=== PATIENT | male | born 1955 | race Caucasian/White ===

== ENCOUNTER → 2017-07-07 14:44 | Outpatient (CLI) | payer BC, SELFPAY ==
[2017-07-07 16:55] LABS: Estimated Glomerular Filt Rate > 60.0 mL/min (>60)
== END ==
PROVIDERS: PCP Family Medicine; Visit Provider Internal Medicine Gastroenterology
DX: K57.32 Diverticulitis of large intestine without perforation or abscess without bleeding (principal)
CPT/HCPCS: 36415; 82565

== ENCOUNTER 2017-09-29 01:15 | Inpatient (IN) | payer BC, SELFPAY ==
[2017-09-29] VITALS (11 sets, daily range): BP systolic 125–156; BP diastolic 72–97; PULSE 57–92; RESP 14–18; TEMP 35.9–36.9; O2SAT 90–100; BMI 30.4; BMI 30.3
--- NOTE | 2017-09-29 | DI.RAD.S_ITS ---
PROCEDURE: XR CHEST 1V INDICATIONS: Nasogastric tube placement TECHNIQUE: One view of the chest was acquired. COMPARISON: [facility], CR, XR ACUTE ABDOMEN SERIES, 09/29/2017, 1:08. [facility], CT, CT ABDOMEN PELVIS W CON, 09/29/2017, 1:57. FINDINGS: Surgical changes and devices: Cholecystectomy clips. NG tube is in place which projects across the GE junction. Lungs and pleura: No pleural effusions or pneumothorax. Lungs are clear. Mediastinum: Mediastinal contours appear normal. Heart size is normal. Bones and chest wall: No suspicious bony lesions. Overlying soft tissues appear unremarkable. IMPRESSION: NG tube projects across the GE junction. Dictated by: Rosie Martins MD, PhD on 09/29/2017 at 9:14 Approved by: Rosie Martins MD, PhD on 09/29/2017 at 9:16
--- NOTE | 2017-09-29 01:28 | DI.RAD.S_ITS ---
PROCEDURE: XR ACUTE ABDOMEN SERIES INDICATIONS: Abdominal pain, no bowel movement x4 days, no flatus TECHNIQUE: One view chest and two views of the abdomen were acquired. COMPARISON: [facility], CR, XR CHEST 1V, 09/29/2017, 5:47. FINDINGS: Surgical changes and devices: Cholecystectomy clips. Chest: Lungs are clear. Heart size is normal. No pleural effusions. No pneumoperitoneum. Abdomen: Gaseous distention of multiple loops of small and large bowel. Scattered air-fluid levels are noted a few of which have differential heights. No suspicious calcifications. Visualized solid organ contours appear normal. Bones: No suspicious bony lesions. IMPRESSION: Findings concerning for early or partial small bowel obstruction. Dictated by: Rosie Martins MD, PhD on 09/29/2017 at 9:10 Approved by: Rosie Martins MD, PhD on 09/29/2017 at 9:11
[2017-09-29] MEDS: SODIUM CHLORIDE 0.9% 1,000 ML 150 ML IV (01:50)
[2017-09-29 01:51] LABS: Add Manual Diff / Slide Review NO; Eosinophils Percent Auto 1.6 % (2-4); Hematocrit 41.5 % (41-53); Hemoglobin 14.3 g/dL (13.5-17.5); Lymphocytes Percent Auto 21.7 % (25-40); Mean Corpuscular HGB Conc 34.4 % (30-36); Mean Corpuscular Hemoglobin 30.2 PG (26-34); Mean Corpuscular Volume 87.7 fL (80-100); Monocytes Percent Auto 8.3 % (3-14); Neutrophils Absolute Auto 8100 /uL (3000-5900); Neutrophils Percent Auto 67.4 % (50-75); Platelet Count 537 X10^3/uL (150-400); Red Blood Cell Count 4.73 X10^6/uL (4.5-5.9); White Blood Cell Count 12.1 X10^3/uL (4.5-11.0)
--- NOTE | 2017-09-29 01:54 | DI.CT.S_ITS ---
PROCEDURE: CT ABDOMEN PELVIS W CON INDICATIONS: severe abdomen pain, distension, no BM/flatus TECHNIQUE: After the administration of intravenous contrast, 5 mm thick sections acquired from the diaphragm to the symphysis. 5 mm coronal and sagittal reformats were acquired. For radiation dose reduction, the following was used: automated exposure control, adjustment of mA and/or kV according to patient size. COMPARISON: [facility], CT, ABDOMEN/PELVIS WITH CONTRAST, 12/01/2016, 15:21. FINDINGS: Image quality: Excellent. ABDOMEN: Lung bases: Lung bases are clear. Heart size is normal. Solid organs: Liver is normal in size and enhancement. Gallbladder is surgically absent. Biliary system is non dilated. Pancreas enhances normally. Spleen is normal in size and enhancement. No adrenal nodules. Kidneys demonstrate normal size and enhancement, without hydronephrosis. Peritoneum and bowel: Bowel loops of the upper abdomen demonstrate normal wall thickness and caliber. The descending colon wall thickness is mildly increased as the abdomen/pelvis junction is approached. No free fluid or air. Nodes and vessels: No retroperitoneal or mesenteric adenopathy by size criteria. Aorta and inferior vena cava are normal in size. Miscellaneous: No ventral hernias. PELVIS: Genitourinary: Bladder wall thickness is normal. Miscellaneous: No inguinal hernias or adenopathy. There is a masslike mural thickening involving the distal descending colon in addition to diverticulosis and mild to moderate mural thickening of the descending colon as it approaches the abdomen/pelvis junction. A masslike extension from the colonic wall projects posteriorly, at the descending colon-sigmoid colon junction. This mass is hyperenhancing, and measures up to 2.6 x 3.3 cm, suspicious for representing a colonic malignancy that has extended into the adjacent pericolonic fat. Mild adjacent edema and spiculation is present, at the left lower quadrant. No enlarged lymph nodes are associated, however. Bones: No suspicious bony lesions. No vertebral body compression fractures. IMPRESSION: Malignant appearing masslike structure at the junction of the descending [id number] colon with a moderate degree of pericolonic edema and spiculation, and a masslike extension of abnormal enhancing soft tissue into the adjacent paracolonic fat measuring up to 3.3 cm. Invasive colon carcinoma is the likely cause. Above the area of the mass the descending colon demonstrates abnormal mural thickening that appears concentric, tapering, and extends almost to the splenic flexure. This may represent reactive change to a high-grade obstruction more inferiorly. Colonic mild distention by stool is present above this level. Through the abdomen and pelvis no definite distant metastatic disease or regional adenopathy is found. Note: These findings are concordant with the preliminary interpretation, which was discussed in person with the emergency room physician caring for the patient. Dictated by: Xavier Carlson M.D. on 09/29/2017 at 10:24 Approved by: Xavier Carlson M.D. on 09/29/2017 at 10:33
[2017-09-29] MEDS: HYDROMORPHONE 1 MG INJ IV ×2 (01:56→03:20)
[2017-09-29 01:59] LABS: Alanine Aminotransferase 27 IU/L (21-72); Albumin 4.3 g/dL (3.5-5.0); Albumin Globulin Ratio 1.3 (1.0-2.8); Alkaline Phosphatase 137 U/L (38-126); Aspartate Aminotransferase 35 IU/L (17-59); Bilirubin Total 0.4 mg/dL (0.2-1.3); Blood Urea Nitrogen 16 mg/dL (9-20); Calcium 9.5 mg/dL (8.4-10.2); Carbon Dioxide 31 mmol/L (22-32); Chloride 100 mmol/L (98-107); Estimated Glomerular Filt Rate > 60.0 mL/min (>60); Globulin 3.4 g/dL (1.7-4.1); Glucose 167 mg/dL (80-110); HEMOLYSIS < 15 (0-50); Lipase 27 U/L (23-300); Potassium 3.8 mmol/L (3.4-5.1); Sodium 143 mmol/L (137-145); Total Protein 7.7 g/dL (6.3-8.2)
--- NOTE | 2017-09-29 02:05 | ED.ABDPAIN ---
HPI - Abdominal Pain General Chief Complaint: Abdominal Pain Stated Complaint: ABDOMINAL PAIN, BAD Time Seen by Provider: 09/29/17 01:28 Source: patient Mode of arrival: ambulatory Limitations: no limitations History of Present Illness HPI narrative: 61-year-old male with severe abdominal pain for the past 3-4 days. He admits to nausea but denies any vomiting. He has had no bowel movement the past 4 days and denies even passing flatus. He does have a longstanding history of abdominal complaints including a recent diagnosis of diverticulitis as evidenced by a CT scan at [facility]. 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 His abdomen is become quite swollen and tender over the past few days. He denies any history of obstruction. He denies any fever or chills. His pain is worse when he moves and improves MD complaint: abdominal pain Onset (ago): day(s) Pain Consistency: constant Location: diffuse Severity: severe Severity scale (1-10): 10 Quality: cramping and aching Radiation: none Migration to: no migration Relieving factors: rest Exacerbating factors: movement Associated symptoms: nausea Related Data Home Medications Medication Instructions Recorded Confirmed amoxicillin-pot clavulanate 1 tab PO BID 09/29/17 09/29/17 fluticasone-salmeterol [Advair 1 puff INHALATION BID 09/29/17 09/29/17 Diskus] Previous Rx's Medication Instructions Recorded albuterol sulfate [Ventolin HFA] 2 - 4 puff INH Q4HP PRN #1 ea 01/18/16 Allergies Allergy/AdvReac Type Severity Reaction Status Date / Time No Known Allergies Allergy Uncoded 05/20/17 12:40 Review of Systems Review of Systems All systems reviewed & are unremarkable except as noted in HPI and below Constitutional Denies chills, Denies fever(s), Denies lethargy and Denies weakness Eyes Denies change in vision, Denies eye discharge, Denies irritation and Denies loss of vision ENT Ears, Nose, Mouth, and Throat: Denies change in voice, Denies neck pain and Denies sore throat Cardiovascular Denies chest pain, Denies irregular heart rhythm, Denies lightheadedness, Denies palpitations, Denies dyspnea, Denies dyspnea on exertion and Denies orthopnea Respiratory Denies cough, Denies dyspnea, Denies dyspnea on exertion and Denies wheezing Gastrointestinal Gastrointestinal: Reports abdominal pain, Denies change in bowel habits, Denies diarrhea, Reports nausea and Denies vomiting Genitourinary Denies hematuria, Denies flank pain, Denies urinary incontinence and Denies urinary urgency Musculoskeletal Denies neck pain Integumentary/Breasts Denies pruritus, Denies erythema, Denies rash and Denies wounds Neurologic Denies confusion, Denies loss of vision and Denies weakness Psychiatric Denies anxiety, Denies confusion, Denies depression, Denies homicidal ideation and Denies suicidal ideation Endocrine Denies palpitations Hematologic/Lymphatic Denies easy bruising Allergic/Immunologic Denies wheezing [facility], [facility] Medical History Asthma (Acute) Diverticulitis (Acute) Personal history of colonic polyps (Acute) Surgical History History of cholecystectomy (Acute) History of colonoscopy (Acute) History of umbilical hernia repair (Acute) Status post cholecystectomy Family History: Reviewed 09/29/17 by Roger Fiore MD Social History household members: spouse Smoking Status: Former smoker alcohol intake: current Exam Narrative Exam Narrative: 61-year-old male in significant distress, clutching his abdomen and an emesis bag Initial Vital Signs Initial Vital Signs: Vital Signs Temperature 98.4 F 09/29/17 01:24 Pulse Rate 92 H 09/29/17 01:24 Respiratory Rate 18 09/29/17 01:24 Blood Pressure 156/97 H 09/29/17 01:24 Pulse Oximetry 97 09/29/17 01:24 Const General: cooperative, well developed and acute distress Nutritional Appearance: well nourished Orientation: alert, awake, oriented x3 and not confused [facility] Head: normocephalic and atraumatic Ears: external ears normal and TM's normal bilaterally Nose: external nose normal and No nasal discharge Face and sinus: sinuses nontender, face symmetric, no sinus tenderness and No dry mucous membranes Mouth: oral mucosae normal and moist mucous membranes Teeth and gingiva: dentition normal Throat: tonsils normal and uvula midline Eyes General: appearance normal, both eyes and all related structures Eyelids: eyelids normal Conjunctivae: conjunctivae normal Sclera: sclerae normal Pupils: PERRL EOM: EOM intact bilaterally Chest Chest: normal inspection of the chest Resp Effort & Inspection: normal respiratory effort, able to speak in complete sentences, no respiratory distress and no use of accessory muscles Auscultation: clear to auscultation bilaterally, no rales, no rhonchi and no wheezes GI Inspection: distended Palpation: soft, no hepatosplenomegaly, guarding, No pulsatile mass and tender Auscultation: normal bowel sounds and hypoactive bowel sounds Back/Spine/Pelvis Back: No CVA tenderness Cervical Spine: cervical ROM normal and No pain with cervical ROM Thoracic/Lumbar Spine: thoracic and lumbar spine normal to inspection Neuro General: alert, oriented x3, gait normal and no focal motor deficits Speech: speech normal Course Decision to Admit Date: 09/29/17 Decision to Admit time: 02:00 Orders Ordered: ED Orders 09/30/17 05:00 Basic Metabolic Panel Urgent Complete Blood Count AUTO DIFF Urgent Type and Screen Urgent 09/30/17 06:00 XR acute abdomen series Urgent Albuterol (Ventolin) 2.5 mg INH [id number] [facility] Last Admin: 09/29/17 18:11 Dose: 2.5 mg Admin: 09/29/17 13:28 Dose: Admin: 09/29/17 08:43 Dose: 2.5 mg Enoxaparin Sodium (Lovenox) 40 mg SUBCUT DAILY [facility] Last Admin: 09/29/17 08:48 Dose: 40 mg Lactated Ringer's (Lactated Ringers) 1,000 mls @ 125 mls/hr IV CONT [facility] Last Admin: 09/30/17 04:34 Dose: 125 mls/hr Infusion: 09/30/17 04:34 Dose: 125 mls/hr Admin: 09/29/17 21:29 Dose: 125 mls/hr Infusion: 09/29/17 21:29 Dose: 125 mls/hr Admin: 09/29/17 14:23 Dose: 125 mls/hr Infusion: 09/29/17 14:23 Dose: 125 mls/hr Admin: 09/29/17 07:08 Dose: 125 mls/hr HYDROMORPHONE BLAST FURNACE OPERATOR (Dilaudid 6 Mg/30 Ml) 6 mg in 30 mls @ 0 mls/hr IV Q8HR [facility] Last Admin: 09/29/17 21:30 Dose: 0 mls/hr Admin: 09/29/17 14:24 Dose: 1.2 mls/hr Naloxone HCl (Narcan) 0.2 mg IV Q2MIN PRN; Protocol PRN Reason: Opiate Reversal Ondansetron HCl (Zofran) 4 mg IV Q4HR PRN PRN Reason: Nausea And Vomiting Last Admin: 09/29/17 07:18 Dose: 4 mg Pantoprazole Sodium (Protonix) 40 mg IV DAILY [facility] Last Admin: 09/29/17 08:48 Dose: 40 mg Discontinued Medications Hydromorphone HCl (Dilaudid) 1 mg IV NOW ONE Stop: 09/29/17 01:55 Last Admin: 09/29/17 01:56 Dose: 1 mg Hydromorphone HCl (Dilaudid) 1 mg IV NOW ONE Stop: 09/29/17 03:19 Last Admin: 09/29/17 03:20 Dose: 1 mg Sodium Chloride (Normal Saline 0.9%) 1,000 mls @ 150 mls/hr IV CONT [facility] Last Admin: 09/29/17 01:50 Dose: 150 mls/hr HYDROMORPHONE BLAST FURNACE OPERATOR (Dilaudid 6 Mg/30 Ml) 6 mg in 30 mls @ 0 mls/hr IV Q8HR [facility] Magnesium Citrate (Magnesium Citrate) 300 ml PO NOW ONE Stop: 09/29/17 06:56 Last Admin: 09/29/17 08:48 Dose: 300 ml Polyethylene Glycol (Miralax) 17 gm PO NOW ONE Stop: 09/29/17 18:58 Last Admin: 09/29/17 19:49 Dose: 17 gm Sodium Biphosphate/Sodium Phosphate (Fleet Enema) 1 each MT NOW ONE Stop: 09/29/17 06:53 Last Admin: 09/29/17 07:08 Dose: 1 each Sodium Biphosphate/Sodium Phosphate (Fleet Enema) 1 each MT NOW ONE Stop: 09/29/17 14:01 Last Admin: 09/29/17 14:24 Dose: 1 each Consultations Consultation #1: Called to Dr. Fiore whom is happy to accept this patient and will see him in the emergency department Vital Signs - 8 hr 09/30/17 00:20 09/30/17 00:30 09/30/17 03:30 Temperature 96.5 F L 97.5 F L Pulse Rate 89 59 L Respiratory Rate 16 18 Blood Pressure 137/97 H 157/76 H Pulse Oximetry 97 97 94 MDM - Abdominal Pain Medical Records Attestation: I reviewed the patient's medical records. Lab Data Attestation: I reviewed the patient's lab results. Result diagrams: 09/29/17 01:35 09/29/17 01:35 Lab Results 09/29/17 09/29/17 09/29/17 Range/Units 01:35 01:35 01:35 WBC 12.1 H (4.5-11.0) X10^3/uL RBC 4.73 (4.5-5.9) X10^6/uL Hgb 14.3 (13.5-17.5) g/dL Hct 41.5 (41-53) % MCV 87.7 (80-100) fL MCH 30.2 (26-34) PG MCHC 34.4 (30-36) % RDW 13.0 (11.6-14.8) % Plt Count 537 H (150-400) X10^3/uL Neut % (Auto) 67.4 (50-75) % Lymph % (Auto) 21.7 L (25-40) % [place] % (Auto) 8.3 (3-14) % Eos % (Auto) 1.6 L (2-4) % Baso % (Auto) 1.0 (0-2) % Neut # (Auto) 8100 H (1102-4704) /uL Sodium 143 (137-145) mmol/L Potassium 3.8 (3.4-5.1) mmol/L Chloride 100 (98-107) mmol/L Carbon Dioxide 31 (22-32) mmol/L BUN 16 (9-20) mg/dL Creatinine 0.80 (0.66-1.25) mg/dL Estimated GFR > 60.0 (>60) mL/min BUN/Creatinine Ratio 20.0 (6-22) Glucose 167 H (80-110) mg/dL Lactate 0.9 (0.7-2.1) mmol/L Calcium 9.5 (8.4-10.2) mg/dL Total Bilirubin 0.4 (0.2-1.3) mg/dL AST 35 (17-59) IU/L ALT 27 (21-72) IU/L Alkaline Phosphatase 137 H (38-126) U/L Total Protein 7.7 (6.3-8.2) g/dL Albumin 4.3 (3.5-5.0) g/dL Globulin 3.4 (1.7-4.1) g/dL Albumin/Globulin Ratio 1.3 (1.0-2.8) Lipase 27 (23-300) U/L Imaging Data CT scan - abdomen: Radiologist's impression: Moderate to high-grade colon obstruction at the level of complex lumen narrowing and masslike pericolonic soft tissue density involving the distal descending proximal sigmoid colon Discharge Plan Departure Patient Disposition: Admitted As Inpatient Clinical Impression: Bowel obstruction Discharge Date/Time: 09/29/17 05:20 Interventions: ED Discharge Assessment Last Done: 09/29/17 06:47 Admit Date/Time: 09/29/17 03:51 Admit Provider: Roger Fiore
--- NOTE | 2017-09-29 02:09 | ED_ITS ---
HPI - Abdominal Pain General Chief Complaint: Abdominal Pain Stated Complaint: ABDOMINAL PAIN, BAD Time Seen by Provider: 09/29/17 01:28 Source: patient Mode of arrival: ambulatory Limitations: no limitations History of Present Illness HPI narrative: 61-year-old male with severe abdominal pain for the past 3-4 days. He admits to nausea but denies any vomiting. He has had no bowel movement the past 4 days and denies even passing flatus. He does have a longstanding history of abdominal complaints including a recent diagnosis of diverticulitis as evidenced by a CT scan at [facility]. 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 His abdomen is become quite swollen and tender over the past few days. He denies any history of obstruction. He denies any fever or chills. His pain is worse when he moves and improves MD complaint: abdominal pain Onset (ago): day(s) Pain Consistency: constant Location: diffuse Severity: severe Severity scale (1-10): 10 Quality: cramping and aching Radiation: none Migration to: no migration Relieving factors: rest Exacerbating factors: movement Associated symptoms: nausea Related Data Home Medications Medication Instructions Recorded Confirmed amoxicillin-pot clavulanate 1 tab PO BID 09/29/17 09/29/17 fluticasone-salmeterol [Advair 1 puff INHALATION BID 09/29/17 09/29/17 Diskus] Previous Rx's Medication Instructions Recorded albuterol sulfate [Ventolin HFA] 2 - 4 puff INH Q4HP PRN #1 ea 01/18/16 Allergies Allergy/AdvReac Type Severity Reaction Status Date / Time No Known Allergies Allergy Uncoded 05/20/17 12:40 Review of Systems Review of Systems All systems reviewed & are unremarkable except as noted in HPI and below Constitutional Denies chills, Denies fever(s), Denies lethargy and Denies weakness Eyes Denies change in vision, Denies eye discharge, Denies irritation and Denies loss of vision ENT Ears, Nose, Mouth, and Throat: Denies change in voice, Denies neck pain and Denies sore throat Cardiovascular Denies chest pain, Denies irregular heart rhythm, Denies lightheadedness, Denies palpitations, Denies dyspnea, Denies dyspnea on exertion and Denies orthopnea Respiratory Denies cough, Denies dyspnea, Denies dyspnea on exertion and Denies wheezing Gastrointestinal Gastrointestinal: Reports abdominal pain, Denies change in bowel habits, Denies diarrhea, Reports nausea and Denies vomiting Genitourinary Denies hematuria, Denies flank pain, Denies urinary incontinence and Denies urinary urgency Musculoskeletal Denies neck pain Integumentary/Breasts Denies pruritus, Denies erythema, Denies rash and Denies wounds Neurologic Denies confusion, Denies loss of vision and Denies weakness Psychiatric Denies anxiety, Denies confusion, Denies depression, Denies homicidal ideation and Denies suicidal ideation Endocrine Denies palpitations Hematologic/Lymphatic Denies easy bruising Allergic/Immunologic Denies wheezing [facility] Medical History Asthma (Acute) Diverticulitis (Acute) Personal history of colonic polyps (Acute) Surgical History History of cholecystectomy (Acute) History of colonoscopy (Acute) History of umbilical hernia repair (Acute) Status post cholecystectomy Family History: Reviewed 09/29/17 by Roger Fiore MD Social History household members: spouse Smoking Status: Former smoker alcohol intake: current Exam Narrative Exam Narrative: 61-year-old male in significant distress, clutching his abdomen and an emesis bag Initial Vital Signs Initial Vital Signs: Vital Signs Temperature 98.4 F 09/29/17 01:24 Pulse Rate 92 H 09/29/17 01:24 Respiratory Rate 18 09/29/17 01:24 Blood Pressure 156/97 H 09/29/17 01:24 Pulse Oximetry 97 09/29/17 01:24 Const General: cooperative, well developed and acute distress Nutritional Appearance: well nourished Orientation: alert, awake, oriented x3 and not confused [facility] Head: normocephalic and atraumatic Ears: external ears normal and TM's normal bilaterally Nose: external nose normal and No nasal discharge Face and sinus: sinuses nontender, face symmetric, no sinus tenderness and No dry mucous membranes Mouth: oral mucosae normal and moist mucous membranes Teeth and gingiva: dentition normal Throat: tonsils normal and uvula midline Eyes General: appearance normal, both eyes and all related structures Eyelids: eyelids normal Conjunctivae: conjunctivae normal Sclera: sclerae normal Pupils: PERRL EOM: EOM intact bilaterally Chest Chest: normal inspection of the chest Resp Effort & Inspection: normal respiratory effort, able to speak in complete sentences, no respiratory distress and no use of accessory muscles Auscultation: clear to auscultation bilaterally, no rales, no rhonchi and no wheezes GI Inspection: distended Palpation: soft, no hepatosplenomegaly, guarding, No pulsatile mass and tender Auscultation: normal bowel sounds and hypoactive bowel sounds Back/Spine/Pelvis Back: No CVA tenderness Cervical Spine: cervical ROM normal and No pain with cervical ROM Thoracic/Lumbar Spine: thoracic and lumbar spine normal to inspection Neuro General: alert, oriented x3, gait normal and no focal motor deficits Speech: speech normal Course Decision to Admit Date: 09/29/17 Decision to Admit time: 02:00 Orders Ordered: ED Orders 09/30/17 05:00 Basic Metabolic Panel Urgent Complete Blood Count AUTO DIFF Urgent Type and Screen Urgent 09/30/17 06:00 XR acute abdomen series Urgent Albuterol (Ventolin) 2.5 mg INH [id number] [facility] Last Admin: 09/29/17 18:11 Dose: 2.5 mg Admin: 09/29/17 13:28 Dose: Admin: 09/29/17 08:43 Dose: 2.5 mg Enoxaparin Sodium (Lovenox) 40 mg SUBCUT DAILY [facility] Last Admin: 09/29/17 08:48 Dose: 40 mg Lactated Ringer's (Lactated Ringers) 1,000 mls @ 125 mls/hr IV CONT [facility] Last Admin: 09/30/17 04:34 Dose: 125 mls/hr Infusion: 09/30/17 04:34 Dose: 125 mls/hr Admin: 09/29/17 21:29 Dose: 125 mls/hr Infusion: 09/29/17 21:29 Dose: 125 mls/hr Admin: 09/29/17 14:23 Dose: 125 mls/hr Infusion: 09/29/17 14:23 Dose: 125 mls/hr Admin: 09/29/17 07:08 Dose: 125 mls/hr [employer] EMPLOYEE WELLNESS/FITNESS COORDINATOR (Dilaudid 6 Mg/30 Ml) 6 mg in 30 mls @ 0 mls/hr IV Q8HR [facility] Last Admin: 09/29/17 21:30 Dose: 0 mls/hr Admin: 09/29/17 14:24 Dose: 1.2 mls/hr Naloxone HCl (Narcan) 0.2 mg IV Q2MIN PRN; Protocol PRN Reason: Opiate Reversal Ondansetron HCl (Zofran) 4 mg IV Q4HR PRN PRN Reason: Nausea And Vomiting Last Admin: 09/29/17 07:18 Dose: 4 mg Pantoprazole Sodium (Protonix) 40 mg IV DAILY [facility] Last Admin: 09/29/17 08:48 Dose: 40 mg Discontinued Medications Hydromorphone HCl (Dilaudid) 1 mg IV NOW ONE Stop: 09/29/17 01:55 Last Admin: 09/29/17 01:56 Dose: 1 mg Hydromorphone HCl (Dilaudid) 1 mg IV NOW ONE Stop: 09/29/17 03:19 Last Admin: 09/29/17 03:20 Dose: 1 mg Sodium Chloride (Normal Saline 0.9%) 1,000 mls @ 150 mls/hr IV CONT [facility] Last Admin: 09/29/17 01:50 Dose: 150 mls/hr [employer]OM[employer] EMPLOYEE WELLNESS/FITNESS COORDINATOR (Dilaudid 6 Mg/30 Ml) 6 mg in 30 mls @ 0 mls/hr IV Q8HR [facility] Magnesium Citrate (Magnesium Citrate) 300 ml PO NOW ONE Stop: 09/29/17 06:56 Last Admin: 09/29/17 08:48 Dose: 300 ml Polyethylene Glycol (Miralax) 17 gm PO NOW ONE Stop: 09/29/17 18:58 Last Admin: 09/29/17 19:49 Dose: 17 gm Sodium Biphosphate/Sodium Phosphate (Fleet Enema) 1 each WA NOW ONE Stop: 09/29/17 06:53 Last Admin: 09/29/17 07:08 Dose: 1 each Sodium Biphosphate/Sodium Phosphate (Fleet Enema) 1 each WA NOW ONE Stop: 09/29/17 14:01 Last Admin: 09/29/17 14:24 Dose: 1 each Consultations Consultation #1: Called to Dr. Fiore whom is happy to accept this patient and will see him in the emergency department Vital Signs - 8 hr 09/30/17 00:20 09/30/17 00:30 09/30/17 03:30 Temperature 96.5 F L 97.5 F L Pulse Rate 89 59 L Respiratory Rate 16 18 Blood Pressure 137/97 H 157/76 H Pulse Oximetry 97 97 94 MDM - Abdominal Pain Medical Records Attestation: I reviewed the patient's medical records. Lab Data Attestation: I reviewed the patient's lab results. Result diagrams: 09/29/17 01:35 09/29/17 01:35 Lab Results 09/29/17 09/29/17 09/29/17 Range/Units 01:35 01:35 01:35 WBC 12.1 H (4.5-11.0) X10^3/uL RBC 4.73 (4.5-5.9) X10^6/uL Hgb 14.3 (13.5-17.5) g/dL Hct 41.5 (41-53) % MCV 87.7 (80-100) fL MCH 30.2 (26-34) PG MCHC 34.4 (30-36) % RDW 13.0 (11.6-14.8) % Plt Count 537 H (150-400) X10^3/uL Neut % (Auto) 67.4 (50-75) % Lymph % (Auto) 21.7 L (25-40) % [place] % (Auto) 8.3 (3-14) % Eos % (Auto) 1.6 L (2-4) % Baso % (Auto) 1.0 (0-2) % Neut # (Auto) 8100 H (1497-4853) /uL Sodium 143 (137-145) mmol/L Potassium 3.8 (3.4-5.1) mmol/L Chloride 100 (98-107) mmol/L Carbon Dioxide 31 (22-32) mmol/L BUN 16 (9-20) mg/dL Creatinine 0.80 (0.66-1.25) mg/dL Estimated GFR > 60.0 (>60) mL/min BUN/Creatinine Ratio 20.0 (6-22) Glucose 167 H (80-110) mg/dL Lactate 0.9 (0.7-2.1) mmol/L Calcium 9.5 (8.4-10.2) mg/dL Total Bilirubin 0.4 (0.2-1.3) mg/dL AST 35 (17-59) IU/L ALT 27 (21-72) IU/L Alkaline Phosphatase 137 H (38-126) U/L Total Protein 7.7 (6.3-8.2) g/dL Albumin 4.3 (3.5-5.0) g/dL Globulin 3.4 (1.7-4.1) g/dL Albumin/Globulin Ratio 1.3 (1.0-2.8) Lipase 27 (23-300) U/L Imaging Data CT scan - abdomen: Radiologist's impression: Moderate to high-grade colon obstruction at the level of complex lumen narrowing and masslike pericolonic soft tissue density involving the distal descending proximal sigmoid colon Discharge Plan Departure Patient Disposition: Admitted As Inpatient Clinical Impression: Bowel obstruction Discharge Date/Time: 09/29/17 05:20 Interventions: ED Discharge Assessment Last Done: 09/29/17 06:47 Admit Date/Time: 09/29/17 03:51 Admit Provider: Roger Fiore
[2017-09-29 02:25] LABS: Lactate (Lactic Acid) 0.9 mmol/L (0.7-2.1)
--- NOTE | 2017-09-29 04:24 | PC.NURSE ---
With pt's permission, update given to his , Veronica [phone], when she phoned.
[2017-09-29] MEDS: FLEETS ENEMA 1 EACH PR ×2 (07:08→14:24)
[2017-09-29] MEDS: LACTATED RINGERS 1,000 ML 125 ML IV ×3 (07:08→21:29)
[2017-09-29] MEDS: ONDANSETRON 4 MG/2 ML INJ IV (07:18)
--- NOTE | 2017-09-29 07:46 | PC.NURSE ---
Patient admitted to unit at 0630 as AxOx3, with , able to ambulate independently to bed. NGT connected to low intermittent suction. LR@125mL/hr started, Dilauid WIRE PULLER started. Fleet enema given, patient on commode trying to have a bowel movement feeling like he needs to as well as being very nauseous. Zofran given. Tolerating room air. Educated on WIRE PULLER usage, call boyer, and safety precautions.
[2017-09-29] MEDS: ALBUTEROL 2.5 MG/3 ML NEB (ADULT) INH ×2 (08:43→18:11)
[2017-09-29] MEDS: ENOXAPARIN 40 MG/0.4 ML SYRINGE SUBCUT (08:48)
[2017-09-29] MEDS: MAGNESIUM CITRATE 300 ML SOLUTION PO (08:48)
[2017-09-29] MEDS: PANTOPRAZOLE 40 MG VIAL IV (08:48)
--- NOTE | 2017-09-29 09:37 | PM.HP.1 ---
History of Present Illness Date Patient Seen: 09/29/17 Time Patient Seen: 04:37 Chief complaint: ABDOMINAL PAIN, BAD Narrative: 61-year-old male with 10 month history of intermittent left lower quadrant abdominal pain that has been radiating at times to the suprapubic area. Initial evaluation at the time of onset was consistent with diverticulitis for which he was treated with multiple courses of outpatient oral antibiotics. He subsequently followed up and consulted with the gastroenterology service at [facility] under the care of Dr. Morrissey. despite antibiotics the patient continued to have intermittent symptoms which never completely totally resolved. In May 2017 colonoscopy was attempted by the gastroenterology service, but the procedure was aborted due to acute inflammation per the operative note that is obtained, reviewed, and placed on the chart today. No other significant findings were noted. Since May of this year the patient has again completed a course of antibiotics as he is never been completely asymptomatic. However, in the last 24 hr the patient has noticed increase significant abdominal distention, dry heaving, abdominal pain diffusely, decreased flatus output, and lack of bowel function. He has also been anorexic over the last 48 hr with increasing left lower quadrant pain. His last bowel movement was approximately 2 days ago but he described as very small in volume and small in caliber. He has not had any fever, chills, nausea, dysuria, hematuria, melena, or bright red blood per rectum. At the time of my visit his pain has subsided significantly since receiving intravenous Dilaudid in the emergency department. Patient History Medical History Asthma (Acute) Diverticulitis (Acute) Personal history of colonic polyps (Acute) Surgical History History of cholecystectomy (Acute) History of colonoscopy (Acute) History of umbilical hernia repair (Acute) Status post cholecystectomy Family & Social History Family History: Reviewed 09/29/17 by Roger Fiore MD Tobacco & Substance use: Smoking Status Former smoker Meds Home Medications Medication Instructions Recorded Confirmed Type albuterol sulfate [Ventolin HFA] 2 - 4 puff INH Q4HP PRN #1 ea 01/18/16 06/16/17 Rx cyclobenzaprine 10 mg PO BIDP PRN #30 tab 01/19/17 06/16/17 Rx fluticasone-salmeterol [Advair 1 puff INH BID #1 ea 02/24/17 06/16/17 Rx Diskus] azithromycin 250 mg tablet See Label Instructions PO .COMPLEX 06/26/17 Rx #6 tab prednisone 20 mg tablet See Label Instructions PO DAILY 06/26/17 Rx #30 tab Allergies Allergy/AdvReac Type Severity Reaction Status Date / Time No Known Allergies Allergy Uncoded 05/20/17 12:40 Review of Systems Review of Systems All systems reviewed & are unremarkable except as noted in HPI and below Exam Vital Signs (past 8 hours): - 09/29/17 02:19 09/29/17 03:31 09/29/17 04:35 Temperature Pulse Rate 73 63 76 Respiratory Rate 14 14 15 Blood Pressure Blood Pressure [Left Arm] 154/84 H 126/76 H 147/72 H Pulse Oximetry 90 L 97 100 09/29/17 06:50 09/29/17 08:43 Temperature 97.6 F Pulse Rate 69 61 Respiratory Rate 16 16 Blood Pressure 130/88 H Blood Pressure [Left Arm] Pulse Oximetry 94 92 Oxygen Delivery Method Room Air Oxygen Flow Rate 2 Narrative Exam Narrative: patient seen and examined in the emergency department. Attending ER physician is at the bedside. Patient is alert oriented x3. No acute distress. Nasogastric tube has been previously inserted by the emergency department staff and has drained approximately 300 cc of relatively clear gastric fluid. No significant bilious output. Sclera nonicteric regular rate and rhythm Chest clear to auscultation other than few intermittent inspiratory wheezes. No crackles. No gallops or rubs. Abdomen is distended and tympanitic but soft. He is mildly tender in the left lower quadrant but certainly has no guarding or rebound. I appreciate no masses. No hepatomegaly. No ascites. He has a well-healed right upper quadrant scar consistent with prior open cholecystectomy. Well-healed umbilical scar consistent with prior hernia repair. I appreciate no abdominal wall hernias, incisional hernias, or inguinal hernias at this time. Femoral pulses are palpable bilaterally. Extremities show no clubbing, cyanosis, or edema Objective Labs Result Diagrams: 09/29/17 01:35 09/29/17 01:35 Labs: Laboratory Results - last 24 hr 09/29/17 09/29/17 09/29/17 01:35 01:35 01:35 WBC 12.1 H RBC 4.73 Hgb 14.3 Hct 41.5 MCV 87.7 MCH 30.2 MCHC 34.4 RDW 13.0 Plt Count 537 H Neut % (Auto) 67.4 Lymph % (Auto) 21.7 L [place] % (Auto) 8.3 Eos % (Auto) 1.6 L Baso % (Auto) 1.0 Neut # (Auto) 8100 H Sodium 143 Potassium 3.8 Chloride 100 Carbon Dioxide 31 BUN 16 Creatinine 0.80 Estimated GFR > 60.0 BUN/Creatinine Ratio 20.0 Glucose 167 H Lactate 0.9 Calcium 9.5 Total Bilirubin 0.4 AST 35 ALT 27 Alkaline Phosphatase 137 H Total Protein 7.7 Albumin 4.3 Globulin 3.4 Albumin/Globulin Ratio 1.3 Lipase 27 I have personally reviewed his CT scan of the abdomen and pelvis done this morning in the emergency department. Patient has no free air or free fluid. He does have moderately dilated colon from the proximal descending colon to the cecum. Rectum and distal sigmoid colon or collapse. There is copious stool in the colon as well. Most of the descending and proximal sigmoid colon demonstrate diffuse wall thickening and narrowing with mild associated inflammation but the findings are not classic for diverticulitis. There is the possibility of neoplasm versus diverticular stricture. No abscesses seen. Assessment & Plan Plan: Assessment/Plan Narrative: 61-year-old male with colonic partial obstruction of unclear etiology. There certainly the possibility of neoplasm versus stricture secondary to chronic unresolved diverticulitis. He has no evidence of ischemic bowel or acute abdomen at this time. Nevertheless, he requires admission and will be in the hospital at least 2 nights or more. He requires IV fluid resuscitation with bowel rest. Continue the nasogastric decompression. I see no indication for antibiotics currently. Because he is only partially obstructed we may be able to perform a somewhat adequate bowel preparation with gentle cathartics via the nasogastric tube in conjunction with enemas. Regardless he will require exploratory laparotomy with left colectomy this admission. I have discussed this with him in detail. If we can adequately bowel prep the patient over the next 24 hr or so then we may be able to perform a colorectal anastomosis with a protecting ileostomy which would be easier to reverse that a 2nd operation in the future. Otherwise he will require a standard Ronal procedure with diverting colostomy and a 2nd operation requiring colostomy reversal with colorectal anastomosis at that time. Technical details of those operations were discussed. Risks, benefits, and alternatives were also explained. Anticipated healing and recovery times were reviewed. He understands that an ostomy would be intended to be temporary and reversed at a later date depending upon findings as well as his overall recovery after surgery. Risks including but not limited to anesthesia, bleeding, need for transfusion, infection, pain, poor wound healing, bladder injury, liver injury, spleen injury, pancreatic injury, renal injury, ureter injury, need for ostomy as above, major vascular injury, anastomotic leak, abscess, scar, gastric injury, Small-bowel injury, colon injury,further treatment based on findings especially if neoplasm is present, and need for further major abdominal surgery were all discussed at length. all questions were answered to his satisfaction, and he voiced understanding. Orders were written.
[2017-09-29] MEDS: HYDROMORPHONE PCA 6 MG/30 ML PCA.VIAL 1.2 MG IV (14:24)
--- NOTE | 2017-09-29 14:37 | PC.NURSE ---
1430 Pt given 300ml mag citrate this am via NGT. Pt misty well, left the NG clamped for 45 min following, Pt denied any nausea, returned the NGT to int suction at 1045,. Pt has had a total of 400 ml yellow OP for this shift. Pt given enema at 1420. no results yet, Pt resting on L side in bed. Pt used 1.2 ml dilaudid per PROFESSOR OF POULTRY SCIENCE this shift. Pt denies pain. SCDs on BLE. Pt pleasant & cooperative with care needs. Remains NPO.
[2017-09-29] MEDS: POLYETHYLENE GLYCOL 3350 17 GM POWD.PACK PO (19:49)
--- NOTE | 2017-09-29 20:21 | PC.NURSE ---
[place] shift note: Patient awake and alert, continue with abdominal distention, green bilious drainage from NGT to low intermittent suction. Abdomen round, hard, with hyperactive sounds. Mild tenderness. Unable to have a BM. Pain controlled adequately with Dilaudid GUTTER INSTALLER. No c/o nausea or vomiting, occasionally taking ice chips. IVF infusing and voiding. Dr. Fiore at bedside. Obtained signed surgical consent, placed in chart.
[2017-09-29] MEDS: HYDROMORPHONE PCA 6 MG/30 ML PCA.VIAL IV (21:30)
[2017-09-30] VITALS (18 sets, daily range): BP systolic 68–162; BP diastolic 38–97; PULSE 59–128; RESP 12–20; TEMP 35.8–36.6; O2SAT 94–100; BMI 30.3
--- NOTE | 2017-09-30 | PATH_ITS ---
[facility] Accession Number: [id number] . 01 Material submitted: . PART A: SIGMOID COLON SEGMENT PART B: SMALL BOWEL SEGMENT . 01 Clinical history: . A: SIGMOID COLON SEGMENT, STAPLED END DISTAL . 02 Diagnosis: A. Sigmoid Colon, Segmental Resection: 1. Invasive adenocarcinoma, moderately differentiated. 2. Acute suppurative diverticulitis with perforation and serositis. 3. Please see CAP summary data below. . B. Small Bowel, Segmental Resection: 1. Small bowel with adhesions, abscess and serositis. 2. Active inflammation extends to mucosal surface. 3. No evidence of dysplasia or malignancy. . . CAP CANCER CASE SUMMARY: COLON RESECTION . PROCEDURE: Segmental Resection TUMOR SITE: Sigmoid Colon TUMOR SIZE: Greatest dimension: 3.0 CM MACROSCOPIC TUMOR PERFORATION: Can not be determined. . HISTOLOGIC TYPE: Adenocarcinoma HISTOLOGIC GRADE: Moderately differentiated (G2) TUMOR EXTENSION: Tumor invades the visceral peritoneum (including tumor continuous with serosal surface through area of inflammation). . MARGINS: All margins are uninvolved by invasive carcinoma and dysplasia. Proximal Margin: 2 MM Distal Margin: >10 MM Radial Margin: Not applicable. . TREATMENT EFFECT: No known presurgical therapy. LYMPHOVASCULAR INVASION: Present, small vessel lymphovascular invasion. PERINEURAL INVASION: Not identified. TUMOR DEPOSITS: Not identified. . REGIONAL LYMPH NODES: Number of Lymph Nodes Involved: 0 Number of Lymph Nodes Examined: 17 . PATHOLOGIC STAGE CLASSIFICIATION (AJCC 8th ed.) Primary Tumor: pT4a Regional Lymph Nodes: pN0 . ADDITIONAL PATHOLOGIC FINDINGS: Ruptured diverticulitis. . ANCILLARY STUDIES: No loss of nuclear expression of mismatch repair proteins. . L/10/13/2017 . 02 Comment: As part of routine quality control operator, Dr. Perdomo also reviwed selected slides and agrees with the interpretation. Dr. Perdomo discussed preliminary results with Dr. Fiore on 10/07/2017. . 02 Electronically signed: . Elenita Cheney MD, Pathologist NPI- [id number] . 01 Gross description: . (A) Received in formalin, labeled sigmoid colon segment, stapled end distal, is an opened segment of colon (length-14.1 cm, proximal diameter-4.5 cm, distal diameter-3.1 cm) with attached adipose tissue (up to 4.8 cm in depth). The distal resection margin is stapled and the proximal is opened. The segment is perforated 3.2 cm from the proximal and 10.5 cm from the distal resection margins. The mucosa is sow with compact distorted folds and contains an irregularly sow-white flat smooth indurated area (3.0 x 2.5 cm) located 1.8 cm from the proximal resection margin. This segment also contains diffuse diverticula. The resection margins are inked black. Section code: (A1) proximal resection margin, floor representative longitudinal section; (A2) distal resection margin, floor representative longitudinal section; (A3-A12) colon segment, serially sectioned and submitted proximal to distal, floor representative. Note: This specimen has been reviewed by Dr. Yassine Pettit. Additional sections: (A13-A18) proximal margin, additional longitudinal sections; (A19-A26) colon segment, additional serial sections taken from indurated irregular area and tissue involved in perforation, submitted proximal to distal; (A27, A28) multiple intact lymph nodes. Additional notes: A lymph node search was performed and multiple possible lymph nodes (0.1 cm-0.6 cm) were identified. (A29-A31) additional sections of proximal margin in relation to mass. (A32-A34) additional sections of mass in relation to serosa, proximal to distal. (A35-A42) additional potential sections of mass in relation to serosa. ([id number]) (B) Received in formalin, labeled small bowel segment, is an unoriented segment of small bowel (length-7.2 cm, both resection margins diameter-2.5 cm) with attached mesentery (up to 2.8 cm in depth). The resection margins are received stapled. The segment contains multiple sutured areas (3.5 x 0.2 cm-1.5 x 0.5 cm) located 1.2 cm from each resection margin. The mucosa is sow with normal folds. The serosa is sow smooth and shiny. The resection margins are inked black. Section code: (B1) resection margin #1, floor representative longitudinal section; (B2) resection margin #2, floor representative longitudinal section; (B3-B6) colon segment, floor representative serial sections. (:[id number]) Additional sections: (B7-B9) additional floor representative serial sections; (B10) multiple intact lymph nodes. Additional notes: A lymph node search was performed and multiple possible lymph nodes (0.1 cm-0.5 cm) were identified. (:[id number]) /[facility] . 02 Microscopic: . IMMUNOHISTOCHEMISTRY TESTING FOR MISMATCH REPAIR PROTEINS: . MLH1: Intact nuclear expression. MSH2: Intact nuclear expression. MSH6: Intact nuclear expression. PMS2: Intact nuclear expression. Background nonneoplastic tissue/internal control with intact nuclear expression. . INTERPRETATION: No loss of nuclear expression of MMR proteins: low probability of microsatellite instability-high (MSI-H)* . * There are exceptions to the above IHC interpretations. These results should not be considered in isolation, and clinical correlation with genetic counseling is recommended to assess the need for germline testing. . * This test was developed and its performance characteristics determined by [employer]). It has not been cleared or approved by the U.S. Food and Drug Administration. The FDA has determined that such clearance or approval is not necessary. This test is used for clinical purposes. It should not be regarded as investigational or for research. . . 02 Pathologist provided ICD-10: C18.9 . 02 CPT . 188316, 843251, Z62016, O91009 Performed at: 01 [facility] [address] [facility], [place], [place] [id number] MD Berto Pettit MD Phone: [phone] Performed at: 02 [facility] [address] [place], [place] [id number] MD eGoff Thomas MD Phone: [phone]
[2017-09-30] MEDS: LACTATED RINGERS 1,000 ML 125 ML IV ×4 (04:34→22:40)
[2017-09-30] MEDS: ONDANSETRON 4 MG/2 ML INJ IV (05:08)
[2017-09-30] MEDS: HYDROMORPHONE PCA 6 MG/30 ML PCA.VIAL IV (05:09)
--- NOTE | 2017-09-30 06:00 | DI.RAD.S_ITS ---
PROCEDURE: XR ACUTE ABDOMEN SERIES INDICATIONS: distension and pain TECHNIQUE: One view chest and two views of the abdomen were acquired. COMPARISON: [facility], CT, CT ABDOMEN PELVIS WITH CONTRAST, 03/09/2017, 13:24. [facility], CT, CT ABDOMEN PELVIS WITH CONTRAST, 07/10/2017, 7:43. [facility], CT, CT ABDOMEN PELVIS W CON, 09/29/2017, 1:57. [facility], CR, XR ACUTE ABDOMEN SERIES, 09/29/2017, 1:08. [facility], CR, ABDOMEN ACUTE SERIES, 04/04/2017, 12:41. FINDINGS: Surgical changes and devices: Nasogastric and extends with side port below the EG junction. Chest: Lungs are abnormal with a chronic mild interstitial prominence. Heart size is at or just above the upper limits of normal, but the inspiratory volume is reduced, greater reduction of the right and left. No pleural effusions. No pneumoperitoneum. Abdomen: Bowel gas pattern is abnormal with gas prominence involving multiple portions of the colon, predominantly the right colon and transverse colon and to a lesser degree the proximal descending colon.. No suspicious calcifications. Visualized solid organ contours appear normal. Bones: No suspicious bony lesions. IMPRESSION: Gas prominence within the colon, etiology uncertain by plain film. Please review the report from CT scanning yesterday identifying what may be a colonic carcinoma at the left lower quadrant. Please note that the differentiation between colonic malignancy and chronic colonic diverticulitis is difficult by CT scanning. A volvulus is not seen. Depending on clinical status surgical consultation may be warranted emergently in this situation, but no free air is found. Chronic interstitial prominence and cardiomegaly. Dictated by: Xavier Carlson M.D. on 09/30/2017 at 8:23 Approved by: Xavier Carlson M.D. on 09/30/2017 at 8:31
[2017-09-30 06:55] LABS: Add Manual Diff / Slide Review NO; Basophils Percent Auto 0.4 % (0-2); Eosinophils Percent Auto 0.7 % (2-4); Hematocrit 38.5 % (41-53); Hemoglobin 13.1 g/dL (13.5-17.5); Mean Corpuscular HGB Conc 33.9 % (30-36); Mean Corpuscular Hemoglobin 30.5 PG (26-34); Monocytes Percent Auto 8.5 % (3-14); Neutrophils Absolute Auto 7900 /uL (3000-5900); Neutrophils Percent Auto 73.4 % (50-75); Platelet Count 442 X10^3/uL (150-400); Red Blood Cell Count 4.28 X10^6/uL (4.5-5.9); Red Cell Distribution Width 13.2 % (11.6-14.8); White Blood Cell Count 10.8 X10^3/uL (4.5-11.0)
[2017-09-30 07:03] LABS: Blood Urea Nitrogen 15 mg/dL (9-20); Calcium 8.9 mg/dL (8.4-10.2); Carbon Dioxide 33 mmol/L (22-32); Chloride 102 mmol/L (98-107); Estimated Glomerular Filt Rate > 60.0 mL/min (>60); Glucose 128 mg/dL (80-110); HEMOLYSIS 15 (0-50); Potassium 4.1 mmol/L (3.4-5.1); Sodium 142 mmol/L (137-145)
[2017-09-30] MEDS: PANTOPRAZOLE 40 MG VIAL IV (08:33)
[2017-09-30] MEDS: CEFOTETAN 2 GM/50 ML PIGGYBACK IV ×3 (08:33→19:05)
[2017-09-30] MEDS: ALBUTEROL 2.5 MG/3 ML NEB (ADULT) INH (12:03)
--- NOTE | 2017-09-30 13:23 | P.PN_ITS ---
Subjective Date Patient Seen: 09/30/17 Time Patient Seen: 13:21 Interval history: Patient denies significant pain. No nausea or vomiting. However, he has passed absolutely no flatus or stool since yesterday despite attempts at gentle bowel preparation per the nasogastric tube. Denies any dysuria however. Remains subjectively markedly distended. Remains in good spirits however. Exam Vital Signs (past 8 hours): - 09/30/17 08:05 09/30/17 08:39 09/30/17 11:43 Temperature 97.7 F 97.4 F L Pulse Rate 60 60 59 L Respiratory Rate 16 14 16 Blood Pressure 148/86 H 162/76 H Pulse Oximetry 95 98 94 09/30/17 12:04 Temperature Pulse Rate 75 Respiratory Rate 13 Blood Pressure Pulse Oximetry 95 Oxygen Delivery Method Room Air Oxygen Flow Rate 0 Narrative Exam Narrative: Patient resting comfortably in bed in no acute distress. Alert oriented x3. His is at the bedside for my entire visit today. Nasogastric tube output remains bilious and increasing in volume at approximately 1 L over the last 24 hr or so. Regular rate and rhythm Abdomen is markedly distended and tympanitic. However, he is soft and minimally tender. No guarding or rebound. Extremities show no clubbing, cyanosis, or edema Objective Labs Result Diagrams: 09/30/17 06:20 09/30/17 06:20 Labs: Laboratory Results - last 24 hr 09/30/17 09/30/17 09/30/17 06:20 06:20 06:20 WBC 10.8 RBC 4.28 L Hgb 13.1 L Hct 38.5 L MCV 90.0 MCH 30.5 MCHC 33.9 RDW 13.2 Plt Count 442 H Neut % (Auto) 73.4 Lymph % (Auto) 17.0 L [place] % (Auto) 8.5 Eos % (Auto) 0.7 L Baso % (Auto) 0.4 Neut # (Auto) 7900 H Sodium 142 Potassium 4.1 Chloride 102 Carbon Dioxide 33 H BUN 15 Creatinine 0.60 L Estimated GFR > 60.0 BUN/Creatinine Ratio 25.0 H Glucose 128 H Calcium 8.9 Blood Type A Positive Antibody Screen Negative Three view abdominal x-ray series done this morning confirms ongoing significant colonic dilatation but no free air or significant gastric dilatation. Lung tyler are clear. Assessment & Plan Plan: Assessment/Plan Narrative: 61-year-old male with left colonic obstruction of unclear etiology. He clearly remains mostly obstructed and is not progressing. He has been scheduled for surgery later this afternoon. We will proceed as planned. However, at this point I believe he has to clear his process enough to indicate Ronal procedure only. I discussed this with him and his in detail today. Technical details of left colon resection with diverting end colostomy were discussed. In fact, the patient has been seen, evaluated, and marked for colostomy by our enterostomal therapist earlier today at my request. I have also discussed the issue is with anesthesiology service. We will plan potential epidural catheter placement for postoperative analgesia. Patient was agreeable to such. By hospital policy this will mandate ICU stay after surgery , and he is aware of such. Technical details of the above procedure were reiterated. He understands that the colostomy would be intended to be temporary but would require 2nd major operation for reversal in the form of a colorectal anastomosis. Anticipated hospitalization, healing, and recovery times were all discussed with the patient and his today as well. Risks, benefits, alternatives were explained. Risks including but not limited to anesthesia, bleeding, infection, pain, abscess, need for transfusion, poor wound healing, colon injury, spleen injury, liver injury, gastric injury, pancreatic injury, kidney injury, ureter injury, bladder injury, small-bowel injury, prolonged postoperative ileus, need for further major abdominal surgery , and potential need for further major treatment in the event of malignancy or other significant disease process were all explained at length. All questions were answered to his satisfaction, and he voiced understanding. Consent was placed on the chart. We will proceed as planned later today. Quality VTE Deep Vein Thrombosis/Pulmonary Embolism Present on Admission: No
--- NOTE | 2017-09-30 13:28 | PM.PREOP ---
Pre-operative Note Interval Note Pre-op Check: Yes History & Physical Reviewed by Physician and Yes Exam Performed Changes: No H&P completed within 30 days and has changed as indicated here:: Patient once again seen and examined. He is prepared for surgery as per the history and physical examination dated yesterday and updated note on the chart from today. No changes from his original history physical examination documented September 29, 2017. Proceed with Ronal procedure today as planned.
--- NOTE | 2017-09-30 14:18 | PC.NURSE ---
1400 ,Pt gone to OR via bed. Pt is to go to ICU post op. with the Pt. Dr Fiore updated Pt & spouse.
[2017-09-30] MEDS: LACTATED RINGERS 1,000 ML 42 ML IV ×4 (15:00→19:41)
--- NOTE | 2017-09-30 15:51 | SUR.OPER ---
Lithotomy on padded OR bed. [place] Pad Positioner under torso. Head on pillow, arms ON BILATERAL ARMBOARDS.. Legs secured in padded yellow fins stirrups.
[2017-09-30] MEDS: LACTATED RINGERS 1,000 ML 1000 ML IV ×2 (20:00→23:21)
[2017-09-30] MEDS: PROPOFOL 1,000 MG/100 ML VIAL 38.102 MG IV (21:00)
--- NOTE | 2017-09-30 21:12 | DI.RAD.S_ITS ---
PROCEDURE: XR CHEST 1V INDICATIONS: central line place TECHNIQUE: One view of the chest was acquired. COMPARISON: [facility], CR, XR CHEST 1V, 09/29/2017, 5:47. FINDINGS: Surgical changes and devices: ET tube projects approximately 2.9 cm superior to the angelica. Central venous catheter projects to the right atrium via a right subclavian approach. NG tube projects across the GE junction. Cholecystectomy clips. Lungs and pleura: No pleural effusions or pneumothorax. Lungs are clear. Mediastinum: Mediastinal contours appear normal. Heart size is normal. Bones and chest wall: No suspicious bony lesions. Overlying soft tissues appear unremarkable. IMPRESSION: Central venous catheter projects to the right atrium. ET tube 2.9 cm superior to the angelica. Dictated by: Rosie Martins MD, PhD on 09/30/2017 at 21:39 Approved by: Rosie Martins MD, PhD on 09/30/2017 at 21:41
[2017-09-30 21:23] LABS: Add Manual Diff / Slide Review NO; Basophils Percent Auto 0.3 % (0-2); Hematocrit 35.4 % (41-53); Hemoglobin 11.9 g/dL (13.5-17.5); Lymphocytes Percent Auto 10.4 % (25-40); Mean Corpuscular HGB Conc 33.6 % (30-36); Mean Corpuscular Hemoglobin 30.1 PG (26-34); Mean Corpuscular Volume 89.5 fL (80-100); Monocytes Percent Auto 4.4 % (3-14); Neutrophils Absolute Auto 6000 /uL (3000-5900); Neutrophils Percent Auto 84.9 % (50-75); Platelet Count 408 X10^3/uL (150-400); Red Blood Cell Count 3.95 X10^6/uL (4.5-5.9); Red Cell Distribution Width 13.1 % (11.6-14.8); White Blood Cell Count 7.1 X10^3/uL (4.5-11.0)
[2017-09-30 21:28] LABS: BUN Creatinine Ratio 18.9 (6-22); Blood Urea Nitrogen 17 mg/dL (9-20); Calcium 7.6 mg/dL (8.4-10.2); Carbon Dioxide 27 mmol/L (22-32); Chloride 103 mmol/L (98-107); Estimated Glomerular Filt Rate > 60.0 mL/min (>60); Glucose 146 mg/dL (80-110); HEMOLYSIS < 15 (0-50); Potassium 4.1 mmol/L (3.4-5.1); Sodium 137 mmol/L (137-145)
[2017-09-30] MEDS: HYDROMORPHONE 2 MG INJ IV ×2 (21:35→23:59)
[2017-09-30 21:39] LABS: Fractionated Inspired Oxygen 40; HCO3 ABG 24 mmol/L (23-27); Oxygen Saturation ABG 99 % (95-100); PCO2 ABG 31.3 mmHg (35-45); PO2 ABG 110 mmHg (80-105); TCO2 ABG 25 mmol/L (23-27)
--- NOTE | 2017-09-30 22:23 | P.OP_ITS ---
Operative Date/Time/Diagnoses Date of procedure: 09/30/17 Time of procedure: 21:47 Pre-op diagnosis: Complete sigmoid colon obstruction Post-op diagnosis: same (Likely secondary to chronic diverticular abscess and complete stricture) Procedure & Clinicians Procedure: 1. Exploratory laparotomy 2. Partial sigmoid colectomy 3. Descending end colostomy 4. Partial small bowel resection with primary enteroenteric anastomosis 5. Placement of wound VAC on midline abdominal incision Same procedure as scheduled: Yes Indications: 61-year-old male with longstanding history of progressive abdominal pain and diverticulitis treated as an outpatient. He presented emergency department yesterday however with progressive pain and abdominal distention. Examination and evaluation were consistent with partial bowel obstruction at the sigmoid colon level, but the patient began to manifest signs and symptoms of complete bowel obstruction today. He was therefore recommended to undergo laparotomy with Ronal procedure. Surgeon: Roger Fiore Click Yes if Unassisted: Yes Anesthesia Type: General Operative Notes Findings: 1. Marked colonic distention from the sigmoid colon to the cecum 2. Normal small bowel from the ligament of Treitz to the ileocecal valve 3. Generous but otherwise normal omentum without evidence of implants or masses 4. Extremely foreshortened fatty infiltrated mesentery throughout the entire small bowel and colon but without obvious lymphadenopathy or masses 5. No pelvic masses 6. No palpable liver masses 7. Grossly normal appearing stomach with nasogastric tube in good position 8. No abscess or free fluid within the pelvis 9. Extremely indurated chronically scarred in mobile segment of sigmoid colon with what appeared to be evidence of prior colonic perforation and diverticular abscess contained at the level of the left pelvic wall. 10. Densely adherent short segment of small bowel to the disease sigmoid colon again consistent with possible previously perforated diverticulitis and potential early coloenteric fistula 11. Specimen was opened on the back table to conclusion of the case confirming the above findings. No discrete obvious neoplasm was identified. However, the wall of the colon was extensively firm and fibrotic. We will await final histology as the possibility of neoplasm still exists. 12. Dense right upper quadrant adhesions consistent with prior open cholecystectomy Closure Type: non-primary (Abdominal wound packed open with wound VAC device due to extensive abdominal distention and edema) Specimen(s): other (1. Segment of sigmoid colon 2. Small bowel segment) Implants & Drains: No implants Large wound VAC placed over midline abdominal incision for delayed wound closure Estimated Blood Loss (mL): 250 Blood products transfused: none Procedure in detail: After obtaining informed consent the patient was brought to the operating room. An epidural catheter was placed per the anesthesiology service for postoperative analgesia. Please see their procedure note for details. Patient was then placed supine on the table in the OR. After satisfactory induction of anesthesia he was placed in dorsal lithotomy position. Portillo catheter was inserted to decompress the urinary bladder. Nasogastric tube but already been inserted and in place at the time of admission. Abdomen was prepped and draped in usual sterile fashion. A SCOAP time-out was performed per standard protocol. Vertical midline incision was created with a 10 scalpel blade and eventually extended from the subxiphoid region to the suprapubic region in order to provide adequate exposure. Bovie was used to achieve hemostasis and carried the dissection through the subcutaneous tissue. Fascia was divided in the midline. Underlying peritoneum was entered under direct visualization sharply followed by the surgeon's fingers. Remaining portion of the peritoneum and fascia were then opened along the length of the incision using the Bovie over the Surgeons inserted fingers. And existing circular piece of mesh at the umbilicus was encountered which was completely removed sharply and discarded. Abdomen was manually and visually explored. Findings are as above. Bookwalter retractor was used to provide exposure. Attention was turned to the left lower quadrant where the palpable completely indurated in mobile firm segment of sigmoid colon was identified. Distal sigmoid colon and proximal rectum were completely normal. Descending colon and transverse colon extending down to the ascending colon and cecum were markedly dilated but completely viable. Small bowel was of normal caliber without any dilatation or other abnormalities. Omentum was quite generous in the mesentery was foreshortened consistent with the patient's moderate obesity. Patient's body habitus in conjunction with the pathology made the dissection extremely difficult, and this was a very complicated complex resection. Sharp dissection with the Metzenbaum scissors was employed to liberate very dense adhesions from the left lateral pelvic wall. It was essentially impossible to identify any other normal structures including the left ureter this point. Peritoneal reflection was sharply divided with Metzenbaum scissors along the descending colon up to the level of the splenic flexure. Great care was taken to avoid injury to the inferior pole of the spleen which was seen at that level. Meticulous careful blunt dissection using finger fracture technique was employed to liberate the bowel from the left lateral pelvic wall. A portion of small bowel was noted to be densely adherent to the diseased sigmoid colon. Meticulous sharp dissection was employed to liberate the small bowel. However, a serosal tear in small perforation within the small bowel was noted at that time. Area was oversewn with 3 0 silk interrupted seromuscular Lembert sutures. Further dissection along the sigmoid colon using both blunt and sharp technique eventually resulted in liberation of the colon from the pelvic sidewall. Findings are again as above. At this point I elected to divide the bowel distally using a single application of the JANN 80 mm stapler. Mesentery was then taken down between right angle clamps distally to proximally relatively close to the bowel wall since the ureter and retroperitoneal structures could not be readily identified given the significant amount of fibrosis and induration encountered. Hemostasis was achieved with 2 0 silk ties and 3 0 silk suture ligatures. The inferior mesenteric artery was doubly tied and ligated with 3 0 silk suture ligature as well. Distal rectosigmoid colon was marked at each corner of the staple line using 2 0 Prolene suture for identification at the time of future colostomy reversal. Once a normal uninflamed portion of the descending colon was encountered I elected to divide the bowel proximally at that point. However, the bowel was so dilated that a single application of the Endo JANN 80 mm stapler was not adequate nor could it be adequately closed across the bowel to even fire the device. Unfortunately, no large TA stapler such as a TA 90 mm stapler was available. I therefore simply placed bowel clamp proximally and distally along this segment and divided the bowel with a 10 scalpel blade. I should note that it was actually difficult to find a bowel clamp of adequate size that could completely traverse the descending colon given its dilatation. Unfortunately the atraumatic bowel clamps with soft jaws simply slipped from the serosal surface of the bowel and would not stay in place once applied. Specimen was subsequently liberated and sent to the back table. It was apparent at this time that the descending colon was not mobile enough to form an adequate colostomy. Therefore blunt and sharp dissection was employed to mobilize the colon along the peritoneal reflection. Bowel was elevated off of Gerotas fascia taking great care to avoid injury to the kidney. Adequate length was then obtained. At this point I decided to exteriorize the descending colon since it did not have a staple line, and as I was bringing the bowel toward the anterior abdominal wall to choose an adequate site for the colostomy the bowel clamp was dislodged and gross spillage of stool occurred within the abdomen. Bowel clamp was immediately reapplied in instruments, laparotomy sponges, retractors, and gloves were changed. The abdomen was vigorously irrigated with multiple L of warm saline solution which was suction and noted to be relatively clear at that stage. However, there was clearly gross contamination. The skin at the proposed colostomy site was then grasped with a India clamp and incised in a circular fashion using and 15 scalpel blade. Bovie was used to achieve hemostasis in remove the skin along with a core of subcutaneous tissue down to the rectus fascia. Fascia was divided in a cruciate fashion followed by blunt division of the rectus muscle and the insertion of 2 of the surgeon's fingers without any difficulty through the defect. Burlison clamp was used to retrieve the loop of descending colon and exterior eyes the bowel to the skin level. Bowel was secured to the skin at that level with a single 3 0 silk stitch while attention was returned to the abdominal procedure. Small bowel was again reexamined and noted to be completely normal other than the prior repair at the serosal tear and adjacent small perforation. The area appeared to be viable but I was concerned about potential stricture or even leakage from small perforation. I therefore elected to resect this segment. Bowel was divided proximally and distally with applications of the Endo JANN 80 mm stapler. Mesentery was taken down between Deanna clamps and divided with Metzenbaum scissors. Specimen was liberated and sent for permanent section. Hemostasis was achieved with 2 0 silk ties and 3 0 silk suture ligatures. Proximal and distal small bowel loops were then brought into approximation taking great care to avoid torsion of the mesentery. Seromuscular 3 0 silk Lembert sutures were placed to maintain the bowel loops in approximation along the anti mesenteric border. Allis clamps were applied to the corners of the staple line which were then removed with curved Ferrer scissors. Endo JANN 80 mm stapler was then inserted through each limb of the bowel and bowel was brought into approximation. Stapler was applied to create the anastomosis. A 3rd application of the Endo JANN 80 mm stapler completed the anastomosis. The anastomosis was palpated and noted to be widely patent and certainly sufficient size. Staple line was then oversewn with interrupted 3 0 silk seromuscular interrupted Lembert sutures. Mesenteric defect was closed with interrupted 3 0 silk sutures as well. Another suture was placed at the base of the staple line to secure that level also. Hemostasis was verified. Bowel was replaced back into the abdomen. Abdomen was again irrigated with copious amounts of sterile saline solution which was suctioned and noted to be clear. Approximately 8 L of saline irrigation were employed for the case. Again hemostasis was verified. [place] clamps were applied to the rectus fascia but it became obvious and apparent that the patient's bowel was so dilated and he was becoming somewhat edematous at this stage from IV fluid resuscitation that he could not have adequate closure of his abdominal wall without significant risk of dehiscence, respiratory insufficiency, and even abdominal compartment syndrome. I therefore elected to pack the wound open with planned delayed secondary closure at a future date. Wound was covered with a sterile towel and attention was turned to maturation of the colostomy. Colostomy was matured in a standard fashion using interrupted 3 0 Vicryl suture to the edges of the skin. Colostomy is noted to be completely viable and widely patent. Adequate height to the colostomy was achieved. Temporary colostomy appliance was applied with plans to incorporate it into the wound VAC dressing. White wound VAC sponges were placed along the omentum which had been draped over the entire length of the wound followed by black sponges followed by Ioban followed by wound VAC clear adherent dressings. Small defect was created over the sponges in order to apply suction. The Ioban had been cut to size over the temporary ostomy appliance so that the bag could be applied accordingly to allow colostomy drainage. Obviously this compromise the seal mildly to the wound VAC device but we were able to achieve suction at 100 mm hg pressure. Following the completion of the case the patient was transported directly to the intensive care unit intubated and sedated for ongoing critical care and resuscitation. Complications: other (Inability to close abdominal incision as above requiring wound packing and plan for delayed wound closure) Condition: critical Disposition: ICU Plan for aftercare: 1. Admit to ICU for ongoing critical care and aggressive resuscitation 2. Monitor for sepsis 3. Tentatively plan to return to operating room in 48 hr for abdominal and wound irrigation followed by replacement of wound VAC device with eventual plan for delayed secondary closure of abdominal wound
[2017-09-30] MEDS: metroNIDAZOLE 500 MG/100 ML PIGGYBACK 100 MG IV (22:48)
[2017-09-30] MEDS: PROPOFOL 1,000 MG/100 ML VIAL 32.658 MG IV (22:53)
--- NOTE | 2017-09-30 23:12 | PC.NURSE ---
2019 - Patient arrived from surgery. Dr. Fiore and Dr. Kaplan at bedside. Patient on ventilator, respiratory therapy present. LR running wide open, Propofol running at 70 mcg/kg/min. NG tube to LIS. Colostomy in place draining liquid brown stool. Large abdominal incision with wound vac in place. Wound vac has leak and not suctioning appropriately; Dr. Fiore aware. Dr. Fiore placed triple lumen central line to right upper chest and Dr. Kaplan placed Art line to right wrist. 0 - MAP of 58; Dr. Fiore notified, new order received for 1 Liter LR over one hour. 2327 - MAP now 69. Family remains at bedside.
--- NOTE | 2017-09-30 23:29 | PM.PROC.1 ---
Procedures Date/Time Date of procedure: 09/30/17 Time of procedure: 09:00 Central Line Placement Time out performed: Yes Patient placed on monitor/pulse ox: Yes MD prep: gown and gloves Central line prep: Chlorhexidine scrub Local anesthesia used: lidocaine 1% Amount of anesthesia used (ml): 5 Ultrasound used for placement: No Central line lumen inserted: triple Post procedure: sutured in place Post procedure x-ray: tip of catheter in good position and no pneumothorax seen Patient tolerated procedure: well Complications: none Additional comments: Seven Bhutanese triple-lumen 20 cm catheter placed via sterile Seldinger technique by right subclavian approach. Vein was accessed on 1st attempt. All 3 ports aspirated and flushed easily. Postoperative chest x-ray reviewed and line in good position. No pneumothorax.
[2017-09-30] MEDS: PIPERACILLIN-TAZO 3.375 GM/50 ML FROZ.PIGGY IV (23:59)
[2017-10-01] VITALS (33 sets, daily range): BP systolic 76–127; BP diastolic 43–73; PULSE 62–86; RESP 12–20; TEMP 36.4–36.7; O2SAT 80–100; BMI 30.4
--- NOTE | 2017-10-01 | DI.RAD.S_ITS ---
PROCEDURE: XR CHEST 1V INDICATIONS: intubated, hypoxia TECHNIQUE: One view of the chest was acquired. COMPARISON: [facility], CR, XR CHEST 1V, 09/30/2017, 21:18. FINDINGS: Surgical changes and devices: Right-sided subclavian central venous line objects over the right atrium is T4. Endotracheal tube is positioned with tip above the angelica. Surgical clips right upper quadrant. Nasogastric tube with tip below the diaphragm. Lungs and pleura: No pneumothorax. Minimal atelectasis at the right lung base. Small left pleural effusion. Mediastinum: Mediastinal contours appear normal. Heart size is normal. Bones and chest wall: No suspicious bony lesions. Overlying soft tissues appear unremarkable. IMPRESSION: Support devices positioned as described. Small left pleural effusion. Dictated by: Lyle Musa M.D. on 10/01/2017 at 7:47 Approved by: Lyle Musa M.D. on 10/01/2017 at 7:50
[2017-10-01] MEDS: GENTAMICIN 100 MG in SODIUM CHLORIDE 0.9% 100 ML 102.5 ML IV ×3 (00:28→16:07)
[2017-10-01] MEDS: LACTATED RINGERS 500 ML IV (01:15)
[2017-10-01] MEDS: PROPOFOL 1,000 MG/100 ML VIAL 27.215 MG IV (02:46)
[2017-10-01] MEDS: HYDROMORPHONE 2 MG INJ IV ×2 (04:13→11:28)
[2017-10-01 05:06] LABS: Add Manual Diff / Slide Review NO; Basophils Percent Auto 0.1 % (0-2); Hematocrit 36.2 % (41-53); Hemoglobin 12.4 g/dL (13.5-17.5); Lymphocytes Percent Auto 8.8 % (25-40); Mean Corpuscular HGB Conc 34.1 % (30-36); Mean Corpuscular Hemoglobin 30.4 PG (26-34); Monocytes Percent Auto 3.9 % (3-14); Neutrophils Absolute Auto 10500 /uL (3000-5900); Neutrophils Percent Auto 87.2 % (50-75); Platelet Count 392 X10^3/uL (150-400); Red Blood Cell Count 4.07 X10^6/uL (4.5-5.9); Red Cell Distribution Width 13.3 % (11.6-14.8); White Blood Cell Count 12.1 X10^3/uL (4.5-11.0)
[2017-10-01] MEDS: metroNIDAZOLE 500 MG/100 ML PIGGYBACK 100 MG IV ×3 (05:07→22:37)
[2017-10-01 05:14] LABS: Alanine Aminotransferase 27 IU/L (21-72); Albumin 2.1 g/dL (3.5-5.0); Alkaline Phosphatase 59 U/L (38-126); Aspartate Aminotransferase 22 IU/L (17-59); BUN Creatinine Ratio 17.8 (6-22); Bilirubin Total 0.3 mg/dL (0.2-1.3); Blood Urea Nitrogen 16 mg/dL (9-20); Calcium 7.6 mg/dL (8.4-10.2); Carbon Dioxide 28 mmol/L (22-32); Chloride 101 mmol/L (98-107); Estimated Glomerular Filt Rate > 60.0 mL/min (>60); Globulin 2.2 g/dL (1.7-4.1); Glucose 164 mg/dL (80-110); HEMOLYSIS < 15 (0-50); Magnesium 1.5 mg/dL (1.6-2.3); Potassium 4.6 mmol/L (3.4-5.1); Sodium 135 mmol/L (137-145); Total Protein 4.3 g/dL (6.3-8.2)
[2017-10-01 05:30] LABS: Gentamicin Random 2.7 ug/mL (1.0-8.0)
[2017-10-01 05:50] LABS: Fractionated Inspired Oxygen 30; HCO3 ABG 23 mmol/L (23-27); Oxygen Saturation ABG 96 % (95-100); PCO2 ABG 36.9 mmHg (35-45); PO2 ABG 78 mmHg (80-105); TCO2 ABG 24 mmol/L (23-27)
[2017-10-01] MEDS: PIPERACILLIN-TAZO 3.375 GM/50 ML FROZ.PIGGY IV ×3 (06:07→21:50)
[2017-10-01] MEDS: LACTATED RINGERS 1,000 ML 200 ML IV (06:08)
[2017-10-01] MEDS: LACTATED RINGERS 1,000 ML 500 ML IV (06:13)
[2017-10-01] MEDS: MAGNESIUM SULFATE 2 GM/50 ML PIGGYBACK IV ×2 (06:23→07:13)
--- NOTE | 2017-10-01 07:05 | PC.NURSE ---
NOC Shift: Pt post op SBO w/bowel leak. Pt sedated on propofol, intermittent Dilaudid. Pt RASS -2. Vented, stable sats on 30% P5 500. ABD incision left open from OR covered with wound vac dsg reinforced for leakage, continues to leak this AM Dr. Fiore aware. Ileostomy stoma beefy red, watery brown stool output. ABD largely distended, soft. NG to LIS brown bile output, NG advanced 2 inches after AM chest xray per Dr. Fiore. UO remains low, hypotension continues through shift MD aware fluids and CVP monitoring continue. Family intermittently at bedside. ICU care.
[2017-10-01] MEDS: PROPOFOL 1,000 MG/100 ML VIAL 21.6 MG IV (08:02)
[2017-10-01] MEDS: PHENYLEPHRINE 20,000 MCG in DEXTROSE 5% IN WATER 250 ML 15 ML IV (09:08)
[2017-10-01] MEDS: PANTOPRAZOLE 40 MG VIAL IV (09:38)
[2017-10-01] MEDS: LACTATED RINGERS 1,000 ML 150 ML IV ×3 (09:39→22:13)
--- NOTE | 2017-10-01 09:44 | P.PN_ITS ---
Subjective Date Patient Seen: 10/01/17 Time Patient Seen: 08:30 Interval history: Patient is approximately 12 hr status post laparotomy with left partial colectomy and diverting colostomy along with incidental partial small-bowel resection admitted to the ICU with hypotension, respiratory insufficiency, and open abdomen necessitating eventual delayed closure who has required ongoing resuscitation throughout the night under my direct supervision at the bedside. He remains intubated. He can offer no history. However, he is responding to Diprivan sedation nicely. He has required a few intermittent doses of Dilaudid for analgesia but gives no signs of discomfort such as tachycardia or agitation. He is stable on relatively minimal vent settings at the moment including FiO2 of 30%, peep 5, rate 12, and tidal volume 500. His minute ventilation with that tidal volume is 6-7 L. Wound VAC output has been approximately 200 cc of serosanguineous fluid. However, there is a leak within the dressing likely at the site of the colostomy appliance which is difficult to seal at this point. Nevertheless there is suction being maintained on the dressing sponges. Colostomy is draining air as well as nirmala liquid stool as anticipated given the significant amount of colonic dilatation seen at the time of surgery. Urine output has been marginal but he did make approximately 350 cc of urine since surgery. Urine is clear and nonbloody. He has not required vasopressors at this point but his mean arterial pressure has been marginally below 60 at times. He has required a significant amount of fluid resuscitation to maintain his systolic blood pressure in the 80s with a mean arterial at approximately 60. Exam Vital Signs (past 8 hours): - 10/01/17 02:03 10/01/17 02:30 10/01/17 03:00 Temperature Pulse Rate 77 77 Respiratory Rate 12 12 Blood Pressure 84/48 L 92/59 L 86/49 L Pulse Oximetry 94 95 10/01/17 03:05 10/01/17 03:30 10/01/17 04:00 Temperature 97.7 F Pulse Rate 79 Respiratory Rate 12 Blood Pressure 91/56 L 86/56 L 92/57 L Pulse Oximetry 95 10/01/17 04:05 10/01/17 05:05 10/01/17 06:03 Temperature Pulse Rate 76 77 Respiratory Rate 12 12 Blood Pressure 92/57 L 83/50 L 90/57 L Pulse Oximetry 98 96 10/01/17 07:03 10/01/17 07:42 10/01/17 08:54 Temperature 97.9 F Pulse Rate 75 73 73 Respiratory Rate 13 12 12 Blood Pressure 89/46 L 77/46 L 81/50 L Pulse Oximetry 96 96 96 10/01/17 09:23 Temperature Pulse Rate 72 Respiratory Rate 12 Blood Pressure 96/55 L Pulse Oximetry 97 Fraction of Inspired Oxygen 30 Oxygen Delivery Method Mechanical Ventilation Oxygen Flow Rate 0 Narrative Exam Narrative: Intubated sedated patient in the ICU. He responds to verbal and tactile stimuli, however, when the sedation is minimized. Neck is supple Decreased breath sounds bilaterally but otherwise clear. No rhonchi or crackles. Right subclavian triple-lumen catheter dressing is clean, dry, and intact. His total fluids are infusing at nearly 300 cc/hour. His input and output numbers were approximately 12 L positive since surgery. Right radial arterial line dressing is clean, dry, and intact. There is a good waveform with the arterial line. Abdomen remains distended but soft. He is comfortable and relatively nontender to palpation. Wound VAC dressing is clean and intact. Colostomy is pink and viable with output in the appliance as above. Portillo catheter is draining clear but mildly dark urine Extremities show no clubbing or cyanosis at this point. He seems to be well perfused. No significant edema as yet in the lower extremities. Objective Labs Result Diagrams: 10/01/17 04:55 10/01/17 04:55 Labs: Laboratory Results - last 24 hr 09/30/17 09/30/17 09/30/17 21:04 21:10 21:10 WBC 7.1 RBC 3.95 L Hgb 11.9 L Hct 35.4 L MCV 89.5 MCH 30.1 MCHC 33.6 RDW 13.1 Plt Count 408 H Neut % (Auto) 84.9 H Lymph % (Auto) 10.4 L [place] % (Auto) 4.4 Eos % (Auto) 0.0 L Baso % (Auto) 0.3 Neut # (Auto) 6000 H ABG pH 7.50 H ABG pCO2 31.3 L ABG pO2 110 H ABG HCO3 24 ABG Total CO2 25 ABG O2 Saturation 99 ABG Base Excess 1.0 FiO2 40 Sodium 137 Potassium 4.1 Chloride 103 Carbon Dioxide 27 BUN 17 Creatinine 0.90 Estimated GFR > 60.0 BUN/Creatinine Ratio 18.9 Glucose 146 H Calcium 7.6 L Magnesium Total Bilirubin AST ALT Alkaline Phosphatase Total Protein Albumin Globulin Albumin/Globulin Ratio Nasal Screen MRSA (PCR) Random Gentamicin 09/30/17 10/01/17 10/01/17 21:13 04:55 04:55 WBC 12.1 H D RBC 4.07 L Hgb 12.4 L Hct 36.2 L MCV 89.0 MCH 30.4 MCHC 34.1 RDW 13.3 Plt Count 392 Neut % (Auto) 87.2 H Lymph % (Auto) 8.8 L [place] % (Auto) 3.9 Eos % (Auto) 0.0 L Baso % (Auto) 0.1 Neut # (Auto) 86239 H ABG pH ABG pCO2 ABG pO2 ABG HCO3 ABG Total CO2 ABG O2 Saturation ABG Base Excess FiO2 Sodium 135 L Potassium 4.6 Chloride 101 Carbon Dioxide 28 BUN 16 Creatinine 0.90 Estimated GFR > 60.0 BUN/Creatinine Ratio 17.8 Glucose 164 H Calcium 7.6 L Magnesium 1.5 L Total Bilirubin 0.3 AST 22 ALT 27 Alkaline Phosphatase 59 D Total Protein 4.3 L Albumin 2.1 L Globulin 2.2 Albumin/Globulin Ratio 1.0 Nasal Screen MRSA (PCR) Negative for mrsa Random Gentamicin 10/01/17 10/01/17 04:55 05:36 WBC RBC Hgb Hct MCV MCH MCHC RDW Plt Count Neut % (Auto) Lymph % (Auto) [place] % (Auto) Eos % (Auto) Baso % (Auto) Neut # (Auto) ABG pH 7.40 ABG pCO2 36.9 ABG pO2 78 L ABG HCO3 23 ABG Total CO2 24 ABG O2 Saturation 96 ABG Base Excess -2.0 FiO2 30 Sodium Potassium Chloride Carbon Dioxide BUN Creatinine Estimated GFR BUN/Creatinine Ratio Glucose Calcium Magnesium Total Bilirubin AST ALT Alkaline Phosphatase Total Protein Albumin Globulin Albumin/Globulin Ratio Nasal Screen MRSA (PCR) Random Gentamicin 2.7 Chest x-ray shows mild minimal left pleural effusion but no pneumothorax. Lung tyler are otherwise clear but there is volume loss as anticipated. Endotracheal tube, nasogastric tube, and central venous catheter are all in good position. ABG indicates no significant metabolic acidosis or respiratory acidosis at this time. In fact his blood gases are surprisingly good given his current condition. Assessment & Plan Plan: Assessment/Plan Narrative: 61-year-old male approximately 12 hr status post laparotomy with left colectomy and diverting colostomy along with partial small-bowel resection complicated by gross contamination of the abdominal cavity with fecal contents but no evidence of out right sepsis currently. Nevertheless because of his abdominal distention and bowel edema he could not have primary abdominal closure. His ventilatory status is stable but his hemodynamics status is labile at best. Continue current ventilatory settings. I anticipate that he will likely have an increasing FiO2 requirement along with peep requirement as he experiences some element of pulmonary edema. He is receiving a significant amount of IV fluid resuscitation which is no longer adequately maintain his mean arterial blood pressure. Will therefore add phenylephrine drip to titrate for a mean arterial pressure consistently at 60. Hopefully this will allow us to decrease the amount of intravenous fluid volume he is receiving currently. Renal function remained stable so we will increase the gentamicin dose and check peak and trough levels later today. Continue Zosyn and Flagyl intravenously as well for triple antibiotic coverage given the significant peritonitis he is now experiencing. DVT prophylaxis using Lovenox and SCDs is in place. Epidural catheter is in place but not being used due to hypotension. Patient however is quite comfortable at the moment and responding well to Dilaudid and Diprivan. Hemoglobin is stable and he has no indication for transfusion currently. Electrolytes are otherwise unremarkable other than magnesium which will be supplemented. Continue to monitor sodium and potassium levels. Once his acute inflammatory process has stabilized over the next 24-48 hours he will require TPN for nutritional support. I anticipate that he is likely to experience significant sepsis in the short term. He will receive supportive care as above. Tentatively I plan to return him to the operating room tomorrow for abdominal washout and irrigation with wound VAC change. He clearly will not be ready for abdominal closure at that time. In fact, if he is not completely hemodynamically stable we will delay return to the operating Room accordingly. I am somewhat concerned we will lose abdominal domain along the fascia so he may require more complex closure at some point in the future when he is ready for such. I had a very lengthy discussion with patient's and daughter at the bedside last evening and again early this morning regarding his very critical tenuous status and relatively poor prognosis. All questions were answered to their satisfaction, and they voiced understanding. I will continue to keep them updated. Case discussed with the attending nursing staff. Orders written. Quality VTE Deep Vein Thrombosis/Pulmonary Embolism Present on Admission: No
[2017-10-01] MEDS: SODIUM CHLORIDE 0.9% 500 ML IV ×2 (10:14→10:15)
[2017-10-01] MEDS: ENOXAPARIN 40 MG/0.4 ML SYRINGE SUBCUT (11:23)
--- NOTE | 2017-10-01 11:41 | PM.EVENT ---
Date Patient Seen: 10/01/17 Time Patient Seen: 07:02 Anesthesia: indwelling thoracic epidural, POD1, Simon procedure, colon resection. Patient taken to ICU post-op with open abdomen, intubated, with low BP, though stable on no pressors. Overnight, pt received significant fluid resuscitation to maintain MAP >60, and was given prn IV dilaudid for pain while on propofol gtt for vent sedation. In light of low BP and guarded prognosis at the time, TEP was not initiated. Catheter remains in place, though is not being used. SC TLC and R radial art line were placed last night in anticipation of need for pressor support. This am, pt with MAP around 60, and an anticipated need for pressors and concern for sepsis. Plan for possible OR tomorrow for abdomen washout and wound vac change, but not anticipating closure at that time. Considering the current clinical course, I will discuss with surgery removal of the epidural catheter and timing of lovenox (40mg sc qd).
[2017-10-01] MEDS: SODIUM CHLORIDE 0.9% 500 ML 21 ML IV (13:17)
[2017-10-01] MEDS: DEXTROSE 5% WATER 500 ML 21 ML IV (13:21)
[2017-10-01] MEDS: PROPOFOL 1,000 MG/100 ML VIAL 19.051 MG IV ×3 (13:23→21:49)
--- NOTE | 2017-10-01 14:18 | CM.DPC ---
DCP Cont: This STARCH CRAB following closely as pt was transferred to the ICU last night s/p laparotomy with left colectomy and diverting colostomy along with partial small-bowel resection complicated by gross contamination of the abdominal cavity with fecal contents... . See Dr Fiore's thorough progress note dated 10.01.17 to understand details. Pt's prognosis guarded at this time. This STARCH CRAB available to family and nursing staff to assist as needed. Medical POC pending pt's ability to improve over the next 24-48hrs. and dtr have been updated. CLAU Belle Discharge Planning/Care Management CM Discharge Assessment Start: 09/29/17 14:37 Freq: Status: Active Protocol: Document 09/29/17 14:37 KJS (Rec: 09/29/17 14:41 KJS [id number]) Discharge Planning Assessment Assigned Emergency Vehicle Dispatcher CLAU Desai DPOA/Assigned Designee Name Veronica Garcia (spouse) [phone] Advance Directives? No Advance Directives on File No History Provided By Patient Has Patient been admitted in last 30 No days? Prior Living Arrangements House Household Members spouse Type of transporation used prior to Drives own vehicle admit Independent with ADL's Yes Is patient alert and oriented? Yes Caregiver for Another No Barriers to Discharge No Discharge Plan Home Transportation Arrangement Family to provide transport Referrals Initiated None needed Whiteboard Updated in Patient Room with Yes name and ext. # of Emergency Vehicle Dispatcher Comment Reviewed chart. Patient is a 61yr old male admitted to . under inpatient status with possible SBO. Attending MD is Dr. Fiore. PCP is Dr. Cronin. Primary payor is 1)[facility]. Met with patient explained CM/ SW role. Patient currently on bowel rest with NG tube in place. It is currently unclear if patient with require surgery. Patient reports that he resides with spouse/Veronica in [place]. Patient plans to return home at time of d/c and does not anticipate any d/c planning needs. Patient I with all ADL's at baseline. Review Status In Process Next Review Type Continued Stay Review
--- NOTE | 2017-10-01 14:38 | PC.NURSE ---
pt with addition of phenylephrine to maintain adequate b/p - initially started at 20mcg/min then increased to 30cg due to dropped b/p when medicated for pain with iv dilaudid- initiation of epidural for adequate pain control - pt remains sr no ectopy noted, remains entilated and sedated with propofol- ngt with bilious colored drainage and clayton with marginal uop- md aware- scd's in place - wound vac continues and ostomy with brown stool output- at bedside and concerned appropriately
[2017-10-01] MEDS: SODIUM CHLORIDE 0.9% IV (14:44)
[2017-10-01] MEDS: FENTANYL IV (14:44)
[2017-10-01] MEDS: BUPIVACAINE 0.5% IV (14:44)
[2017-10-01] MEDS: GENTAMICIN TROUGH 1 REQUEST MISC (15:33)
--- NOTE | 2017-10-01 16:21 | PC.NURSE ---
Late Entry Ostomy Nurse Note Saw Alton yesterday for pre-op marking and teaching. Reviewed with Alton the anatomy of a colostomy and ileostomy. Gave him pre-op [facility] teaching guide and showed him what a pouching system looks like. He verbalized understanding and understands that I will be working with him and his Julia during his hospital stay on how to care for is stoma. I also spoke with his Julia on the phone. I did maggie Alton and spoke to Dr. Fiore that I do not see any areas on his abdomen that needed to be avoided. Marked with a surgical pen and covered with a tagaderm. Marked on his Right side of his abdomen at his umbilicus level so that he could visualize the stoma.
[2017-10-01 16:57] LABS: Gentamicin Trough 2.1 ug/mL (0.0-2.0)
--- NOTE | 2017-10-01 17:12 | PC.NURSE ---
Ostomy Nurse Consult Note I have read Don's notes. Came up to see his Veronica and see Alton. Veronica states she understands how critical Alton is and states that the doctors and nursing staff have been taking very good care of Alton. She stated that she knows Don has a long road ahead of him. His KCI wound vac has a leak. Myself and Sil looked for the leak but cannot find it and we do not want to move him because of his hypotension. I was unable to visualize his stoma, but it is producing gas. There is some liquid brown stool in his pouch. I will return tomorrow.
[2017-10-01] MEDS: FLUCONAZOLE 200 MG/100 ML PIGGYBACK 100 MG IV (17:42)
[2017-10-01] MEDS: GENTAMICIN PEAK 1 REQUEST MISC (17:43)
[2017-10-01] MEDS: PHENYLEPHRINE 20,000 MCG in DEXTROSE 5% IN WATER 250 ML 22.5 ML IV (20:15)
[2017-10-01] MEDS: ALBUTEROL HFA 60 PUFF/8 GM INH 8 PUFF INH (22:28)
--- NOTE | 2017-10-01 23:36 | PC.NURSE ---
Addendum entered by Veronica Pena R.N. 10/02/17 02:26: CVP initially 7-8 at start of shift. Steadily climbing to 10-11. Dr. Fiore made aware, IVF decreased from LR @ 150 mL/hour to 100 mL/hour. Dr. Fiore also updated patient status and current infusing gtts and UO. Original Note: Addendum entered by Veronica Pena R.N. 10/02/17 00:59: Neosynephrine titrated up to 70 mcg/min to maintain MAP goals. Cuff BP correlating well with ART line. CVP 7-8. Telemetry SR without ectopy. Sp02 100% on Fi02 30% PEEP 5 TV 450 RR 16. ETC02 35. Epidural maintained, pt able to nod head no when asked if he is in pain and quickly falls back asleep. Propofol continued per orders for RASS -1 to -2. ABD with wound vac currently working without leaks at 100 mmhg. Colostomy with brown soft drainage in appliance. Portillo with adequate UO currently. Pt remains critically ill- will continue to monitor closely. Original Note: MAP consistently lower than 60, Neosynephrine titrated up to 40 without improvement and then to 50 mcg/min per protocol. Will continue to monitor closely.
[2017-10-01] MEDS: GENTAMICIN 80 MG in SODIUM CHLORIDE 0.9% 100 ML 102 ML IV (23:41)
[2017-10-02] VITALS (34 sets, daily range): BP systolic 83–131; BP diastolic 43–64; PULSE 54–81; RESP 14–21; TEMP 35.8–37.6; O2SAT 95–100
--- NOTE | 2017-10-02 | DI.RAD.S_ITS ---
PROCEDURE: XR CHEST 1V INDICATIONS: leukocytosis, intubated TECHNIQUE: One view of the chest was acquired. COMPARISON: [facility], CR, XR CHEST 1V, 10/01/2017, 5:47. FINDINGS: Surgical changes and devices: ET tube and enteric tube position is unchanged. Right-sided central venous catheter tip is in the region of SVC. Lungs and pleura: Small left pleural effusion is again seen, unchanged from previous study. No definite focal infiltrate. No gross pneumothorax. Mediastinum: Mediastinal contours appear normal. Heart size is mildly enlarged. Bones and chest wall: No suspicious bony lesions. Overlying soft tissues appear unremarkable. IMPRESSION: Small left pleural effusion. No definite focal infiltrate or gross pneumothorax. Dictated by: Cam Santiago M.D. on 10/02/2017 at 12:59 Approved by: Cam Santiago M.D. on 10/02/2017 at 13:00
[2017-10-02] MEDS: ALBUTEROL HFA 60 PUFF/8 GM INH 8 PUFF INH (00:59)
[2017-10-02] MEDS: PHENYLEPHRINE 20,000 MCG in DEXTROSE 5% IN WATER 250 ML 45 ML IV (03:11)
[2017-10-02] MEDS: PROPOFOL 1,000 MG/100 ML VIAL 19.051 MG IV ×4 (03:12→19:04)
[2017-10-02 05:19] LABS: Add Manual Diff / Slide Review NO; Basophils Percent Auto 0.3 % (0-2); Hematocrit 31.2 % (41-53); Hemoglobin 10.6 g/dL (13.5-17.5); Lymphocytes Percent Auto 7.1 % (25-40); Mean Corpuscular HGB Conc 33.8 % (30-36); Mean Corpuscular Hemoglobin 30.2 PG (26-34); Mean Corpuscular Volume 89.5 fL (80-100); Monocytes Percent Auto 4.2 % (3-14); Neutrophils Absolute Auto 16800 /uL (3000-5900); Neutrophils Percent Auto 88.4 % (50-75); Platelet Count 373 X10^3/uL (150-400); Red Blood Cell Count 3.49 X10^6/uL (4.5-5.9); Red Cell Distribution Width 13.6 % (11.6-14.8)
[2017-10-02 05:28] LABS: Blood Urea Nitrogen 14 mg/dL (9-20); Calcium 7.4 mg/dL (8.4-10.2); Carbon Dioxide 29 mmol/L (22-32); Chloride 101 mmol/L (98-107); Estimated Glomerular Filt Rate > 60.0 mL/min (>60); Glucose 143 mg/dL (80-110); HEMOLYSIS < 15 (0-50); Magnesium 2.1 mg/dL (1.6-2.3); Phosphorous 2.9 mg/dL (2.3-3.7); Potassium 3.5 mmol/L (3.4-5.1); Sodium 134 mmol/L (137-145)
[2017-10-02] MEDS: LACTATED RINGERS 1,000 ML 100 ML IV (06:01)
[2017-10-02] MEDS: metroNIDAZOLE 500 MG/100 ML PIGGYBACK 100 MG IV ×3 (06:02→21:30)
[2017-10-02] MEDS: PIPERACILLIN-TAZO 3.375 GM/50 ML FROZ.PIGGY IV ×3 (06:02→21:07)
[2017-10-02 07:57] LABS: HCO3 ABG 26 mmol/L (23-27); Oxygen Saturation ABG 97 % (95-100); PCO2 ABG 33.8 mmHg (35-45); PO2 ABG 82 mmHg (80-105); TCO2 ABG 27 mmol/L (23-27)
[2017-10-02] MEDS: GENTAMICIN 80 MG in SODIUM CHLORIDE 0.9% 100 ML 102 ML IV ×2 (08:13→15:56)
[2017-10-02] MEDS: PANTOPRAZOLE 40 MG VIAL IV (08:17)
[2017-10-02] MEDS: PHENYLEPHRINE 20,000 MCG in DEXTROSE 5% IN WATER 250 ML 37.8 ML IV (10:09)
[2017-10-02] MEDS: ENOXAPARIN 40 MG/0.4 ML SYRINGE SUBCUT (10:15)
[2017-10-02] MEDS: SODIUM CHLORIDE 0.9% 1,000 ML 100 ML IV ×2 (10:25→20:09)
[2017-10-02] MEDS: SODIUM CHLORIDE 0.9% 500 ML IV ×2 (10:25→10:33)
[2017-10-02] MEDS: DEXTROSE 5% WATER 500 ML 21 ML IV (10:31)
--- NOTE | 2017-10-02 11:06 | P.PN_ITS ---
Subjective Date Patient Seen: 10/02/17 Time Patient Seen: 10:55 Interval history: Patient remains intubated and sedated. No further history is available from the patient. Overnight he was relatively stable although he did require titration of his Marv-Synephrine drip to 70 micrograms/minute. Blood pressure, however, responded accordingly and his current mean arterial pressure is well into the 70s. His CVP te to approximately 9 or 10 cm of water last evening. Fluids were decreased for overall total infusion rate. Urine output has increased significantly and he is now diuresing at least 100 cc/hour in the last few hours. Urine is clear and nonbloody. He remained stable on ventilatory settings without any changes. Saturations are 100%. He is quite comfortable with no agitation on the dilute epidural infusion consisting of bupivacaine and fentanyl. He has required no Dilaudid since that infusion has started yesterday. Overall he had a relatively quiet night. Exam Vital Signs (past 8 hours): - 10/02/17 03:23 10/02/17 03:59 10/02/17 04:16 Temperature 96.5 F L Pulse Rate 72 73 Respiratory Rate 16 16 Blood Pressure 95/58 L 104/62 Pulse Oximetry 97 99 10/02/17 04:41 10/02/17 05:25 10/02/17 05:54 Temperature Pulse Rate 65 62 60 Respiratory Rate 16 16 16 Blood Pressure 99/60 94/56 L 101/56 L Pulse Oximetry 100 100 100 10/02/17 06:00 10/02/17 06:36 10/02/17 08:00 Temperature 98.2 F 97.4 F L Pulse Rate 60 57 L Respiratory Rate 16 16 Blood Pressure 85/50 L 103/51 L Pulse Oximetry 100 100 10/02/17 09:02 Temperature Pulse Rate 54 L Respiratory Rate 16 Blood Pressure 94/48 L Pulse Oximetry 100 Fraction of Inspired Oxygen 30 Oxygen Delivery Method Mechanical Ventilation Oxygen Flow Rate 0 Narrative Exam Narrative: Patient intubated and sedated. Not particularly arousable at the moment. Periorbital edema is minimal but present Endotracheal tube and nasogastric tube remain in good position. Nasogastric tube is collecting bilious fluid Ventilator settings remain rate of 12, tidal volume of 500, 30% FiO2, peep 5. Minute ventilation is 6.7 L. Chest shows some diffuse coarse rhonchi but no wheezes or crackles. Regular rate and rhythm. Monitor shows sinus rhythm in the 60s to 70s. He did have some mild bradycardia to approximately 54 beats per minute yesterday possibly related to the epidural infusion. Right subclavian triple-lumen catheter dressing clean, dry, and intact. Catheter is functional. Abdomen remains distended and diffusely edematous but soft. He is apparently nontender to palpation. Wound VAC is holding suction and remains in place. Colostomy shows dusky mucosa likely secondary to Marv-Synephrine drip but otherwise functioning with adequate height at the moment. There is stool and gas in the appliance. No significant scrotal edema. Portillo catheter is in place draining clear urine as above Extremities show no clubbing or cyanosis. His digits are actually perfused and relatively warm. Trace bilateral ankle edema but no significant extremity edema at this stage. Objective Labs Result Diagrams: 10/02/17 05:03 10/02/17 05:03 Labs: Laboratory Results - last 24 hr 10/01/17 10/01/17 10/02/17 15:30 17:38 05:03 WBC 19.0 H D RBC 3.49 L Hgb 10.6 L Hct 31.2 L MCV 89.5 MCH 30.2 MCHC 33.8 RDW 13.6 Plt Count 373 Neut % (Auto) 88.4 H Lymph % (Auto) 7.1 L [place] % (Auto) 4.2 Eos % (Auto) 0.0 L Baso % (Auto) 0.3 Neut # (Auto) 08011 H ABG pH ABG pCO2 ABG pO2 ABG HCO3 ABG Total CO2 ABG O2 Saturation ABG Base Excess FiO2 Sodium Potassium Chloride Carbon Dioxide BUN Creatinine Estimated GFR BUN/Creatinine Ratio Glucose Calcium Phosphorus Magnesium Gentamicin Peak 7.0 Gentamicin Trough 2.1 H 10/02/17 10/02/17 10/02/17 05:03 05:03 07:37 WBC RBC Hgb Hct MCV MCH MCHC RDW Plt Count Neut % (Auto) Lymph % (Auto) [place] % (Auto) Eos % (Auto) Baso % (Auto) Neut # (Auto) ABG pH 7.50 H ABG pCO2 33.8 L ABG pO2 82 ABG HCO3 26 ABG Total CO2 27 ABG O2 Saturation 97 ABG Base Excess 3.0 FiO2 0.30 Sodium 134 L Potassium 3.5 Chloride 101 Carbon Dioxide 29 BUN 14 Creatinine 1.00 Estimated GFR > 60.0 BUN/Creatinine Ratio 14.0 Glucose 143 H Calcium 7.4 L Phosphorus 2.9 Magnesium 2.1 Gentamicin Peak Gentamicin Trough ABG is consistent with progressive metabolic alkalosis possibly secondary to lactated Ringer's. No evidence of significant metabolic acidosis at this time. White blood cell count has increased significantly consistent with sepsis. However, he remains afebrile. Hemoglobin is stable and adequate at this time Mildly hypokalemic today but otherwise electrolytes are stable. Blood sugars remained controlled. Creatinine has increased slightly to 1.0 consistent with acute renal insufficiency likely related to sepsis and relative hypotension since surgery Assessment & Plan Plan: Assessment/Plan Narrative: 61-year-old male who remains critically ill with guarded prognosis in the ICU following exploratory laparotomy with left colectomy and diverting colostomy along with incidental small bowel resection. Overall he remains relatively stable. We will attempt to wean the Marv-Synephrine drip back down slowly from its current dose. Continue triple antibiotics consisting of intravenous Zosyn, Flagyl, and gentamicin. All medications are being renally dosed per pharmacy. Continue Diflucan at renal dose as well. Change from lactated Ringer's normal saline. Fluid rate has been decreased. Begin TPN later this evening for nutritional and electrolyte support. Will supplement the potassium in the TPN. We will decrease normal saline infusion rate once the TPN has been instituted. He does not require lipid infusion at this point since he is receiving lipids in the Diprivan drip. Repeat laboratory studies and chest x- ray tomorrow. Continue current ventilatory settings. He still remained somewhat unstable for return to the operating room today. We will reassess the situation in the next 24-48 hours and hopefully be able to return to the operating room for abdominal irrigation, wound washout, and wound VAC change. Once his edema and abdominal distention have subsided significantly we will perform delayed secondary abdominal closure. In my opinion, he will need to remain on the ventilator until that is complete. This raises the question of possible need for tracheostomy. We will continue to reassess that issue as he progresses throughout his resuscitation. DVT prophylaxis remains in place with Lovenox and sequential compression devices. Ulcer prophylaxis with daily Protonix dosing intravenously. Orders were written. Case discussed with inpatient pharmacist and attending nursing staff today. Family was not at the bedside at the time of my visit this morning, but I will update them later today. Quality VTE Deep Vein Thrombosis/Pulmonary Embolism Present on Admission: No
[2017-10-02] MEDS: SODIUM CHLORIDE 0.9% 500 ML 21 ML IV (11:45)
[2017-10-02] MEDS: BUPIVACAINE 0.5% IV (14:26)
[2017-10-02] MEDS: SODIUM CHLORIDE 0.9% IV (14:26)
[2017-10-02] MEDS: FENTANYL IV (14:26)
--- NOTE | 2017-10-02 14:36 | PC.NURSE ---
able to wean pt from 60mcg/kg/min of neosynephrine down to 20mcg this shift and b/p tolerating well thus far, bathed and turned - very little output from ngt
[2017-10-02] MEDS: GENTAMICIN TROUGH 1 REQUEST MISC (15:43)
[2017-10-02] MEDS: FLUCONAZOLE 200 MG/100 ML PIGGYBACK 100 MG IV (17:28)
[2017-10-02] MEDS: GENTAMICIN PEAK 1 REQUEST MISC (17:29)
[2017-10-02] MEDS: LYTES IV (18:01)
[2017-10-02] MEDS: CALCIUM IV (18:01)
[2017-10-02] MEDS: POTASSIUM CHLORIDE IV (18:01)
[2017-10-02] MEDS: DEXT IV (18:01)
[2017-10-02] MEDS: [UNRECOGNIZED DRUG - OTHER] IV (18:01)
[2017-10-02 18:24] LABS: Gentamicin Peak 4.4 ug/mL (5.0-8.0)
[2017-10-02 18:48] LABS: Gentamicin Trough 1.4 ug/mL (0.0-2.0)
--- NOTE | 2017-10-02 19:09 | PC.NURSE ---
1900- Patient turned. Propofol backed down to 30mic/kg/min, Marv gtt at 40mic/min. TPN started per order. IVF remains at 100cc/hr per order of Dr. Fiore. Patient is making good urine. Patient breathing with the vent at 16. Lungs are coarse, minimal secretions which are clear. Gentamiacin Peak is low pharmacy is aware.
[2017-10-02] MEDS: PHENYLEPHRINE 20,000 MCG in DEXTROSE 5% IN WATER 250 ML 30 ML IV (21:10)
[2017-10-02 21:23] LABS: Hematocrit 26.3 % (41-53); Hemoglobin 9.1 g/dL (13.5-17.5)
[2017-10-02 21:51] LABS: PCO2 ABG 34.6 mmHg (35-45); PO2 ABG 83 mmHg (80-105); pH ABG 7.49 (7.35-7.45)
[2017-10-02 21:52] LABS: Fractionated Inspired Oxygen 0.3; HCO3 ABG 27 mmol/L (23-27); Oxygen Saturation ABG 97 % (95-100); TCO2 ABG 28 mmol/L (23-27)
[2017-10-02] MEDS: HYDROMORPHONE 2 MG INJ IV (22:26)
[2017-10-02] MEDS: GENTAMICIN 90 MG in SODIUM CHLORIDE 0.9% 100 ML 102.25 ML IV (23:57)
[2017-10-03] VITALS (21 sets, daily range): BP systolic 82–130; BP diastolic 44–82; PULSE 55–72; RESP 14–18; TEMP 36.7–37.9; O2SAT 16–100
[2017-10-03] MEDS: ALBUTEROL HFA 60 PUFF/8 GM INH 8 PUFF INH (00:33)
[2017-10-03] MEDS: PROPOFOL 1,000 MG/100 ML VIAL 18.9 MG IV ×4 (00:41→14:30)
[2017-10-03] MEDS: PIPERACILLIN-TAZO 3.375 GM/50 ML FROZ.PIGGY IV ×3 (05:25→21:04)
[2017-10-03 05:26] LABS: Add Manual Diff / Slide Review NO; Basophils Percent Auto 0.3 % (0-2); Eosinophils Percent Auto 1.3 % (2-4); Hematocrit 27.7 % (41-53); Hemoglobin 9.4 g/dL (13.5-17.5); Lymphocytes Percent Auto 10.2 % (25-40); Mean Corpuscular HGB Conc 33.9 % (30-36); Mean Corpuscular Hemoglobin 30.2 PG (26-34); Mean Corpuscular Volume 89.3 fL (80-100); Monocytes Percent Auto 4.4 % (3-14); Neutrophils Absolute Auto 12900 /uL (3000-5900); Neutrophils Percent Auto 83.8 % (50-75); Platelet Count 299 X10^3/uL (150-400); Red Cell Distribution Width 13.3 % (11.6-14.8); White Blood Cell Count 15.4 X10^3/uL (4.5-11.0)
[2017-10-03] MEDS: PHENYLEPHRINE 20,000 MCG in DEXTROSE 5% IN WATER 250 ML 26.25 ML IV (05:30)
[2017-10-03 05:34] LABS: Alanine Aminotransferase 27 IU/L (21-72); Albumin 1.9 g/dL (3.5-5.0); Albumin Globulin Ratio 0.9 (1.0-2.8); Alkaline Phosphatase 44 U/L (38-126); Aspartate Aminotransferase 24 IU/L (17-59); BUN Creatinine Ratio 14.4 (6-22); Bilirubin Total 0.4 mg/dL (0.2-1.3); Blood Urea Nitrogen 13 mg/dL (9-20); Carbon Dioxide 29 mmol/L (22-32); Chloride 107 mmol/L (98-107); Estimated Glomerular Filt Rate > 60.0 mL/min (>60); Globulin 2.1 g/dL (1.7-4.1); Glucose 145 mg/dL (80-110); HEMOLYSIS 28 (0-50); Potassium 3.4 mmol/L (3.4-5.1); Sodium 138 mmol/L (137-145)
[2017-10-03] MEDS: SODIUM CHLORIDE 0.9% 1,000 ML 100 ML IV (06:05)
[2017-10-03] MEDS: metroNIDAZOLE 500 MG/100 ML PIGGYBACK 100 MG IV ×3 (06:09→21:52)
[2017-10-03 06:23] LABS: HCO3 ABG 27 mmol/L (23-27); Oxygen Saturation ABG 96 % (95-100); PCO2 ABG 38.2 mmHg (35-45); PO2 ABG 76 mmHg (80-105); TCO2 ABG 28 mmol/L (23-27); pH ABG 7.46 (7.35-7.45)
[2017-10-03] MEDS: INSULIN ASPART 100 UNIT/ML INSULN PEN SUBCUT ×3 (06:23→18:24)
[2017-10-03 06:24] LABS: Fractionated Inspired Oxygen 0.3
[2017-10-03] MEDS: GENTAMICIN 90 MG in SODIUM CHLORIDE 0.9% 100 ML 102.25 ML IV ×2 (07:49→15:45)
[2017-10-03] MEDS: ENOXAPARIN 40 MG/0.4 ML SYRINGE SUBCUT (08:44)
[2017-10-03] MEDS: PANTOPRAZOLE 40 MG VIAL IV (08:44)
[2017-10-03] MEDS: SODIUM CHLORIDE 0.9% FLUSH 10 ML IV (08:45)
[2017-10-03] MEDS: SODIUM CHLORIDE 0.9% 500 ML IV ×2 (11:03→11:04)
[2017-10-03] MEDS: DEXTROSE 5% WATER 500 ML 21 ML IV (11:04)
[2017-10-03] MEDS: SODIUM CHLORIDE 0.9% 500 ML 21 ML IV (13:12)
--- NOTE | 2017-10-03 13:21 | PM.PN.1 ---
Subjective Date Patient Seen: 10/03/17 Time Patient Seen: 13:21 Interval history: Patient had a relatively quiet night. CVP has increased to 12 and his blood pressure has improved to essentially normal range today. He has been weaned from the Marv-Synephrine drip successfully without any issues within the last 2 hr or so. Urine output remains in the 60-100 range. Urine output is clear. He is comfortable in breathing with the vent on no significant change in his settings. Saturations are 98 - 100% on 30% FiO2. Wound VAC is draining serosanguineous fluid only. Exam Vital Signs (past 8 hours): - 10/03/17 06:00 10/03/17 08:00 10/03/17 08:36 Temperature 98.6 F Pulse Rate 61 64 65 Respiratory Rate 14 16 14 Blood Pressure 110/50 L 97/49 L Pulse Oximetry 99 98 98 10/03/17 10:17 10/03/17 12:00 Temperature 98.8 F Pulse Rate 67 68 Respiratory Rate 17 16 Blood Pressure 107/47 L 101/55 L Pulse Oximetry 98 97 Fraction of Inspired Oxygen 30 Oxygen Delivery Method Mechanical Ventilation Oxygen Flow Rate 0 Narrative Exam Narrative: Intubated and sedated. Diffuse edema throughout the upper and lower extremities. Abdominal wall is also slightly edematous but not significantly increased from yesterday Chest demonstrates regular rate and rhythm and diminished breath sounds bilateral bases but no wheezes. No crackles. Monitor shows normal sinus rhythm Abdomen is distended but soft. He is apparently nontender uncomfortable on his current analgesic regimen along with Diprivan sedation. Epidural continues to infuse at low rate. Wound VAC is in place and holding suction. Ostomy appears dusky and I suspect he will have some mucosal loss. However, the ostomy remains functional with gas and stool output. No cellulitis of the abdominal wall. Extremities show mild edema as above but digits are perfused bilaterally Objective Labs Result Diagrams: 10/03/17 05:05 10/03/17 05:05 Labs: Laboratory Results - last 24 hr 10/02/17 10/02/17 10/02/17 15:40 17:30 21:00 WBC RBC Hgb 9.1 L Hct 26.3 L MCV MCH MCHC RDW Plt Count Neut % (Auto) Lymph % (Auto) Garza % (Auto) Eos % (Auto) Baso % (Auto) Neut # (Auto) ABG pH ABG pCO2 ABG pO2 ABG HCO3 ABG Total CO2 ABG O2 Saturation ABG Base Excess FiO2 Sodium Potassium Chloride Carbon Dioxide BUN Creatinine Estimated GFR BUN/Creatinine Ratio Glucose Calcium Total Bilirubin AST ALT Alkaline Phosphatase Total Protein Albumin Globulin Albumin/Globulin Ratio Gentamicin Peak 4.4 L Gentamicin Trough 1.4 10/02/17 10/03/17 10/03/17 21:30 05:05 05:05 WBC 15.4 H RBC 3.10 L Hgb 9.4 L Hct 27.7 L MCV 89.3 MCH 30.2 MCHC 33.9 RDW 13.3 Plt Count 299 Neut % (Auto) 83.8 H Lymph % (Auto) 10.2 L Garza % (Auto) 4.4 Eos % (Auto) 1.3 L Baso % (Auto) 0.3 Neut # (Auto) 98530 H ABG pH 7.49 H ABG pCO2 34.6 L ABG pO2 83 ABG HCO3 27 ABG Total CO2 28 H ABG O2 Saturation 97 ABG Base Excess 3.0 FiO2 0.3 Sodium 138 Potassium 3.4 Chloride 107 Carbon Dioxide 29 BUN 13 Creatinine 0.90 Estimated GFR > 60.0 BUN/Creatinine Ratio 14.4 Glucose 145 H Calcium 7.0 L Total Bilirubin 0.4 AST 24 ALT 27 Alkaline Phosphatase 44 Total Protein 4.0 L Albumin 1.9 L Globulin 2.1 Albumin/Globulin Ratio 0.9 L Gentamicin Peak Gentamicin Trough 10/03/17 06:05 WBC RBC Hgb Hct MCV MCH MCHC RDW Plt Count Neut % (Auto) Lymph % (Auto) Garza % (Auto) Eos % (Auto) Baso % (Auto) Neut # (Auto) ABG pH 7.46 H ABG pCO2 38.2 ABG pO2 76 L ABG HCO3 27 ABG Total CO2 28 H ABG O2 Saturation 96 ABG Base Excess 3.0 FiO2 0.3 Sodium Potassium Chloride Carbon Dioxide BUN Creatinine Estimated GFR BUN/Creatinine Ratio Glucose Calcium Total Bilirubin AST ALT Alkaline Phosphatase Total Protein Albumin Globulin Albumin/Globulin Ratio Gentamicin Peak Gentamicin Trough Hemoglobin remained stable at 9.1. His CVP is 12 and I do not believe he requires transfusion at this time. He is oxygenating well also. Electrolytes are unremarkable other than hypokalemia. Creatinine continues to slightly improve and remained stable. Glucose is controlled. White blood cell count is diminishing. Assessment & Plan Plan: Assessment/Plan Narrative: 61-year-old male slowly improving postop day 3 from laparotomy with left colectomy and diverting colostomy as well as partial small-bowel resection. His sepsis slowly resolving with IV fluid resuscitation and intravenous antibiotics. Will observe off of Marv-Synephrine currently. Decreased total IV fluid rate. Continue TPN and supplement potassium. Repeat laboratory studies tomorrow. Tentatively plan to return to the operating room tomorrow morning for peritoneal lavage and wound VAC change. If the edema and bowel dilatation has resolved enough to allow for adequate fascial closure we will also close the abdomen but leave the subcutaneous tissue and skin open due to wound contamination. Replace the wound VAC in either event to assist with wound healing. Type and cross for 2 units of packed red blood cells for surgery tomorrow. He may require transfusion. Technical details of the above operation were discussed with the patient's . Risks, benefits, alternatives were also explained. Risks including but not limited to sedation, anesthesia, hypotension, recurring sepsis, bowel injury, bleeding, need for transfusion, ongoing poor wound healing, inability to close the abdomen, and need for further major abdominal surgery were all discussed in detail. Current treatment plan was also discussed as well. All questions were answered to her satisfaction, and she voiced understanding. She appreciated the update regarding patient's status. We will proceed as above. Consent on the chart. Quality VTE Deep Vein Thrombosis/Pulmonary Embolism Present on Admission: No
[2017-10-03] MEDS: HYDROMORPHONE 0.5 MG INJ IV ×2 (14:00→15:37)
[2017-10-03] MEDS: BUPIVACAINE 0.5% IV (14:13)
[2017-10-03] MEDS: SODIUM CHLORIDE 0.9% IV (14:13)
[2017-10-03] MEDS: FENTANYL IV (14:13)
--- NOTE | 2017-10-03 15:10 | PC.NURSE ---
able to wean pt off vasopressors this shift and all tubings and flush bags changed as well- propofol remains at 35mcg/kg/min, ngt with greenish drainage. abd softer this date and reinforced wound vac dressing to ensure adequate seal- drainage cannister changed - clayton patent and plan is for pt to go to OR @ 0900 tomorrow am for wound vac dressing change and wash-out, medicated x 1 for pain with 0.5mg dilaudid iv which did not effect bp in the least - witnessed dr lacey speak in detail about planned surgery with , malgorzata, and left consent form on chart for her to sign later this pm when she arrives to hospital
--- NOTE | 2017-10-03 16:12 | PC.NURSE ---
1545- Patient attempts to open his eyes to command. Patient brow is furrowed and patient is over-breathing the vent. Medicated for pain per order. Will monitor.
[2017-10-03] MEDS: FLUCONAZOLE 200 MG/100 ML PIGGYBACK 100 MG IV (17:24)
[2017-10-03] MEDS: LYTES IV (18:14)
[2017-10-03] MEDS: [UNRECOGNIZED DRUG - OTHER] IV (18:14)
[2017-10-03] MEDS: CALCIUM IV (18:14)
[2017-10-03] MEDS: POTASSIUM CHLORIDE IV (18:14)
[2017-10-03] MEDS: DEXT IV (18:14)
[2017-10-03] MEDS: PROPOFOL 1,000 MG/100 ML VIAL 2.722 MG IV (18:55)
[2017-10-03] MEDS: HYDROMORPHONE 1 MG INJ IV (21:06)
[2017-10-04] VITALS (24 sets, daily range): BP systolic 76–137; BP diastolic 43–71; PULSE 50–85; RESP 14–19; TEMP 36.1–36.9; O2SAT 96–100
[2017-10-04] MEDS: GENTAMICIN 90 MG in SODIUM CHLORIDE 0.9% 100 ML 102.25 ML IV ×3 (00:31→17:22)
[2017-10-04] MEDS: PROPOFOL 1,000 MG/100 ML VIAL 19.051 MG IV ×3 (00:57→19:17)
[2017-10-04 05:09] LABS: Add Manual Diff / Slide Review NO; Basophils Percent Auto 0.3 % (0-2); Eosinophils Percent Auto 1.9 % (2-4); Hematocrit 38.9 % (41-53); Hemoglobin 13.3 g/dL (13.5-17.5); Lymphocytes Percent Auto 7.3 % (25-40); Mean Corpuscular HGB Conc 34.3 % (30-36); Mean Corpuscular Hemoglobin 30.4 PG (26-34); Mean Corpuscular Volume 88.8 fL (80-100); Neutrophils Absolute Auto 7100 /uL (3000-5900); Neutrophils Percent Auto 83.5 % (50-75); Platelet Count 194 X10^3/uL (150-400); Red Blood Cell Count 4.37 X10^6/uL (4.5-5.9); Red Cell Distribution Width 13.3 % (11.6-14.8); White Blood Cell Count 8.5 X10^3/uL (4.5-11.0)
[2017-10-04 05:15] LABS: BUN Creatinine Ratio 11.3 (6-22); Blood Urea Nitrogen 9 mg/dL (9-20); Carbon Dioxide 28 mmol/L (22-32); Chloride 107 mmol/L (98-107); Estimated Glomerular Filt Rate > 60.0 mL/min (>60); Glucose 178 mg/dL (80-110); HEMOLYSIS < 15 (0-50); Potassium 3.2 mmol/L (3.4-5.1); Sodium 139 mmol/L (137-145)
[2017-10-04] MEDS: PIPERACILLIN-TAZO 3.375 GM/50 ML FROZ.PIGGY IV ×3 (05:32→22:11)
[2017-10-04] MEDS: INSULIN ASPART 100 UNIT/ML INSULN PEN SUBCUT ×2 (05:39→18:07)
[2017-10-04] MEDS: metroNIDAZOLE 500 MG/100 ML PIGGYBACK 100 MG IV ×3 (06:34→22:12)
--- NOTE | 2017-10-04 07:19 | CM.DPC ---
DCP Cont: Per MD, pt still on Vent and receiving TPN and prognosis is guarded but seems to be responding some to IV-Abx for sepsis and tentative plan of wound vac change in the O.R. today. Pt's spouse has been bedside. Plan: SW to follow closely for pt who is mostly Independent at baseline and lives with his who declined after surgery and is currently on Ventilation. SW needs unclear at this time. CLAU Bone
[2017-10-04 08:11] LABS: Add Manual Diff / Slide Review NO; Basophils Percent Auto 0.2 % (0-2); Hematocrit 24.8 % (41-53); Hemoglobin 8.2 g/dL (13.5-17.5); Lymphocytes Percent Auto 7.2 % (25-40); Mean Corpuscular HGB Conc 33.3 % (30-36); Mean Corpuscular Hemoglobin 29.9 PG (26-34); Monocytes Percent Auto 7.7 % (3-14); Neutrophils Absolute Auto 12000 /uL (3000-5900); Neutrophils Percent Auto 83.9 % (50-75); Platelet Count 282 X10^3/uL (150-400); Red Blood Cell Count 2.75 X10^6/uL (4.5-5.9); Red Cell Distribution Width 13.3 % (11.6-14.8); White Blood Cell Count 14.3 X10^3/uL (4.5-11.0)
--- NOTE | 2017-10-04 09:02 | PM.PREOP ---
Pre-operative Note Interval Note Pre-op Check: Yes History & Physical Reviewed by Physician and Yes Exam Performed Changes: No H&P completed within 30 days and has changed as indicated here:: Patient once again seen and examined in the ICU. Remains intubated and sedated. Plan for second-look laparotomy with peritoneal lavage, wound VAC change, and possible fascial closure. Consent has been obtained from the verbally and placed on the chart. Otherwise no change in the history and physical examination. Proceed as planned today in the OR.
--- NOTE | 2017-10-04 09:34 | PC.NURSE ---
pt left room 102 for surgery at approx 0900
[2017-10-04 09:48] LABS: Gentamicin Trough 1.4 ug/mL (0.0-2.0)
[2017-10-04] MEDS: SODIUM CHLORIDE 0.9% 1,000 ML 100 ML IV ×2 (09:58→16:52)
--- NOTE | 2017-10-04 11:06 | RT ---
Patient was taken to OR @ 0900 vent checks are not suitable at this time.
--- NOTE | 2017-10-04 12:25 | PM.PN.1 ---
Exam Vital Signs (past 8 hours): - 10/04/17 05:00 10/04/17 07:51 10/04/17 08:00 Pulse Rate 65 62 85 Respiratory Rate 16 15 16 Blood Pressure 103/49 L 102/50 L Pulse Oximetry 100 100 98 Fraction of Inspired Oxygen 30 Oxygen Delivery Method Mechanical Ventilation Oxygen Flow Rate 0 Objective Labs Result Diagrams: 10/04/17 12:02 10/04/17 05:00 Labs: Laboratory Results - last 24 hr 09/30/17 10/03/17 10/04/17 06:20 14:05 05:00 WBC 8.5 RBC 4.37 L Hgb 13.3 L Hct 38.9 L MCV 88.8 MCH 30.4 MCHC 34.3 RDW 13.3 Plt Count 194 Neut % (Auto) 83.5 H Lymph % (Auto) 7.3 L [place] % (Auto) 7.0 Eos % (Auto) 1.9 L Baso % (Auto) 0.3 Neut # (Auto) 7100 H Sodium Potassium Chloride Carbon Dioxide BUN Creatinine Estimated GFR BUN/Creatinine Ratio Glucose Calcium Gentamicin Trough Blood Type A Positive Cancelled Antibody Screen Negative Cancelled Crossmatch See Detail See Detail 10/04/17 10/04/17 10/04/17 05:00 07:40 07:40 WBC 14.3 H D RBC 2.75 L Hgb 8.2 L Hct 24.8 L MCV 90.0 MCH 29.9 MCHC 33.3 RDW 13.3 Plt Count 282 Neut % (Auto) 83.9 H Lymph % (Auto) 7.2 L [place] % (Auto) 7.7 Eos % (Auto) 1.0 L Baso % (Auto) 0.2 Neut # (Auto) 45220 H Sodium 139 Potassium 3.2 L Chloride 107 Carbon Dioxide 28 BUN 9 Creatinine 0.80 Estimated GFR > 60.0 BUN/Creatinine Ratio 11.3 Glucose 178 H Calcium 7.0 L Gentamicin Trough 1.4 Blood Type Antibody Screen Crossmatch Assessment & Plan Plan: Assessment/Plan Narrative: Patient seen but no note entered on 10/03/17. Today patient stable and off phenylephrine gtt. Remains intubated and on ventilator support with FIO2 30%, PEEP 5, rate 14, TV 450. He appears comfortable with thoracic epidural infusing at 4 ml/hr and propfol infusion at 35 mcg/kg/min. His urine output has been stable. Epidural site intact and without evidence of infection. Plan today is to return to the OR for laparotomy, peritoneal lavage and revision of stoma as indicated. Abdominal wound closure remains to be a guarded possibility. He will return to the ICU directly from surgery suite on ventilatory support. Thoracic epidural will remain in situ with current medication regimen. Time Spent With Patient Time with patient: less than 15 minutes Quality VTE Deep Vein Thrombosis/Pulmonary Embolism Present on Admission: No
[2017-10-04 12:28] LABS: Hematocrit 30.7 % (41-53); Hemoglobin 10.1 g/dL (13.5-17.5)
--- NOTE | 2017-10-04 12:37 | P.PN_ITS ---
Exam Vital Signs (past 8 hours): - 10/04/17 05:00 10/04/17 07:51 10/04/17 08:00 Pulse Rate 65 62 85 Respiratory Rate 16 15 16 Blood Pressure 103/49 L 102/50 L Pulse Oximetry 100 100 98 Fraction of Inspired Oxygen 30 Oxygen Delivery Method Mechanical Ventilation Oxygen Flow Rate 0 Objective Labs Result Diagrams: 10/04/17 12:02 10/04/17 05:00 Labs: Laboratory Results - last 24 hr 09/30/17 10/03/17 10/04/17 06:20 14:05 05:00 WBC 8.5 RBC 4.37 L Hgb 13.3 L Hct 38.9 L MCV 88.8 MCH 30.4 MCHC 34.3 RDW 13.3 Plt Count 194 Neut % (Auto) 83.5 H Lymph % (Auto) 7.3 L [place] % (Auto) 7.0 Eos % (Auto) 1.9 L Baso % (Auto) 0.3 Neut # (Auto) 7100 H Sodium Potassium Chloride Carbon Dioxide BUN Creatinine Estimated GFR BUN/Creatinine Ratio Glucose Calcium Gentamicin Trough Blood Type A Positive Cancelled Antibody Screen Negative Cancelled Crossmatch See Detail See Detail 10/04/17 10/04/17 10/04/17 05:00 07:40 07:40 WBC 14.3 H D RBC 2.75 L Hgb 8.2 L Hct 24.8 L MCV 90.0 MCH 29.9 MCHC 33.3 RDW 13.3 Plt Count 282 Neut % (Auto) 83.9 H Lymph % (Auto) 7.2 L [place] % (Auto) 7.7 Eos % (Auto) 1.0 L Baso % (Auto) 0.2 Neut # (Auto) 83974 H Sodium 139 Potassium 3.2 L Chloride 107 Carbon Dioxide 28 BUN 9 Creatinine 0.80 Estimated GFR > 60.0 BUN/Creatinine Ratio 11.3 Glucose 178 H Calcium 7.0 L Gentamicin Trough 1.4 Blood Type Antibody Screen Crossmatch Assessment & Plan Plan: Assessment/Plan Narrative: * Patient seen but no note entered on 10/03/17. Today patient stable and off phenylephrine gtt. Remains intubated and on ventilator support with FIO2 30%, PEEP 5, rate 14, TV 450. He appears comfortable with thoracic epidural infusing at 4 ml/hr and propfol infusion at 35 mcg/kg/min. His urine output has been stable. Epidural site intact and without evidence of infection. Plan today is to return to the OR for laparotomy, peritoneal lavage and revision of stoma as indicated. Abdominal wound closure remains to be a guarded possibility. He will return to the ICU directly from surgery suite on ventilatory support. Thoracic epidural will remain in situ with current medication regimen. Time Spent With Patient Time with patient: less than 15 minutes Quality VTE Deep Vein Thrombosis/Pulmonary Embolism Present on Admission: No
--- NOTE | 2017-10-04 13:47 | RT ---
PT back from OR at 1330
[2017-10-04] MEDS: SODIUM CHLORIDE 0.9% 500 ML IV ×2 (14:10)
[2017-10-04] MEDS: BUPIVACAINE 0.5% IV (14:18)
[2017-10-04] MEDS: SODIUM CHLORIDE 0.9% IV (14:18)
[2017-10-04] MEDS: FENTANYL IV (14:18)
[2017-10-04] MEDS: SODIUM CHLORIDE 0.9% 500 ML 21 ML IV (14:23)
[2017-10-04] MEDS: DEXTROSE 5% WATER 500 ML 21 ML IV (14:28)
[2017-10-04] MEDS: PHENYLEPHRINE 20,000 MCG in DEXTROSE 5% IN WATER 250 ML 30 ML IV (14:29)
[2017-10-04] MEDS: PANTOPRAZOLE 40 MG VIAL IV (14:37)
--- NOTE | 2017-10-04 14:53 | CM.MNRNOTE ---
pt returned from OR at approx 1330 with new ostomy site on right abd, abd dressing with wound vac attatched new stoma is beefy in color - dressing in place over old ostomy site-scd's in place clayton patent and new leroy drain to left lower abd. restarted phenylephrine gtt at 40mcg/min for low b/p- vent settings remain unchanged at 30% fio2 minimal secretions, restraints remain loosely attatched, sb/sr per financial writer- at bedside
[2017-10-04] MEDS: GENTAMICIN TROUGH 1 REQUEST MISC (15:30)
--- NOTE | 2017-10-04 15:45 | PM.OP.1 ---
Operative Date/Time/Diagnoses Date of procedure: 10/04/17 Time of procedure: 13:00 Pre-op diagnosis: Open abdominal wound with peritoneal sepsis and necrosis of end colostomy Post-op diagnosis: same Procedure & Clinicians Procedure: 1. Exploratory laparotomy 2. Peritoneal lavage 3. Closure of existing descending end colostomy 4. Formation of diverting loop ileostomy 5. Replacement of wound VAC dressing device on open abdominal wound Same procedure as scheduled: Yes Indications: 61-year-old male who is status post urgent exploratory laparotomy for complete colonic obstruction secondary to what appeared to be severe chronic diverticular stricture with associated chronic abscess and adhesions several days ago requiring diverting colostomy at that time. However, because of his significant bowel distention and abdominal edema we were unable to close his abdomen primarily. He has since received aggressive resuscitation in the intensive care unit and is now stable to return to the operating room as he has ongoing signs of peritoneal sepsis due to spillage of colonic contents at the original operation. Plan is for peritoneal lavage and potential secondary abdominal closure if possible. He also had some evidence of at least superficial mucosal necrosis of the colostomy. This is to be assessed as well. Surgeon: Roger Fiore [employer] Worker: Kyle Cedillo Click Yes if Unassisted: No Anesthesia Type: General Operative Notes Findings: 1. Full thickness necrosis of the distal 2-3 inches of the descending end colostomy 2. Inadequate length of the descending colon to allow for adequate colostomy revision. 3. Extensive thickened inflamed and partially necrotic omentum 4. Foreshortened mesentery in combination with significant abdominal wall edema prohibiting placement of Donell gastrostomy tube 5. Intact existing small bowel anastomosis 6. Purulent turbid fluid throughout the left paracolic gutter and pelvis 7. Normal appendix and, cecum, and ascending colon 8. Persistent abdominal wall edema, inflammation, and bowel distension negating possibility of fascial closure today Closure Type: non-primary Specimen(s): none sent Implants & Drains: 1. Ten Hungarian Solomon-Barnes drain left paracolic gutter placed to bulb suction 2. Wound VAC device over open abdominal wound Applied: drain(s) (See above) Estimated Blood Loss (mL): 400 Blood products transfused: packed red blood cells (2 units) Procedure in detail: After obtaining informed consent from the patient's he was brought to the operating room intubated and sedated from the ICU and placed supine on the OR table. Time-out was performed per standard SCOAP protocol. Existing wound VAC device and colostomy appliance were removed and discarded. Colostomy was noted to be completely necrotic for the visible portion of the bowel above the skin. Colostomy was sewn closed with running pursestring 0 Prolene suture. Abdomen was prepped with Betadine and draped in usual sterile fashion. Gentle blunt palpation and dissection with the surgeon's fingers was employed to break up the loose inflammatory adhesions between the omentum, abdominal wall, small bowel, and colon. Retained fluid and proteinaceous material was encountered. There were inflammatory exudates adherent to the small bowel loops. However, no evidence of any nirmala abscess or gross pus. There was however turbid somewhat purulent material in the left paracolic gutter extending toward the pelvis. Descending colon itself below the fascia appeared to be viable. All other bowel loops also appeared viable. Colostomy was then incised at the skin level taking a small rim of normal skin, liberated, delivered back into the abdomen. There was not adequate length to exteriorize any further portion of the colon to revise the colostomy. In fact, the necrosis extending below the level of the fascia required excision at that level of the bowel. Two applications of the endoscopic JANN 45 mm stapler using thick tissue load was applied to divide the bowel at that level after clearing adjacent mesentery and necrotic fat with a right angle clamp. Small bleeding vessels were controlled with 2 0 silk ties. Staple line on the descending colon was oversewn with interrupted 3 0 silk seromuscular Lembert sutures. Bowel was replaced into the abdomen. Attempts at further mobilization of the splenic flexure and distal transverse colon were abandoned given the significant inflammatory conditions as well as adhesions that led to moderate bleeding. Bleeding vessels were controlled with 3 0 silk suture ligatures. I abandoned this approach since the risk of life-threatening hemorrhage as well as splenic injury were significant. Fascia at the colostomy site was closed with interrupted #1 Prolene sutures. Skin and subcutaneous tissue at the colostomy site were left open. Portions of necrotic omentum were divided between Deanna clamps, discarded, and hemostasis achieved with 2 0 silk ties. However, the thick and inflamed omentum attached to the transverse colon in conjunction with thickened edematous abdominal wall prohibited formation of a transverse loop colostomy. Therefore the cecum and terminal ileum were examined. Cecum and right colon were mobilized along the white line of Toldt using sharp dissection by Metzenbaum scissors. Appropriate site was chosen for placement of a potential cecostomy. Skin was secured with a India clamp and incised with a 10 scalpel blade. Bovie was used to achieve hemostasis and remove the skin along with a portion of subcutaneous tissue. Rectus fascia was divided in a cruciate fashion that easily admitted 2 of the surgeon's fingers from the peritoneal cavity to the skin level. Cecum had been encircled with surgeon's fingers bluntly followed by a Farheen drain. Farheen drain was exteriorized through the abdominal wall defect. However, despite multiple attempts at exteriorizing the cecum the bowel was simply too thick and the mesentery to foreshortened to allow for an adequate loop cecostomy. We therefore elected to perform loop ileostomy. Distal ileum was brought up through the skin defect and abdominal wall defect after encircling it with a Farheen drain. The cecum had been replaced into its usual anatomic position along with a normal appendix. I should note the great care was taken to avoid injury to the right ureter during this portion of the dissection as well. Distal ileum was then brought up above skin level and secured with a ostomy bar. Farheen was discarded. Entire abdomen was then irrigated with multiple liters of sterile warm saline solution which was suctioned and noted to be clear. Solomon-Barnes drain was brought through a separate stab incision a left lower quadrant and placed along the left paracolic gutter. Drain was secured to the skin with a single 3 0 nylon stitch. Attention was then turned to possibly mobilizing the stomach enough to place a Donell gastrostomy for enteric access and future nutrition. However, we were unable to safely mobilize the greater curvature of the stomach enough to adequately perform a Donell gastrostomy and still have adequate mobility of the stomach to suture to the anterior abdominal wall. Therefore we abandoned the idea at this time of gastrostomy tube placement. Hemostasis was verified and wound VAC device was replaced over the open abdominal cavity. Entire device was secured with Ioban followed by clear Tegaderm dressings. Wound VAC was attached to the suction device and noted to hold suction nicely. Sponge contracted over the wound entirely. Temporary ostomy device was placed over the ileostomy after it had been matured in a standard fashion along the antimesenteric border with interrupted 3 0 Vicryl suture. Solomon-Barnes drain was placed to bulb suction. Procedure was then terminated and the patient was taken back to the intensive care unit directly from the OR intubated and sedated in critical condition. Complications: none Condition: critical Disposition: ICU Plan for aftercare: 1. Return to ICU intubated and sedated for ongoing resuscitation and critical care 2. At this time patient likely will have to be managed with open abdominal wound dressing care as he will continue to develop significant adhesions and inflammation of the abdominal cavity that will prohibit further abdominal surgery in the near future, particularly for fascial closure.
--- NOTE | 2017-10-04 15:48 | CM.DPC ---
DCP Cont: Per Surgeon, pt to have surgical procedure today for wound vac change and pt still intubated and sedated. Per RN, pt currently off the floor for surgery and pt has made some progress medically. SW attempted to meet bedside with family but pt was still off the floor for surgical procedure and no family present. Plan: SW to follow closely after surgical procedure today and pt still vented and sedated and d/c planning needs unclear at this time. CLAU Bone
--- NOTE | 2017-10-04 16:30 | DI.RAD.S_ITS ---
PROCEDURE: XR CHEST 1V INDICATIONS: bradycardia, hypoxia, intubation TECHNIQUE: One view of the chest was acquired. COMPARISON: None. FINDINGS: Surgical changes and devices: tube, right-sided central venous catheter and enteric tube positions unchanged.. Lungs and pleura: There is suggestion of small bilateral pleural effusion and mild congestion. No definite focal infiltrate or gross pneumothorax. Mediastinum: Mediastinal contours appear normal. Heart size is enlarged . Bones and chest wall: No suspicious bony lesions. Overlying soft tissues appear unremarkable. IMPRESSION: Mild congestive changes and small bilateral pleural effusion. No definite focal infiltrate or gross pneumothorax.. Dictated by: Cam Santiago M.D. on 10/04/2017 17:09 Approved by: Cam Santiago M.D. on 10/04/2017 at 17:10
[2017-10-04 16:57] LABS: Hematocrit 32.2 % (41-53); Hemoglobin 10.6 g/dL (13.5-17.5)
[2017-10-04 17:06] LABS: BUN Creatinine Ratio 14.3 (6-22); Blood Urea Nitrogen 10 mg/dL (9-20); Calcium 6.6 mg/dL (8.4-10.2); Carbon Dioxide 25 mmol/L (22-32); Chloride 109 mmol/L (98-107); Estimated Glomerular Filt Rate > 60.0 mL/min (>60); Glucose 237 mg/dL (80-110); HEMOLYSIS < 15 (0-50); Magnesium 1.8 mg/dL (1.6-2.3); Potassium 4.1 mmol/L (3.4-5.1); Sodium 138 mmol/L (137-145)
[2017-10-04 17:08] LABS: Gentamicin Trough 1.2 ug/mL (0.0-2.0)
[2017-10-04] MEDS: SODIUM CHLORIDE 0.9% 1,000 ML 500 ML IV (17:08)
[2017-10-04 17:11] LABS: HCO3 ABG 23 mmol/L (23-27); PCO2 ABG 40.1 mmHg (35-45); PO2 ABG 84 mmHg (80-105); TCO2 ABG 24 mmol/L (23-27); pH ABG 7.37 (7.35-7.45)
[2017-10-04 17:12] LABS: Oxygen Saturation ABG 96 % (95-100)
[2017-10-04] MEDS: FLUCONAZOLE 200 MG/100 ML PIGGYBACK 100 MG IV (18:06)
[2017-10-04] MEDS: DEXT IV (18:07)
[2017-10-04] MEDS: LYTES IV (18:07)
[2017-10-04] MEDS: [UNRECOGNIZED DRUG - OTHER] IV (18:07)
[2017-10-04] MEDS: CALCIUM IV (18:07)
[2017-10-04] MEDS: POTASSIUM CHLORIDE IV (18:07)
--- NOTE | 2017-10-04 18:45 | P.PN_ITS ---
Subjective Date Patient Seen: 10/04/17 Time Patient Seen: 18:43 Interval history: Patient is now approximately for 5 hr postoperative in the intensive care unit. Remains intubated and sedated. He was having some mild bradycardia into the 46-48 beats per minute which remained sinus with occasional PAC. Current heart rate is sinus rhythm at 53. He required Marv- Synephrine drip to 60 micrograms/minute which has now been wean to 45 micrograms /minute currently. Systolic blood pressures approximately 110 with mean arterial pressure 75. We will continue to wean the Marv-Synephrine drip as tolerated. We have light and up on the sedation with Diprivan and epidural drip feeling this may have been contributing to his tachycardia. He is over breathing the vent slightly at 18 breaths per minute with a rate set at 14 per minute. However his ABG showed no significant acidosis and otherwise was essentially normal. Electrolytes were remarkable for hypocalcemia and hypomagnesemia which we will correct. Creatinine however continues to normalize. Urine output remains in excess of 50 cc/hour but he has received a 1 L normal saline bolus over the last hour duties CVP of 8 and his relative hypotension. In my opinion, he requires a CVP of 11 or 12 cm of water for adequate filling pressures and cardiac function. His abdomen shows him to be edematous and distended as anticipated. Wound VAC is in place holding suction. Wound VAC output has been approximately 100-150 cc of serosanguineous fluid. Solomon-Barnes drain is collecting several 100 cc of serosanguineous fluid since surgery as well. Again, this is not unanticipated. His ileostomy is pink and viable with no output at this time. Lungs show diminished breath sounds but clear otherwise. No crackles or wheezes. We will continue current IV fluids and TPN as ordered. Remains on broad-spectrum antibiotics including Zosyn, gentamicin, Flagyl, and Diflucan. Gentamicin level is pending at this time, and dosing will be based on those results per pharmacy. Hemoglobin is 10.6 so we will not transfuse at this time. However, if he drifts below 10 g of hemoglobin the transfusion would potentially be beneficial, especially if his CVP declines from target levels. Patient remains critically ill with extremely grave prognosis. Once again, I have discussed this with the patient's , Veronica, and the rest of the family at the bedside. Questions were answered to their satisfaction, and she voiced understanding. Orders written. Continue ongoing supportive care and aggressive resuscitation. Exam Vital Signs (past 8 hours): - 10/04/17 13:30 10/04/17 13:45 10/04/17 14:00 Temperature Pulse Rate 67 66 65 Respiratory Rate 14 14 15 Blood Pressure 77/43 L 89/48 L 76/45 L Pulse Oximetry 100 100 100 10/04/17 14:15 10/04/17 14:30 10/04/17 15:00 Temperature 97.0 F L Pulse Rate 57 L 54 L 53 L Respiratory Rate 14 15 18 Blood Pressure 95/53 L 91/51 L 88/48 L Pulse Oximetry 100 100 100 Fraction of Inspired Oxygen 30 Oxygen Delivery Method Mechanical Ventilation Oxygen Flow Rate 0 Objective Labs Result Diagrams: 10/04/17 16:40 10/04/17 16:40 Labs: Laboratory Results - last 24 hr 09/30/17 10/04/17 10/04/17 06:20 05:00 05:00 WBC 8.5 RBC 4.37 L Hgb 13.3 L Hct 38.9 L MCV 88.8 MCH 30.4 MCHC 34.3 RDW 13.3 Plt Count 194 Neut % (Auto) 83.5 H Lymph % (Auto) 7.3 L [place] % (Auto) 7.0 Eos % (Auto) 1.9 L Baso % (Auto) 0.3 Neut # (Auto) 7100 H ABG pH ABG pCO2 ABG pO2 ABG HCO3 ABG Total CO2 ABG O2 Saturation ABG Base Excess FiO2 Sodium 139 Potassium 3.2 L Chloride 107 Carbon Dioxide 28 BUN 9 Creatinine 0.80 Estimated GFR > 60.0 BUN/Creatinine Ratio 11.3 Glucose 178 H Calcium 7.0 L Magnesium Gentamicin Trough Blood Type A Positive Antibody Screen Negative Crossmatch See Detail 10/04/17 10/04/17 10/04/17 07:40 07:40 12:02 WBC 14.3 H D RBC 2.75 L Hgb 8.2 L 10.1 L Hct 24.8 L 30.7 L MCV 90.0 MCH 29.9 MCHC 33.3 RDW 13.3 Plt Count 282 Neut % (Auto) 83.9 H Lymph % (Auto) 7.2 L [place] % (Auto) 7.7 Eos % (Auto) 1.0 L Baso % (Auto) 0.2 Neut # (Auto) 41731 H ABG pH ABG pCO2 ABG pO2 ABG HCO3 ABG Total CO2 ABG O2 Saturation ABG Base Excess FiO2 Sodium Potassium Chloride Carbon Dioxide BUN Creatinine Estimated GFR BUN/Creatinine Ratio Glucose Calcium Magnesium Gentamicin Trough 1.4 Blood Type Antibody Screen Crossmatch 10/04/17 10/04/17 10/04/17 15:30 16:30 16:40 WBC RBC Hgb 10.6 L Hct 32.2 L MCV MCH MCHC RDW Plt Count Neut % (Auto) Lymph % (Auto) [place] % (Auto) Eos % (Auto) Baso % (Auto) Neut # (Auto) ABG pH 7.37 ABG pCO2 40.1 ABG pO2 84 ABG HCO3 23 ABG Total CO2 24 ABG O2 Saturation 96 ABG Base Excess -2.0 FiO2 0.30 Sodium Potassium Chloride Carbon Dioxide BUN Creatinine Estimated GFR BUN/Creatinine Ratio Glucose Calcium Magnesium Gentamicin Trough 1.2 Blood Type Antibody Screen Crossmatch 10/04/17 16:40 WBC RBC Hgb Hct MCV MCH MCHC RDW Plt Count Neut % (Auto) Lymph % (Auto) [place] % (Auto) Eos % (Auto) Baso % (Auto) Neut # (Auto) ABG pH ABG pCO2 ABG pO2 ABG HCO3 ABG Total CO2 ABG O2 Saturation ABG Base Excess FiO2 Sodium 138 Potassium 4.1 Chloride 109 H Carbon Dioxide 25 BUN 10 Creatinine 0.70 Estimated GFR > 60.0 BUN/Creatinine Ratio 14.3 Glucose 237 H Calcium 6.6 L Magnesium 1.8 Gentamicin Trough Blood Type Antibody Screen Crossmatch Quality VTE Deep Vein Thrombosis/Pulmonary Embolism Present on Admission: No
[2017-10-04] MEDS: MAGNESIUM SULFATE 2 GM/50 ML PIGGYBACK IV (18:48)
[2017-10-04] MEDS: GENTAMICIN PEAK 1 REQUEST MISC (18:49)
--- NOTE | 2017-10-04 19:23 | PC.NURSE ---
1700- Patient is bradycardic. MD aware. Patient as low as 46. BP low and vincent gtt is on to support BP to a mean of 60. Currently gtt is at 60mic/min. Patient is making good urine. Epidural decreased to 2ml/hr and propofol decreased to 30mic/kg/min. Lungs are clear/dim. labs sent per MD order. ABG done no vent changes. Patient remains in critical condition.
[2017-10-04] MEDS: CALCIUM GLUCONATE 9.3 MEQ in SODIUM CHLORIDE 0.9% 50 ML 140 ML IV (20:17)
[2017-10-04 20:40] LABS: Gentamicin Peak 5.5 ug/mL (5.0-8.0)
[2017-10-04] MEDS: PHENYLEPHRINE 20,000 MCG in DEXTROSE 5% IN WATER 250 ML 40 ML IV (20:47)
[2017-10-05] VITALS (45 sets, daily range): BP systolic 90–127; BP diastolic 45–63; PULSE 53–65; RESP 15–24; TEMP 36.1–37.7; O2SAT 86–99
[2017-10-05] MEDS: INSULIN ASPART 100 UNIT/ML INSULN PEN SUBCUT ×4 (00:23→17:55)
[2017-10-05] MEDS: GENTAMICIN 90 MG in SODIUM CHLORIDE 0.9% 100 ML 102.25 ML IV ×2 (01:38→09:31)
[2017-10-05] MEDS: PROPOFOL 1,000 MG/100 ML VIAL 16.329 MG IV (02:17)
[2017-10-05] MEDS: SODIUM CHLORIDE 0.9% 1,000 ML 100 ML IV (05:03)
[2017-10-05] MEDS: metroNIDAZOLE 500 MG/100 ML PIGGYBACK 100 MG IV ×3 (05:43→22:27)
[2017-10-05] MEDS: PIPERACILLIN-TAZO 3.375 GM/50 ML FROZ.PIGGY IV ×3 (05:45→21:44)
--- NOTE | 2017-10-05 06:00 | DI.RAD.S_ITS ---
PROCEDURE: XR CHEST 1V INDICATIONS: ventilator TECHNIQUE: One view of the chest was acquired. COMPARISON: [facility], CR, XR CHEST 1V, 10/04/2017, 16:35. FINDINGS: Surgical changes and devices: Right-sided central venous catheter overlies the right atrium. Endotracheal tube with tip above the angelica and nasogastric tube below the diaphragm as before. Surgical clips right upper quadrant. Lungs and pleura: Moderate left and small right pleural effusion. Curvilinear density over the right lung base medially may reflect fluid in the major fissure or underlying atelectasis. Atelectatic consolidation left lower lobe obscuring the left hemidiaphragm. Mediastinum: Mediastinal contours appear normal. Heart size is normal. Bones and chest wall: No suspicious bony lesions. Overlying soft tissues appear unremarkable. IMPRESSION: 1. Stable support tubes. 2. Left lower lobe consolidation compatible with pneumonia/aspiration. Bilateral pleural effusions left greater than right. Dictated by: Lyle Musa M.D. on 10/05/2017 at 8:31 Approved by: Lyle Musa M.D. on 10/05/2017 at 8:34
[2017-10-05 06:17] LABS: PCO2 ABG 31.7 mmHg (35-45); PO2 ABG 58 mmHg (80-105); pH ABG 7.45 (7.35-7.45)
[2017-10-05 06:18] LABS: Fractionated Inspired Oxygen 35; HCO3 ABG 22 mmol/L (23-27); Oxygen Saturation ABG 91 % (95-100); TCO2 ABG 23 mmol/L (23-27)
[2017-10-05 06:28] LABS: Add Manual Diff / Slide Review NO; Basophils Percent Auto 0.2 % (0-2); Hemoglobin 8.6 g/dL (13.5-17.5); Lymphocytes Percent Auto 6.5 % (25-40); Mean Corpuscular HGB Conc 34.4 % (30-36); Mean Corpuscular Hemoglobin 29.8 PG (26-34); Mean Corpuscular Volume 86.8 fL (80-100); Monocytes Percent Auto 9.4 % (3-14); Neutrophils Absolute Auto 17000 /uL (3000-5900); Neutrophils Percent Auto 83.9 % (50-75); Platelet Count 287 X10^3/uL (150-400); Red Blood Cell Count 2.88 X10^6/uL (4.5-5.9); Red Cell Distribution Width 14.6 % (11.6-14.8); White Blood Cell Count 20.2 X10^3/uL (4.5-11.0)
--- NOTE | 2017-10-05 06:33 | PC.NURSE ---
Wound vac container changed at 0500 with 500ml in old one. Lungs- right decreased and coarse, left decreased. Vent changes by RT during night and this morning leaving it withFIO2 of 40% and PEEP of 8 with no improvement in sats of 94%. Phenelephrine off at about 0615. Epidural continues at 2ml/hr. Propofol at 30mcg/kg/min.
[2017-10-05 06:40] LABS: Chloride 110 mmol/L (98-107); HEMOLYSIS 18 (0-50)
[2017-10-05 06:43] LABS: BUN Creatinine Ratio 14.3 (6-22); Blood Urea Nitrogen 10 mg/dL (9-20); Calcium 6.8 mg/dL (8.4-10.2); Carbon Dioxide 26 mmol/L (22-32); Estimated Glomerular Filt Rate > 60.0 mL/min (>60); Glucose 223 mg/dL (80-110); Phosphorous 2.5 mg/dL (2.3-3.7); Potassium 4.1 mmol/L (3.4-5.1); Sodium 139 mmol/L (137-145)
[2017-10-05] MEDS: CALCIUM GLUCONATE 4.65 MEQ in SODIUM CHLORIDE 0.9% 50 ML 120 ML IV (08:20)
[2017-10-05] MEDS: PROPOFOL 1,000 MG/100 ML VIAL 19.051 MG IV ×4 (08:21→23:51)
[2017-10-05] MEDS: ENOXAPARIN 40 MG/0.4 ML SYRINGE SUBCUT (08:26)
[2017-10-05] MEDS: PANTOPRAZOLE 40 MG VIAL IV (08:26)
--- NOTE | 2017-10-05 11:53 | P.PN_ITS ---
Subjective Date Patient Seen: 10/05/17 Time Patient Seen: 11:46 Interval history: Patient remains intubated and sedated in the ICU. Has been off Marv-Synephrine since 0600 today. Blood pressure remained stable with mean arterial pressure of approximately 65-70 currently. Wound VAC and Solomon- Barnes drain are collecting serosanguineous fluid only. Patient has required increased FiO2 to 40%. Exam Vital Signs (past 8 hours): - 10/05/17 04:00 10/05/17 04:01 10/05/17 05:00 Temperature 99.8 F H Pulse Rate 61 61 62 Respiratory Rate 20 20 Blood Pressure 111/55 L 108/50 L 99/56 L Pulse Oximetry 96 96 10/05/17 05:14 10/05/17 06:00 10/05/17 06:01 Temperature Pulse Rate 62 63 63 Respiratory Rate 21 Blood Pressure 108/53 L 103/55 L 112/54 L Pulse Oximetry 94 10/05/17 07:00 10/05/17 07:01 10/05/17 08:00 Temperature 98.2 F Pulse Rate 60 60 65 Respiratory Rate 22 24 Blood Pressure 104/58 L 113/52 L 127/60 H Pulse Oximetry 94 96 10/05/17 09:08 10/05/17 09:10 10/05/17 09:28 Temperature 98.2 F 97.8 F Pulse Rate 56 L 56 L 54 L Respiratory Rate 18 18 18 Blood Pressure 90/46 L 91/47 L 90/46 L Pulse Oximetry 98 10/05/17 10:19 10/05/17 11:33 10/05/17 11:34 Temperature 96.9 F L 97.8 F 97.8 F Pulse Rate 53 L 59 L 60 Respiratory Rate 17 19 20 Blood Pressure 91/52 L 116/54 L 119/57 L Pulse Oximetry 99 Fraction of Inspired Oxygen 40 Oxygen Delivery Method Mechanical Ventilation Oxygen Flow Rate 0 Narrative Exam Narrative: Patient remains intubated and sedated. Remains on Diprivan drip. Epidural dilute infusion still continuing. Patient appears comfortable Has persistent edema face, abdominal wall, and extremities. Wound VAC clean, dry, and intact Ileostomy is pink and viable Abdomen remains distended but soft. Has +2 scrotal edema. Urine is clear. Chest shows coarse rhonchi in few wheezes bilaterally. Breath sounds are diminished at bilateral bases Extremities are perfused Objective Labs Result Diagrams: 10/05/17 06:00 10/05/17 06:00 Labs: Laboratory Results - last 24 hr 09/30/17 10/04/17 10/04/17 06:20 12:02 15:30 WBC RBC Hgb 10.1 L Hct 30.7 L MCV MCH MCHC RDW Plt Count Neut % (Auto) Lymph % (Auto) [place] % (Auto) Eos % (Auto) Baso % (Auto) Neut # (Auto) ABG pH ABG pCO2 ABG pO2 ABG HCO3 ABG Total CO2 ABG O2 Saturation ABG Base Excess FiO2 Sodium Potassium Chloride Carbon Dioxide BUN Creatinine Estimated GFR BUN/Creatinine Ratio Glucose Calcium Phosphorus Magnesium Gentamicin Peak Gentamicin Trough 1.2 Blood Type A Positive Antibody Screen Negative Crossmatch See Detail 10/04/17 10/04/17 10/04/17 16:30 16:40 16:40 WBC RBC Hgb 10.6 L Hct 32.2 L MCV MCH MCHC RDW Plt Count Neut % (Auto) Lymph % (Auto) [place] % (Auto) Eos % (Auto) Baso % (Auto) Neut # (Auto) ABG pH 7.37 ABG pCO2 40.1 ABG pO2 84 ABG HCO3 23 ABG Total CO2 24 ABG O2 Saturation 96 ABG Base Excess -2.0 FiO2 0.30 Sodium 138 Potassium 4.1 Chloride 109 H Carbon Dioxide 25 BUN 10 Creatinine 0.70 Estimated GFR > 60.0 BUN/Creatinine Ratio 14.3 Glucose 237 H Calcium 6.6 L Phosphorus Magnesium 1.8 Gentamicin Peak Gentamicin Trough Blood Type Antibody Screen Crossmatch 10/04/17 10/05/17 10/05/17 18:49 05:58 06:00 WBC 20.2 H RBC 2.88 L Hgb 8.6 L Hct 25.0 L MCV 86.8 D MCH 29.8 MCHC 34.4 RDW 14.6 Plt Count 287 Neut % (Auto) 83.9 H Lymph % (Auto) 6.5 L [place] % (Auto) 9.4 Eos % (Auto) 0.0 L Baso % (Auto) 0.2 Neut # (Auto) 57595 H ABG pH 7.45 ABG pCO2 31.7 L ABG pO2 58 L ABG HCO3 22 L ABG Total CO2 23 ABG O2 Saturation 91 L ABG Base Excess -2.0 FiO2 35 Sodium Potassium Chloride Carbon Dioxide BUN Creatinine Estimated GFR BUN/Creatinine Ratio Glucose Calcium Phosphorus Magnesium Gentamicin Peak 5.5 Gentamicin Trough Blood Type Antibody Screen Crossmatch 10/05/17 06:00 WBC RBC Hgb Hct MCV MCH MCHC RDW Plt Count Neut % (Auto) Lymph % (Auto) [place] % (Auto) Eos % (Auto) Baso % (Auto) Neut # (Auto) ABG pH ABG pCO2 ABG pO2 ABG HCO3 ABG Total CO2 ABG O2 Saturation ABG Base Excess FiO2 Sodium 139 Potassium 4.1 Chloride 110 H Carbon Dioxide 26 BUN 10 Creatinine 0.70 Estimated GFR > 60.0 BUN/Creatinine Ratio 14.3 Glucose 223 H Calcium 6.8 L Phosphorus 2.5 Magnesium 2.0 Gentamicin Peak Gentamicin Trough Blood Type Antibody Screen Crossmatch Chest x-ray shows all tubes and lines to be in place. No pneumothorax. He has volume loss bilaterally with small effusion. No obvious infiltrates Assessment & Plan Plan: Assessment/Plan Narrative: 61-year-old male critically ill in the ICU following left colon resection and re -exploration for peritoneal lavage and colostomy reversal converted a loop ileostomy. Abdomen remains open with wound VAC in place. Abdominal closure will not have to be delayed for some period of time. I suspect he will require split-thickness skin graft coverage once he is stable followed by eventual delayed re-exploration for yazidi of colon continuity and complex abdominal wall closure including potential lateral releases. Obviously, that will need to be done at a far distant date at a tertiary center. In the interim he remains intubated due to respiratory failure and underlying sepsis. At some stage she may require tracheostomy although we may offer a trial of weaning in the next few days if he begins to resolve some of his edema is otherwise stable off of pressors. Hemoglobin is 8.6 today postoperatively. 2 units packed red cells will be transfused. Target CVP 10-12 cm of water. Urine output and renal function are normal. We will allow him to continue to diurese. Decrease IV fluids and continue with TPN. Electrolytes been corrected accordingly. DVT prophylaxis remains in place with Lovenox and SCDs. Antibiotics including Zosyn, gentamicin, and Flagyl as well as Diflucan for antifungal coverage will be continued as well. Requires at least 10-14 day course. Fortunately he is not acidotic so he appears to be adequately resuscitated without overwhelming sepsis off of pressors. Blood sugars are increasing slightly. Will add insulin to the TPN. He is receiving lipid infusion through the Diprivan. At some stage when he has yazidi of bowel function he will need some sort of nasoenteric access for enteric nutrition. We were unable to place a gastrostomy tube. At this point his abdomen will be essentially frozen and unlikely to be amenable to reoperation any time soon. Prognosis remains guarded. I have discussed this with his family including his , Veronica. All questions were answered to their satisfaction, and she voiced understanding. Orders were written today. Repeat laboratory studies tomorrow. Quality VTE Deep Vein Thrombosis/Pulmonary Embolism Present on Admission: No
[2017-10-05] MEDS: DEXTROSE 5% WATER 500 ML 21 ML IV (12:44)
[2017-10-05] MEDS: SODIUM CHLORIDE 0.9% 500 ML 21 ML IV (13:40)
[2017-10-05] MEDS: ALBUTEROL HFA 60 PUFF/8 GM INH 8 PUFF INH (13:45)
[2017-10-05] MEDS: SODIUM CHLORIDE 0.9% 500 ML IV ×2 (13:56)
[2017-10-05] MEDS: SODIUM CHLORIDE 0.9% IV (14:21)
[2017-10-05] MEDS: BUPIVACAINE 0.5% IV (14:21)
[2017-10-05] MEDS: FENTANYL IV (14:21)
--- NOTE | 2017-10-05 14:32 | PC.NURSE ---
Day Shift Note Patient continues to be sedated with propofol while on ventilator. Opens eyes briefly to voice. Marv-synephrine has remained off since this morning at about 0615, BP stable with MAP in the 65-75 range with adequate urine output. Slight coarseness to bilateral lung tyler, suctioning small amount white sputum from ET tube. Oxygen sats 96-99%. SR/SB in the 50-60s. CVP 10 and 9. Epidural site WNL, pt appears comfortable. Generalized edema apparent. Abdomen is firm and distended, no BTs. Wound vac suctioning without issue, serous drainage. FROY drain compressed and draining serous fluid. Ileostomy stoma pink with brown/green output. Received 2 units PRBCs this shift without issue. Family at bedside, updated and questions answered.
[2017-10-05 15:03] LABS: HCO3 ABG 22 mmol/L (23-27); Oxygen Saturation ABG 95 % (95-100); PCO2 ABG 34.8 mmHg (35-45); PO2 ABG 75 mmHg (80-105); TCO2 ABG 23 mmol/L (23-27); pH ABG 7.41 (7.35-7.45)
[2017-10-05] MEDS: FLUCONAZOLE 200 MG/100 ML PIGGYBACK 100 MG IV (17:03)
--- NOTE | 2017-10-05 17:04 | P.PN_ITS ---
Subjective Date Patient Seen: 10/05/17 Time Patient Seen: 16:54 Interval history: POD#5 for Simon/partial colon resection, indwelling thoracic epidural catheter. Pt remains intubated and sedated in ICU with open abdomen, now off pressor support. Has received blood transfusion, pressures holding. Unable to examine insertion site, though surgeon and PROJECT FACILITATOR report epidural site c/d/i earlier today when patient was rolled for changing. Exam Vital Signs (past 8 hours): - 10/05/17 09:08 10/05/17 09:10 10/05/17 09:28 Temperature 98.2 F 97.8 F Pulse Rate 56 L 56 L 54 L Respiratory Rate 18 18 18 Blood Pressure 90/46 L 91/47 L 90/46 L Pulse Oximetry 98 10/05/17 10:19 10/05/17 11:33 10/05/17 11:34 Temperature 96.9 F L 97.8 F 97.8 F Pulse Rate 53 L 59 L 60 Respiratory Rate 17 19 20 Blood Pressure 91/52 L 116/54 L 119/57 L Pulse Oximetry 99 10/05/17 11:50 10/05/17 12:00 10/05/17 13:08 Temperature 98.2 F 98.3 F Pulse Rate 58 L 59 L 59 L Respiratory Rate 20 20 19 Blood Pressure 116/55 L 118/56 L 120/57 L Pulse Oximetry 97 97 10/05/17 14:03 10/05/17 14:16 10/05/17 15:00 Temperature 97.2 F L 97.4 F L Pulse Rate 61 58 L 54 L Respiratory Rate 20 19 15 Blood Pressure 100/56 L 107/50 L 101/55 L Pulse Oximetry 96 98 10/05/17 15:43 Temperature 98.1 F Pulse Rate 54 L Respiratory Rate 16 Blood Pressure 103/53 L Pulse Oximetry 98 Fraction of Inspired Oxygen 40 Oxygen Delivery Method Mechanical Ventilation Oxygen Flow Rate 0 Objective Labs Result Diagrams: 10/05/17 06:00 10/05/17 06:00 Labs: Laboratory Results - last 24 hr 09/30/17 10/04/17 10/04/17 06:20 15:30 16:30 WBC RBC Hgb Hct MCV MCH MCHC RDW Plt Count Neut % (Auto) Lymph % (Auto) [place] % (Auto) Eos % (Auto) Baso % (Auto) Neut # (Auto) ABG pH 7.37 ABG pCO2 40.1 ABG pO2 84 ABG HCO3 23 ABG Total CO2 24 ABG O2 Saturation 96 ABG Base Excess -2.0 FiO2 0.30 Sodium Potassium Chloride Carbon Dioxide BUN Creatinine Estimated GFR BUN/Creatinine Ratio Glucose Calcium Phosphorus Magnesium Gentamicin Peak Gentamicin Trough 1.2 Blood Type A Positive Antibody Screen Negative Crossmatch See Detail 10/04/17 10/04/17 10/04/17 16:40 16:40 18:49 WBC RBC Hgb 10.6 L Hct 32.2 L MCV MCH MCHC RDW Plt Count Neut % (Auto) Lymph % (Auto) [place] % (Auto) Eos % (Auto) Baso % (Auto) Neut # (Auto) ABG pH ABG pCO2 ABG pO2 ABG HCO3 ABG Total CO2 ABG O2 Saturation ABG Base Excess FiO2 Sodium 138 Potassium 4.1 Chloride 109 H Carbon Dioxide 25 BUN 10 Creatinine 0.70 Estimated GFR > 60.0 BUN/Creatinine Ratio 14.3 Glucose 237 H Calcium 6.6 L Phosphorus Magnesium 1.8 Gentamicin Peak 5.5 Gentamicin Trough Blood Type Antibody Screen Crossmatch 10/05/17 10/05/17 10/05/17 05:58 06:00 06:00 WBC 20.2 H RBC 2.88 L Hgb 8.6 L Hct 25.0 L MCV 86.8 D MCH 29.8 MCHC 34.4 RDW 14.6 Plt Count 287 Neut % (Auto) 83.9 H Lymph % (Auto) 6.5 L [place] % (Auto) 9.4 Eos % (Auto) 0.0 L Baso % (Auto) 0.2 Neut # (Auto) 75725 H ABG pH 7.45 ABG pCO2 31.7 L ABG pO2 58 L ABG HCO3 22 L ABG Total CO2 23 ABG O2 Saturation 91 L ABG Base Excess -2.0 FiO2 35 Sodium 139 Potassium 4.1 Chloride 110 H Carbon Dioxide 26 BUN 10 Creatinine 0.70 Estimated GFR > 60.0 BUN/Creatinine Ratio 14.3 Glucose 223 H Calcium 6.8 L Phosphorus 2.5 Magnesium 2.0 Gentamicin Peak Gentamicin Trough Blood Type Antibody Screen Crossmatch 10/05/17 14:50 WBC RBC Hgb Hct MCV MCH MCHC RDW Plt Count Neut % (Auto) Lymph % (Auto) [place] % (Auto) Eos % (Auto) Baso % (Auto) Neut # (Auto) ABG pH 7.41 ABG pCO2 34.8 L ABG pO2 75 L ABG HCO3 22 L ABG Total CO2 23 ABG O2 Saturation 95 ABG Base Excess -2.0 FiO2 0.40 Sodium Potassium Chloride Carbon Dioxide BUN Creatinine Estimated GFR BUN/Creatinine Ratio Glucose Calcium Phosphorus Magnesium Gentamicin Peak Gentamicin Trough Blood Type Antibody Screen Crossmatch Assessment & Plan Plan: Assessment/Plan Narrative: Pain well controlled with TEP, today is day 6 of epidural. rate was decreased from 4mL/h to 2 last pm. Pt has not required additional pain medication since initiation of the epidural and has reported no pain. Plan to remove indwelling catheter tomorrow, day 7. Lovenox dose due at 0900 - will remove prior to dose and delay at least 4 hours after removal before restarting. PROJECT FACILITATOR's aware, surgery aware. Anticipate prn IV dilaudid for pain management. Quality VTE Deep Vein Thrombosis/Pulmonary Embolism Present on Admission: No
[2017-10-05] MEDS: [UNRECOGNIZED DRUG - OTHER] IV (17:51)
[2017-10-05] MEDS: CALCIUM IV (17:51)
[2017-10-05] MEDS: DEXT IV (17:51)
[2017-10-05] MEDS: POTASSIUM CHLORIDE IV (17:51)
[2017-10-05] MEDS: LYTES IV (17:51)
[2017-10-05] MEDS: GENTAMICIN 90 MG in SODIUM CHLORIDE 0.9% 100 ML 102 ML IV (18:01)
[2017-10-05] MEDS: MINERAL OIL/PETROL OPHTH OINT 3.5 GM 1 APPLIC EYE-BOTH (19:56)
[2017-10-06] VITALS (28 sets, daily range): BP systolic 89–133; BP diastolic 42–75; PULSE 54–79; RESP 12–25; TEMP 36.6–37.7; O2SAT 94–100
[2017-10-06] MEDS: INSULIN ASPART 100 UNIT/ML INSULN PEN SUBCUT ×4 (00:19→17:53)
[2017-10-06] MEDS: GENTAMICIN 90 MG in SODIUM CHLORIDE 0.9% 100 ML 102 ML IV ×3 (00:54→16:59)
[2017-10-06] MEDS: HYDROMORPHONE 0.5 MG INJ IV ×2 (00:57→09:03)
[2017-10-06] MEDS: MINERAL OIL/PETROL OPHTH OINT 3.5 GM 1 APPLIC EYE-BOTH ×2 (01:05→06:17)
[2017-10-06] MEDS: PROPOFOL 1,000 MG/100 ML VIAL 19.051 MG IV ×2 (04:40→10:17)
[2017-10-06] MEDS: PIPERACILLIN-TAZO 3.375 GM/50 ML FROZ.PIGGY IV ×3 (04:48→21:04)
[2017-10-06] MEDS: metroNIDAZOLE 500 MG/100 ML PIGGYBACK 100 MG IV ×3 (05:30→21:50)
[2017-10-06 05:31] LABS: Basophils Percent Auto 0.5 % (0-2); Eosinophils Percent Auto 0.1 % (2-4); Hematocrit 24.2 % (41-53); Hemoglobin 8.2 g/dL (13.5-17.5); Lymphocytes Percent Auto 12.7 % (25-40); Mean Corpuscular HGB Conc 33.9 % (30-36); Mean Corpuscular Hemoglobin 29.5 PG (26-34); Mean Corpuscular Volume 86.9 fL (80-100); Monocytes Percent Auto 9.9 % (3-14); Neutrophils Absolute Auto 12300 /uL (3000-5900); Neutrophils Percent Auto 76.8 % (50-75); Platelet Count 257 X10^3/uL (150-400); Red Blood Cell Count 2.79 X10^6/uL (4.5-5.9); Red Cell Distribution Width 14.6 % (11.6-14.8)
[2017-10-06 05:34] LABS: Alanine Aminotransferase 26 IU/L (21-72); Albumin 1.6 g/dL (3.5-5.0); Albumin Globulin Ratio 0.8 (1.0-2.8); Alkaline Phosphatase 51 U/L (38-126); Aspartate Aminotransferase 15 IU/L (17-59); BUN Creatinine Ratio 21.4 (6-22); Bilirubin Total 0.2 mg/dL (0.2-1.3); Blood Urea Nitrogen 15 mg/dL (9-20); Calcium 6.9 mg/dL (8.4-10.2); Carbon Dioxide 27 mmol/L (22-32); Chloride 109 mmol/L (98-107); Estimated Glomerular Filt Rate > 60.0 mL/min (>60); Globulin 2.1 g/dL (1.7-4.1); Glucose 220 mg/dL (80-110); HEMOLYSIS 22 (0-50); Potassium 4.1 mmol/L (3.4-5.1); Sodium 139 mmol/L (137-145); Total Protein 3.7 g/dL (6.3-8.2)
[2017-10-06 06:33] LABS: Add Manual Diff / Slide Review NO
[2017-10-06 07:06] LABS: pH ABG 7.48 (7.35-7.45)
[2017-10-06 07:07] LABS: Fractionated Inspired Oxygen 40; Oxygen Saturation ABG 98 % (95-100); PO2 ABG 91 mmHg (80-105); TCO2 ABG 26 mmol/L (23-27)
[2017-10-06] MEDS: PANTOPRAZOLE 40 MG VIAL IV (08:59)
[2017-10-06] MEDS: SODIUM CHLORIDE 0.9% FLUSH 10 ML IV (08:59)
--- NOTE | 2017-10-06 09:39 | DIET.PN ---
Addendum entered by Leandra Sanchez 10/06/17 09:58: Correction: Pivot 1.5 edmond Original Note: Continues on ventilator; wound vac; TPN for nutrition support. Noted surgeon note re; possibility of EN at some point when he has church of bowel function. Not able to place a gastrostomy tube, so will need other access. NUTRITION SUPPORT: I have ordered enteral product Pivot which will be in tomorrow (Weds) and available for when pt is ready for EN. Pivot is designed for metabolically stressed patients - high edmond, high protein, peptide based; has conditionally essential AA's Arginine and Glutamine, immune boosting nutrients including omega 3s EPA, DHA. It's equivalent to Ensure Surgery Immunonutrition but appropriate for tube feeding. It may be used with minimum tube size of 8 Fr. Will continue to monitor pt progress, GI function.
[2017-10-06] MEDS: DEXTROSE 5% WATER 500 ML 21 ML IV (10:27)
[2017-10-06] MEDS: SODIUM CHLORIDE 0.9% 500 ML IV (11:14)
--- NOTE | 2017-10-06 11:35 | RT ---
When doing vent check on patient his tube was 22 @ teeth advanced tube back to 24 at the teeth.
[2017-10-06] MEDS: ALBUTEROL 2.5 MG/3 ML NEB (ADULT) INH (11:46)
--- NOTE | 2017-10-06 12:10 | PM.PN.1 ---
Subjective Date Patient Seen: 10/06/17 Time Patient Seen: 12:10 Interval history: Patient remained stable overnight. Blood pressure remains with a mean in the 70s in systolic blood pressure in the 110-120 range. He did have some mild hypotension after receiving Dilaudid intravenously last night but this was transient. Remains stable on relatively minimal ventilator settings. In fact, he just tolerated a 40 min CPAP trial while the sedation was held. He was able to communicate appropriately with nursing staff with nodding of the head. Followed commands. Urine output remains in the 50-80 range. Urine is clear. Total IV fluids are approximately 100 cc/hour including TPN at this time. Wound VAC is draining serosanguineous fluid at approximately 500 cc per day. Solomon-Barnes drain is slowing but collecting serosanguineous fluid as well. CVP is now 14. Patient has been relocated to another unit since the standard ICU has been closed for construction in maintenance purposes. He tolerated the transfer well. Exam Vital Signs (past 8 hours): - 10/06/17 06:00 10/06/17 08:20 10/06/17 08:36 Temperature 99.0 F 99.9 F H Pulse Rate 65 Respiratory Rate 20 22 Blood Pressure 133/63 H 125/75 H Pulse Oximetry 98 97 98 10/06/17 09:03 10/06/17 10:11 Temperature 99.8 F H Pulse Rate 58 L Respiratory Rate 16 Blood Pressure 101/48 L Pulse Oximetry 100 Fraction of Inspired Oxygen 40 Oxygen Delivery Method Mechanical Ventilation Oxygen Flow Rate 0 Narrative Exam Narrative: Sedated and intubated. Facial edema has diminished. Endotracheal tube and nasogastric tube remain in place. Nasogastric tube is draining bile tinged fluid but it is not nirmala bile at this time. Few coarse rhonchi bilaterally but no crackles. No wheezes. Regular rate and rhythm. No murmurs. Abdomen remains distended but soft. Abdominal wall is edematous along with the upper and lower extremities. Scrotal edema is stable. Portillo catheter is in place draining clear urine. Wound VAC is in place and holding suction nicely. Ileostomy is viable. Extremities are perfused. No cyanosis. Objective Labs Result Diagrams: 10/06/17 04:55 10/06/17 04:55 Labs: Laboratory Results - last 24 hr 09/30/17 10/05/17 10/06/17 06:20 14:50 04:55 WBC 16.0 H RBC 2.79 L Hgb 8.2 L Hct 24.2 L MCV 86.9 MCH 29.5 MCHC 33.9 RDW 14.6 Plt Count 257 Neut % (Auto) 76.8 H Lymph % (Auto) 12.7 L [place] % (Auto) 9.9 Eos % (Auto) 0.1 L Baso % (Auto) 0.5 Neut # (Auto) 39521 H ABG pH 7.41 ABG pCO2 34.8 L ABG pO2 75 L ABG HCO3 22 L ABG Total CO2 23 ABG O2 Saturation 95 ABG Base Excess -2.0 FiO2 0.40 Sodium Potassium Chloride Carbon Dioxide BUN Creatinine Estimated GFR BUN/Creatinine Ratio Glucose Calcium Total Bilirubin AST ALT Alkaline Phosphatase Total Protein Albumin Globulin Albumin/Globulin Ratio Crossmatch See Detail 10/06/17 10/06/17 04:55 06:28 WBC RBC Hgb Hct MCV MCH MCHC RDW Plt Count Neut % (Auto) Lymph % (Auto) [place] % (Auto) Eos % (Auto) Baso % (Auto) Neut # (Auto) ABG pH 7.48 H ABG pCO2 34.0 L ABG pO2 91 ABG HCO3 2 L ABG Total CO2 26 ABG O2 Saturation 98 ABG Base Excess 2.0 FiO2 40 Sodium 139 Potassium 4.1 Chloride 109 H Carbon Dioxide 27 BUN 15 Creatinine 0.70 Estimated GFR > 60.0 BUN/Creatinine Ratio 21.4 Glucose 220 H Calcium 6.9 L Total Bilirubin 0.2 AST 15 L ALT 26 Alkaline Phosphatase 51 Total Protein 3.7 L Albumin 1.6 L Globulin 2.1 Albumin/Globulin Ratio 0.8 L Crossmatch Hemoglobin remains low despite receiving 2 units of blood yesterday. However, he does not appear to be actively bleeding. White blood cell count is slowly diminishing. Electrolytes are normal other than hyperglycemia. Blood gas today shows normal acid-base status with good oxygenation. No new imaging today. 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 He has no evidence of overwhelming sepsis at this time. He has been stable off of vasopressor support for approximately 2 days now. Remains anemic but not symptomatic from such at this time. We will plan to change his wound VAC dressing and ostomy appliance at the bedside tomorrow under appropriate sedation and fentanyl pain control. Will perform the dressing change with the ostomy and wound care nurse. Continue TPN but increase insulin in the formula. Otherwise electrolytes will remain unchanged. No requirement for lipids as long as he is on Diprivan. Because his CVP is climbing we will administer Lasix today with a single 20 mg dose. This may help his respiratory mechanics as we weaning from the ventilator. I am hopeful that he might be able to be successfully extubated within the next 2 days following tomorrow his dressing change. If he fails weaning trial or extubation then he will require ventilatory support and probable tracheostomy. Repeat laboratory studies tomorrow following Lasix. Continue broad-spectrum IV antibiotics without changes. Renal function has normalized. I discussed all the above with the patient's via telephone today. All questions were answered to her satisfaction, and she voiced understanding. Orders were written. Quality VTE Deep Vein Thrombosis/Pulmonary Embolism Present on Admission: No
[2017-10-06] MEDS: FUROSEMIDE 20 MG/2 ML VIAL IV (12:33)
[2017-10-06] MEDS: SODIUM CHLORIDE 0.9% 1,000 ML 21 ML IV (12:42)
[2017-10-06] MEDS: PROPOFOL 1,000 MG/100 ML VIAL 21.772 MG IV ×3 (14:04→22:37)
[2017-10-06] MEDS: ENOXAPARIN 40 MG/0.4 ML SYRINGE SUBCUT (14:06)
--- NOTE | 2017-10-06 14:19 | PC.NURSE ---
PT TRANSFERRED TO ROOM 230 WITHOUT COMPLICATION OR INCIDENT- HE REMAINS INTUBATED AT 40% FIO2 PEEP DECREASED TO 5 RATE AT 14 AND TV 450- SUCTIONING ETT AND ORALLY FOR SMALL AMOUNT OF WHITE SECRETIONS, LUNGS REMAIN SOMEWHAT COARSE NO AUDIBLE WHEEZE HEARD BY THIS RN, PT ABLE TO TOLERATE SEDATION VACATION AND CPAP TRIAL X 40-45 MINUTES, RESTRAINTS REMAIN. ART LINE REMOVED PER MD ORDER , CVP 14 2OMG IV LASIX GIVEN WITH BRISK DIURESIS PER GARY- FROY WITH SMALL AMOUNT OF SERO-SANG DRAINAGE- PROPOFOL CONTINUES WELL ABX THERAPY
[2017-10-06 16:21] LABS: HCO3 ABG 25 mmol/L (23-27)
[2017-10-06 17:21] LABS: Gentamicin Trough 1.5 ug/mL (0.0-2.0)
[2017-10-06] MEDS: POTASSIUM CHLORIDE IV (17:55)
[2017-10-06] MEDS: LYTES IV (17:55)
[2017-10-06] MEDS: CALCIUM IV (17:55)
[2017-10-06] MEDS: [UNRECOGNIZED DRUG - OTHER] IV (17:55)
[2017-10-06] MEDS: DEXT IV (17:55)
[2017-10-06] MEDS: FLUCONAZOLE 200 MG/100 ML PIGGYBACK 100 MG IV (18:35)
--- NOTE | 2017-10-06 19:05 | PC.NURSE ---
1840 - Sedation vacation and CPAP trial completed. Patient tolerated well; see RT notes. Patient responsive and able to nod and shake head slightly to questions while propofol off. Denied pain. Propofol turned back on after CPAP trial and patient now resting peacefully on ventilator.
[2017-10-06 19:24] LABS: Gentamicin Peak 4.6 ug/mL (5.0-8.0)
--- NOTE | 2017-10-06 21:32 | PM.PN.1 ---
Subjective Date Patient Seen: 10/06/17 Time Patient Seen: 07:33 Interval history: Pt stable o/n, off vincent gtt. Received single dose of hydromorphone noc. Epidural at 2mL/h overnight. Exam Vital Signs (past 8 hours): - 10/06/17 14:00 10/06/17 14:05 10/06/17 16:00 Temperature 98.4 F 97.8 F Pulse Rate 65 64 61 Respiratory Rate 19 16 20 Blood Pressure 106/56 L 106/56 L 93/48 L Pulse Oximetry 95 95 94 10/06/17 17:49 10/06/17 18:00 10/06/17 20:00 Temperature 98.0 F Pulse Rate 65 72 Respiratory Rate 20 Blood Pressure 121/64 H 125/67 H Pulse Oximetry 96 96 98 Fraction of Inspired Oxygen 40 Oxygen Delivery Method Mechanical Ventilation Oxygen Flow Rate 0 Objective Labs Result Diagrams: 10/06/17 04:55 10/06/17 04:55 Labs: Laboratory Results - last 24 hr 09/30/17 10/06/17 10/06/17 06:20 04:55 04:55 WBC 16.0 H RBC 2.79 L Hgb 8.2 L Hct 24.2 L MCV 86.9 MCH 29.5 MCHC 33.9 RDW 14.6 Plt Count 257 Neut % (Auto) 76.8 H Lymph % (Auto) 12.7 L [place] % (Auto) 9.9 Eos % (Auto) 0.1 L Baso % (Auto) 0.5 Neut # (Auto) 55211 H ABG pH ABG pCO2 ABG pO2 ABG HCO3 ABG Total CO2 ABG O2 Saturation ABG Base Excess FiO2 Sodium 139 Potassium 4.1 Chloride 109 H Carbon Dioxide 27 BUN 15 Creatinine 0.70 Estimated GFR > 60.0 BUN/Creatinine Ratio 21.4 Glucose 220 H Calcium 6.9 L Total Bilirubin 0.2 AST 15 L ALT 26 Alkaline Phosphatase 51 Total Protein 3.7 L Albumin 1.6 L Globulin 2.1 Albumin/Globulin Ratio 0.8 L Gentamicin Peak Gentamicin Trough Crossmatch See Detail 10/06/17 10/06/17 10/06/17 06:28 16:45 18:40 WBC RBC Hgb Hct MCV MCH MCHC RDW Plt Count Neut % (Auto) Lymph % (Auto) [place] % (Auto) Eos % (Auto) Baso % (Auto) Neut # (Auto) ABG pH 7.48 H ABG pCO2 34.0 L ABG pO2 91 ABG HCO3 25 ABG Total CO2 26 ABG O2 Saturation 98 ABG Base Excess 2.0 FiO2 40 Sodium Potassium Chloride Carbon Dioxide BUN Creatinine Estimated GFR BUN/Creatinine Ratio Glucose Calcium Total Bilirubin AST ALT Alkaline Phosphatase Total Protein Albumin Globulin Albumin/Globulin Ratio Gentamicin Peak 4.6 L Gentamicin Trough 1.5 Crossmatch Assessment & Plan Plan: Assessment/Plan Narrative: Epidual catheter removed this morning at 0700, day 7, due to concerns for increasing infection risk. Catheter removed intact. Insertion site without erythema or exudate. Dressing was c/d/i on initial inspection. Pt sedated on vent. Pain management per surgery. Quality VTE Deep Vein Thrombosis/Pulmonary Embolism Present on Admission: No
[2017-10-07] VITALS (24 sets, daily range): BP systolic 96–146; BP diastolic 51–73; PULSE 57–82; RESP 14–26; TEMP 35.9–37.3; O2SAT 95–100
[2017-10-07] MEDS: INSULIN ASPART 100 UNIT/ML INSULN PEN SUBCUT ×4 (00:35→18:02)
[2017-10-07] MEDS: PROPOFOL 1,000 MG/100 ML VIAL 21.772 MG IV ×3 (03:21→09:53)
[2017-10-07] MEDS: PIPERACILLIN-TAZO 3.375 GM/50 ML FROZ.PIGGY IV ×3 (04:58→21:46)
[2017-10-07 05:27] LABS: Hematocrit 28.3 % (41-53); Hemoglobin 9.6 g/dL (13.5-17.5); Mean Corpuscular Volume 88.4 fL (80-100); Platelet Count 341 X10^3/uL (150-400); Red Cell Distribution Width 14.5 % (11.6-14.8); White Blood Cell Count 16.4 X10^3/uL (4.5-11.0)
[2017-10-07 05:41] LABS: BUN Creatinine Ratio 18.8 (6-22); Blood Urea Nitrogen 15 mg/dL (9-20); Calcium 7.5 mg/dL (8.4-10.2); Carbon Dioxide 30 mmol/L (22-32); Chloride 105 mmol/L (98-107); Estimated Glomerular Filt Rate > 60.0 mL/min (>60); Glucose 258 mg/dL (80-110); HEMOLYSIS < 15 (0-50); Potassium 4.5 mmol/L (3.4-5.1); Sodium 140 mmol/L (137-145)
[2017-10-07] MEDS: metroNIDAZOLE 500 MG/100 ML PIGGYBACK 100 MG IV ×3 (05:44→22:30)
[2017-10-07 06:43] LABS: Add Manual Diff / Slide Review YES
[2017-10-07 06:47] LABS: Nucleated Red Blood Cells 1 #/Diff; RBC Morphology Normal Morphology; Total Cells Counted 100
[2017-10-07 08:39] LABS: Neutrophils Absolute Manual 12956 /uL (3000-5900)
[2017-10-07] MEDS: PANTOPRAZOLE 40 MG VIAL IV (09:13)
[2017-10-07] MEDS: GENTAMICIN 120 MG in SODIUM CHLORIDE 0.9% 100 ML 103 ML IV ×2 (09:13→20:11)
[2017-10-07] MEDS: fentaNYL 100 MCG/2 ML INJ 200 MCG IV (09:14)
--- NOTE | 2017-10-07 10:23 | PC.NURSE ---
DR. REY AND [facility] HERE THIS AM TO CHANGE OSTOMY APPLIANCE AND WOUND VAC- THIS REQUIRED AT LEAST AN HOUR OF 1-1 CARE REQUIRING 200MCG OF IV FENTANYL TOTAL AND HE TOLERATED WELL-ALTHOUGH DIAPHORESIS NOTED
--- NOTE | 2017-10-07 12:25 | DIET.PN ---
Pt moved to rm 230; still on ventilator. Per notes, hope to wean from vent soon. If tolerates weaning and able to start PO nutrition, will encourage Ensure [facility] intake NUTRITION SUPPORT: TPN-Clin 07/03 @1000ml daily Providing 1050 kcal, 250g dextrose, 50g protein. Propofol/Diprivan provides additional fat kcals. LABS: Albumin 1.6 and decreasing trend. ASSESSMENT: Very high protein needs r/t losses from wound/open abdomen; high metabolic stress. Currently meeting approx 36% estimated needs. INTERVENTION: Suggest increase protein in TPN w/custom blend; doubling AA mixture. See nutrition note 10/05 for full assessment.
--- NOTE | 2017-10-07 13:21 | P.PN_ITS ---
Subjective Date Patient Seen: 10/07/17 Time Patient Seen: 07:48 Interval history: Patient had a relatively quiet night. Tolerated another 45 min CPAP trial with minimal support. He has diuresed quite well with several L of urine following a single dose of intravenous Lasix yesterday afternoon. CVP remains in the 10-12 range. He had some transient hypotension of unclear etiology early last evening but this spontaneously resolved and blood pressure is otherwise been completely normal throughout the night and this morning. Minimal ileostomy output. Wound VAC continues to collect 500-600 cc of serosanguineous fluid daily. Solomon-Barnes drain output has decreased significantly to only 10-15 cc serosanguineous fluid per shift. Exam Vital Signs (past 8 hours): - 10/07/17 06:00 10/07/17 07:20 10/07/17 10:06 Temperature 99.2 F 97.4 F L Pulse Rate 70 71 57 L Respiratory Rate 14 20 18 Blood Pressure 146/69 H 146/69 H 102/59 L Pulse Oximetry 95 98 10/07/17 11:30 10/07/17 12:25 Temperature 97.5 F L Pulse Rate 62 Respiratory Rate 23 Blood Pressure 134/68 H Pulse Oximetry 100 99 Fraction of Inspired Oxygen 40 Oxygen Delivery Method Mechanical Ventilation Oxygen Flow Rate 96 Narrative Exam Narrative: Intubated and sedated. Comfortable on minimal ventilator settings at this stage with FiO2 40%, rate 14, peep 5, and tidal volume 450 mL Current systolic blood pressure 120 Heart rate in the 60s, sinus with occasional PAC Urine output as above in HPI Facial edema has decreased Chest clear to auscultation although he does have a few coarse rhonchi. No crackles Abdomen remains edematous but less so. He is less distended as well. Current dressing is clean and intact. Ostomy is viable Extremities show no clubbing or cyanosis. He is well perfused. Dorsal pedis pulses are easily palpable bilaterally. Plus one edema bilateral upper and lower extremities. Objective Labs Result Diagrams: 10/07/17 05:15 10/07/17 05:15 Labs: Laboratory Results - last 24 hr 10/06/17 10/06/17 10/06/17 06:28 16:45 18:40 WBC RBC Hgb Hct MCV MCH MCHC RDW Plt Count Neut % (Auto) Lymph % (Auto) [place] % (Auto) Eos % (Auto) Baso % (Auto) Total Counted Seg Neutrophils % Band Neutrophils % Lymphocytes % (Manual) Monocytes % (Manual) Metamyelocytes % Neutrophils # (Manual) Nucleated RBCs RBC Morphology ABG HCO3 25 Sodium Potassium Chloride Carbon Dioxide BUN Creatinine Estimated GFR BUN/Creatinine Ratio Glucose Calcium Gentamicin Peak 4.6 L Gentamicin Trough 1.5 10/07/17 10/07/17 05:15 05:15 WBC 16.4 H RBC 3.20 L Hgb 9.6 L Hct 28.3 L MCV 88.4 MCH 30.0 MCHC 34.0 RDW 14.5 Plt Count 341 Neut % (Auto) Not Reportable Lymph % (Auto) Not Reportable [place] % (Auto) Not Reportable Eos % (Auto) Not Reportable Baso % (Auto) Not Reportable Total Counted 100 Seg Neutrophils % 79.0 H Band Neutrophils % Not Reportable Lymphocytes % (Manual) 15.0 L Monocytes % (Manual) 6.0 Metamyelocytes % Not Reportable Neutrophils # (Manual) 78986 H Nucleated RBCs 1 H RBC Morphology Normal morphology ABG HCO3 Sodium 140 Potassium 4.5 Chloride 105 Carbon Dioxide 30 BUN 15 Creatinine 0.80 Estimated GFR > 60.0 BUN/Creatinine Ratio 18.8 Glucose 258 H Calcium 7.5 L Gentamicin Peak Gentamicin Trough No new radiographic studies for review. Electrolytes are normal along with creatinine. However he remains hyperglycemic. Assessment & Plan Plan: Assessment/Plan Narrative: 61-year-old male who remains critically ill in the ICU following laparotomy and colon resection. His open abdominal wound is healing. In fact, we changed the wound VAC device as well as the ostomy appliance at the bedside today using the existing Diprivan drip and supplemental intravenous fentanyl for pain control. The patient tolerated this remarkably well with no issues. He is beginning to show early signs of granulation along the omentum and edges of the abdominal wound. I removed the ostomy bar and replaced this with a firm 16 [place] red rubber catheter. Ostomy appliance was also changed. The entire dressing drainage was performed with the assistance of the enterostomal therapist/wound care nurse. Solomon-Barnes drain was removed as well. Continue to await bowel function. Will attempt ongoing weaning trials and hopefully extubate the patient within the next 1-2 days. If he is able to do well without ventilator support then we can attempt oral feedings once bowel function does return. In the interim continue broad-spectrum IV antibiotics. Continue TPN with increased insulin. He is on high-dose sliding scale insulin as well. If he fails to extubate or requires re-intubation at any point that I believe he would be a candidate for tracheostomy. Hemoglobin is stable, and we will not transfuse at this time. DVT prophylaxis remains in place with Lovenox and SCDs. Orders were written. Quality VTE Deep Vein Thrombosis/Pulmonary Embolism Present on Admission: No
[2017-10-07] MEDS: ENOXAPARIN 40 MG/0.4 ML SYRINGE SUBCUT (14:11)
--- NOTE | 2017-10-07 14:19 | PC.NURSE ---
Day Shift Pt tolerated one hour breathing trial without issue. Back on propofol gtt at 45 mcg/kg/min. SB in the 50s. at bedside and updated on patient's status.
[2017-10-07] MEDS: PROPOFOL 1,000 MG/100 ML VIAL 24.494 MG IV ×3 (14:34→22:04)
[2017-10-07] MEDS: SODIUM CHLORIDE 0.9% 500 ML IV (14:36)
[2017-10-07] MEDS: ALBUTEROL 2.5 MG/3 ML NEB (ADULT) INH (15:15)
--- NOTE | 2017-10-07 16:07 | PC.NURSE ---
1600-Patient is stable vented and sedated. Portillo draining clear yellow urine. Propofol is at 40mic/kg/min. TPN infusing per MD order. Lungs are clear/dim. Wound vac is functioning with serous fluid in the collection cannister. Patient has soft restraints to both wrists for safety.
[2017-10-07] MEDS: FLUCONAZOLE 200 MG/100 ML PIGGYBACK 100 MG IV (16:59)
[2017-10-07] MEDS: HYDROMORPHONE 1 MG INJ IV (17:04)
[2017-10-07] MEDS: DEXT IV (17:57)
[2017-10-07] MEDS: [UNRECOGNIZED DRUG - OTHER] IV (17:57)
[2017-10-07] MEDS: CALCIUM IV (17:57)
[2017-10-07] MEDS: LYTES IV (17:57)
[2017-10-07] MEDS: POTASSIUM CHLORIDE IV (17:57)
[2017-10-08] VITALS (23 sets, daily range): BP systolic 118–147; BP diastolic 56–79; PULSE 60–79; RESP 16–41; TEMP 36.5–38.3; O2SAT 75–98
[2017-10-08] MEDS: ALBUTEROL 2.5 MG/3 ML NEB (ADULT) INH ×4 (00:27→18:01)
[2017-10-08] MEDS: PROPOFOL 1,000 MG/100 ML VIAL 21.772 MG IV ×2 (02:35→06:01)
[2017-10-08] MEDS: PIPERACILLIN-TAZO 3.375 GM/50 ML FROZ.PIGGY IV ×3 (05:18→21:29)
[2017-10-08] MEDS: metroNIDAZOLE 500 MG/100 ML PIGGYBACK 100 MG IV ×3 (05:52→22:11)
[2017-10-08] MEDS: INSULIN ASPART 100 UNIT/ML INSULN PEN SUBCUT ×3 (06:18→18:09)
--- NOTE | 2017-10-08 08:13 | PM.PN.1 ---
Subjective Date Patient Seen: 10/08/17 Time Patient Seen: 07:13 Interval history: With patient remains intubated and sedated. Has tolerated 1 hr CPAP trials with pressure support of 15 on multiple occasions over the last 48 hr. Urine output remains more than adequate. Pain is well controlled. Blood pressure is normal, and he has been off of Marv-Synephrine for several days now. Remains on minimal vent settings as well. No acute events overnight. Exam Vital Signs (past 8 hours): - 10/08/17 01:20 10/08/17 03:20 10/08/17 04:20 Temperature 97.9 F Pulse Rate 72 75 66 Respiratory Rate 20 19 20 Blood Pressure 135/66 H 129/66 H 124/59 H Pulse Oximetry 95 97 96 10/08/17 05:48 10/08/17 07:18 Temperature 97.7 F Pulse Rate 73 79 Respiratory Rate 23 19 Blood Pressure 126/61 H 134/62 H Pulse Oximetry 96 95 Fraction of Inspired Oxygen 40 Oxygen Delivery Method Mechanical Ventilation Oxygen Flow Rate 96 Narrative Exam Narrative: Intubated and sedated on the ventilator in the ICU. He appears comfortable. No fevers. Heart rate is sinus in the 60s to 70s. Blood pressure normal. He is overbreathing the vent rate of 14 but he is drawing adequate tidal volumes. Facial edema has significantly decreased Nasogastric tube continues to drain dark bilious fluid but in less amount Chest is actually clear to auscultation today but still has diminished breath sounds at bilateral bases. No crackles or wheezes. No murmurs, gallops, rubs. Abdomen is less distended in the abdominal wall is much less edematous today. Wound VAC remains in place holding suction. Total output from the device has been 300 cc over the last 24 hr. Fluid is mostly serous. He is now having ileostomy output of bilious liquid and some air. Appliance is intact as well as the red rubber ostomy bar. The ostomy bar was replaced yesterday since there appeared to be some retraction after removing the initial T-bar. Ostomy is pink and viable. No cellulitis of the abdominal wall. Scrotal edema remains stable. Portillo catheter in place draining clear urine Extremities show no clubbing or cyanosis. Hands and feet are warm and well perfused. Dorsal pedis pulses are easily palpable bilaterally. Edema has diminished significantly along the hands, feet, and pretibial regions bilaterally. Triple-lumen catheter site is clean, dry, and intact. Total IV fluids without Diprivan is approximately 80 cc/hour now. Objective Labs Result Diagrams: 10/07/17 05:15 10/07/17 05:15 Labs: Laboratory Results - last 24 hr 10/07/17 05:15 Band Neutrophils % Not Reportable Metamyelocytes % Not Reportable Neutrophils # (Manual) [id number] H No new laboratory radiographic studies for review today. His fingerstick blood sugars are in the 190 range. Assessment & Plan Plan: Assessment/Plan Narrative: 61-year-old male postoperative day 8 from initial operation for left colectomy and diverting colostomy then postoperative day 4 from return to the operating room for ostomy revision and peritoneal lavage. Overall he remains critically ill but is improving significantly. In fact, his respiratory mechanics appear to be optimal today for potential extubation. We will hold the Diprivan, of repeat CPAP trial with pressure support only, and extubate if he maintains adequate respiratory rate and minute ventilation with good negative inspiratory flow. Continue nasogastric tube until he has more consistent bowel function and is stable off the ventilator. He requires no further diuresis at this point since he has normal renal function and his urine output is spontaneously diuresing the 3rd space fluid he has accumulated since surgery. Continue a total of 14 days of intravenous antibiotics consisting of Zosyn, Flagyl, gentamicin, and Diflucan. Could likely discontinue the Diflucan after 1 week course. Continue TPN and increase insulin within the formula. DVT prophylaxis continues with Lovenox and SCDs bilaterally. He is on a turning schedule. Once extubated he will require aggressive pulmonary toilet. Repeat laboratory studies tomorrow. Check chest x-ray after extubation tomorrow as well. Would plan next wound VAC change either at the bedside or in the operating room in the next 4 or 5 days. If he fails extubation or cannot be safely extubated and he will likely require tracheostomy. I am hopeful that he will extubate without significant issue and have return of bowel function at which time we can potentially feed him orally. Otherwise he will likely require a nasoenteric feeding tube for some period of time. Case discussed with attending nursing staff and respiratory therapy today. Orders written. Quality VTE Deep Vein Thrombosis/Pulmonary Embolism Present on Admission: No
[2017-10-08] MEDS: HYDROMORPHONE 0.5 MG INJ IV (08:20)
[2017-10-08] MEDS: GENTAMICIN 120 MG in SODIUM CHLORIDE 0.9% 100 ML 103 ML IV ×2 (08:22→20:22)
[2017-10-08] MEDS: PANTOPRAZOLE 40 MG VIAL IV (08:22)
[2017-10-08 09:30] LABS: HCO3 ABG 25 mmol/L (23-27); Oxygen Saturation ABG 98 % (95-100); PCO2 ABG 35.2 mmHg (35-45); PO2 ABG 98 mmHg (80-105); TCO2 ABG 26 mmol/L (23-27); pH ABG 7.46 (7.35-7.45)
[2017-10-08] MEDS: HYDROMORPHONE 1 MG INJ IV ×3 (10:27→14:16)
--- NOTE | 2017-10-08 10:56 | PC.NURSE ---
Addendum entered by Amita Kiran R.N. 10/08/17 14:41: Moved patient and belongings to room 102 at about 1330. Tolerated well. Original Note: Day Shift Note Breathing trial initiated at 0740, propofol turned off prior. Pt overall did well with sats in the 94-96% range and resp. rate in the low 20s, suctioning large amounts of clear/white sputum. ABG completed and pt then extubated at [address] Fiore at bedside to RA. Oxygen sats 94%, pt with productive cough, oral suctioning done. Placed on 3LNC by RT due to sats 91%-92%, now 96% while on 3L. Tracking with eyes, nodding or shaking head in response to questions, voice weak. Restraints removed at 1000. CVP d/c'd per Dr. Fiore. RR at 20 bpm. Veronica called and updated. Call light within reach. Medicated with Dilaudid IV for pt report of pain.
[2017-10-08] MEDS: ENOXAPARIN 40 MG/0.4 ML SYRINGE SUBCUT (14:14)
--- NOTE | 2017-10-08 16:07 | PC.NURSE ---
1600- Patient is resting quietly. Vitals are WNL. is at bedside. Will allow patient to rest until 1700. Will monitor.
[2017-10-08] MEDS: FLUCONAZOLE 200 MG/100 ML PIGGYBACK 100 MG IV (16:56)
--- NOTE | 2017-10-08 17:48 | PC.NURSE ---
Wound/Ostomy Nurse Consult Note, Late Entry On October 07 I assisted with the I dressing change and ostomy appliance change. 5 white foams were placed first, then 3 black foams. The ostomy appliance is a 70mm Convatec moldable wafer and clear pouch. The mesentery was without necrosis. The stoma was beefy red and producing green liquid effluent. Dr. Fiore removed the birdge, yet the stoma started to invert so he used a red ac catheter as a bridge to prevent further retraction and help it to approximate to the abdomen.
[2017-10-08] MEDS: LYTES IV (18:04)
[2017-10-08] MEDS: CALCIUM IV (18:04)
[2017-10-08] MEDS: DEXT IV (18:04)
[2017-10-08] MEDS: POTASSIUM CHLORIDE IV (18:04)
[2017-10-08] MEDS: [UNRECOGNIZED DRUG - OTHER] IV (18:04)
[2017-10-08] MEDS: FAT EMULSIONS 50 GM/250 ML EMULSION IV (18:04)
[2017-10-08] MEDS: HYDROMORPHONE PCA 6 MG/30 ML PCA.VIAL 2.5 MG IV (18:05)
[2017-10-09] VITALS (9 sets, daily range): BP systolic 127–142; BP diastolic 70–76; PULSE 60–67; RESP 12–18; TEMP 36.2–37.9; O2SAT 94–97
--- NOTE | 2017-10-09 | DI.RAD.S_ITS ---
PROCEDURE: XR CHEST 1V INDICATIONS: cough, secretions, hypoxia TECHNIQUE: One view of the chest was acquired. COMPARISON: [facility], CT, CT ABDOMEN PELVIS W CON, 09/29/2017, 1:57. [facility], CR, XR CHEST 1V, 10/05/2017, 6:07. [facility], CR, XR CHEST 1V, 10/04/2017, 16:35. [facility], CR, XR CHEST 1V, 10/02/2017, 9:51. FINDINGS: Surgical changes and devices: Nasogastric tube extends with its tip below the EG junction, and the side port also appears below the EG junction.. Lungs and pleura: No pleural effusions or pneumothorax. Lungs are difficult to actually assess due prominently reduced inspiratory volume. There likely is at least atelectasis and not pneumonia the left lower lobe. Mediastinum: Mediastinal contours appear normal. Heart size is normal. Bones and chest wall: No suspicious bony lesions. Overlying soft tissues appear unremarkable. IMPRESSION: Left lower lobe pneumonia persists, reduced inspiratory volume. No free air seen beneath the diaphragms. Dictated by: Xavier Carlson M.D. on 10/09/2017 at 11:08 Approved by: Xavier Carlson M.D. on 10/09/2017 at 11:10
[2017-10-09] MEDS: PIPERACILLIN-TAZO 3.375 GM/50 ML FROZ.PIGGY IV ×3 (05:19→22:05)
[2017-10-09 05:25] LABS: Add Manual Diff / Slide Review NO; Basophils Percent Auto 0.5 % (0-2); Eosinophils Percent Auto 3.2 % (2-4); Hematocrit 30.5 % (41-53); Lymphocytes Percent Auto 9.6 % (25-40); Mean Corpuscular Hemoglobin 29.3 PG (26-34); Mean Corpuscular Volume 88.8 fL (80-100); Monocytes Percent Auto 7.3 % (3-14); Neutrophils Absolute Auto 14600 /uL (3000-5900); Neutrophils Percent Auto 79.4 % (50-75); Platelet Count 492 X10^3/uL (150-400); Red Blood Cell Count 3.43 X10^6/uL (4.5-5.9); Red Cell Distribution Width 14.4 % (11.6-14.8); White Blood Cell Count 18.4 X10^3/uL (4.5-11.0)
[2017-10-09 05:41] LABS: BUN Creatinine Ratio 21.4 (6-22); Blood Urea Nitrogen 15 mg/dL (9-20); Calcium 7.7 mg/dL (8.4-10.2); Carbon Dioxide 30 mmol/L (22-32); Chloride 103 mmol/L (98-107); Estimated Glomerular Filt Rate > 60.0 mL/min (>60); Glucose 147 mg/dL (80-110); HEMOLYSIS < 15 (0-50); Magnesium 1.9 mg/dL (1.6-2.3); Phosphorous 3.3 mg/dL (2.3-3.7); Potassium 4.4 mmol/L (3.4-5.1); Sodium 137 mmol/L (137-145)
[2017-10-09] MEDS: metroNIDAZOLE 500 MG/100 ML PIGGYBACK 100 MG IV ×3 (05:51→22:34)
[2017-10-09] MEDS: HYDROMORPHONE PCA 6 MG/30 ML PCA.VIAL 2.5 MG IV (05:59)
[2017-10-09] MEDS: INSULIN ASPART 100 UNIT/ML INSULN PEN SUBCUT ×3 (06:02→18:18)
[2017-10-09] MEDS: ALBUTEROL 2.5 MG/3 ML NEB (ADULT) INH ×3 (06:16→18:05)
[2017-10-09] MEDS: GENTAMICIN 120 MG in SODIUM CHLORIDE 0.9% 100 ML 103 ML IV ×2 (08:36→20:30)
[2017-10-09] MEDS: SODIUM CHLORIDE 0.9% 1,000 ML 21 ML IV (08:39)
[2017-10-09] MEDS: PANTOPRAZOLE 40 MG VIAL IV (08:39)
--- NOTE | 2017-10-09 10:23 | PC.NURSE ---
pt dangled at bedside and unable to hold self up right sitting. wound vac inplace and working. BT+. room air sat 93%
--- NOTE | 2017-10-09 10:51 | PT.IIE ---
Current Diagnoses Anemia, unspecified (09/29/17) Unspecified intestinal obstruction, unspecified as to partial versus complete obstruction (09/29/17) Surgery Performed Operation Date: 09/30/17 15:15 Actual Procedures p Exploratory Lap/Colon Resection/COLOSTOMY - Roger Fiore MD Operation Date: 10/04/17 09:00 <No data on this case meets the specified criteria> Operation Date: 10/04/17 09:00 Actual Procedures p lapartomy, peritoneal lavage, ostomy takedown, diverting loop ileostomy, abdominal wound vaccum (Left) - Roger Fiore MD Surgical History (Last Reviewed 09/29/17 @ 09:42 by Roger Fiore MD) History of cholecystectomy (Acute) History of colonoscopy (Acute) History of umbilical hernia repair (Acute) Status post cholecystectomy Medical History (Last Reviewed 10/03/17 @ 08:42 by Melonie Jones, RT) Asthma (Acute) Diverticulitis (Acute) Personal history of colonic polyps (Acute) Physical Therapy Inpatient Evaluation/Re-Eval M1 PT/OT-IP Prior Functional Status Start: 10/09/17 13:08 Freq: NEEDED Status: Active Protocol: Document 10/09/17 13:08 AB (Rec: 10/09/17 13:18 AB [id number]) Medical Review Prior Functional Status Medical History Reviewed Yes Communication inconsistent with verbalization and answering questions Mobility and Gait unable to get PLOF at this time. Social History Household Members spouse Living Arrangements House M2 PT-IP Current Condition Start: 10/09/17 13:08 Freq: NEEDED Status: Active Protocol: Document 10/09/17 13:08 AB (Rec: 10/09/17 13:18 AB [id number]) Physical Therapy Current Condition Current Condition Evaluation Date 10/09/17 Treatment Diagnosis bowel obstruction s/p laprotomy; generalized weakness Onset Date 09/29/17 Precautions Abdominal Surgery Precautions Log Roll Lifting Restrictions Gait Belt above Incisional Area Other Precautions falls M3 PT-IP Subjective Start: 10/09/17 13:08 Freq: NEEDED Status: Active Protocol: Document 10/09/17 13:08 AB (Rec: 10/09/17 13:18 AB [id number]) Subjective Physical Therapy Visit Type Type Initial Evaluation Visit Start Time 10:51 Visit Stop Time 11:28 Total Visit Minutes 37 Number of SPECIAL POLICE Visits 0 Therapy Pain Assessment Pain When Pain Assessed During Mobility Pain Present Pain Present Pain Reported Location Abdomen Scale Used pain scale not stated M4 PT-IP Mobility and Gait Start: 10/09/17 13:08 Freq: NEEDED Status: Active Protocol: Document 10/09/17 13:08 AB (Rec: 10/09/17 13:18 AB [id number]) PT-Bed Mobility Assessment Rolling Type of Rolling Log Rolling Level of Assist Maximal Assistance 2 Person Assistance Supine to Sit Supine to Sit Total Assistance 2 Person Assistance Bedrails PT-Transfer Assessment Sit to and From Stand Sit to and from Stand Maximum Assistance 2 Person Assistance Use of Upper Extremities Equipment Transfer Assistive Device Gait Belt Front Wheeled Walker Orthotic/Prosthetic Devices or Brace: No Transfers Transfer Destination Chair Transfer Technique Stand Pivot Transfer Ability Level of Assist Maximum Assistance 2 Person Assistance Use of Upper Extremities Comments Mobility Comments pt inconsistent with following directions affecting safety and mobility Gait Assessment Comments Gait Comments unable to ambulate at this time PT-Balance Assessment Sitting Balance and Reactions Static Sitting Balance Ability Fair Dynamic Sitting Balance Ability Poor Standing Balance and Reactions Static Standing Balance Ability Poor Dynamic Standing Balance Ability Poor Device Used FWW M5 PT-IP Objective Assessments Start: 10/09/17 13:08 Freq: NEEDED Status: Active Protocol: Document 10/09/17 13:08 AB (Rec: 10/09/17 13:18 AB [id number]) Orientation Orientation/Cognition Level of Alertness Lethargic Safety Awareness Decreased Safety Awareness Gross Range of Motion Lower Extremity ROM Assessment Within Functional Limits Strength Lower Extremity Strength Assessment Bilaterally Impaired Hip 3-/5 Knee 3-/5 M6 PT-IP Treatment Start: 10/09/17 13:08 Freq: NEEDED Status: Active Protocol: Document 10/09/17 13:08 AB (Rec: 10/09/17 13:18 AB [id number]) Physical Therapy Treatment Education Education Provided Precautions Safety M7 PT-IP Assessment and Plan Start: 10/09/17 13:08 Freq: NEEDED Status: Active Protocol: Document 10/09/17 13:08 AB (Rec: 10/09/17 13:18 AB [id number]) PT Summary Assessment and Plan Potential Rehabilitation Potential Fair Status of Condition at Evaluation Evolving Summary Impairments Pain Strength Balance Coordination Sensation Cognition Bed Mobility Transfers Gait Activity Tolerance Assessment Summary pt requiring max A x 2 to total A x 2 with mobility and has decrease activity tolerance. pt will need SNF rehab to improve strenght and function. Goals Bed Mobility Goal Minimal Assistance Transfer Goal Minimal Assistance Front Wheeled Walker Gait Goal Minimal Assistance Front Wheel Walker Gait Distance 50 Days to Meet Goals 5 Frequency of Treatment Frequency Of Treatment Once a Day Treatment Plan Physical Therapy Treatment Plan Bed Mobility Training Transfer Training Gait Training Therapeutic Exercise Balance Retraining Post Op Education Discharge Planning Neuromuscular Re-ed Coordination Retraining Manual Therapy Recommendations To Nursing Amount of Assist Needed 3 or More Person Assist Total Assistance Mechanical Lift Discharge Recommendations PT Discharge Recommendations SNF Rehab
--- NOTE | 2017-10-09 11:16 | DI.RAD.S_ITS ---
PROCEDURE: XR CHEST FOR PICC 1V INDICATIONS: central line dc'd and TPN infusing COMPARISON: [facility], CR, XR CHEST 1V, 10/09/2017, 5:52. [facility], CR, XR CHEST 1V, 10/05/2017, 6:07. [facility], CR, XR CHEST 1V, 10/04/2017, 16:35. FINDINGS: PICC was placed by the intravenous therapy team from the left side. Fluoroscopic spot film demonstrates tip of PICC in the atrial caval junction. Additionally, there is a nasogastric tube with tip at the gastric antrum and what appears to be a left subclavian central line with tip at the distal SVC. Left lower lobe pneumonia persists, mild interstitial prominence/edema is present within the lung parenchyma elsewhere. IMPRESSION: Tip of PICC lies within the atrial caval junction, from left-sided approach. Additional line and tube, and left lower lobe pneumonia as noted.. Dictated by: Xavier Carlson M.D. on 10/09/2017 at 14:31 Approved by: Xavier Carlson M.D. on 10/09/2017 at 14:32
[2017-10-09 11:45] LABS: Gentamicin Trough 0.8 ug/mL (0.0-2.0)
[2017-10-09 12:19] LABS: Gentamicin Peak 3.6 ug/mL (5.0-8.0)
--- NOTE | 2017-10-09 13:48 | CM.DPC ---
Addendum entered by CLAU Belle 10/09/17 14:19: Hope to review idea of [place] w/surgical team soon. Original Note: DCP Cont: Reviewed current POC w/ZULEIMA Flower. Pt extubated yesterday, unable to hold self up right sitting today. Wound vac in place. RN explained pt has a long recovery course and [place] should be reviewed as an option. Following closely. 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 ZULEIMA Flower has a good rapport w/spouse and may be able to assess spouse's openness to an eventual transition to [place], acute oysterman care. Will plan to f/u tomorrow. CLAU Belle
[2017-10-09] MEDS: ENOXAPARIN 40 MG/0.4 ML SYRINGE SUBCUT (16:41)
--- NOTE | 2017-10-09 16:44 | OT.IP.TRT ---
Current Diagnoses Anemia, unspecified (09/29/17) Unspecified intestinal obstruction, unspecified as to partial versus complete obstruction (09/29/17) Surgery Performed Operation Date: 09/30/17 15:15 Actual Procedures p Exploratory Lap/Colon Resection/COLOSTOMY - Roger Fiore MD Operation Date: 10/04/17 09:00 <No data on this case meets the specified criteria> Operation Date: 10/04/17 09:00 Actual Procedures p lapartomy, peritoneal lavage, ostomy takedown, diverting loop ileostomy, abdominal wound vaccum (Left) - Roger Fiore MD Occupational Therapy Treatment Note M3 OT- IP Subjective and Pain Start: 10/09/17 16:42 Freq: Status: Active Protocol: Document 10/09/17 16:42 [facility] (Rec: 10/09/17 16:44 [facility] [id number]) OT- Subjective Occupational Therapy Visit Type Type Administrative Note Notes Pt having visitors and therefore to see pt for Ot eval tomorrow.
--- NOTE | 2017-10-09 16:58 | PC.NURSE ---
1600- Patient is alert and responding appropriately. Family at bedside. Patient repositioned to assist with clearling secretions. Cough is stronger today. 02 on via cannula, respirations 16-18 saturation is 94%. SCD's are on per order. Wound vac is working serous fluid in the chamber. Patient clayton draining clear garrett urine. Patient states his pain is well controlled on 0.5mg of dialaudid continuous infusion. New Picc line noted in the Left upper arm. Patient is stable at this time.
--- NOTE | 2017-10-09 17:37 | PT.IPTN ---
Current Diagnoses Anemia, unspecified (09/29/17) Unspecified intestinal obstruction, unspecified as to partial versus complete obstruction (09/29/17) Surgery Performed Operation Date: 09/30/17 15:15 Actual Procedures p Exploratory Lap/Colon Resection/COLOSTOMY - Roger Fiore MD Operation Date: 10/04/17 09:00 <No data on this case meets the specified criteria> Operation Date: 10/04/17 09:00 Actual Procedures p lapartomy, peritoneal lavage, ostomy takedown, diverting loop ileostomy, abdominal wound vaccum (Left) - Roger Fiore MD Physical Therapy Treatment Note M2 PT-IP Current Condition Start: 10/09/17 13:08 Freq: NEEDED Status: Active Protocol: Document 10/09/17 13:08 AB (Rec: 10/09/17 13:18 AB [id number]) Physical Therapy Current Condition Current Condition Evaluation Date 10/09/17 Treatment Diagnosis bowel obstruction s/p laprotomy; generalized weakness Onset Date 09/29/17 Precautions Abdominal Surgery Precautions Log Roll Lifting Restrictions Gait Belt above Incisional Area Other Precautions falls M3 PT-IP Subjective Start: 10/09/17 13:08 Freq: NEEDED Status: Active Protocol: Document 10/09/17 13:08 AB (Rec: 10/09/17 13:18 AB [id number]) Subjective Physical Therapy Visit Type Type Initial Evaluation Visit Start Time 10:51 Visit Stop Time 11:28 Total Visit Minutes 37 Number of FOOD SERVICE LEAD Visits 0 Therapy Pain Assessment Pain When Pain Assessed During Mobility Pain Present Pain Present Pain Reported Location Abdomen Scale Used pain scale not stated M4 PT-IP Mobility and Gait Start: 10/09/17 13:08 Freq: NEEDED Status: Active Protocol: Document 10/09/17 13:08 AB (Rec: 10/09/17 13:18 AB [id number]) PT-Bed Mobility Assessment Rolling Type of Rolling Log Rolling Level of Assist Maximal Assistance 2 Person Assistance Supine to Sit Supine to Sit Total Assistance 2 Person Assistance Bedrails PT-Transfer Assessment Sit to and From Stand Sit to and from Stand Maximum Assistance 2 Person Assistance Use of Upper Extremities Equipment Transfer Assistive Device Gait Belt Front Wheeled Walker Orthotic/Prosthetic Devices or Brace: No Transfers Transfer Destination Chair Transfer Technique Stand Pivot Transfer Ability Level of Assist Maximum Assistance 2 Person Assistance Use of Upper Extremities Comments Mobility Comments pt inconsistent with following directions affecting safety and mobility Gait Assessment Comments Gait Comments unable to ambulate at this time PT-Balance Assessment Sitting Balance and Reactions Static Sitting Balance Ability Fair Dynamic Sitting Balance Ability Poor Standing Balance and Reactions Static Standing Balance Ability Poor Dynamic Standing Balance Ability Poor Device Used FWW M5 PT-IP Objective Assessments Start: 10/09/17 13:08 Freq: NEEDED Status: Active Protocol: Document 10/09/17 13:08 AB (Rec: 10/09/17 13:18 AB [id number]) Orientation Orientation/Cognition Level of Alertness Lethargic Safety Awareness Decreased Safety Awareness Gross Range of Motion Lower Extremity ROM Assessment Within Functional Limits Strength Lower Extremity Strength Assessment Bilaterally Impaired Hip 3-/5 Knee 3-/5 M6 PT-IP Treatment Start: 10/09/17 13:08 Freq: NEEDED Status: Active Protocol: Document 10/09/17 13:08 AB (Rec: 10/09/17 13:18 AB [id number]) Physical Therapy Treatment Education Education Provided Precautions Safety M7 PT-IP Assessment and Plan Start: 10/09/17 13:08 Freq: NEEDED Status: Active Protocol: Document 10/09/17 13:08 AB (Rec: 10/09/17 13:18 AB [id number]) PT Summary Assessment and Plan Potential Rehabilitation Potential Fair Status of Condition at Evaluation Evolving Summary Impairments Pain Strength Balance Coordination Sensation Cognition Bed Mobility Transfers Gait Activity Tolerance Assessment Summary pt requiring max A x 2 to total A x 2 with mobility and has decrease activity tolerance. pt will need SNF rehab to improve strenght and function. Goals Bed Mobility Goal Minimal Assistance Transfer Goal Minimal Assistance Front Wheeled Walker Gait Goal Minimal Assistance Front Wheel Walker Gait Distance 50 Days to Meet Goals 5 Frequency of Treatment Frequency Of Treatment Once a Day Treatment Plan Physical Therapy Treatment Plan Bed Mobility Training Transfer Training Gait Training Therapeutic Exercise Balance Retraining Post Op Education Discharge Planning Neuromuscular Re-ed Coordination Retraining Manual Therapy Recommendations To Nursing Amount of Assist Needed 3 or More Person Assist Total Assistance Mechanical Lift Discharge Recommendations PT Discharge Recommendations SNF Rehab
[2017-10-09] MEDS: FLUTICASONE/SALMETEROL 250/50 14 PUFF DISKUS INH (18:05)
[2017-10-09] MEDS: POTASSIUM CHLORIDE IV (18:05)
[2017-10-09] MEDS: DEXT IV (18:05)
[2017-10-09] MEDS: LYTES IV (18:05)
[2017-10-09] MEDS: [UNRECOGNIZED DRUG - OTHER] IV (18:05)
[2017-10-09] MEDS: CALCIUM IV (18:05)
[2017-10-09] MEDS: FLUCONAZOLE 200 MG/100 ML PIGGYBACK 100 MG IV (18:27)
[2017-10-10] VITALS (9 sets, daily range): BP systolic 111–144; BP diastolic 62–83; PULSE 56–71; RESP 12–19; TEMP 35.6–37.1; O2SAT 91–100
[2017-10-10] MEDS: HYDROMORPHONE PCA 6 MG/30 ML PCA.VIAL 2.5 MG IV ×3 (01:04→20:05)
[2017-10-10] MEDS: PIPERACILLIN-TAZO 3.375 GM/50 ML FROZ.PIGGY IV ×3 (05:22→21:31)
[2017-10-10] MEDS: metroNIDAZOLE 500 MG/100 ML PIGGYBACK 100 MG IV ×3 (06:02→22:19)
[2017-10-10] MEDS: ALBUTEROL 2.5 MG/3 ML NEB (ADULT) INH (07:40)
[2017-10-10] MEDS: FLUTICASONE/SALMETEROL 250/50 14 PUFF DISKUS INH ×2 (07:40→18:06)
[2017-10-10] MEDS: GENTAMICIN 120 MG in SODIUM CHLORIDE 0.9% 100 ML 103 ML IV ×2 (09:01→20:06)
[2017-10-10] MEDS: PANTOPRAZOLE 40 MG VIAL IV (09:39)
--- NOTE | 2017-10-10 10:29 | PT.IPTN ---
Current Diagnoses Anemia, unspecified (09/29/17) Unspecified intestinal obstruction, unspecified as to partial versus complete obstruction (09/29/17) Surgery Performed Operation Date: 09/30/17 15:15 Actual Procedures p Exploratory Lap/Colon Resection/COLOSTOMY - Roger Fiore MD Operation Date: 10/04/17 09:00 <No data on this case meets the specified criteria> Operation Date: 10/04/17 09:00 Actual Procedures p lapartomy, peritoneal lavage, ostomy takedown, diverting loop ileostomy, abdominal wound vaccum (Left) - Roger Fiore MD Physical Therapy Treatment Note M2 PT-IP Current Condition Start: 10/09/17 13:08 Freq: NEEDED Status: Active Protocol: Document 10/09/17 13:08 AB (Rec: 10/09/17 13:18 AB [id number]) Physical Therapy Current Condition Current Condition Evaluation Date 10/09/17 Treatment Diagnosis bowel obstruction s/p laprotomy; generalized weakness Onset Date 09/29/17 Precautions Abdominal Surgery Precautions Log Roll Lifting Restrictions Gait Belt above Incisional Area Other Precautions falls M3 PT-IP Subjective Start: 10/09/17 13:08 Freq: NEEDED Status: Active Protocol: Document 10/10/17 10:29 AB (Rec: 10/10/17 11:47 AB [id number]) Subjective Physical Therapy Visit Type Type Treatment Note Visit Start Time 10:29 Visit Stop Time 10:59 Total Visit Minutes 30 Number of DERRICK BOAT RUNNER Visits 0 Physical Therapy Visit Comments Patient Comments Pt agreeable to do PT Therapy Pain Assessment Pain Present Pain Present Denied Pain M4 PT-IP Mobility and Gait Start: 10/09/17 13:08 Freq: NEEDED Status: Active Protocol: Document 10/10/17 10:29 AB (Rec: 10/10/17 11:47 AB [id number]) PT-Bed Mobility Assessment Rolling Type of Rolling Log Rolling Level of Assist Maximal Assistance 2 Person Assistance Supine to Sit Supine to Sit Maximum Assistance 2 Person Assistance Scooting Scooting to Edge of Bed Maximum Assistance PT-Transfer Assessment Sit to and From Stand Sit to and from Stand Maximum Assistance 2 Person Assistance Use of Upper Extremities Equipment Transfer Assistive Device Gait Belt Front Wheeled Walker Orthotic/Prosthetic Devices or Brace: No Transfers Transfer Destination Chair Transfer Technique Stand Step Pivot Transfer Ability Level of Assist Maximum Assistance 2 Person Assistance Use of Upper Extremities Comments Mobility Comments pt required assist with weight shifting to advance/more BLE. pt with increase ability to verbalize today. M5 PT-IP Objective Assessments Start: 10/09/17 13:08 Freq: NEEDED Status: Active Protocol: Document 10/09/17 13:08 AB (Rec: 10/09/17 13:18 AB [id number]) Orientation Orientation/Cognition Level of Alertness Lethargic Safety Awareness Decreased Safety Awareness Gross Range of Motion Lower Extremity ROM Assessment Within Functional Limits Strength Lower Extremity Strength Assessment Bilaterally Impaired Hip 3-/5 Knee 3-/5 M6 PT-IP Treatment Start: 10/09/17 13:08 Freq: NEEDED Status: Active Protocol: Document 10/10/17 10:29 AB (Rec: 10/10/17 11:47 AB [id number]) Physical Therapy Treatment Education Education Provided Safety M7 PT-IP Assessment and Plan Start: 10/09/17 13:08 Freq: NEEDED Status: Active Protocol: Document 10/10/17 10:29 AB (Rec: 10/10/17 11:47 AB [id number]) PT Summary Assessment and Plan Potential Rehabilitation Potential Fair Summary Impairments Pain ROM Strength Balance Sensation Cognition Bed Mobility Transfers Gait Activity Tolerance Progress Towards Goals Slow Progress due to Medical Issues Slow Progress due to Activity Tolerance Assessment Summary pt continues to require 2 person max A with mobility and will require SNF rehab to improve strength and functional mobility. Goals Bed Mobility Goal Minimal Assistance Transfer Goal Minimal Assistance Front Wheeled Walker Gait Goal Minimal Assistance Front Wheel Walker Gait Distance 50 Days to Meet Goals 5 Frequency of Treatment Frequency Of Treatment Once a Day Treatment Plan Physical Therapy Treatment Plan Bed Mobility Training Transfer Training Gait Training Therapeutic Exercise Balance Retraining Post Op Education Discharge Planning Neuromuscular Re-ed Coordination Retraining Manual Therapy Recommendations To Nursing Amount of Assist Needed 3 or More Person Assist Total Assistance Mechanical Lift Discharge Recommendations PT Discharge Recommendations SNF Rehab
--- NOTE | 2017-10-10 11:32 | OT.IP.EVAL ---
Current Diagnoses Anemia, unspecified (09/29/17) Unspecified intestinal obstruction, unspecified as to partial versus complete obstruction (09/29/17) Surgery Performed Operation Date: 09/30/17 15:15 Actual Procedures p Exploratory Lap/Colon Resection/COLOSTOMY - Roger Fiore MD Operation Date: 10/04/17 09:00 <No data on this case meets the specified criteria> Operation Date: 10/04/17 09:00 Actual Procedures p lapartomy, peritoneal lavage, ostomy takedown, diverting loop ileostomy, abdominal wound vaccum (Left) - Roger Fiore MD Past Medical History (Last Reviewed 10/03/17 @ 08:42 by Melonie Jones, RT) Asthma (Acute) Diverticulitis (Acute) Personal history of colonic polyps (Acute) Surgical History (Last Reviewed 09/29/17 @ 09:42 by Roger Fiore MD) History of cholecystectomy (Acute) History of colonoscopy (Acute) History of umbilical hernia repair (Acute) Status post cholecystectomy Occupational Therapy Inpatient Evaluation/Re-Eval M1 PT/OT-IP Prior Functional Status Start: 10/09/17 13:08 Freq: NEEDED Status: Active Protocol: Document 10/09/17 17:34 AB (Rec: 10/09/17 17:37 AB [id number]) Medical Review Prior Functional Status Medical History Reviewed Yes Communication inconsistent with verbalization and answering questions Mobility and Gait unable to get PLOF at this time; clarified pt's PLOF with spouse this afternoon. spouse stated that pt is independent with all mobilities and ambulation without AD. Social History Household Members spouse Living Arrangements House Number of Stairs To Enter/Railing? 4 steps to enter without rails Home Environment Standard Height Toilet Tub/Shower Home Equipment Front Wheel Walker Straight Cane Additional Social History Comment spouse stated that she has MS and will be able to assist pt but limited. stated that they have suctioned hand rail in the tub shower. M1 PT/OT-IP Prior Functional Status Start: 10/09/17 16:42 Freq: NEEDED Status: Active Protocol: Document 10/10/17 11:20 [facility] (Rec: 10/10/17 11:32 [facility] [id number]) Medical Review Prior Functional Status Medical History Reviewed Yes Diet/Fluid Consistency NPO Communication inconsistent with verbalization and answering questions Mobility and Gait unable to get PLOF at this time; clarified pt's PLOF with spouse this afternoon. spouse stated that pt is independent with all mobilities and ambulation without AD. Social History Household Members spouse Living Arrangements House Number of Stairs To Enter/Railing? 4 steps to enter without rails Home Environment Standard Height Toilet Tub/Shower Home Equipment Front Wheel Walker Straight Cane Additional Social History Comment spouse stated that she has MS and will be able to assist pt but limited. stated that they have suctioned hand rail in the tub shower. M2 OT-IP Current Condition Start: 10/09/17 16:42 Freq: Status: Active Protocol: Document 10/10/17 11:20 [facility] (Rec: 10/10/17 11:32 [facility] [id number]) Occupational Therapy Current Condition Post Operative Precautions Abdominal Surgery Precautions Log Roll Lifting Restrictions Gait Belt above Incisional Area Other Precautions falls M3 OT- IP Subjective and Pain Start: 10/09/17 16:42 Freq: Status: Active Protocol: Document 10/10/17 11:20 [facility] (Rec: 10/10/17 11:32 [facility] [id number]) OT- Subjective Occupational Therapy Visit Type Type Initial Evaluation Visit Start Time 10:31 Visit Stop Time 11:01 Occupational Therapy Visit Comments Patient Comments Pt agreeable to get up. OT Pain Assessment Pain When Pain Assessed During Mobility Pain Present Pain Present Pain Reported Location Abdomen Pain Behaviors Facial Grimacing Management Techniques Re-positioning M4 OT- IP ADL's Start: 10/09/17 16:42 Freq: Status: Active Protocol: Document 10/10/17 11:20 [facility] (Rec: 10/10/17 11:32 [facility] [id number]) OT [id number] Comments OT Self-Feeding Comments Pt NPO at this time. OT ADL-Grooming General Evaluation Grooming Ability Total Assistance Areas Needing Assistance Retrieving/Set-up of Grooming Items Combing/Brushing Hair Face Washing OT ADL-Oral Care General Eval Oral Care Ability Total Assistance Comments Oral Care Comments Total assist with mouth swabs. OT ADL-Dressing General Eval Upper Body Dressing Ability Total Assistance Lower Body Dressing Ability Total Assistance Comments OT Dressing Comments Due to weakness in BUE pt requiring total assist for all needs at thsi time. OT ADL-Toileting General Evaluation Toileting Ability Total Assistance Areas Needing Assistance Empty Catheter or Colostomy M6 OT- IP Functional Cognition Start: 08/31/18 16:42 Freq: Status: Active Protocol: Document 10/10/17 11:20 [facility] (Rec: 10/10/17 11:32 [facility] [id number]) Cognitive Factors Limiting Selfcare Function Cognitive Ability Level of Alertness Alert Patient Orientation Name Place Attention Span Ability Capable of Focused Attention Capable of Sustained Attention Ability to Follow Commands Able to Follow One Step Commands with Increased Time Able to Follow One Step Commands with Repetition Memory Description Short Term Impaired Aerotriangulation Specialist Impaired Safety Awareness Underestimates Need for Assistance Problem Solving Ability Unable to Identify Errors Needs Assist to Identify Solutions Cognitive Comments Cognitive Assessment Comments Pt having trouble to recall information of home set-up and does not realize why he is in the hospital at this time. Pt able to partake in conversation appropriately able football teams. OT- Vision and Hearing OT- Hearing Assessment OT- Hearing Assessment WFL M7 OT- IP Mobility and Balance Start: 10/09/17 16:42 Freq: Status: Active Protocol: Document 10/10/17 11:20 [facility] (Rec: 10/10/17 11:32 [facility] [email or web address]) OT- Bed Mobility Assessment Rolling Type of Rolling Roll to Right Level of Assistance Maximum Assistance 2 Person Assistance Bedrails Supine to Sit Supine to Sit Assist Maximum Assistance 2 Person Assistance Scooting Scooting to Edge of Bed Maximum Assistance 1 Person Assistance OT-Transfer Assessment Sit to and From Stand Sit to and from Stand Maximum Assistance 2 Person Assistance Transfers Transfer Ability Maximum Assistance 2 Person Assistance Technique Transfer Destination Chair Transfer Technique Stand Step Pivot Devices Transfer Assistive Devices Gait Belt Front Wheeled Walker Comments Mobility Comments 3rd person to assist for tubing, assist to FWW guidance , weight shifting anf step by step vc to transfer to recliner. OT- Balance Assessment Sitting Balance and Reactions Static Sitting Balance Ability Fair Dynamic Sitting Balance Ability Poor Standing Balance and Reactions Static Standing Balance Ability Poor Dynamic Standing Balance Ability Poor M8 OT- IP Objective Assessments Start: 10/09/17 16:42 Freq: Status: Active Protocol: Document 10/10/17 11:20 [facility] (Rec: 10/10/17 11:32 [facility] [email or web address]) OT Strength Upper Extremity Strength Assessment Bilaterally Impaired Hand Feed Weigher Strength Hand Dominance Right Comments Strength Comments Decreased AROM throughout due to weakness, not able to put on glasses or raise arms up to place pillow underneath him. Noted left hand swollen comp[ ared to right hand. OT- Coordination Assessment Upper Extremity Finger to Nose Test Bilateral UE Impaired Finger Tapping Test Bilateral UE Impaired OT-Muscle Tone Assessment Muscle Tone WNL Yes M9 OT- IP Assessment and Plan Start: 10/09/17 16:42 Freq: Status: Active Protocol: Document 10/10/17 11:20 [facility] (Rec: 10/10/17 11:32 [facility] [email or web address]) OT Summary Assessment and Plan Potential Rehabilitation Potential Fair Analytic Complexity at Evaluation Moderate Summary OT Impairments Pain Range of Motion Strength Balance Coordination Functional Cognition Functional Mobility Grooming Dressing Toileting Bathing Toilet Transfers Shower Transfers Progress Towards Goals Slow Progress due to Pain Slow Progress due to Medical Issues Slow Progress due to Activity Tolerance Slow Progress due to Cognition Assessment Summary Pt MOD complexity and needing extensive assist x 2-3 for all needs at this time, pt has poor safety awareness, memory , decreased activity tolerance , and will benefit from skilled rehab prior to going home. Pt is currently on 2L of O2 and NPO, prior pt was completely independent with all needs. Goals Grooming Goal Minimal Assistance Dressing Goal Moderate Assistance Toileting Goal Moderate Assistance Bathing Goal Moderate Assistance Toilet Transfer Goal Minimal Assistance Shower Transfer Goal Moderate Assistance Patient/Caregiver Education Goal Caregiver Independent Assisting Patient Days to Meet Goals 10 Frequency of Treatment Frequency Of Treatment Once a Day Treatment Plan OT Treatment Plan ADL Training Functional Cognition Training Functional Mobility Therapeutic Exercises Patient/Family Education Discharge Planning Discharge Recommendations OT Discharge Recommendations SNF Rehab Home Equipment Needs Shower chair vs tub bench, [facility]ERT[facility] , [facility], bsc
[2017-10-10] MEDS: HYDROMORPHONE 1 MG INJ IV (12:00)
[2017-10-10] MEDS: INSULIN ASPART 100 UNIT/ML INSULN PEN SUBCUT (12:52)
[2017-10-10] MEDS: ENOXAPARIN 40 MG/0.4 ML SYRINGE SUBCUT (14:17)
--- NOTE | 2017-10-10 16:56 | PM.PN.1 ---
Subjective Date Patient Seen: 10/10/17 Time Patient Seen: 16:56 Interval history: Don is looking better each day. He is more awake and more interactive every day. Additionally, he reports he is having more pain in his abdomen. Ostomy has put out very little. Wound drain is draining about 500 cc every 36 hr or so. Exam Vital Signs (past 8 hours): - 10/10/17 11:58 10/10/17 14:15 10/10/17 16:45 Temperature 97.2 F L 96.1 F L Pulse Rate 69 Respiratory Rate 14 12 Blood Pressure 123/83 118/62 Pulse Oximetry 96 95 94 Fraction of Inspired Oxygen 40 Oxygen Delivery Method Nasal Cannula Oxygen Flow Rate 0 Narrative Exam Narrative: Lungs: Essentially clear bilaterally. Good air movement. Heart: Regular rate and rhythm Abdomen: Soft, hypoactive bowel sounds. Chest: Central line site is dressed and erythema is improving. Objective Labs Result Diagrams: 10/09/17 05:00 10/09/17 05:00 Assessment & Plan Plan: Assessment/Plan Narrative: Patient continues on Zosyn, and gentamicin, Flagyl, and Diflucan. He should be well covered for any likely organism with the exception of MRSA. Recheck labs in the morning. Plan to change wound VAC in the morning. Quality VTE Deep Vein Thrombosis/Pulmonary Embolism Present on Admission: No
[2017-10-10] MEDS: FLUCONAZOLE 200 MG/100 ML PIGGYBACK 100 MG IV (17:04)
[2017-10-10] MEDS: CALCIUM IV (18:02)
[2017-10-10] MEDS: FAT EMULSIONS 50 GM/250 ML EMULSION IV (18:02)
[2017-10-10] MEDS: POTASSIUM CHLORIDE IV (18:02)
[2017-10-10] MEDS: LYTES IV (18:02)
[2017-10-10] MEDS: DEXT IV (18:02)
[2017-10-10] MEDS: [UNRECOGNIZED DRUG - OTHER] IV (18:02)
[2017-10-11] VITALS (9 sets, daily range): BP systolic 106–132; BP diastolic 64–77; PULSE 61–76; RESP 12–20; TEMP 35.7–37.4; O2SAT 93–97
[2017-10-11] MEDS: INSULIN ASPART 100 UNIT/ML INSULN PEN SUBCUT ×4 (00:27→18:01)
[2017-10-11] MEDS: HYDROMORPHONE 1 MG INJ IV (01:50)
[2017-10-11 05:09] LABS: Mean Corpuscular HGB Conc 33.2 % (30-36); Mean Corpuscular Hemoglobin 29.3 PG (26-34); Mean Corpuscular Volume 88.3 fL (80-100); Platelet Count 586 X10^3/uL (150-400); Red Blood Cell Count 3.06 X10^6/uL (4.5-5.9); Red Cell Distribution Width 13.6 % (11.6-14.8); White Blood Cell Count 18.9 X10^3/uL (4.5-11.0)
[2017-10-11] MEDS: PIPERACILLIN-TAZO 3.375 GM/50 ML FROZ.PIGGY IV ×3 (05:10→21:25)
[2017-10-11] MEDS: HYDROMORPHONE PCA 6 MG/30 ML PCA.VIAL 2.5 MG IV (05:11)
[2017-10-11 05:15] LABS: Alanine Aminotransferase 25 IU/L (21-72); Albumin 2.5 g/dL (3.5-5.0); Albumin Globulin Ratio 0.9 (1.0-2.8); Alkaline Phosphatase 100 U/L (38-126); Aspartate Aminotransferase 23 IU/L (17-59); BUN Creatinine Ratio 14.4 (6-22); Bilirubin Total 0.3 mg/dL (0.2-1.3); Blood Urea Nitrogen 13 mg/dL (9-20); Calcium 7.8 mg/dL (8.4-10.2); Carbon Dioxide 28 mmol/L (22-32); Chloride 99 mmol/L (98-107); Estimated Glomerular Filt Rate > 60.0 mL/min (>60); Globulin 2.7 g/dL (1.7-4.1); Glucose 147 mg/dL (80-110); HEMOLYSIS < 15 (0-50); Potassium 4.4 mmol/L (3.4-5.1); Sodium 133 mmol/L (137-145); Total Protein 5.2 g/dL (6.3-8.2)
[2017-10-11] MEDS: FLUTICASONE/SALMETEROL 250/50 14 PUFF DISKUS INH ×2 (05:32→19:10)
[2017-10-11] MEDS: metroNIDAZOLE 500 MG/100 ML PIGGYBACK 100 MG IV ×3 (06:06→22:04)
[2017-10-11 07:10] LABS: Basophilic Stippling 1+; Neutrophils Absolute Manual 15120 /uL (3000-5900); Total Cells Counted 100
[2017-10-11 07:11] LABS: Platelet Estimate Incr
[2017-10-11] MEDS: GENTAMICIN 120 MG in SODIUM CHLORIDE 0.9% 100 ML 103 ML IV ×2 (08:48→20:08)
[2017-10-11] MEDS: PANTOPRAZOLE 40 MG VIAL IV (08:48)
[2017-10-11] MEDS: HYDROMORPHONE 0.5 MG INJ IV ×3 (09:00→17:10)
--- NOTE | 2017-10-11 10:28 | PT.IPTN ---
Current Diagnoses Anemia, unspecified (09/29/17) Unspecified intestinal obstruction, unspecified as to partial versus complete obstruction (09/29/17) Surgery Performed Operation Date: 09/30/17 15:15 Actual Procedures p Exploratory Lap/Colon Resection/COLOSTOMY - Roger Fiore MD Operation Date: 10/04/17 09:00 <No data on this case meets the specified criteria> Operation Date: 10/04/17 09:00 Actual Procedures p lapartomy, peritoneal lavage, ostomy takedown, diverting loop ileostomy, abdominal wound vaccum (Left) - Roger Fiore MD Physical Therapy Treatment Note M2 PT-IP Current Condition Start: 10/09/17 13:08 Freq: NEEDED Status: Active Protocol: Document 10/09/17 13:08 AB (Rec: 10/09/17 13:18 AB [id number]) Physical Therapy Current Condition Current Condition Evaluation Date 10/09/17 Treatment Diagnosis bowel obstruction s/p laprotomy; generalized weakness Onset Date 09/29/17 Precautions Abdominal Surgery Precautions Log Roll Lifting Restrictions Gait Belt above Incisional Area Other Precautions falls M3 PT-IP Subjective Start: 10/09/17 13:08 Freq: NEEDED Status: Active Protocol: Document 10/11/17 10:28 AB (Rec: 10/11/17 11:41 AB [id number]) Subjective Physical Therapy Visit Type Type Treatment Note Visit Start Time 10:28 Visit Stop Time 10:46 Total Visit Minutes 18 Number of COST RECORDER Visits 0 M4 PT-IP Mobility and Gait Start: 10/09/17 13:08 Freq: NEEDED Status: Active Protocol: Document 10/11/17 10:28 AB (Rec: 10/11/17 11:41 AB [id number]) PT-Bed Mobility Assessment Rolling Type of Rolling Log Rolling Level of Assist Maximal Assistance 2 Person Assistance Supine to Sit Supine to Sit Maximum Assistance 2 Person Assistance Head of Bed Elevated Bedrails PT-Transfer Assessment Sit to and From Stand Sit to and from Stand Maximum Assistance 2 Person Assistance Use of Upper Extremities Equipment Transfer Assistive Device Gait Belt Front Wheeled Walker Orthotic/Prosthetic Devices or Brace: No Transfers Transfer Destination Chair Transfer Technique Stand Step Pivot Transfer Ability Level of Assist Maximum Assistance 2 Person Assistance Use of Upper Extremities Comments Mobility Comments pt required assist with weight shifting to be able to move BLE for transfers and max cues for directions and safety. pt required max A x 2 for controlled descent to chair. positioned pt on chair. call light and table placed within reach. left pt with nurse and spouse. M5 PT-IP Objective Assessments Start: 10/09/17 13:08 Freq: NEEDED Status: Active Protocol: Document 10/09/17 13:08 AB (Rec: 10/09/17 13:18 AB [id number]) Orientation Orientation/Cognition Level of Alertness Lethargic Safety Awareness Decreased Safety Awareness Gross Range of Motion Lower Extremity ROM Assessment Within Functional Limits Strength Lower Extremity Strength Assessment Bilaterally Impaired Hip 3-/5 Knee 3-/5 M6 PT-IP Treatment Start: 10/09/17 13:08 Freq: NEEDED Status: Active Protocol: Document 10/10/17 10:29 AB (Rec: 10/10/17 11:47 AB [id number]) Physical Therapy Treatment Education Education Provided Safety M7 PT-IP Assessment and Plan Start: 10/09/17 13:08 Freq: NEEDED Status: Active Protocol: Document 10/11/17 10:28 AB (Rec: 10/11/17 11:41 AB [id number]) PT Summary Assessment and Plan Potential Rehabilitation Potential Fair Summary Impairments Pain ROM Strength Balance Coordination Sensation Tone Cognition Bed Mobility Transfers Gait Activity Tolerance Progress Towards Goals Slow Progress due to Medical Issues Slow Progress due to Activity Tolerance Assessment Summary pt continues to require 2 person extensive assist with mobility but able to participate better with activities. pt will need SNF rehab to improve strength and mobility. Goals Bed Mobility Goal Minimal Assistance Transfer Goal Minimal Assistance Front Wheeled Walker Gait Goal Minimal Assistance Front Wheel Walker Gait Distance 50 Days to Meet Goals 5 Frequency of Treatment Frequency Of Treatment Once a Day Treatment Plan Physical Therapy Treatment Plan Bed Mobility Training Transfer Training Gait Training Therapeutic Exercise Balance Retraining Post Op Education Discharge Planning Neuromuscular Re-ed Coordination Retraining Manual Therapy Recommendations To Nursing Amount of Assist Needed 3 or More Person Assist Total Assistance Mechanical Lift Discharge Recommendations PT Discharge Recommendations SNF Rehab
[2017-10-11] MEDS: SODIUM CHLORIDE 0.9% 1,000 ML 21 ML IV (14:01)
[2017-10-11] MEDS: ENOXAPARIN 40 MG/0.4 ML SYRINGE SUBCUT (14:08)
[2017-10-11] MEDS: FLUCONAZOLE 200 MG/100 ML PIGGYBACK 100 MG IV (16:36)
--- NOTE | 2017-10-11 17:27 | PC.NURSE ---
dilaudid note could not scan the one mg syringe of dilaudid. computer wanted the 0.5 mg/ml syringe which was not available in ICU. Wasted 0.5 ml of dilaudid from the one mg/ml syringe.
[2017-10-11] MEDS: LYTES IV (18:01)
[2017-10-11] MEDS: DEXT IV (18:01)
[2017-10-11] MEDS: POTASSIUM CHLORIDE IV (18:01)
[2017-10-11] MEDS: [UNRECOGNIZED DRUG - OTHER] IV (18:01)
[2017-10-11] MEDS: CALCIUM IV (18:01)
--- NOTE | 2017-10-11 19:38 | PM.PN.1 ---
Subjective Date Patient Seen: 10/11/17 Time Patient Seen: 19:39 Interval history: Alton is in good spirits and making jokes today. He says that his abdomen is still quite painful when he moves but he feels that it is well controlled with his current regimen. He is upset because his ostomy is leaking and it appears that the wafer is falling off. Exam Vital Signs (past 8 hours): - 10/11/17 12:13 10/11/17 16:00 10/11/17 17:45 Temperature 97.8 F 96.3 F L Pulse Rate 61 65 65 Respiratory Rate 14 13 14 Blood Pressure 106/64 132/65 Pulse Oximetry 97 95 10/11/17 19:10 Temperature Pulse Rate 61 Respiratory Rate 18 Blood Pressure Pulse Oximetry 97 Fraction of Inspired Oxygen 40 Oxygen Delivery Method Room Air Oxygen Flow Rate 0 Narrative Exam Narrative: Abdomen is firm but there are scattered bowel sounds. Wound VAC dressing is removed as well as ostomy appliance. The ostomy is viable and producing thick mucoid stool. The midline open wound is granulating. There is no visible bowel. The left lower quadrant open site from the prior ostomy is granulating and without infection. The abdomen was gently clean with soap and water once the old dressing was removed. The abdominal skin was prepped with no sting skin prep and Mastisol. The wound VAC was then reapplied using white foam against the granulating abdominal tissue and covering this with black foam. A single piece of black foam was placed in the left lower quadrant ostomy site. A new ostomy appliance was trimmed to fit and placed over the right lower quadrant ostomy. The collection bag was applied. The entire wound was covered with occlusive dressing and the suction was applied. Leak rate was low after several small adjustments. Mr. Vaughn wood tolerated this extremely well. Lungs: Clear bilaterally. No audible wheezing. Heart: Regular rate and rhythm. Objective Labs Result Diagrams: 10/11/17 04:36 10/11/17 04:36 Labs: Laboratory Results - last 24 hr 10/11/17 10/11/17 04:36 04:36 WBC 18.9 H RBC 3.06 L Hgb 9.0 L Hct 27.0 L MCV 88.3 MCH 29.3 MCHC 33.2 RDW 13.6 Plt Count 586 H Total Counted 100 Seg Neutrophils % 77.0 H Band Neutrophils % 3.0 Lymphocytes % (Manual) 6.0 L Atypical Lymphs % 5.0 H Monocytes % (Manual) 8.0 Eosinophils % (Manual) 1.0 L Neutrophils # (Manual) 58735 H Platelet Estimate Incr RBC Morphology Not Reportable Basophilic Stippling 1+ H Sodium 133 L Potassium 4.4 Chloride 99 Carbon Dioxide 28 BUN 13 Creatinine 0.90 Estimated GFR > 60.0 BUN/Creatinine Ratio 14.4 Glucose 147 H Calcium 7.8 L Total Bilirubin 0.3 AST 23 ALT 25 Alkaline Phosphatase 100 Total Protein 5.2 L Albumin 2.5 L Globulin 2.7 Albumin/Globulin Ratio 0.9 L Assessment & Plan Plan: Assessment/Plan Narrative: Continued gradual improvement. I have renewed TPN as well as lipids. Urine output has been down so I will give him a small fluid bolus. White blood cell count remains elevated but he is clinically improving. Right chest central line site is also improving. Continue current care Quality VTE Deep Vein Thrombosis/Pulmonary Embolism Present on Admission: No
[2017-10-11] MEDS: GENTAMICIN TROUGH 1 REQUEST MISC (20:08)
[2017-10-11] MEDS: GENTAMICIN PEAK 1 REQUEST MISC (22:01)
[2017-10-12] VITALS (10 sets, daily range): BP systolic 111–138; BP diastolic 60–81; PULSE 63–72; RESP 14–20; TEMP 36–36.8; O2SAT 93–97
[2017-10-12] MEDS: PIPERACILLIN-TAZO 3.375 GM/50 ML FROZ.PIGGY IV ×3 (05:12→21:32)
[2017-10-12] MEDS: metroNIDAZOLE 500 MG/100 ML PIGGYBACK 100 MG IV ×3 (05:45→22:06)
[2017-10-12] MEDS: FLUTICASONE/SALMETEROL 250/50 14 PUFF DISKUS INH ×2 (05:45→17:11)
[2017-10-12] MEDS: INSULIN ASPART 100 UNIT/ML INSULN PEN SUBCUT ×3 (05:48→17:58)
[2017-10-12] MEDS: HYDROMORPHONE PCA 6 MG/30 ML PCA.VIAL 2.5 MG IV (06:16)
[2017-10-12] MEDS: GENTAMICIN 120 MG in SODIUM CHLORIDE 0.9% 100 ML 103 ML IV (08:33)
[2017-10-12] MEDS: SODIUM CHLORIDE 0.9% FLUSH 10 ML IV (08:34)
[2017-10-12] MEDS: PANTOPRAZOLE 40 MG VIAL IV (08:34)
[2017-10-12 09:26] LABS: Estimated Glomerular Filt Rate > 60.0 mL/min (>60)
--- NOTE | 2017-10-12 09:30 | DIET.PN ---
Extubated Thursday and improving per notes NUTRITION SUPPORT: TPN- 1L. Clinimix E 06/28 & lipids Clin provides 850 kcal, 200g dextrose, 50g protein. Per surgeon's notes receiving lipids but I don't see this on APR. Estimate w/lipids pt receiving approx 1400 kcal total Will continue to monitor progress. Encourage enteral feeding when able.
--- NOTE | 2017-10-12 13:42 | PT.IPTN ---
Current Diagnoses Anemia, unspecified (09/29/17) Unspecified intestinal obstruction, unspecified as to partial versus complete obstruction (09/29/17) Surgery Performed Operation Date: 09/30/17 15:15 Actual Procedures p Exploratory Lap/Colon Resection/COLOSTOMY - Roger Fiore MD Operation Date: 10/04/17 09:00 <No data on this case meets the specified criteria> Operation Date: 10/04/17 09:00 Actual Procedures p lapartomy, peritoneal lavage, ostomy takedown, diverting loop ileostomy, abdominal wound vaccum (Left) - Roger Fiore MD Physical Therapy Treatment Note M2 PT-IP Current Condition Start: 10/09/17 13:08 Freq: NEEDED Status: Active Protocol: Document 10/09/17 13:08 AB (Rec: 10/09/17 13:18 AB [id number]) Physical Therapy Current Condition Current Condition Evaluation Date 10/09/17 Treatment Diagnosis bowel obstruction s/p laprotomy; generalized weakness Onset Date 09/29/17 Precautions Abdominal Surgery Precautions Log Roll Lifting Restrictions Gait Belt above Incisional Area Other Precautions falls M3 PT-IP Subjective Start: 10/09/17 13:08 Freq: NEEDED Status: Active Protocol: Document 10/12/17 11:45 [facility] (Rec: 10/12/17 13:41 [facility] [email or web address]) Subjective Physical Therapy Visit Type Type Treatment Note Visit Start Time 11:45 Visit Stop Time 12:10 Total Visit Minutes 25 Number of BARREL RIFLER OPERATOR Visits 1 Physical Therapy Visit Comments Patient Comments Pt agreeable to do PT M4 PT-IP Mobility and Gait Start: 10/09/17 13:08 Freq: NEEDED Status: Active Protocol: Document 10/12/17 11:45 [facility] (Rec: 10/12/17 13:41 [facility] [email or web address]) PT-Transfer Assessment Sit to and From Stand Sit to and from Stand Moderate Assistance 2 Person Assistance Use of Upper Extremities Equipment Transfer Assistive Device Gait Belt Front Wheeled Walker Orthotic/Prosthetic Devices or Brace: No Transfers Transfer Destination Chair Transfer Ability Level of Assist Moderate Assistance 2 Person Assistance Use of Upper Extremities Comments Mobility Comments Pt needed Min A to scoot forward in chair with use of draw sheet. Pt needed verbal and tactile cues for hand and foot placement to stand. Gait Assessment Gait Gait Assistance Required: Moderate Assistance 2 Person Assist Distance (Feet) (feet) 5 Able to Maintain Weight Bearing Status Yes During Gait Assistive Devices Assistive Device Gait Belt Front Wheeled Walker Orthotic/Prosthetic Devices or Brace: No Gait Deviations General Gait Pattern Decreased Stride Length Decreased Feet Clearance Flexed Trunk Factors Limiting Gait Function Factors Limiting Gait Function Decreased Activity Tolerance Decreased Strength Difficulty Following Directions Pain Poor Balance Poor Safety Awareness Comments Gait Comments Pt able to ambulate ~5ft with chair follow and assist with lines. M5 PT-IP Objective Assessments Start: 10/09/17 13:08 Freq: NEEDED Status: Active Protocol: Document 10/09/17 13:08 AB (Rec: 10/09/17 13:18 AB [id number]) Orientation Orientation/Cognition Level of Alertness Lethargic Safety Awareness Decreased Safety Awareness Gross Range of Motion Lower Extremity ROM Assessment Within Functional Limits Strength Lower Extremity Strength Assessment Bilaterally Impaired Hip 3-/5 Knee 3-/5 M6 PT-IP Treatment Start: 10/09/17 13:08 Freq: NEEDED Status: Active Protocol: Document 10/12/17 11:45 [facility] (Rec: 10/12/17 13:41 [facility] [email or web address]) Physical Therapy Treatment Other Treatments Other Treatment Performed standing marches M7 PT-IP Assessment and Plan Start: 10/09/17 13:08 Freq: NEEDED Status: Active Protocol: Document 10/12/17 11:45 [facility] (Rec: 10/12/17 13:41 [facility] [email or web address]) PT Summary Assessment and Plan Potential Rehabilitation Potential Fair Summary Impairments Pain ROM Strength Balance Coordination Sensation Tone Cognition Bed Mobility Transfers Gait Activity Tolerance Progress Towards Goals Slow Progress due to Medical Issues Slow Progress due to Activity Tolerance Assessment Summary Pt improving with mobility needing Mod A for full stand x2,Pt needs a lot of encouragement with verbal and tactile cues for standing tall /eyes forward. Pt able to ambulate Mod A with cues for marching steps due to decreased foot clearance. Pt ambulated with chair follow with second person assisting with chair and lines. Pt will need SNF rehab to improve strength and mobility. Goals Bed Mobility Goal Minimal Assistance Transfer Goal Minimal Assistance Front Wheeled Walker Gait Goal Minimal Assistance Front Wheel Walker Gait Distance 50 Days to Meet Goals 5 Frequency of Treatment Frequency Of Treatment Twice a Day Treatment Plan Physical Therapy Treatment Plan Bed Mobility Training Transfer Training Gait Training Therapeutic Exercise Balance Retraining Post Op Education Discharge Planning Neuromuscular Re-ed Coordination Retraining Manual Therapy Other Recommendations and Next Treatment Discussed with PT need for pt Focus to be seen twice a day to improve strength and mobilty. Progress all mobility as able. Recommendations To Nursing Amount of Assist Needed 3 or More Person Assist Total Assistance Mechanical Lift Discharge Recommendations PT Discharge Recommendations SNF Rehab
--- NOTE | 2017-10-12 14:30 | CM.DPNOTE ---
DCP/Note: Reviewed chart. Patient currently in ICU room# 102. Patient LOS day#13. Met briefly with ICU/RN to get update. Patient no longer requiring vent but does have wound vac, new ostomy, and TPN. Patient has been seen by therapy and SNF recommended. Per RN, d/c plan unclear at this time. Patient may benefit from [facility] acute care i.e. [facility]. Patient's surgeon/Dr. Fiore not on this weekend but might be worth checking into. Unclear if patient will be returning to surgery at [facility] or transferring to higher level in the future. 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 P: Pending. CM team to touch base with Dr. Fiore when he returns re: [facility] evaluation? Currently patient with very high medical needs for SNF however, that may change. CLAU Desai
[2017-10-12] MEDS: SODIUM CHLORIDE 0.9% 1,000 ML 21 ML IV (14:42)
[2017-10-12] MEDS: ENOXAPARIN 40 MG/0.4 ML SYRINGE SUBCUT (14:46)
--- NOTE | 2017-10-12 15:20 | OT.IP.TRT ---
Current Diagnoses Anemia, unspecified (09/29/17) Unspecified intestinal obstruction, unspecified as to partial versus complete obstruction (09/29/17) Surgery Performed Operation Date: 09/30/17 15:15 Actual Procedures p Exploratory Lap/Colon Resection/COLOSTOMY - Roger Fiore MD Operation Date: 10/04/17 09:00 <No data on this case meets the specified criteria> Operation Date: 10/04/17 09:00 Actual Procedures p lapartomy, peritoneal lavage, ostomy takedown, diverting loop ileostomy, abdominal wound vaccum (Left) - Roger Fiore MD Occupational Therapy Treatment Note M2 OT-IP Current Condition Start: 10/09/17 16:42 Freq: Status: Active Protocol: Document 10/12/17 08:27 [facility] (Rec: 10/12/17 08:27 [facility] [id number]) Occupational Therapy Current Condition Post Operative Precautions Abdominal Surgery Precautions Log Roll Lifting Restrictions Gait Belt above Incisional Area Other Precautions falls M3 OT- IP Subjective and Pain Start: 10/09/17 16:42 Freq: Status: Active Protocol: Document 10/12/17 15:15 [facility] (Rec: 10/12/17 15:20 [facility] [id number]) OT- Subjective Occupational Therapy Visit Type Type Patient Refusal Notes Went to see pt for OT treatment and pt adamant to stay in bed and very frustrated about not being able to eat. Nursing also tried to encourage pt to partake in therapy and pt still refusing. Therefore to see in AM.
--- NOTE | 2017-10-12 15:30 | PT.IPTN ---
Current Diagnoses Anemia, unspecified (09/29/17) Unspecified intestinal obstruction, unspecified as to partial versus complete obstruction (09/29/17) Surgery Performed Operation Date: 09/30/17 15:15 Actual Procedures p Exploratory Lap/Colon Resection/COLOSTOMY - Roger Fiore MD Operation Date: 10/04/17 09:00 <No data on this case meets the specified criteria> Operation Date: 10/04/17 09:00 Actual Procedures p lapartomy, peritoneal lavage, ostomy takedown, diverting loop ileostomy, abdominal wound vaccum (Left) - Roger Fiore MD Physical Therapy Treatment Note M2 PT-IP Current Condition Start: 10/09/17 13:08 Freq: NEEDED Status: Active Protocol: Document 10/09/17 13:08 [facility] (Rec: 10/09/17 13:18 AB [id number]) Physical Therapy Current Condition Current Condition Evaluation Date 10/09/17 Treatment Diagnosis bowel obstruction s/p laprotomy; generalized weakness Onset Date 09/29/17 Precautions Abdominal Surgery Precautions Log Roll Lifting Restrictions Gait Belt above Incisional Area Other Precautions falls M3 PT-IP Subjective Start: 10/09/17 13:08 Freq: NEEDED Status: Active Protocol: Document 10/12/17 15:00 [facility] (Rec: 10/12/17 15:30 [facility] [id number]) Subjective Physical Therapy Visit Type Type Patient Refusal Notes Pt refused stating he wants food.
[2017-10-12] MEDS: [UNRECOGNIZED DRUG - OTHER] IV (17:50)
[2017-10-12] MEDS: LYTES IV (17:50)
[2017-10-12] MEDS: FAT EMULSIONS 50 GM/250 ML EMULSION IV (17:50)
[2017-10-12] MEDS: CALCIUM IV (17:50)
[2017-10-12] MEDS: POTASSIUM CHLORIDE IV (17:50)
[2017-10-12] MEDS: DEXT IV (17:50)
[2017-10-12] MEDS: FLUCONAZOLE 200 MG/100 ML PIGGYBACK 100 MG IV (17:51)
--- NOTE | 2017-10-12 18:10 | PM.PNPO.1 ---
Subjective Date Patient Seen: 10/12/17 Time Patient Seen: 17:29 Interval history: Nursing reports the patient has lot of questions. He has been little irritable today and did not want to work with PT and OT. Not really sure what happened to himself. Personally he is feeling pretty well he thinks. He has some pain. He is trying to get a little more mobile. Has had some ostomy output. Exam Vital Signs (past 8 hours): - 10/12/17 12:42 10/12/17 16:52 10/12/17 17:13 Temperature 97.2 F L 98.2 F Pulse Rate 63 72 Respiratory Rate 14 19 Blood Pressure 121/63 124/72 Pulse Oximetry 95 96 97 Fraction of Inspired Oxygen 40 Oxygen Delivery Method Room Air Oxygen Flow Rate 0 Narrative Exam Narrative: Operative no apparent distress. Has some wheezing. Heart regular rate and rhythm without murmur gallop. I left his wound VAC in place. His ostomy is pink and viable. There is succus in the bag. Small amount. No cellulitis of the visible skin of his abdominal wall. Objective Labs Result Diagrams: 10/11/17 04:36 10/12/17 09:06 Labs: Laboratory Results - last 24 hr 10/11/17 10/11/17 10/12/17 19:35 21:45 09:06 Creatinine 0.80 Estimated GFR > 60.0 Gentamicin Peak 7.0 Gentamicin Trough 1.0 Assessment & Plan Post-op Postoperative Procedures Operation Date: 09/30/17 15:15 Actual Procedures Side Surgeon p Exploratory Lap/Colon Resection/COLOSTOMY Roger Fiore MD Operation Date: 10/04/17 09:00 <No data on this case meets the specified criteria> Operation Date: 10/04/17 09:00 Actual Procedures Side Surgeon p lapartomy, peritoneal lavage, ostomy takedown, diverting loop ileostomy, abdominal wound vaccum Left Roger Fiore MD Postoperative status narrative: Patient looks far better than I ever expected him to. He is alert. I explained to him that he will have no memory of his severe. Of illness and that is probably a good thing. I explained to him that we do not have the pathology reports back yet. He is aware that he almost . I explained that he does have an ileostomy and his wound is open. I am not sure he comprehends that completely at this point however. I have increased his TPN rate. Time Spent With Patient 25 - 35 minutes Quality VTE Deep Vein Thrombosis/Pulmonary Embolism Present on Admission: No
--- NOTE | 2017-10-12 19:28 | PC.NURSE ---
Addendum entered by Nancy Dominguez R.N. 10/12/17 22:46: Pt with hx of sleep apnea. Home cpap in room however the nasal mask does not work with NGT in place. O2 sats 95% on RA while asleep, no s/s of distress. Original Note: Addendum entered by Nancy Dominguez R.N. 10/12/17 20:03: Pt request to return to bed. Unsteady gait. Reports pain 10/10 to lower abd. Dilaudid given for breakthrough pain. Supportive at bedside. Original Note: Pt agreeable to get out of bed to a chair. Two person assist with tubes and wires. Generalized weakness. Pt needs reinforcement to treatment plan. Assist to call . Call light in reach.
[2017-10-12] MEDS: HYDROMORPHONE 1 MG INJ IV (19:58)
[2017-10-13] VITALS (9 sets, daily range): BP systolic 119–135; BP diastolic 67–81; PULSE 58–71; RESP 12–20; TEMP 36.1–36.7; O2SAT 95–98
--- NOTE | 2017-10-13 | DI.RAD.S_ITS ---
PROCEDURE: XR ABDOMEN 1V INDICATIONS: f/u . Does patient still have obstructive pattern in small TECHNIQUE: One view of the abdomen acquired. COMPARISON: [facility], CR, XR CHEST 1V, 10/05/2017, 6:07. [facility], CR, XR ACUTE ABDOMEN SERIES, 09/29/2017, 1:08. [facility], CR, XR CHEST 1V, 10/09/2017, 5:52. [facility], CR, XR CHEST 1V, 09/30/2017, 21:18. [facility], CR, XR ACUTE ABDOMEN SERIES, 09/30/2017, 5:59. [facility], CT, CT ABDOMEN PELVIS W CON, 09/29/2017, 1:57. [facility], CR, XR CHEST FOR PICC 1V, 10/09/2017, 14:08. FINDINGS: Surgical changes and devices: Cholecystectomy clips are noted. Bowel: There is relative paucity of small bowel gas. Proximal colonic dilation seen on 09/30/17 has improved. Soft tissues: No suspicious abdominal calcifications. Visualized solid organ contours appear normal in size. Bones: No suspicious bony lesions. IMPRESSION: Improved bowel gas pattern with decreased proximal colonic distention. No high-grade obstruction. Partial small bowel obstruction is not excluded. Dictated by: Kenneth Mcgill M.D. on 10/13/2017 at 8:55 Approved by: Kenneth Mcgill M.D. on 10/13/2017 at 9:04
[2017-10-13] MEDS: HYDROMORPHONE PCA 6 MG/30 ML PCA.VIAL 2.5 MG IV ×3 (01:01→22:12)
[2017-10-13] MEDS: PIPERACILLIN-TAZO 3.375 GM/50 ML FROZ.PIGGY IV ×4 (02:39→20:14)
[2017-10-13] MEDS: FLUTICASONE/SALMETEROL 250/50 14 PUFF DISKUS INH ×2 (05:39→17:06)
[2017-10-13] MEDS: metroNIDAZOLE 500 MG/100 ML PIGGYBACK 100 MG IV ×3 (05:51→21:17)
[2017-10-13] MEDS: INSULIN ASPART 100 UNIT/ML INSULN PEN SUBCUT ×2 (06:32→12:48)
[2017-10-13] MEDS: PANTOPRAZOLE 40 MG VIAL IV (08:35)
--- NOTE | 2017-10-13 08:53 | PT.IPTN ---
Current Diagnoses Anemia, unspecified (09/29/17) Unspecified intestinal obstruction, unspecified as to partial versus complete obstruction (09/29/17) Surgery Performed Operation Date: 09/30/17 15:15 Actual Procedures p Exploratory Lap/Colon Resection/COLOSTOMY - Roger Fiore MD Operation Date: 10/04/17 09:00 <No data on this case meets the specified criteria> Operation Date: 10/04/17 09:00 Actual Procedures p lapartomy, peritoneal lavage, ostomy takedown, diverting loop ileostomy, abdominal wound vaccum (Left) - Roger Fiore MD Physical Therapy Treatment Note M2 PT-IP Current Condition Start: 10/09/17 13:08 Freq: NEEDED Status: Active Protocol: Document 10/09/17 13:08 [facility] (Rec: 10/09/17 13:18 AB [id number]) Physical Therapy Current Condition Current Condition Evaluation Date 10/09/17 Treatment Diagnosis bowel obstruction s/p laprotomy; generalized weakness Onset Date 09/29/17 Precautions Abdominal Surgery Precautions Log Roll Lifting Restrictions Gait Belt above Incisional Area Other Precautions falls M3 PT-IP Subjective Start: 10/09/17 13:08 Freq: NEEDED Status: Active Protocol: Document 10/13/17 08:15 [facility] (Rec: 10/13/17 08:53 [facility] [id number]) Subjective Physical Therapy Visit Type Type Treatment Note Visit Start Time 08:15 Visit Stop Time 08:30 Total Visit Minutes 15 Number of BUILDING EQUIPMENT OPERATOR Visits 2 Physical Therapy Visit Comments Patient Comments Pt agreeable to do PT M4 PT-IP Mobility and Gait Start: 10/09/17 13:08 Freq: NEEDED Status: Active Protocol: Document 10/13/17 08:15 [facility] (Rec: 10/13/17 08:53 [facility] [id number]) PT-Bed Mobility Assessment Rolling Type of Rolling Log Rolling Roll to Right Level of Assist Minimal Assistance 1 Person Assistance Supine to Sit Supine to Sit Moderate Assistance 1 Person Assistance Bedrails Scooting Scooting to Edge of Bed Contact Guard Assistance PT-Transfer Assessment Sit to and From Stand Sit to and from Stand Contact Guard Assistance 1 Person Assistance Use of Upper Extremities Equipment Transfer Assistive Device Gait Belt Front Wheeled Walker Orthotic/Prosthetic Devices or Brace: No Transfers Transfer Destination Chair Transfer Ability Level of Assist Minimal Assistance Moderate Assistance 1 Person Assistance Use of Upper Extremities Comments Mobility Comments Pt improving with bed mobility and controlled stand-sit with verbal cues. Gait Assessment Gait Gait Assistance Required: Moderate Assistance 2 Person Assist Distance (Feet) (feet) 3 Able to Maintain Weight Bearing Status Yes During Gait Assistive Devices Assistive Device Gait Belt Front Wheeled Walker Orthotic/Prosthetic Devices or Brace: No Gait Deviations General Gait Pattern Decreased Stride Length Decreased Feet Clearance Flexed Trunk Wide Based Gait Factors Limiting Gait Function Factors Limiting Gait Function Decreased Activity Tolerance Decreased Strength Difficulty Following Directions Pain Poor Balance Poor Safety Awareness Comments Gait Comments Pt ambulate short distance Mod A to chair with cues for step sequencing and walker management. RN assisted with lines. M5 PT-IP Objective Assessments Start: 10/09/17 13:08 Freq: NEEDED Status: Active Protocol: Document 10/09/17 13:08 AB (Rec: 10/09/17 13:18 AB [id number]) Orientation Orientation/Cognition Level of Alertness Lethargic Safety Awareness Decreased Safety Awareness Gross Range of Motion Lower Extremity ROM Assessment Within Functional Limits Strength Lower Extremity Strength Assessment Bilaterally Impaired Hip 3-/5 Knee 3-/5 M6 PT-IP Treatment Start: 10/09/17 13:08 Freq: NEEDED Status: Active Protocol: Document 10/12/17 11:45 [facility] (Rec: 10/12/17 13:41 [facility] [email or web address]) Physical Therapy Treatment Other Treatments Other Treatment Performed standing march M7 PT-IP Assessment and Plan Start: 10/09/17 13:08 Freq: NEEDED Status: Active Protocol: Document 10/13/17 08:15 [facility] (Rec: 10/13/17 08:53 [facility] [id number]) PT Summary Assessment and Plan Potential Rehabilitation Potential Fair Summary Impairments Pain ROM Strength Balance Coordination Sensation Tone Cognition Bed Mobility Transfers Gait Activity Tolerance Progress Towards Goals Slow Progress due to Medical Issues Slow Progress due to Activity Tolerance Assessment Summary Pt continues to improve with bed mobility needing less assist. Pt requires Mod A and verbal cues with ambulation. Pt has weakness of LE and fatigues quickly. Pt will need SNF rehab to improve strength and mobility. Goals Bed Mobility Goal Minimal Assistance Transfer Goal Minimal Assistance Front Wheeled Walker Gait Goal Minimal Assistance Front Wheel Walker Gait Distance 50 Days to Meet Goals 5 Frequency of Treatment Frequency Of Treatment Twice a Day Treatment Plan Physical Therapy Treatment Plan Bed Mobility Training Transfer Training Gait Training Therapeutic Exercise Balance Retraining Post Op Education Discharge Planning Neuromuscular Re-ed Coordination Retraining Manual Therapy Other Recommendations and Next Treatment Progress bed mobility, gait Focus and strength. Recommendations To Nursing Amount of Assist Needed 2 Person Assist Discharge Recommendations PT Discharge Recommendations SNF Rehab
--- NOTE | 2017-10-13 10:40 | PM.PN.1 ---
Subjective Date Patient Seen: 10/13/17 Time Patient Seen: 08:00 Interval history: Denies any significant pain at the moment. Remains on basal OPERATIONS MGR only. No nausea or vomiting. Denies chest pain or shortness of breath. Overall he remains amnestic to the events of the last 10 days approximately. However, he recognizes me immediately upon entering the room. Exam Vital Signs (past 8 hours): - 10/13/17 03:00 10/13/17 05:40 10/13/17 07:35 Temperature 98.1 F 97.1 F L Pulse Rate 65 64 71 Respiratory Rate 16 20 20 Blood Pressure 131/67 119/74 Pulse Oximetry 97 95 96 10/13/17 08:49 Temperature Pulse Rate Respiratory Rate Blood Pressure Pulse Oximetry 96 Fraction of Inspired Oxygen 40 Oxygen Delivery Method Room Air Oxygen Flow Rate 0 Narrative Exam Narrative: Patient resting comfortably in the bed. Alert oriented x2. He is somewhat confused as to the exact date. He understands that he remains in the hospital in [place] nonicteric Neck is supple Triple-lumen catheter has been removed from the right subclavian position. He now has a dual lumen PICC line in the left upper extremity. Regular rate and rhythm Good cough effort without crackles or wheezes. Abdomen is much less distended and soft. Abdominal wall remains slightly edematous but much less so. Wound VAC is clean and intact. Device is holding suction nicely. Dressing was changed 2 days ago. Ileostomy is pink and viable with normal output in the appliance. Red rubber catheter remains in place supporting the stoma. Skin is not cellulitic or erythematous. He is appropriately tender to palpation. Extremities show no clubbing or cyanosis. He continues to have trace ankle and hand edema bilaterally. Objective Labs Result Diagrams: 10/11/17 04:36 10/12/17 09:06 Labs: No new radiographic or laboratory studies today. Assessment & Plan Plan: Assessment/Plan Narrative: 61-year-old male now postoperative day 13 following emergent laparotomy for complete colonic obstruction, sigmoid colectomy, colostomy, and second-look laparotomy for revision of ostomy and peritoneal lavage who continues to do quite well. He has no evidence of sepsis at this time. No evidence of any infectious complications. We will continue TPN currently. Nasogastric tube was discontinued today due to very minimal output over the last 2 days. Fluid is bile tinged only. Furthermore, he is having ileostomy output. Will consult speech therapy for bedside evaluation for swallowing trial. He may have up to full liquids with whatever consistency is appropriate should he have any dysphagia. Plan to change the wound VAC within the next 2 days at the bedside. He tolerated this well 2 days ago. Enterostomal therapist will continue to follow the patient. We can remove the red rubber catheter at this point. Continue physical therapy and occupational therapy for rehabilitation and strengthening purposes. I emphasized pulmonary toilet with him as well. He was reoriented as to the events over the last 2 weeks or so, and I discussed some of the basic pathology found at the time of surgery, but I do not yet have a final written report for the specimen. I suspect he will require a rehabilitation center or fdc facility at the time of discharge which most likely will not be at least until another 5-7 days. Gentamicin has been stopped already. We will discontinue the Zosyn, Flagyl, and Diflucan within the next 24-48 hours. Repeat laboratory studies tomorrow. Continue basal OPERATIONS MGR but add demand mode for patient analgesia at this time since he has been receiving intermittent intravenous Dilaudid boluses from the nursing staff. All questions were answered to his satisfaction, and he voiced understanding. Case reviewed with the attending nurse today. Orders written. Quality VTE Deep Vein Thrombosis/Pulmonary Embolism Present on Admission: No
--- NOTE | 2017-10-13 12:08 | CM.DPC ---
DCP Cont: Per MD, pt NG discontinued but still on TPN, Wound Vac, and PICC and making progress but likely another 5-7 days before ready for d/c to likely rehab. SW missed MD when he rounded on pt and was not able to discuss possible [facility] vs SNF at d/c. Pt was sleeping very soundly when SW attempted to meet with pt bedside. Per RN, SUPERVISOR OPENING AND PICKING ordered to assess pt and pending. Plan: SW to follow closely due to likely need of rehab at d/c and further discussion with regarding possible [facility] vs SNF rehab at d/c. Insurance auth will need to be obtained for LTAC or SNF and process will likely need to begin with insurance over the next day or two to determine facility and auth. CLAU Bone
--- NOTE | 2017-10-13 13:23 | ST.IPIE ---
Care Team Visit Care Team Role Provider Type Selma Cronin MD Primary Care Provider Physician Specialty: Family Practice Address: [address] [place] [address], [id number] Email: [email or web address] Suman Juarez DO Emergency Provider Physician Specialty: Emergency Medicine Address: [address] [place] [address], [id number] Email: [email or web address] Roger Fiore MD Admit Provider Physician Attending Provider Specialty: General Surgery Address: [address] [place] [address], [address] Email: [email or web address] Current Diagnoses Anemia, unspecified (09/29/17) Unspecified intestinal obstruction, unspecified as to partial versus complete obstruction (09/29/17) Past Medical History (Last Reviewed 10/03/17 @ 08:42 by Melonie Jones, RT) Asthma (Acute Medical) Diverticulitis (Acute Medical) Personal history of colonic polyps (Acute Medical) ST IP Initial Evaulation Report CONVERSION WORKER Clinical Swallow Evaluation Start: 10/13/17 12:55 Freq: Status: Active Protocol: Document 10/13/17 13:02 [facility] (Rec: 10/13/17 13:08 [facility] [id number]) Clinical Swallow Evaluation Session Time Visit Start Time 12:05 Visit Stop Time 12:35 Total Visit Minutes [address] Fiore Reason for Referral Dysphagia Setting Assessment Location Acute Care Visit Type Note Type Initial Evaluation Next Note Type Next Note Type Treatment Note Patient Information Identification Type Name ID Card ID Wristband History Patient is a 61-year-old male with a long history of GI pain /difficulty. In the past 12 months, he was treated for diverticulitis with multiple courses of outpatient oral antibiotics, however his symptoms did not completely resolve. He came to [facility] with colonic partial obstruction of unclear etiology per H&P. He has had a very complicated stay since admission. Surgery was performed on 09/30/17. Per progress note, patient had a laparotomy wiht left partial colectomy and diverting colostomy along with incidental partial small-bowel resection. He was admitted to ICU with hypotension, respiratory insufficiency, and open abdomen necessitating eventual delayed closure. After surgery, he became septic. Please review full medical chart for complete summary of this patient, as his case is very complicated. He was extubated on 10/08/17 AM and an NG tube was placed. TPN has been his main source of nutrition. NG tube was for suction. NG tube was removed this AM and a swallow evaluation was ordered prior to initiation of full liquid diet. Subjective Observations Patient awake and alert, lying in bed with no family present . No complaints of pain pre/ post evaluation. No significant vocal impairments observed. Stated no pain in his throat. Evaluation Liquids Trialed Ice Chips Thin Otho Solids Trialed Puree Administration Type Tea Spoon Cup Single Sip Controlled Cup Sip Straw Self-Feeding Oral Impairment WFL Oral Strategies Upright at 90 degrees Double Swallow Controlled Bite/Sip Size Alternate Liquids/Solids Oral Phase Comments Oral phase WFL. No overt difficult observed. Lingual/ labial coordination and strength WFL. No anterior spillage or loss of bolus observed. No difficulty managing to sip from straw or cup. Able to tolerate spoon without difficulty. Prompt AP propulsion observed for swallow initiation. No oral residue observed. No oral dysphagia. Pharyngeal Impairment Mildly Impaired Pharyngeal Strategies Sitting Upright (90 deg) Double Swallow Effortful Swallow Small Bites and Sips Alternate Liquids/Solids Pharyngeal Phase Comments Mild wet vocal quality observed after multiple trials of applesause. With cues to throat clear/double swallow, able to resolve. No coughing or other overt s/s of aspiration observed throughout the evaluation. Patient able to safely tolerate thin liquids via spoon, cup and straw, nectar thick liquids via cup, puree textures via spoon independently. Needed reminders to implement throat clear/double swallow and effortful swallow. CONVERSION WORKER explained reasoning for this. Patient verbalized understanding and was able to implement without difficulty. Findings Dysphagia Type Mild pharyngeal dysphagia Rehabilitation Potential Excellent Impressions Mild pharyngeal dysphagia exhibited by wet vocal quality after multiple trials of thin liquids/puree textures combined. With cues to implement throat clear, these symptoms resolved. Recommend proceed with clear or full liquid diet, per MD recommendation. Thin liquids okay. Patient able to tolerate puree textures well also. Recommend any oral medication to be taken in a carrier to ease in passage. Reminders to go slow, take small bites/sips , throat clear/double swallow, etc. CONVERSION WORKER will follow up. Diet Recommendations Liquids Order Thin Diet Order Full Liquids Medication Recommendations As Tolerated Whole in Carrier Additional Dietary Needs Encourage to Self-Feed Reminders to Use Strategies Aspiration Precautions Recommended Precautions Upright at 90 Degrees Alternate Liquids/Solids Frequent Rest Periods Small Bites/Sips Effortful Swallow Double Swallow Additional Precautions Throat clear/double swallow Treatment Plan Placement Recommendations after Care Home Facility Discharge Appropriate for Therapy Yes Dysphagia Goals Patient will trial more solid textures, as medically stable, for possible diet upgrade. Patient will independently implement dysphagia strategies to maintain safe tolerance of diet. CONVERSION WORKER Follow Up Daily CONVERSION WORKER Oral Motor Exam Start: 10/13/17 12:55 Freq: Status: Active Protocol: Document 10/13/17 12:55 [facility] (Rec: 10/13/17 12:57 [facility] [id number]) Oral Motor Examination Face Facial Symmetry Symmetrical Facial Movement Controlled Mouth Teeth Characteristics Intact/Normal Teeth Comment Natural teeth present Pucker Lips Normal Smile Normal Puff Cheeks Normal Tongue Size Normal Tongue Movement Protrusion/Retraction Strength WNL Protrusion/Retraction Range of Movement Normal Protrusion/Retraction Coordination WNL Elevation/Depression Strength WNL Elevation/Despression Range of Movement Normal Elevation/Depression Coordination WNL Lateralization Strength WNL Lateralization Range of Movement Normal Lateralization Coordination WNL Comments No significant impairments observed Palate Soft Palate Description Normal Hard Palate Description Normal Velopharyngeal Movement Normal Hyolaryngeal Movement Hyolaryngeal Movement Normal Elevation Normal Excursion Hyolaryngeal Movement Comments Adequate hyolaryngeal elevation/excursion Volitional Cough/Swallow Comments Strong throat clear;breathy cough, but productive
[2017-10-13] MEDS: SODIUM CHLORIDE 0.9% 500 ML 21 ML IV (14:01)
[2017-10-13] MEDS: ENOXAPARIN 40 MG/0.4 ML SYRINGE SUBCUT (14:06)
--- NOTE | 2017-10-13 14:27 | PT.IPTN ---
Current Diagnoses Anemia, unspecified (09/29/17) Unspecified intestinal obstruction, unspecified as to partial versus complete obstruction (09/29/17) Surgery Performed Operation Date: 09/30/17 15:15 Actual Procedures p Exploratory Lap/Colon Resection/COLOSTOMY - Roger Fiore MD Operation Date: 10/04/17 09:00 <No data on this case meets the specified criteria> Operation Date: 10/04/17 09:00 Actual Procedures p lapartomy, peritoneal lavage, ostomy takedown, diverting loop ileostomy, abdominal wound vaccum (Left) - Roger Fiore MD Physical Therapy Treatment Note M2 PT-IP Current Condition Start: 10/09/17 13:08 Freq: NEEDED Status: Active Protocol: Document 10/09/17 13:08 AB (Rec: 10/09/17 13:18 AB [id number]) Physical Therapy Current Condition Current Condition Evaluation Date 10/09/17 Treatment Diagnosis bowel obstruction s/p laprotomy; generalized weakness Onset Date 09/29/17 Precautions Abdominal Surgery Precautions Log Roll Lifting Restrictions Gait Belt above Incisional Area Other Precautions falls M3 PT-IP Subjective Start: 10/09/17 13:08 Freq: NEEDED Status: Active Protocol: Document 10/13/17 13:00 [facility] (Rec: 10/13/17 14:26 [facility] [id number]) Subjective Physical Therapy Visit Type Type Treatment Note Visit Start Time 13:00 Visit Stop Time 13:15 Total Visit Minutes 15 Number of TOOL HONING MACHINE SET UP OPERATOR Visits 3 Physical Therapy Visit Comments Patient Comments Pt agreeable to do PT M4 PT-IP Mobility and Gait Start: 10/09/17 13:08 Freq: NEEDED Status: Active Protocol: Document 10/13/17 13:00 [facility] (Rec: 10/13/17 14:26 [facility] [id number]) PT-Bed Mobility Assessment Rolling Type of Rolling Log Rolling Roll to Right Level of Assist Minimal Assistance 1 Person Assistance Supine to Sit Supine to Sit Moderate Assistance 1 Person Assistance Bedrails Scooting Scooting to Edge of Bed Contact Guard Assistance PT-Transfer Assessment Sit to and From Stand Sit to and from Stand Contact Guard Assistance 1 Person Assistance Use of Upper Extremities Equipment Transfer Assistive Device Gait Belt Front Wheeled Walker Orthotic/Prosthetic Devices or Brace: No Transfers Transfer Destination Chair Transfer Ability Level of Assist Minimal Assistance Moderate Assistance 1 Person Assistance Use of Upper Extremities Gait Assessment Gait Gait Assistance Required: Moderate Assistance 2 Person Assist Distance (Feet) (feet) 5 Able to Maintain Weight Bearing Status Yes During Gait Assistive Devices Assistive Device Gait Belt Front Wheeled Walker Orthotic/Prosthetic Devices or Brace: No Gait Deviations General Gait Pattern Decreased Stride Length Decreased Feet Clearance Flexed Trunk Wide Based Gait Factors Limiting Gait Function Factors Limiting Gait Function Decreased Activity Tolerance Decreased Strength Difficulty Following Directions Pain Poor Balance Poor Safety Awareness Comments Gait Comments Pt ambulated ~5ft with chair follow Mod A and cues for step sequencing and assist with walker while TRANSPORTATION MAINTENANCE OPERATOR assisted with lines. M5 PT-IP Objective Assessments Start: 10/09/17 13:08 Freq: NEEDED Status: Active Protocol: Document 10/09/17 13:08 AB (Rec: 10/09/17 13:18 AB [id number]) Orientation Orientation/Cognition Level of Alertness Lethargic Safety Awareness Decreased Safety Awareness Gross Range of Motion Lower Extremity ROM Assessment Within Functional Limits Strength Lower Extremity Strength Assessment Bilaterally Impaired Hip 3-/5 Knee 3-/5 M6 PT-IP Treatment Start: 10/09/17 13:08 Freq: NEEDED Status: Active Protocol: Document 10/13/17 13:00 [facility] (Rec: 10/13/17 14:26 [facility] [id number]) Physical Therapy Treatment Exercises Exercises Ankle Pumps Gluteal Sets Quad Sets Heel Slides M7 PT-IP Assessment and Plan Start: 10/09/17 13:08 Freq: NEEDED Status: Active Protocol: Document 10/13/17 13:00 [facility] (Rec: 10/13/17 14:26 [facility] [id number]) PT Summary Assessment and Plan Summary Impairments Pain ROM Strength Balance Coordination Sensation Tone Cognition Bed Mobility Transfers Gait Activity Tolerance Progress Towards Goals Slow Progress due to Medical Issues Slow Progress due to Activity Tolerance Assessment Summary Pt improving with bed mobility but continues to need Mod A and verbal cues for sequencing steps with gait. Pt will need SNF rehab to improve strength and mobility. Goals Bed Mobility Goal Minimal Assistance Transfer Goal Minimal Assistance Front Wheeled Walker Gait Goal Minimal Assistance Front Wheel Walker Gait Distance 50 Days to Meet Goals 5 Frequency of Treatment Frequency Of Treatment Twice a Day Treatment Plan Physical Therapy Treatment Plan Bed Mobility Training Transfer Training Gait Training Therapeutic Exercise Balance Retraining Post Op Education Discharge Planning Neuromuscular Re-ed Coordination Retraining Manual Therapy Other Recommendations and Next Treatment Progress bed mobility, gait Focus and strength. Recommendations To Nursing Amount of Assist Needed 2 Person Assist Discharge Recommendations PT Discharge Recommendations SNF Rehab
--- NOTE | 2017-10-13 14:51 | DIET.PN ---
Able to start PO nutrition today. Swallow eval pending. Diet: Full liquid INTERVENTION: Send Ensure Surgery Immunonutrition beverage w/meals TID. Encourage intake
--- NOTE | 2017-10-13 15:55 | OT.IP.TRT ---
Current Diagnoses Anemia, unspecified (09/29/17) Unspecified intestinal obstruction, unspecified as to partial versus complete obstruction (09/29/17) Surgery Performed Operation Date: 09/30/17 15:15 Actual Procedures p Exploratory Lap/Colon Resection/COLOSTOMY - Roger Fiore MD Operation Date: 10/04/17 09:00 <No data on this case meets the specified criteria> Operation Date: 10/04/17 09:00 Actual Procedures p lapartomy, peritoneal lavage, ostomy takedown, diverting loop ileostomy, abdominal wound vaccum (Left) - Roger Fiore MD Occupational Therapy Treatment Note M2 OT-IP Current Condition Start: 10/09/17 16:42 Freq: Status: Active Protocol: Document 10/12/17 08:27 [facility] (Rec: 10/12/17 08:27 [facility] [id number]) Occupational Therapy Current Condition Post Operative Precautions Abdominal Surgery Precautions Log Roll Lifting Restrictions Gait Belt above Incisional Area Other Precautions falls M3 OT- IP Subjective and Pain Start: 10/09/17 16:42 Freq: Status: Active Protocol: Document 10/13/17 15:45 [facility] (Rec: 10/13/17 15:54 [facility] [id number]) OT- Subjective Occupational Therapy Visit Type Type Administrative Note Notes Spoke to nursing and agreed to place pt on OT hold due to currently still on PICC, wound vac, catheter, and ostomy bag not ready to do ADL's at this time. Therefore to wait for pt to be more medically stable and with less attachments to pt so able to work on dressing , toileting, and bathing needs . PT currently still seeing pt for all mobility needs.
[2017-10-13] MEDS: FLUCONAZOLE 200 MG/100 ML PIGGYBACK 100 MG IV (16:02)
[2017-10-13] MEDS: DEXT IV (19:00)
[2017-10-13] MEDS: [UNRECOGNIZED DRUG - OTHER] IV (19:00)
[2017-10-13] MEDS: LYTES IV (19:00)
[2017-10-13] MEDS: POTASSIUM CHLORIDE IV (19:00)
[2017-10-13] MEDS: CALCIUM IV (19:00)
[2017-10-13 19:57] LABS: Gentamicin Trough < 0.6 ug/mL (0.0-2.0)
[2017-10-13 22:15] LABS: Gentamicin Peak < 0.6 ug/mL (5.0-8.0)
[2017-10-14] VITALS (11 sets, daily range): BP systolic 126–139; BP diastolic 65–82; PULSE 61–68; RESP 18–20; TEMP 36–37.3; O2SAT 94–99
[2017-10-14] MEDS: PIPERACILLIN-TAZO 3.375 GM/50 ML FROZ.PIGGY IV (02:25)
[2017-10-14 05:23] LABS: Add Manual Diff / Slide Review NO; Basophils Percent Auto 0.5 % (0-2); Eosinophils Percent Auto 3.9 % (2-4); Hematocrit 26.2 % (41-53); Hemoglobin 8.7 g/dL (13.5-17.5); Mean Corpuscular HGB Conc 33.4 % (30-36); Mean Corpuscular Hemoglobin 29.6 PG (26-34); Mean Corpuscular Volume 88.6 fL (80-100); Monocytes Percent Auto 12.5 % (3-14); Neutrophils Absolute Auto 12400 /uL (3000-5900); Neutrophils Percent Auto 72.1 % (50-75); Platelet Count 803 X10^3/uL (150-400); Red Blood Cell Count 2.95 X10^6/uL (4.5-5.9); White Blood Cell Count 17.2 X10^3/uL (4.5-11.0)
[2017-10-14 05:31] LABS: BUN Creatinine Ratio 14.4 (6-22); Blood Urea Nitrogen 13 mg/dL (9-20); Carbon Dioxide 27 mmol/L (22-32); Chloride 100 mmol/L (98-107); Estimated Glomerular Filt Rate > 60.0 mL/min (>60); Glucose 164 mg/dL (80-110); HEMOLYSIS < 15 (0-50); Potassium 4.3 mmol/L (3.4-5.1); Sodium 133 mmol/L (137-145)
[2017-10-14] MEDS: INSULIN ASPART 100 UNIT/ML INSULN PEN SUBCUT ×2 (05:58→13:19)
[2017-10-14] MEDS: metroNIDAZOLE 500 MG/100 ML PIGGYBACK 100 MG IV (05:58)
[2017-10-14] MEDS: HYDROMORPHONE PCA 6 MG/30 ML PCA.VIAL 2.5 MG IV ×3 (06:05→23:17)
[2017-10-14 06:06] LABS: Hypochromasia 1+; Polychromasia 1+
[2017-10-14 06:07] LABS: Basophilic Stippling 1+
--- NOTE | 2017-10-14 06:52 | PC.NURSE ---
Patient was up in chair 1/2 the night, dozing, transferred back to bed slowly and steadily. Drinking water without N/V, does belch on occasion. 4.5mg cleared from ELECTRIC DOLLY OPERATOR for shift. VSS. Scant liquid brown/green output into ostomy bag, no flatus, bowel sounds hypoactive. Wound vac patent.
--- NOTE | 2017-10-14 08:40 | PM.PN.1 ---
Subjective Date Patient Seen: 10/14/17 Time Patient Seen: 08:41 Interval history: Patient states he slept comfortably last evening. Denies significant pain currently. FLIGHT PHYSICIAN is working well for pain control. Denies nausea or vomiting. Tolerated liquids yesterday without dysphagia, nausea, or vomiting. Denies chest pain or shortness of breath. Was able to ambulate with physical therapy about the room yesterday. Exam Vital Signs (past 8 hours): - 10/14/17 04:00 Temperature 96.8 F L Pulse Rate 66 Respiratory Rate 20 Blood Pressure 126/65 Pulse Oximetry 97 Fraction of Inspired Oxygen 40 Oxygen Delivery Method Room Air Oxygen Flow Rate 0 Narrative Exam Narrative: Lying comfortably in bed in no acute distress. Alert oriented x3 this morning. No hoarseness. Sclera nonicteric Chest clear to auscultation bilaterally without rhonchi or wheezes. Regular rate and rhythm. No murmurs. Abdomen is minimally distended but soft. He is appropriately tender to palpation. Wound VAC is clean, dry, and intact holding suction. Output is serous only with only 2-300 cc over the last 24 hr output. Ileostomy is pink and viable. Red rubber bridge remains in place. He has liquid bilious stool in minimal flatus in the appliance. No evidence of cellulitis or ecchymosis of the abdominal wall. Still has some mild edema of the abdominal wall soft tissue. No guarding or rebound to palpation. Extremities show no clubbing or cyanosis. He has trace residual bilateral ankle edema but upper extremity edema has essentially resolved. He moves all extremities equally and symmetrically but remains overall weak and debilitated as anticipated. Objective Labs Result Diagrams: 10/14/17 04:55 10/14/17 04:55 Labs: Laboratory Results - last 24 hr 10/13/17 10/13/17 10/14/17 19:33 21:40 04:55 WBC 17.2 H RBC 2.95 L Hgb 8.7 L Hct 26.2 L MCV 88.6 MCH 29.6 MCHC 33.4 RDW 14.0 Plt Count 803 H Neut % (Auto) 72.1 Lymph % (Auto) 11.0 L [place] % (Auto) 12.5 Eos % (Auto) 3.9 Baso % (Auto) 0.5 Neut # (Auto) [id number] H RBC Morphology Not Reportable Polychromasia 1+ H Hypochromasia 1+ H Basophilic Stippling 1+ H Sodium Potassium Chloride Carbon Dioxide BUN Creatinine Estimated GFR BUN/Creatinine Ratio Glucose Calcium Gentamicin Peak < 0.6 L Gentamicin Trough < 0.6 10/14/17 04:55 WBC RBC Hgb Hct MCV MCH MCHC RDW Plt Count Neut % (Auto) Lymph % (Auto) [place] % (Auto) Eos % (Auto) Baso % (Auto) Neut # (Auto) RBC Morphology Polychromasia Hypochromasia Basophilic Stippling Sodium 133 L Potassium 4.3 Chloride 100 Carbon Dioxide 27 BUN 13 Creatinine 0.90 Estimated GFR > 60.0 BUN/Creatinine Ratio 14.4 Glucose 164 H Calcium 8.0 L Gentamicin Peak Gentamicin Trough Assessment & Plan Plan: Assessment/Plan Narrative: 61-year-old male postoperative day 14 from initial operation for 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 I have not yet seen the final pathology report, and I will contact the laboratory for those results today. We will continue full liquid diet with Ensure supplementation per dietary recommendations. Continue physical therapy and out of bed as tolerated. Continue Portillo catheter for now as he remains weak with significant spontaneous diuresis. Without the Portillo he is likely to have urinary incontinence and potential skin breakdown. Discontinue all antibiotics and antifungal therapy today. White blood cell count remains mildly elevated but this may be just acute phase inflammatory reactant without evidence of significant infectious process. He has been completely afebrile for days now. Continue TPN until such time his ileostomy output increases and he is tolerating oral intake to a greater extent. Speech and swallowing evaluation today. Will plan dressing change tomorrow morning and apply a new wound VAC in conjunction with the enterostomal therapist. All the above discussed with the patient in detail. Questions were answered to his satisfaction, and he voiced understanding. Case reviewed with the attending nurse. Orders written. Quality VTE Deep Vein Thrombosis/Pulmonary Embolism Present on Admission: No
[2017-10-14] MEDS: PANTOPRAZOLE 40 MG VIAL IV (08:42)
[2017-10-14] MEDS: FLUTICASONE/SALMETEROL 250/50 14 PUFF DISKUS INH ×2 (08:54→21:59)
--- NOTE | 2017-10-14 10:28 | PT.IPTN ---
Current Diagnoses Anemia, unspecified (09/29/17) Unspecified intestinal obstruction, unspecified as to partial versus complete obstruction (09/29/17) Surgery Performed Operation Date: 09/30/17 15:15 Actual Procedures p Exploratory Lap/Colon Resection/COLOSTOMY - Roger Fiore MD Operation Date: 10/04/17 09:00 <No data on this case meets the specified criteria> Operation Date: 10/04/17 09:00 Actual Procedures p lapartomy, peritoneal lavage, ostomy takedown, diverting loop ileostomy, abdominal wound vaccum (Left) - Roger Fiore MD Physical Therapy Treatment Note M2 PT-IP Current Condition Start: 10/09/17 13:08 Freq: NEEDED Status: Active Protocol: Document 10/09/17 13:08 AB (Rec: 10/09/17 13:18 AB [id number]) Physical Therapy Current Condition Current Condition Evaluation Date 10/09/17 Treatment Diagnosis bowel obstruction s/p laprotomy; generalized weakness Onset Date 09/29/17 Precautions Abdominal Surgery Precautions Log Roll Lifting Restrictions Gait Belt above Incisional Area Other Precautions falls M3 PT-IP Subjective Start: 10/09/17 13:08 Freq: NEEDED Status: Active Protocol: Document 10/14/17 10:28 AB (Rec: 10/14/17 11:25 AB [id number]) Subjective Physical Therapy Visit Type Type Treatment Note Visit Start Time 10:28 Visit Stop Time 11:04 Total Visit Minutes 36 Number of WEBFED OFFSET PRESS OPERATOR Visits 0 Physical Therapy Visit Comments Patient Comments pt agreed to get up Therapy Pain Assessment Pain When Pain Assessed During Mobility Pain Present Pain Present Pain Reported Location Abdomen Scale Used pain scale not state Pain Management Techniques Timing of Activity with Medications M4 PT-IP Mobility and Gait Start: 10/09/17 13:08 Freq: NEEDED Status: Active Protocol: Document 10/14/17 10:28 AB (Rec: 10/14/17 11:25 AB [id number]) PT-Bed Mobility Assessment Rolling Type of Rolling Log Rolling Level of Assist Moderate Assistance Supine to Sit Supine to Sit Maximum Assistance 1 Person Assistance Bedrails Scooting Scooting to Edge of Bed Standby Assistance PT-Transfer Assessment Sit to and From Stand Sit to and from Stand Contact Guard Assistance Equipment Transfer Assistive Device Gait Belt Front Wheeled Walker Orthotic/Prosthetic Devices or Brace: No Gait Assessment Gait Gait Assistance Required: Contact Guard Assist Minimum Assistance Distance (Feet) (feet) 30 Able to Maintain Weight Bearing Status Yes During Gait Assistive Devices Assistive Device Gait Belt Front Wheeled Walker Gait Deviations General Gait Pattern Decreased Stride Length Decreased Feet Clearance Factors Limiting Gait Function Factors Limiting Gait Function Decreased Activity Tolerance Decreased Strength Pain Poor Balance Poor Safety Awareness Comments Gait Comments pt initially requiring CGA with ambulation but required min A toward end of ambulation and with turning. pt has decrease justina and required increase time to complete task . nurse assisted with IV pole management. pt agreed to sit up on chair after ambulation. positioned pt on chair. call light and table placed within reach. M5 PT-IP Objective Assessments Start: 10/09/17 13:08 Freq: NEEDED Status: Active Protocol: Document 10/09/17 13:08 AB (Rec: 10/09/17 13:18 AB [id number]) Orientation Orientation/Cognition Level of Alertness Lethargic Safety Awareness Decreased Safety Awareness Gross Range of Motion Lower Extremity ROM Assessment Within Functional Limits Strength Lower Extremity Strength Assessment Bilaterally Impaired Hip 3-/5 Knee 3-/5 M6 PT-IP Treatment Start: 10/09/17 13:08 Freq: NEEDED Status: Active Protocol: Document 10/14/17 10:28 AB (Rec: 10/14/17 11:25 AB [id number]) Physical Therapy Treatment Education Education Provided Precautions Safety M7 PT-IP Assessment and Plan Start: 10/09/17 13:08 Freq: NEEDED Status: Active Protocol: Document 10/14/17 10:28 AB (Rec: 10/14/17 11:25 AB [id number]) PT Summary Assessment and Plan Potential Rehabilitation Potential Good Summary Impairments Pain ROM Strength Balance Cognition Bed Mobility Transfers Gait Activity Tolerance Progress Towards Goals Progressing Toward Goals Assessment Summary pt making progress with mobility but continues to have decrease activity tolerance. pt will require SNF rehab to improve strength and function. Goals Bed Mobility Goal Minimal Assistance Transfer Goal Minimal Assistance Front Wheeled Walker Gait Goal Minimal Assistance Front Wheel Walker Gait Distance 50 Days to Meet Goals 5 Frequency of Treatment Frequency Of Treatment Twice a Day Treatment Plan Physical Therapy Treatment Plan Bed Mobility Training Transfer Training Gait Training Therapeutic Exercise Balance Retraining Post Op Education Discharge Planning Neuromuscular Re-ed Coordination Retraining Manual Therapy Other Recommendations and Next Treatment Progress bed mobility, gait Focus and strength. Recommendations To Nursing Amount of Assist Needed 1 Person Assist Discharge Recommendations PT Discharge Recommendations SNF Rehab
--- NOTE | 2017-10-14 10:47 | ST.IPDYTX ---
Care Team Visit Care Team Role Provider Type Selma Cronin MD Primary Care Provider Physician Specialty: Family Practice Address: [address] [place] [address], [id number] Email: [email or web address] Suman Juarez DO Emergency Provider Physician Specialty: Emergency Medicine Address: [address] [place] [address], [id number] Email: [email or web address] Roger Fiore MD Admit Provider Physician Attending Provider Specialty: General Surgery Address: [address] [place] [address], [id number] Email: [email or web address] MEDICAL PRACTICE MANAGER Dysphagia Treatment MEDICAL PRACTICE MANAGER Dysphagia Treatment Start: 10/13/17 12:55 Freq: Status: Active Protocol: Document 10/14/17 10:36 MRM (Rec: 10/14/17 10:42 MRM [id number]) Dysphagia Treatment Session Time Visit Start Time 09:00 Visit Stop Time 09:10 Total Visit Minutes 10 Setting Assessment Location Acute Care Visit Type Note Type Treatment Note Next Note Type Next Note Type Treatment Note Patient Information Subjective Observations Patient awake and alert, sitting up in bed with breakfast tray. Currently on full liquid diet. Nursing reported patient tolerated breakfast well this morning. Patient reported no difficulty tolerating thin liquids or soft textures. He did not appear to have eaten much of his breakfast, but he stated that he was full and declined to trial more PO with MEDICAL PRACTICE MANAGER. MEDICAL PRACTICE MANAGER will follow up again at lunch to reassess. No billable service this visit due to patient's decline to trial PO with MEDICAL PRACTICE MANAGER. Follow up this PM. Treatment Plan Dysphagia Goals Patient will trial more solid textures, as medically stable, for possible diet upgrade. Patient will independently implement dysphagia strategies to maintain safe tolerance of diet.
--- NOTE | 2017-10-14 12:23 | SLP.IPNOTE ---
SENIOR APPLICATION SECURITY CONSULTANT present with lunch tray. Patient on bedside commode. Nursing and HERPETOLOGIST assisted patient in transferring to bed. Patient stated that he has not been hungry and feels some mild stomach discomfort. Nursing discussed this with the patient, suggesting that it may be due to his extended time not eating, and now that he is reintroducing food to his system, he is experiencing some discomfort. He declined to have anything from his lunch tray. SENIOR APPLICATION SECURITY CONSULTANT unable to reassess his tolerance of full liquid diet. Staff continue to report good tolerance of thin liquids and puree textures. SENIOR APPLICATION SECURITY CONSULTANT will follow up tomorrow. Discontinue PO if difficulties are observed today. SENIOR APPLICATION SECURITY CONSULTANT will follow up tomorrow.
[2017-10-14] MEDS: SODIUM CHLORIDE 0.9% 500 ML 21 ML IV (13:19)
[2017-10-14] MEDS: ENOXAPARIN 40 MG/0.4 ML SYRINGE SUBCUT (13:19)
--- NOTE | 2017-10-14 14:09 | DIET.PN ---
Met briefly w/pt after lunch. Ate no lunch, but did drink the Ensure Surgery ONS per RN. Pt states it tastes ok. DIET: full liquid w/Ensure Surgery TID INTERVENTION: Provided ed on post surgery nutrition and benfits of Ensure Surgery ONS w/recovery; wound healing.
--- NOTE | 2017-10-14 14:13 | PT.IPTN ---
Current Diagnoses Anemia, unspecified (09/29/17) Unspecified intestinal obstruction, unspecified as to partial versus complete obstruction (09/29/17) Surgery Performed Operation Date: 09/30/17 15:15 Actual Procedures p Exploratory Lap/Colon Resection/COLOSTOMY - Roger Fiore MD Operation Date: 10/04/17 09:00 <No data on this case meets the specified criteria> Operation Date: 10/04/17 09:00 Actual Procedures p lapartomy, peritoneal lavage, ostomy takedown, diverting loop ileostomy, abdominal wound vaccum (Left) - Roger Fiore MD Physical Therapy Treatment Note M2 PT-IP Current Condition Start: 10/09/17 13:08 Freq: NEEDED Status: Active Protocol: Document 10/09/17 13:08 AB (Rec: 10/09/17 13:18 AB [id number]) Physical Therapy Current Condition Current Condition Evaluation Date 10/09/17 Treatment Diagnosis bowel obstruction s/p laprotomy; generalized weakness Onset Date 09/29/17 Precautions Abdominal Surgery Precautions Log Roll Lifting Restrictions Gait Belt above Incisional Area Other Precautions falls M3 PT-IP Subjective Start: 10/09/17 13:08 Freq: NEEDED Status: Active Protocol: Document 10/14/17 14:13 AB (Rec: 10/14/17 15:29 AB [id number]) Subjective Physical Therapy Visit Type Type Treatment Note Visit Start Time 14:13 Visit Stop Time 14:35 Total Visit Minutes 22 Number of CHLORINE CELL TENDER Visits 0 Physical Therapy Visit Comments Patient Comments pt agreed to ambulate but requested to go back to bed afterwards. M4 PT-IP Mobility and Gait Start: 10/09/17 13:08 Freq: NEEDED Status: Active Protocol: Document 10/14/17 14:13 AB (Rec: 10/14/17 15:29 AB [id number]) PT-Bed Mobility Assessment Rolling Type of Rolling Log Rolling Level of Assist Maximal Assistance Supine to Sit Supine to Sit Moderate Assistance Maximum Assistance PT-Transfer Assessment Sit to and From Stand Sit to and from Stand Minimal Assistance Equipment Transfer Assistive Device Gait Belt Front Wheeled Walker Orthotic/Prosthetic Devices or Brace: No Gait Assessment Gait Gait Assistance Required: Minimum Assistance Distance (Feet) (feet) 35 Able to Maintain Weight Bearing Status Yes During Gait Assistive Devices Assistive Device Gait Belt Front Wheeled Walker Orthotic/Prosthetic Devices or Brace: No Gait Deviations General Gait Pattern Antalgic Decreased Stride Length Decreased Feet Clearance Factors Limiting Gait Function Factors Limiting Gait Function Decreased Activity Tolerance Decreased Strength Difficulty Following Directions Poor Balance Poor Safety Awareness Comments Gait Comments pt continues to demonstrate decrease justina requiring increase time to complete ambulation. M5 PT-IP Objective Assessments Start: 10/09/17 13:08 Freq: NEEDED Status: Active Protocol: Document 10/09/17 13:08 AB (Rec: 10/09/17 13:18 AB [id number]) Orientation Orientation/Cognition Level of Alertness Lethargic Safety Awareness Decreased Safety Awareness Gross Range of Motion Lower Extremity ROM Assessment Within Functional Limits Strength Lower Extremity Strength Assessment Bilaterally Impaired Hip 3-/5 Knee 3-/5 M6 PT-IP Treatment Start: 10/09/17 13:08 Freq: NEEDED Status: Active Protocol: Document 10/14/17 14:13 AB (Rec: 10/14/17 15:29 AB [id number]) Physical Therapy Treatment Education Education Provided Precautions Safety M7 PT-IP Assessment and Plan Start: 10/09/17 13:08 Freq: NEEDED Status: Active Protocol: Document 10/14/17 14:13 AB (Rec: 10/14/17 15:29 AB [id number]) PT Summary Assessment and Plan Potential Rehabilitation Potential Good Summary Impairments Pain ROM Strength Balance Coordination Sensation Tone Cognition Bed Mobility Transfers Gait Activity Tolerance Progress Towards Goals Progressing Toward Goals Assessment Summary pt progressing with mobility but continues to present decrease activity tolerance affecting function. pt. will require SNF rehab to improve overall strength and mobility. Goals Bed Mobility Goal Standby Assistance Transfer Goal Standby Assistance Front Wheeled Walker Gait Goal Standby Assistance Front Wheel Walker Gait Distance 75 Days to Meet Goals 5 Frequency of Treatment Frequency Of Treatment Twice a Day Treatment Plan Physical Therapy Treatment Plan Bed Mobility Training Transfer Training Gait Training Therapeutic Exercise Balance Retraining Post Op Education Discharge Planning Neuromuscular Re-ed Coordination Retraining Manual Therapy Recommendations To Nursing Amount of Assist Needed 1 Person Assist Discharge Recommendations PT Discharge Recommendations SNF Rehab
--- NOTE | 2017-10-14 18:07 | PC.NURSE ---
PM shift patient AO, pleasant, and receptive to care. Denying pain, other than when touched, even then he reports mild pain. pt states FIELD AUTO APPRAISER is meeting pain management needs. Wound vac is on appropriate settings, TPN infusing, ileostomy draining. FIELD AUTO APPRAISER Dilaudid replaced at 1800. Kala and Dr. Fiore at bedside discussing wound vac and dressing change. Scheduled for 0730 tomorrow 10/14. Dr. Fiore mentioned wanting to add and extra 1mg Dilaudid before dressing change.
--- NOTE | 2017-10-14 18:15 | PC.NURSE ---
Wound Ostomy Nurse Consult Note Saw Alton with Dr. Fiore. Dr. Fiore and I will change the wound vac dressing tomorow morning. Alton awake and alert. His stoma appliance is attached. His stoma is edematous, pink, moist and the bridge is attached. His wound vac dressing is intact at pressure. Alton's arrived and she practiced using the ostomy model how to remove and apply an appliance. We reviewed pouching sytems and tomorrow will review the crusting technique and how to use the accessory's for ostomy care. Alton and Veronica had a lot of questions regarding rehab and how they will get ostomy products . I reviewed what happens at rehab and reinforced that they will also provide wound and ostomy care. I explained that I will coordinate care with rehab regarding rehab discharge and ostomy products. Veronica called me over the weekend asking about in home support for handrail in the bathroom. I told her we would be discussing these issues with the hospital care coordinators and with rehab. Alton and Veronica are comfortable with Alton going to rehab for further treatment and strengthening. I told them that the care coordinators will be visiting soon to start planning for his transfer to rehab. I will continue with ostomy teaching. Both Alton and Veronica seem very comfortable with Alton's ostomy and are very appreciative of Dr. Metzger's and the nursing staffs care. I will return in the morning.
[2017-10-14] MEDS: [UNRECOGNIZED DRUG - OTHER] IV (18:30)
[2017-10-14] MEDS: LYTES IV (18:30)
[2017-10-14] MEDS: POTASSIUM CHLORIDE IV (18:30)
[2017-10-14] MEDS: FAT EMULSIONS 50 GM/250 ML EMULSION IV (18:30)
[2017-10-14] MEDS: DEXT IV (18:30)
[2017-10-14] MEDS: CALCIUM IV (18:30)
[2017-10-15] VITALS (9 sets, daily range): BP systolic 107–136; BP diastolic 64–87; PULSE 62–91; RESP 14–21; TEMP 35.9–36.9; O2SAT 93–100
--- NOTE | 2017-10-15 04:16 | PC.NURSE ---
Crystalizer Tender Note: 0030: Sleeping, arousable. Alert, oriented X3. Vital signs stable. PICC in place in lt upper arm with TPN, intralipids, and CRANE ASSEMBLER infusing. Portillo catheter patent, urine is clear garrett. Ileostomy stoma red, small amt liquid brown stool in bag. Wound vac in place, small leak noted, and MD aware per evening RN.
[2017-10-15] MEDS: HYDROMORPHONE PCA 6 MG/30 ML PCA.VIAL 2.5 MG IV (06:45)
[2017-10-15] MEDS: LORazepam 2 MG/ML SYRINGE 1 MG IV (07:40)
--- NOTE | 2017-10-15 08:24 | PC.NURSE ---
Wound Ostomy Consult Nurse and I changed his wound vac dressing today as well as his ostomy appliance. His wound is starting to form granulation tissue. We placed 6 pieces of white foam and three black foam as well as a piece in the old stoma site which we bridged. The stoma is moist, pink and slightly edematous. He is having some gas and is producing liquid effluent. I will discuss discharge planning with the rn intensive care unit as we will need to order a ready vac from [facility] that we will place on him and send with him to rehab. I will return later today to continue with teaching.
--- NOTE | 2017-10-15 08:30 | PM.PN.1 ---
Subjective Date Patient Seen: 10/15/17 Time Patient Seen: 08:30 Interval history: Patient slept well. Occasional vivid dream but nothing violent. No chest pain or shortness of breath. Pain is well controlled with STRUCTURAL STEEL WORKER currently. Tolerating full liquid diet with Ensure supplementation. No nausea or vomiting. Ambulating with assistance, including physical therapy. Exam Vital Signs (past 8 hours): - 10/15/17 05:17 Temperature 96.6 F L Pulse Rate 65 Respiratory Rate 20 Blood Pressure 125/68 Fraction of Inspired Oxygen 40 Oxygen Delivery Method Room Air Oxygen Flow Rate 0 Narrative Exam Narrative: Patient alert oriented x3. Resting comfortably in bed this morning. Sclera nonicteric Chest clear to auscultation without wheezes or crackles Abdomen is soft in essentially nondistended. However, he continues to have some abdominal wall edema as anticipated. Wound VAC is in place. Ostomy is pink and viable with functional output including some air. Extremities show no clubbing or cyanosis. Trace bilateral ankle edema Objective Labs Result Diagrams: 10/14/17 04:55 10/14/17 04:55 Labs: No new laboratory or radiographic studies for review today. Assessment & Plan Plan: Assessment/Plan Narrative: 61-year-old male now postoperative day 15 from laparotomy with colon resection and diverting colostomy for complete colonic obstruction subsequently requiring 2nd look laparotomy for lavage and ostomy revision who continues to recover after critical illness. Wound VAC was changed at the bedside today which he tolerated quite well. The wound is granulating nicely with no evidence of drainage or purulent discharge. All tissue was viable. Omentum at the base of the wound remains somewhat edematous however. The red rubber bridge was removed from the ostomy today. New appliance was placed per the ostomy nurse who assisted with the wound VAC changes well. Continue TPN. Advanced to regular diet. Once his nutritional intake orally along with Ensure supplementation is adequate we will discontinue the TPN, hopefully in the next 1-2 days. Discontinue the Portillo catheter. Out of bed ambulate as much as possible. Emphasize pulmonary toilet as well. Convert oral medications including analgesia and discontinue the continuous STRUCTURAL STEEL WORKER modes for now. Stool softeners also been ordered. Case discussed with applications coordinator. I believe the patient would be a good candidate for [facility] facility for wound VAC care requiring change every 3 days, ostomy care, and aggressive physical therapy for rehabilitation. I have discussed this issue with the patient and his , and they were agreeable to that plan. He may be ready for discharge early next week. Case reviewed with the attending nurse. All questions were answered to the patient's satisfaction, and he voiced understanding. Orders were written. Quality VTE Deep Vein Thrombosis/Pulmonary Embolism Present on Admission: No
--- NOTE | 2017-10-15 08:36 | P.PN_ITS ---
Subjective Date Patient Seen: 10/15/17 Time Patient Seen: 08:30 Interval history: Patient slept well. Occasional vivid dream but nothing violent. No chest pain or shortness of breath. Pain is well controlled with LABORATORY INSPECTOR currently. Tolerating full liquid diet with Ensure supplementation. No nausea or vomiting. Ambulating with assistance, including physical therapy. Exam Vital Signs (past 8 hours): - 10/15/17 05:17 Temperature 96.6 F L Pulse Rate 65 Respiratory Rate 20 Blood Pressure 125/68 Fraction of Inspired Oxygen 40 Oxygen Delivery Method Room Air Oxygen Flow Rate 0 Narrative Exam Narrative: Patient alert oriented x3. Resting comfortably in bed this morning. Sclera nonicteric Chest clear to auscultation without wheezes or crackles Abdomen is soft in essentially nondistended. However, he continues to have some abdominal wall edema as anticipated. Wound VAC is in place. Ostomy is pink and viable with functional output including some air. Extremities show no clubbing or cyanosis. Trace bilateral ankle edema Objective Labs Result Diagrams: 10/14/17 04:55 10/14/17 04:55 Labs: No new laboratory or radiographic studies for review today. Assessment & Plan Plan: Assessment/Plan Narrative: 61-year-old male now postoperative day 15 from laparotomy with colon resection and diverting colostomy for complete colonic obstruction subsequently requiring 2nd look laparotomy for lavage and ostomy revision who continues to recover after critical illness. Wound VAC was changed at the bedside today which he tolerated quite well. The wound is granulating nicely with no evidence of drainage or purulent discharge. All tissue was viable. Omentum at the base of the wound remains somewhat edematous however. The red rubber bridge was removed from the ostomy today. New appliance was placed per the ostomy nurse who assisted with the wound VAC changes well. Continue TPN. Advanced to regular diet. Once his nutritional intake orally along with Ensure supplementation is adequate we will discontinue the TPN, hopefully in the next 1 -2 days. Discontinue the Portillo catheter. Out of bed ambulate as much as possible. Emphasize pulmonary toilet as well. Convert oral medications including analgesia and discontinue the continuous LABORATORY INSPECTOR modes for now. Stool softeners also been ordered. Case discussed with release coordinator. I believe the patient would be a good candidate for senior care facility for wound VAC care requiring change every 3 days, ostomy care, and aggressive physical therapy for rehabilitation. I have discussed this issue with the patient and his , and they were agreeable to that plan. He may be ready for discharge early next week. Case reviewed with the attending nurse. All questions were answered to the patient's satisfaction, and he voiced understanding. Orders were written. Quality VTE Deep Vein Thrombosis/Pulmonary Embolism Present on Admission: No
[2017-10-15] MEDS: FLUTICASONE/SALMETEROL 250/50 14 PUFF DISKUS INH ×2 (09:00→21:36)
[2017-10-15] MEDS: DOCUSATE 100 MG CAPSULE PO ×2 (09:39→21:56)
--- NOTE | 2017-10-15 11:35 | PT.IPTN ---
Current Diagnoses Anemia, unspecified (09/29/17) Unspecified intestinal obstruction, unspecified as to partial versus complete obstruction (09/29/17) Surgery Performed Operation Date: 09/30/17 15:15 Actual Procedures p Exploratory Lap/Colon Resection/COLOSTOMY - Roger Fiore MD Operation Date: 10/04/17 09:00 <No data on this case meets the specified criteria> Operation Date: 10/04/17 09:00 Actual Procedures p lapartomy, peritoneal lavage, ostomy takedown, diverting loop ileostomy, abdominal wound vaccum (Left) - Roger Fiore MD Physical Therapy Treatment Note M2 PT-IP Current Condition Start: 10/09/17 13:08 Freq: NEEDED Status: Active Protocol: Document 10/09/17 13:08 AB (Rec: 10/09/17 13:18 AB [id number]) Physical Therapy Current Condition Current Condition Evaluation Date 10/09/17 Treatment Diagnosis bowel obstruction s/p laprotomy; generalized weakness Onset Date 09/29/17 Precautions Abdominal Surgery Precautions Log Roll Lifting Restrictions Gait Belt above Incisional Area Other Precautions falls M3 PT-IP Subjective Start: 10/09/17 13:08 Freq: NEEDED Status: Active Protocol: Document 10/15/17 11:35 GGD (Rec: 10/15/17 12:22 GGD [email or web address]) Subjective Physical Therapy Visit Type Type Treatment Note Visit Start Time 11:10 Visit Stop Time 11:35 Total Visit Minutes 25 Number of DRY HOUSE OPERATOR Visits 1 Physical Therapy Visit Comments Patient Comments Pt states that he is willing to get up to chair. M4 PT-IP Mobility and Gait Start: 10/09/17 13:08 Freq: NEEDED Status: Active Protocol: Document 10/15/17 11:35 GGD (Rec: 10/15/17 12:22 GGD [id number]) PT-Bed Mobility Assessment Rolling Type of Rolling Log Rolling Level of Assist Moderate Assistance Supine to Sit Supine to Sit Moderate Assistance 1 Person Assistance Bedrails Scooting Scooting to Edge of Bed Contact Guard Assistance PT-Transfer Assessment Sit to and From Stand Sit to and from Stand Contact Guard Assistance Use of Upper Extremities Equipment Transfer Assistive Device Gait Belt Front Wheeled Walker Gait Assessment Gait Gait Assistance Required: Minimum Assistance Distance (Feet) (feet) 30 Assistive Devices Assistive Device Gait Belt Front Wheeled Walker Gait Deviations General Gait Pattern Antalgic Decreased Stride Length Decreased Feet Clearance Factors Limiting Gait Function Factors Limiting Gait Function Decreased Activity Tolerance Decreased Strength Difficulty Following Directions Poor Balance Poor Safety Awareness M5 PT-IP Objective Assessments Start: 10/09/17 13:08 Freq: NEEDED Status: Active Protocol: Document 10/09/17 13:08 AB (Rec: 10/09/17 13:18 AB [id number]) Orientation Orientation/Cognition Level of Alertness Lethargic Safety Awareness Decreased Safety Awareness Gross Range of Motion Lower Extremity ROM Assessment Within Functional Limits Strength Lower Extremity Strength Assessment Bilaterally Impaired Hip 3-/5 Knee 3-/5 M6 PT-IP Treatment Start: 10/09/17 13:08 Freq: NEEDED Status: Active Protocol: Document 10/15/17 11:35 GGD (Rec: 10/15/17 12:22 GGD [email or web address]) Physical Therapy Treatment Education Education Provided Precautions Safety M7 PT-IP Assessment and Plan Start: 10/09/17 13:08 Freq: NEEDED Status: Active Protocol: Document 10/15/17 11:35 GGD (Rec: 10/15/17 12:22 GGD [email or web address]) PT Summary Assessment and Plan Summary Assessment Summary Pt is progressing slowly with mobility . He needed less assist. He has slow moving gait. He needs cues for step and fww management. Frequency of Treatment Frequency Of Treatment Twice a Day Recommendations To Nursing Amount of Assist Needed 1 Person Assist Discharge Recommendations PT Discharge Recommendations SNF Rehab
--- NOTE | 2017-10-15 13:15 | ST.IPDYTX ---
DIRECTOR OF ONCOLOGY Dysphagia Treatment DIRECTOR OF ONCOLOGY Dysphagia Treatment Start: 10/13/17 12:55 Freq: Status: Active Protocol: Document 10/15/17 13:07 TLC (Rec: 10/15/17 13:15 TLC [email or web address]) Dysphagia Treatment Session Time Visit Start Time 12:45 Visit Stop Time 13:10 Total Visit Minutes 25 Setting Assessment Location Acute Care Visit Type Note Type Discharge Summary Patient Information Subjective Observations Patient awake and alert, sitting up in chair. Currently on regular diet, upgraded per MD. Treatment Liquids Trialed Thin Solids Trialed Regular Administration Type Self-Feeding Oral Strategies Upright at 90 degrees Treatment Activities DIRECTOR OF ONCOLOGY observed patient during lunch and provided skilled feedback as needed. Patient did not display signs of oral or pharyngeal dysphagia. Mild impairment during oral prep phase due to upper extremity weakness. Good oral acceptance of bolus, no abnormal oral stasis present. No signs of pharyngeal dysphagia observed at bedside. Patient independently implemented a slow rate and alternated liquids/solids. He took small bites and sips and took breaks as needed when he became tired. He ate ~20% of his meal and stated he was full, which was expected per gas charger. Assessment Patient Response to Treatment Excellent Rehab Potential Good Assessment of Improvement Patient appears to be tolerating a regular diet and thin liquids without signs of aspiration. Strength and appetite continue to improve. Recommend: d/c from ST at this time. Monitor patient for signs of aspiration and re- consult as needed. Diet Recommendations Recommendations Continue Current Diet Aspiration Precautions Recommended Precautions Upright at 90 Degrees Alternate Liquids/Solids Frequent Rest Periods Small Bites/Sips Treatment Plan Appropriate for Continued Therapy No Dysphagia Goals Patient will trial more solid textures, as medically stable, for possible diet upgrade. - goal met Patient will independently implement dysphagia strategies to maintain safe tolerance of diet. - goal met
[2017-10-15] MEDS: SODIUM CHLORIDE 0.9% 500 ML 21 ML IV (13:46)
[2017-10-15] MEDS: ENOXAPARIN 40 MG/0.4 ML SYRINGE SUBCUT (13:47)
[2017-10-15] MEDS: INSULIN ASPART 100 UNIT/ML INSULN PEN SUBCUT ×2 (13:47→19:20)
[2017-10-15] MEDS: HYDROMORPHONE PCA 6 MG/30 ML PCA.VIAL IV (13:53)
--- NOTE | 2017-10-15 14:43 | PT.IPTN ---
Current Diagnoses Anemia, unspecified (09/29/17) Unspecified intestinal obstruction, unspecified as to partial versus complete obstruction (09/29/17) Surgery Performed Operation Date: 09/30/17 15:15 Actual Procedures p Exploratory Lap/Colon Resection/COLOSTOMY - Roger Fiore MD Operation Date: 10/04/17 09:00 <No data on this case meets the specified criteria> Operation Date: 10/04/17 09:00 Actual Procedures p lapartomy, peritoneal lavage, ostomy takedown, diverting loop ileostomy, abdominal wound vaccum (Left) - Roger Fiore MD Physical Therapy Treatment Note M2 PT-IP Current Condition Start: 10/09/17 13:08 Freq: NEEDED Status: Active Protocol: Document 10/09/17 13:08 AB (Rec: 10/09/17 13:18 AB [id number]) Physical Therapy Current Condition Current Condition Evaluation Date 10/09/17 Treatment Diagnosis bowel obstruction s/p laprotomy; generalized weakness Onset Date 09/29/17 Precautions Abdominal Surgery Precautions Log Roll Lifting Restrictions Gait Belt above Incisional Area Other Precautions falls M3 PT-IP Subjective Start: 10/09/17 13:08 Freq: NEEDED Status: Active Protocol: Document 10/15/17 14:36 GGD (Rec: 10/15/17 14:43 GGD [email or web address]) Subjective Physical Therapy Visit Type Type Treatment Note Visit Start Time 14:10 Visit Stop Time 14:35 Total Visit Minutes 25 Number of BOILERS INSPECTOR Visits 2 Physical Therapy Visit Comments Patient Comments Pt states he wants to go back to bed. Pt was found on EOB. M4 PT-IP Mobility and Gait Start: 10/09/17 13:08 Freq: NEEDED Status: Active Protocol: Document 10/15/17 14:36 GGD (Rec: 10/15/17 14:43 GGD [email or web address]) PT-Bed Mobility Assessment Rolling Type of Rolling Log Rolling Level of Assist Moderate Assistance Sit to Supine Sit to Supine Minimal Assistance 1 Person Assistance Bedrails Scooting Scooting to Edge of Bed Contact Guard Assistance PT-Transfer Assessment Sit to and From Stand Sit to and from Stand Contact Guard Assistance Use of Upper Extremities Equipment Transfer Assistive Device Gait Belt Front Wheeled Walker Gait Assessment Gait Gait Assistance Required: Contact Guard Assist 1 Person Assist Distance (Feet) (feet) 30 Assistive Devices Assistive Device Gait Belt Front Wheeled Walker Gait Deviations General Gait Pattern Antalgic Decreased Stride Length Decreased Feet Clearance Factors Limiting Gait Function Factors Limiting Gait Function Decreased Activity Tolerance Decreased Strength Difficulty Following Directions Poor Balance Poor Safety Awareness Comments Gait Comments PT need cues for step length and FWW management. M5 PT-IP Objective Assessments Start: 10/09/17 13:08 Freq: NEEDED Status: Active Protocol: Document 10/09/17 13:08 AB (Rec: 10/09/17 13:18 AB [id number]) Orientation Orientation/Cognition Level of Alertness Lethargic Safety Awareness Decreased Safety Awareness Gross Range of Motion Lower Extremity ROM Assessment Within Functional Limits Strength Lower Extremity Strength Assessment Bilaterally Impaired Hip 3-/5 Knee 3-/5 M6 PT-IP Treatment Start: 10/09/17 13:08 Freq: NEEDED Status: Active Protocol: Document 10/15/17 11:35 GGD (Rec: 10/15/17 12:22 GGD [email or web address]) Physical Therapy Treatment Education Education Provided Precautions Safety M7 PT-IP Assessment and Plan Start: 10/09/17 13:08 Freq: NEEDED Status: Active Protocol: Document 10/15/17 14:36 GGD (Rec: 10/15/17 14:43 GGD [email or web address]) PT Summary Assessment and Plan Summary Assessment Summary Pt improving with bed mobility . He needs cues for all mobility. He able to follow single step cues. Frequency of Treatment Frequency Of Treatment Twice a Day Recommendations To Nursing Amount of Assist Needed 1 Person Assist Discharge Recommendations PT Discharge Recommendations SNF Rehab
--- NOTE | 2017-10-15 16:19 | PC.NURSE ---
Post-op: Sleepy this am even prior to wound vac change and ostomy change by and Gracie DEWEY. Cont product manufacturing professional stopped and pt aware he can have some oxycodone but has opted not to take med yet. Pt reports adaquete pain control. Is more awake now and communicating w/others. More involved in his surroundings. Pt not wearing his scd's and reporting he is not getting up unless he wants and is not sitting in the chair. Discussed adl's with Dr. Fiore and reported findings to patient. He did decide to start wearing his scd's again. He did get up with PT and walked about 30 feet and did sit in the chair although he admitted he really didn't want to. Pt is a little impulsive and he was found later to be sitting on the side of the bed, had not called for help and had disconnected his wound vac. Wound vac hooked back up and no leak is seen. Discussed safety w/patient and calling for assist. He stated he would ask for help from now on. Discussed chair alarm and bed alarm use and he is agreeable for those. Portillo out and pt has voided x2 since removal. Pt is dozing now w/spouse at bedside. Cont w/poc.
[2017-10-15] MEDS: LYTES IV (17:37)
[2017-10-15] MEDS: CALCIUM IV (17:37)
[2017-10-15] MEDS: [UNRECOGNIZED DRUG - OTHER] IV (17:37)
[2017-10-15] MEDS: FAT EMULSIONS 50 GM/250 ML EMULSION IV (17:37)
[2017-10-15] MEDS: POTASSIUM CHLORIDE IV (17:37)
[2017-10-15] MEDS: DEXT IV (17:37)
--- NOTE | 2017-10-15 17:58 | PC.NURSE ---
Wound Ostomy Nurse Consult Note Here to do continual teaching with Alton and his Veronica. Alton is confused. He states he doesn't know why he is here and what's going on. After discussing with him that he had surgery, he stated that he remembered but is still confused. I did not do any teaching with him but did discuss ostomy care with his Veronica. Veronica spoke with me outside Alton's room. 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 Both his sons are Bi-Polar. Veronica feels that maybe some of Alton's confusion is from being Bi-Polar. She wanted me to let and the surgical team know. The [facility] wound vac is in place at continues, low pressure at 100mmHg. His stoma continues to be beefy red, edematous and moist producing dark green effluent. This morning I placed him in a [employer]vate[employer] Moldable, clear two piece 70mm wafer and pouch. The ostomy appliance is attached. I will return tomorrow and discuss planning discharge with a Ready Vac from [facility] as well as continue ostomy teaching and assessments.
[2017-10-15] MEDS: SENNOSIDES 8.6 MG TABLET PO (21:57)
[2017-10-16] VITALS (9 sets, daily range): BP systolic 120–136; BP diastolic 72–89; PULSE 66–82; RESP 14–18; TEMP 36.3–37; O2SAT 94–99
--- NOTE | 2017-10-16 03:57 | PC.NURSE ---
security shift manager: 0345 Pt awake to void. Alert, oriented to self, year and situation. Pt shared his concerns about the future medically, he is cautiously hopeful that he can return to do some of the activities he did prior to admission. Pt assisted 1 PA stand/pivot to BSC, weakness noted due to deconditioning but able to discuss the progress he has made too. Denies nausea. Using DB2 DEVELOPER with some encouragement.
[2017-10-16] MEDS: HYDROMORPHONE PCA 6 MG/30 ML PCA.VIAL IV ×2 (06:28→14:15)
[2017-10-16] MEDS: INSULIN ASPART 100 UNIT/ML INSULN PEN SUBCUT ×3 (07:34→17:59)
[2017-10-16] MEDS: DOCUSATE 100 MG CAPSULE PO ×2 (08:41→20:22)
[2017-10-16] MEDS: PANTOPRAZOLE 20 MG TABLET PO (08:41)
[2017-10-16] MEDS: FLUTICASONE/SALMETEROL 250/50 14 PUFF DISKUS INH ×2 (08:54→19:16)
--- NOTE | 2017-10-16 10:06 | P.PN_ITS ---
Subjective Date Patient Seen: 10/16/17 Time Patient Seen: 09:59 Interval history: Denies pain but does feel mildly distended after breakfast this morning. Minimal nausea but this past relatively quickly. No vomiting. Urinating without difficulty since the Portillo catheter was removed. Denies dysuria. No subjective fever or chills. No chest pain or shortness of breath. Ambulating slightly more with assistance. He is averse to wearing the SCDs, but I discussed this with him as well as the indications for the device. Exam Vital Signs (past 8 hours): - 10/16/17 03:37 10/16/17 08:54 Temperature 97.5 F L Pulse Rate 82 81 Respiratory Rate 16 16 Blood Pressure 133/89 Pulse Oximetry 99 99 Fraction of Inspired Oxygen 40 Oxygen Delivery Method Room Air Oxygen Flow Rate 0 Narrative Exam Narrative: Patient resting comfortably in bed in no acute distress. He is alert oriented to time and place and self this morning. He recognizes me immediately. Speech is appropriate. Sclera nonicteric Few coarse rhonchi that clear readily with a good cough effort. No wheezes. No crackles. Regular rate and rhythm Abdomen is soft and mildly distended but not tympanitic. He is minimally tender to palpation. Wound VAC device remains in place and is clean, dry, and holding suction. Output is serous only. No erythema of the abdominal wall skin. Ileostomy is pink and viable with normal bilious effluent and gas in the appliance. Extremities show no clubbing, cyanosis, or edema. He moves all extremities appropriately. 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 At this time we will continue diet as tolerated with Ensure supplementation. Continue TPN however since his nutritional status is compromised and his oral intake is not yes adequate. Ambulate with assistance as much as possible. He requires significant aggressive physical therapy and rehabilitation. Plan wound VAC change in the next several days. Repeat laboratory studies tomorrow, especially since he is on TPN. Oral analgesia appears to be working adequately at this point so we will consider removing the FIRE CREW WORKER in the next 24 hr or so. Continue to assist bowel function. Patient is agreeable currently to SCDs so we will continue these along with Lovenox for DVT prophylaxis. He has been off of antibiotics for several days now and is doing well with no fevers or evidence of infectious complications at this point. Of note, I did discuss his final pathology with him and his at the bedside last evening. 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 Fortunately there were 17 lymph nodes within the specimen that were all negative for tumor. Margins proximally and distally were also negative. Furthermore, because of his colostomy revision there were several more inches of bowel resected at a later time thereby providing a larger negative proximal margin. In my opinion, he requires no further therapy other than surveillance colonoscopy once his bowel continuity has been restored and he is stable overall. Obviously this will be quite some time from now. In the interim we will continue to evaluate for senior care facility and discharge possibly early next week when ready. All questions were answered to his satisfaction, and he voiced understanding. His also voiced understanding last evening and was agreeable to the plan. Orders were written. Quality VTE Deep Vein Thrombosis/Pulmonary Embolism Present on Admission: No
--- NOTE | 2017-10-16 11:30 | PT.IPTN ---
Current Diagnoses Anemia, unspecified (09/29/17) Unspecified intestinal obstruction, unspecified as to partial versus complete obstruction (09/29/17) Surgery Performed Operation Date: 09/30/17 15:15 Actual Procedures p Exploratory Lap/Colon Resection/COLOSTOMY - Roger Fiore MD Operation Date: 10/04/17 09:00 <No data on this case meets the specified criteria> Operation Date: 10/04/17 09:00 Actual Procedures p lapartomy, peritoneal lavage, ostomy takedown, diverting loop ileostomy, abdominal wound vaccum (Left) - Roger Fiore MD Physical Therapy Treatment Note M2 PT-IP Current Condition Start: 10/09/17 13:08 Freq: NEEDED Status: Active Protocol: Document 10/09/17 13:08 AB (Rec: 10/09/17 13:18 AB [id number]) Physical Therapy Current Condition Current Condition Evaluation Date 10/09/17 Treatment Diagnosis bowel obstruction s/p laprotomy; generalized weakness Onset Date 09/29/17 Precautions Abdominal Surgery Precautions Log Roll Lifting Restrictions Gait Belt above Incisional Area Other Precautions falls M3 PT-IP Subjective Start: 10/09/17 13:08 Freq: NEEDED Status: Active Protocol: Document 10/16/17 11:30 GGD (Rec: 10/16/17 12:26 GGD [email or web address]) Subjective Physical Therapy Visit Type Visit Start Time 11:00 Visit Stop Time 11:30 Total Visit Minutes 30 Number of SCRUBBER OPERATOR Visits 3 Physical Therapy Visit Comments Patient Comments Pt states that he needs to go to the bathroom. M4 PT-IP Mobility and Gait Start: 10/09/17 13:08 Freq: NEEDED Status: Active Protocol: Document 10/16/17 11:30 GGD (Rec: 10/16/17 12:26 GGD [email or web address]) PT-Bed Mobility Assessment Rolling Type of Rolling Log Rolling Level of Assist Minimal Assistance Supine to Sit Supine to Sit Moderate Assistance 1 Person Assistance Bedrails Scooting Scooting to Edge of Bed Contact Guard Assistance PT-Transfer Assessment Sit to and From Stand Sit to and from Stand Contact Guard Assistance Use of Upper Extremities Equipment Transfer Assistive Device Gait Belt Front Wheeled Walker Transfers Transfer Destination Chair Bedside Commode Gait Assessment Gait Gait Assistance Required: Contact Guard Assist 1 Person Assist Distance (Feet) (feet) 40 Assistive Devices Assistive Device Gait Belt Front Wheeled Walker Gait Deviations General Gait Pattern Antalgic Decreased Stride Length Decreased Feet Clearance Factors Limiting Gait Function Factors Limiting Gait Function Decreased Activity Tolerance Decreased Strength Difficulty Following Directions Poor Balance Poor Safety Awareness M5 PT-IP Objective Assessments Start: 10/09/17 13:08 Freq: NEEDED Status: Active Protocol: Document 10/09/17 13:08 AB (Rec: 10/09/17 13:18 AB [id number]) Orientation Orientation/Cognition Level of Alertness Lethargic Safety Awareness Decreased Safety Awareness Gross Range of Motion Lower Extremity ROM Assessment Within Functional Limits Strength Lower Extremity Strength Assessment Bilaterally Impaired Hip 3-/5 Knee 3-/5 M6 PT-IP Treatment Start: 10/09/17 13:08 Freq: NEEDED Status: Active Protocol: Document 10/15/17 11:35 GGD (Rec: 10/15/17 12:22 GGD [email or web address]) Physical Therapy Treatment Education Education Provided Precautions Safety M7 PT-IP Assessment and Plan Start: 10/09/17 13:08 Freq: NEEDED Status: Active Protocol: Document 10/16/17 11:30 GGD (Rec: 10/16/17 12:26 GGD [email or web address]) PT Summary Assessment and Plan Summary Assessment Summary Pt improving with mobility and gait. He needs mod cues for all mobility. He needs assist for bed mobility and cues for safety. Frequency of Treatment Frequency Of Treatment Twice a Day Treatment Plan Physical Therapy Treatment Plan Bed Mobility Training Transfer Training Gait Training Therapeutic Exercise Balance Retraining Post Op Education Discharge Planning Neuromuscular Re-ed Coordination Retraining Manual Therapy Other Recommendations and Next Treatment Progress bed mobility, gait Focus and strength. Recommendations To Nursing Amount of Assist Needed 1 Person Assist Discharge Recommendations PT Discharge Recommendations SNF Rehab
--- NOTE | 2017-10-16 12:09 | CM.DPC ---
Discharge Planning/Care Management Document 10/16/17 12:07 (Rec: 10/16/17 12:09 [id number]) Discharge Planning Assessment Assigned National Business Director CLAU Olivares DPOA/Assigned Designee Name Veronica Garcia (spouse) [phone] Advance Directives? No Advance Directives on File No History Provided By Patient Family Member Medical Record Has Patient been admitted in last 30 No days? Prior Living Arrangements House Household Members spouse Type of transporation used prior to Drives own vehicle admit Independent with ADL's Yes Is patient alert and oriented? Yes Caregiver for Another No Patient/Family Preference Assisted Facility Comment [facility] reviewing Barriers to Discharge No Discharge Plan Assisted Facility Referrals Initiated Assisted If patient plan is SNF: Has PASSR been No completed? Inpatient Status as of 09/29/17 Medicare Choice List Provided Yes SNF/HH Preference 1. [facility] Has Agency SNF been contacted Yes Comment [facility] reviewing. Whiteboard Updated in Patient Room with Yes name and ext. # of National Business Director Review Status In Process Next Review Type Continued Stay Review Reviewed EMR: per MD possible discharge to SNF early next week for continued wound vac needs. Met with patient and brother: patient agreeable to SNF and was provided with medicare choice list. Patient is hopeful to stay local since a commute would be difficult for her . Patient provided with permission to have [facility] review for acceptance. Patient does have BCBS OOS. Called [facility] to review for acceptance. Plan: SNF. Patent remains good candidate for SNF for wound VAC care, ostomy care, and aggressive physical therapy.
[2017-10-16] MEDS: SODIUM CHLORIDE 0.9% 500 ML 21 ML IV (14:11)
[2017-10-16] MEDS: ENOXAPARIN 40 MG/0.4 ML SYRINGE SUBCUT (14:17)
[2017-10-16] MEDS: MAGNESIUM HYDROXIDE 30 ML UDC PO (14:30)
--- NOTE | 2017-10-16 15:33 | PC.NURSE ---
GI/Comfort: SI guess I'm being bad. Pt transfered from room 229 to 227 due to getting in or oob w/out calling for assist. Pt asking if it was punishment. Explained it was not punishment but rather the hospital and staff are concerned about his safety and falling. He also gets a better veiw. SOkay, if you put it like that. Call light use has been discussed w/pt on several occasions today alone. He simply forgets to use it sometimes. Pt had a large blow out of stool and ostomy pouch and wafer required changing. Do not have the same appliance as was applied by Gracie RN/ostomy nurse. Additionally it was more difficult due to the ostomy being under the wound vac dressing. Appliance was changed and was able to maintain the integrity of the wound vac. Pt instructed if he has a large amt of stool out to let the staff know so the pouch can be emptied. Pt up to chair for both bkft and lunch. Pt is only taking bites of food. Ate 3 bites of toast for bkft and had a few bites of food for lunch. Other food options have been offered and all refused. Pt reports nothing tastes or sounds good. Has also worked w/PT today. No use of sanitation officer today and oxycodone has been offered and declined. SI don't need it anymore. Will cont to offer meds prn. Cont w/poc.
--- NOTE | 2017-10-16 16:12 | PT.IPTN ---
Current Diagnoses Anemia, unspecified (09/29/17) Unspecified intestinal obstruction, unspecified as to partial versus complete obstruction (09/29/17) Surgery Performed Operation Date: 09/30/17 15:15 Actual Procedures p Exploratory Lap/Colon Resection/COLOSTOMY - Roger Fiore MD Operation Date: 10/04/17 09:00 <No data on this case meets the specified criteria> Operation Date: 10/04/17 09:00 Actual Procedures p lapartomy, peritoneal lavage, ostomy takedown, diverting loop ileostomy, abdominal wound vaccum (Left) - Roger Fiore MD Physical Therapy Treatment Note M2 PT-IP Current Condition Start: 10/09/17 13:08 Freq: NEEDED Status: Active Protocol: Document 10/09/17 13:08 AB (Rec: 10/09/17 13:18 AB [id number]) Physical Therapy Current Condition Current Condition Evaluation Date 10/09/17 Treatment Diagnosis bowel obstruction s/p laprotomy; generalized weakness Frequency Of Treatment Twice a Day Treatment Plan Physical Therapy Treatment Plan Bed Mobility Training Transfer Training Gait Training Therapeutic Exercise Balance Retraining Post Op Education Discharge Planning Neuromuscular Re-ed Coordination Retraining Manual Therapy Other Recommendations and Next Treatment Progress bed mobility, gait Focus and strength. Recommendations To Nursing Amount of Assist Needed 1 Person Assist Discharge Recommendations PT Discharge Recommendations SNF Rehab
[2017-10-16] MEDS: LYTES IV (17:58)
[2017-10-16] MEDS: DEXT IV (17:58)
[2017-10-16] MEDS: [UNRECOGNIZED DRUG - OTHER] IV (17:58)
[2017-10-16] MEDS: CALCIUM IV (17:58)
[2017-10-16] MEDS: POTASSIUM CHLORIDE IV (17:58)
[2017-10-16] MEDS: SENNOSIDES 8.6 MG TABLET PO (20:22)
[2017-10-17] VITALS (7 sets, daily range): BP systolic 114–140; BP diastolic 75–82; PULSE 68–88; RESP 16–18; TEMP 35.8–36.8; O2SAT 97–99
--- NOTE | 2017-10-17 07:49 | PC.NURSE ---
NOc shift Good pain control, ABD distended and BT+, Pt reports improvement to distention, illeostomy passing liquid brown stool. No nausea. PICC to LUE will not draw for AM labs. AM shift RN Notified.
[2017-10-17] MEDS: FLUTICASONE/SALMETEROL 250/50 14 PUFF DISKUS INH ×2 (08:58→17:34)
[2017-10-17 09:09] LABS: Add Manual Diff / Slide Review NO; Basophils Percent Auto 1.1 % (0-2); Eosinophils Percent Auto 2.1 % (2-4); Hematocrit 31.8 % (41-53); Hemoglobin 10.6 g/dL (13.5-17.5); Lymphocytes Percent Auto 14.6 % (25-40); Mean Corpuscular HGB Conc 33.2 % (30-36); Mean Corpuscular Hemoglobin 29.1 PG (26-34); Mean Corpuscular Volume 87.6 fL (80-100); Monocytes Percent Auto 9.2 % (3-14); Neutrophils Absolute Auto 13600 /uL (3000-5900); Red Blood Cell Count 3.63 X10^6/uL (4.5-5.9); Red Cell Distribution Width 14.4 % (11.6-14.8); White Blood Cell Count 18.6 X10^3/uL (4.5-11.0)
[2017-10-17 09:12] LABS: Alanine Aminotransferase 16 IU/L (21-72); Albumin 3.5 g/dL (3.5-5.0); Albumin Globulin Ratio 0.9 (1.0-2.8); Alkaline Phosphatase 227 U/L (38-126); Aspartate Aminotransferase 31 IU/L (17-59); BUN Creatinine Ratio 21.1 (6-22); Bilirubin Total 0.5 mg/dL (0.2-1.3); Blood Urea Nitrogen 19 mg/dL (9-20); Calcium 8.7 mg/dL (8.4-10.2); Carbon Dioxide 31 mmol/L (22-32); Chloride 97 mmol/L (98-107); Estimated Glomerular Filt Rate > 60.0 mL/min (>60); Globulin 3.9 g/dL (1.7-4.1); Glucose 158 mg/dL (80-110); HEMOLYSIS < 15 (0-50); Magnesium 2.5 mg/dL (1.6-2.3); Phosphorous 4.5 mg/dL (2.3-3.7); Potassium 4.9 mmol/L (3.4-5.1); Sodium 136 mmol/L (137-145); Total Protein 7.4 g/dL (6.3-8.2)
[2017-10-17 09:14] LABS: Platelet Count 940 X10^3/uL (150-400)
--- NOTE | 2017-10-17 10:08 | CM.DPC ---
DCP SNF Planning SW received a message from Bety at [facility] stating that she is reviewing the pt and plans to keep reviewing the pt this weekend and doing an onsite visit with the pt bedside on Thursday to determine if they can meet the pt's needs and accept him at d/c for ongoing wound care and therapy needs. SW spoke to pt's spouse Veronica and updated on the above information and she was appreciative and SW encouraged her to consider a backup SNF in case [facility] cannot accept and to help reduce any possible last min stress of finding another SNF. Spouse was reviewing the Medicare Choice List and plans to tour some local SNF's likely in [place] and [place] with her Dtr to determine second SNF preference. Plan: SW to follow closely for [facility] onsite bedside assessment of the pt on Thursday to determine if they can accept. SW to follow for family to tour other SNF's this weekend for second SNF preference in case [facility] cannot accept at d/c. PASRR completed. CLAU Bone
[2017-10-17] MEDS: PANTOPRAZOLE 20 MG TABLET PO (10:56)
[2017-10-17] MEDS: DOCUSATE 100 MG CAPSULE PO (10:56)
--- NOTE | 2017-10-17 11:37 | PT.IPTN ---
Current Diagnoses Anemia, unspecified (09/29/17) Unspecified intestinal obstruction, unspecified as to partial versus complete obstruction (09/29/17) Surgery Performed Operation Date: 09/30/17 15:15 Actual Procedures p Exploratory Lap/Colon Resection/COLOSTOMY - Roger Fiore MD Operation Date: 10/04/17 09:00 <No data on this case meets the specified criteria> Operation Date: 10/04/17 09:00 Actual Procedures p lapartomy, peritoneal lavage, ostomy takedown, diverting loop ileostomy, abdominal wound vaccum (Left) - Roger Fiore MD Physical Therapy Treatment Note M2 PT-IP Current Condition Start: 10/09/17 13:08 Freq: NEEDED Status: Active Protocol: Document 10/09/17 13:08 AB (Rec: 10/09/17 13:18 AB [id number]) Physical Therapy Current Condition Current Condition Evaluation Date 10/09/17 Treatment Diagnosis bowel obstruction s/p laprotomy; generalized weakness Onset Date 09/29/17 Precautions Abdominal Surgery Precautions Log Roll Lifting Restrictions Gait Belt above Incisional Area Other Precautions falls M3 PT-IP Subjective Start: 10/09/17 13:08 Freq: NEEDED Status: Active Protocol: Document 10/17/17 11:30 LJ (Rec: 10/17/17 11:37 LJ [id number]) Subjective Physical Therapy Visit Type Type Patient Refusal Notes Therapist made 2 visits to pt. First attempt at therapy the pt reported he was up all night and needed a nap. Also, guests were coming any minute. Second attempt Dr with the pt . When Dr left pt stated he had just gotten into the chair and his guests were due to arrive any minute. Pt stated he will get up next treatment time. M4 PT-IP Mobility and Gait Start: 10/09/17 13:08 Freq: NEEDED Status: Active Protocol: Document 10/16/17 11:30 GGD (Rec: 10/16/17 12:26 GGD [id number]) PT-Bed Mobility Assessment Rolling Type of Rolling Log Rolling Level of Assist Minimal Assistance Supine to Sit Supine to Sit Moderate Assistance 1 Person Assistance Bedrails Scooting Scooting to Edge of Bed Contact Guard Assistance PT-Transfer Assessment Sit to and From Stand Sit to and from Stand Contact Guard Assistance Use of Upper Extremities Equipment Transfer Assistive Device Gait Belt Front Wheeled Walker Transfers Transfer Destination Chair Bedside Commode Gait Assessment Gait Gait Assistance Required: Contact Guard Assist 1 Person Assist Distance (Feet) (feet) 40 Assistive Devices Assistive Device Gait Belt Front Wheeled Walker Gait Deviations General Gait Pattern Antalgic Decreased Stride Length Decreased Feet Clearance Factors Limiting Gait Function Factors Limiting Gait Function Decreased Activity Tolerance Decreased Strength Difficulty Following Directions Poor Balance Poor Safety Awareness M5 PT-IP Objective Assessments Start: 10/09/17 13:08 Freq: NEEDED Status: Active Protocol: Document 10/09/17 13:08 AB (Rec: 10/09/17 13:18 AB [id number]) Orientation Orientation/Cognition Level of Alertness Lethargic Safety Awareness Decreased Safety Awareness Gross Range of Motion Lower Extremity ROM Assessment Within Functional Limits Strength Lower Extremity Strength Assessment Bilaterally Impaired Hip 3-/5 Knee 3-/5 M6 PT-IP Treatment Start: 10/09/17 13:08 Freq: NEEDED Status: Active Protocol: Document 10/15/17 11:35 GGD (Rec: 10/15/17 12:22 GGD [id number]) Physical Therapy Treatment Education Education Provided Precautions Safety M7 PT-IP Assessment and Plan Start: 10/09/17 13:08 Freq: NEEDED Status: Active Protocol: Document 10/16/17 11:30 GGD (Rec: 10/16/17 12:26 GGD [email or web address]) PT Summary Assessment and Plan Summary Assessment Summary Pt improving with mobility and gait. He needs mod cues for all mobility. He needs assist for bed mobility and cues for safety. Frequency of Treatment Frequency Of Treatment Twice a Day Treatment Plan Physical Therapy Treatment Plan Bed Mobility Training Transfer Training Gait Training Therapeutic Exercise Balance Retraining Post Op Education Discharge Planning Neuromuscular Re-ed Coordination Retraining Manual Therapy Other Recommendations and Next Treatment Progress bed mobility, gait Focus and strength. Recommendations To Nursing Amount of Assist Needed 1 Person Assist Discharge Recommendations PT Discharge Recommendations SNF Rehab
[2017-10-17] MEDS: INSULIN ASPART 100 UNIT/ML INSULN PEN SUBCUT (12:04)
--- NOTE | 2017-10-17 12:35 | PM.PN.1 ---
Subjective Date Patient Seen: 10/17/17 Time Patient Seen: 12:00 Interval history: Patient had a relatively restful night. Denies any nausea or vomiting. However his appetite remains extremely poor. He tolerates a minimal amount of regular diet before he feels full. Food is not particularly taste good to him at this point, and he does not care for the Ensure supplementation. Feel some crampy diffuse abdominal pain, and he has begun to have more copious liquid stool per the ileostomy. No dysuria or hematuria. Pain is otherwise relatively minimal, and he is not requiring a significant amount of narcotic. No subjective fever or chills. Denies chest pain or shortness of breath. Overall, he would simply just like to be discharged home with his , but he understands that he requires a higher level of care before returning home. Exam Vital Signs (past 8 hours): - 10/17/17 08:00 10/17/17 09:01 Temperature 97.2 F L Pulse Rate 71 68 Respiratory Rate 18 16 Blood Pressure 140/79 Pulse Oximetry 98 99 Fraction of Inspired Oxygen 21 Oxygen Delivery Method Room Air Oxygen Flow Rate 0 Narrative Exam Narrative: Well-nourished well-developed but mildly ill-appearing male in no acute distress. He clearly appears somewhat debilitated from his entire hospitalization, surgical interventions, and underlying pathology. However he is in good spirits and is quite motivated to improve and returned to baseline in the future. He is alert oriented x3. Conversing normally. Sclera nonicteric Chest clear to auscultation bilaterally. Regular rate and rhythm Abdomen is soft and nondistended. Wound VAC remains in place holding suction. Output is several 100 cc of serous fluid only. No pus or blood in the container. Ileostomy appliance has been reinforced per the nursing staff following leakage yesterday. Currently the appliance is functioning well and contains flatus along with normal appearing stool from the ileostomy. Stoma is otherwise pink and viable with no significant edema. Extremities show no clubbing, cyanosis, or edema Objective Labs Result Diagrams: 10/17/17 08:50 10/17/17 08:50 Labs: Laboratory Results - last 24 hr 10/17/17 10/17/17 08:50 08:50 WBC 18.6 H RBC 3.63 L Hgb 10.6 L Hct 31.8 L MCV 87.6 MCH 29.1 MCHC 33.2 RDW 14.4 Plt Count 940 H* Neut % (Auto) 73.0 Lymph % (Auto) 14.6 L [place] % (Auto) 9.2 Eos % (Auto) 2.1 Baso % (Auto) 1.1 Neut # (Auto) 35496 H Nucleated RBCs Cancelled Hypersegmented Neuts Cancelled Hypogranular Neuts Cancelled Reactive Lymphocytes Cancelled Smudge Cells Cancelled Other Cell Type Cancelled Toxic Granulation Cancelled Toxic Vacuolation Cancelled Dohle Bodies Cancelled Krystle Rods Cancelled WBC Morphology Comment Cancelled Platelet Estimate Cancelled Clumped Platelets Cancelled Plt Morphology Comment Cancelled RBC Morphology Cancelled Dimorphic RBCs Cancelled Polychromasia Cancelled Hypochromasia Cancelled Poikilocytosis Cancelled Basophilic Stippling Cancelled Anisocytosis Cancelled Microcytosis Cancelled Macrocytosis Cancelled Spherocytes Cancelled Pappenheimer Bodies Cancelled Sickle Cells Cancelled Target Cells Cancelled Tear Drop Cells Cancelled Ovalocytes Cancelled Stomatocytes Cancelled Helmet Cells Cancelled [place]ke[place] Bodies Cancelled [place] Rings Cancelled [place] Cells Cancelled Acanthocytes (Spur) Cancelled Rouleaux Cancelled Schistocytes Cancelled Sodium 136 L Potassium 4.9 Chloride 97 L Carbon Dioxide 31 BUN 19 Creatinine 0.90 Estimated GFR > 60.0 BUN/Creatinine Ratio 21.1 Glucose 158 H Calcium 8.7 Phosphorus 4.5 H D Magnesium 2.5 H Total Bilirubin 0.5 AST 31 ALT 16 L Alkaline Phosphatase 227 H D Total Protein 7.4 Albumin 3.5 Globulin 3.9 Albumin/Globulin Ratio 0.9 L No new radiographic studies for review Assessment & Plan Plan: Assessment/Plan Narrative: 61-year-old male status post urgent left colectomy followed by revision of colostomy converted ileostomy who continues to slowly recover but is making improvement. I see no evidence of infectious complications, but his white blood cell count remained significantly elevated and his platelets continue to rise consistent with acute phase reactant. His alkaline phosphatase is now somewhat elevated although the rest of his liver function tests are normal. I suspect this may be related to possible cholestatic changes in light of his recent illness, minimal oral intake, and requirement for TPN. Potassium and phosphorus were elevated so we will change this in the TPN formula. Add a few more units of insulin to the TPN as well. Continue sliding scale insulin otherwise for good glucose control. No lipids today. I see no indication for antibiotics at this point, but I will check a lactate and procalcitonin level along with repeat CBC tomorrow. If he does have elevated procalcitonin then I would consider CT scan of the abdomen and pelvis and possible antibiotic therapy depending upon findings. Cultures during this admission, including the tip of the triple-lumen catheter recently removed, show no growth. Continue diet as tolerated with supplementation. He may have food from outside the hospital if he wishes. 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 Aggressive physical therapy continues today as well. We will plan wound VAC dressing change in the next 1-2 days. I again reviewed the indications for long term facility, and evaluation is still pending. In fact, the care center staff will meet with the patient and his early next week to review options. Appreciate discharge coordinators efforts in that regard. Patient is agreeable to long term facility. I will add an aspirin to his daily regimen in context of the significant thrombocytosis. Otherwise we will continue his DVT prophylaxis with Lovenox and SCDs. Ulcer prophylaxis with Protonix and famotidine. All the above discussed with the patient in detail. Case reviewed with the attending nurse today. Orders written. Quality VTE Deep Vein Thrombosis/Pulmonary Embolism Present on Admission: No
--- NOTE | 2017-10-17 12:44 | P.PN_ITS ---
Subjective Date Patient Seen: 10/17/17 Time Patient Seen: 12:00 Interval history: Patient had a relatively restful night. Denies any nausea or vomiting. However his appetite remains extremely poor. He tolerates a minimal amount of regular diet before he feels full. Food is not particularly taste good to him at this point, and he does not care for the Ensure supplementation. Feel some crampy diffuse abdominal pain, and he has begun to have more copious liquid stool per the ileostomy. No dysuria or hematuria. Pain is otherwise relatively minimal, and he is not requiring a significant amount of narcotic. No subjective fever or chills. Denies chest pain or shortness of breath. Overall, he would simply just like to be discharged home with his , but he understands that he requires a higher level of care before returning home. Exam Vital Signs (past 8 hours): - 10/17/17 08:00 10/17/17 09:01 Temperature 97.2 F L Pulse Rate 71 68 Respiratory Rate 18 16 Blood Pressure 140/79 Pulse Oximetry 98 99 Fraction of Inspired Oxygen 21 Oxygen Delivery Method Room Air Oxygen Flow Rate 0 Narrative Exam Narrative: Well-nourished well-developed but mildly ill-appearing male in no acute distress. He clearly appears somewhat debilitated from his entire hospitalization, surgical interventions, and underlying pathology. However he is in good spirits and is quite motivated to improve and returned to baseline in the future. He is alert oriented x3. Conversing normally. Sclera nonicteric Chest clear to auscultation bilaterally. Regular rate and rhythm Abdomen is soft and nondistended. Wound VAC remains in place holding suction. Output is several 100 cc of serous fluid only. No pus or blood in the container. Ileostomy appliance has been reinforced per the nursing staff following leakage yesterday. Currently the appliance is functioning well and contains flatus along with normal appearing stool from the ileostomy. Stoma is otherwise pink and viable with no significant edema. Extremities show no clubbing, cyanosis, or edema Objective Labs Result Diagrams: 10/17/17 08:50 10/17/17 08:50 Labs: Laboratory Results - last 24 hr 10/17/17 10/17/17 08:50 08:50 WBC 18.6 H RBC 3.63 L Hgb 10.6 L Hct 31.8 L MCV 87.6 MCH 29.1 MCHC 33.2 RDW 14.4 Plt Count 940 H* Neut % (Auto) 73.0 Lymph % (Auto) 14.6 L [place] % (Auto) 9.2 Eos % (Auto) 2.1 Baso % (Auto) 1.1 Neut # (Auto) 31968 H Nucleated RBCs Cancelled Hypersegmented Neuts Cancelled Hypogranular Neuts Cancelled Reactive Lymphocytes Cancelled Smudge Cells Cancelled Other Cell Type Cancelled Toxic Granulation Cancelled Toxic Vacuolation Cancelled Dohle Bodies Cancelled Krystle Rods Cancelled WBC Morphology Comment Cancelled Platelet Estimate Cancelled Clumped Platelets Cancelled Plt Morphology Comment Cancelled RBC Morphology Cancelled Dimorphic RBCs Cancelled Polychromasia Cancelled Hypochromasia Cancelled Poikilocytosis Cancelled Basophilic Stippling Cancelled Anisocytosis Cancelled Microcytosis Cancelled Macrocytosis Cancelled Spherocytes Cancelled Pappenheimer Bodies Cancelled Sickle Cells Cancelled Target Cells Cancelled Tear Drop Cells Cancelled Ovalocytes Cancelled Stomatocytes Cancelled Helmet Cells Cancelled Mckeon-[place] Bodies Cancelled [place] Rings Cancelled [place] Cells Cancelled Acanthocytes (Spur) Cancelled Rouleaux Cancelled Schistocytes Cancelled Sodium 136 L Potassium 4.9 Chloride 97 L Carbon Dioxide 31 BUN 19 Creatinine 0.90 Estimated GFR > 60.0 BUN/Creatinine Ratio 21.1 Glucose 158 H Calcium 8.7 Phosphorus 4.5 H D Magnesium 2.5 H Total Bilirubin 0.5 AST 31 ALT 16 L Alkaline Phosphatase 227 H D Total Protein 7.4 Albumin 3.5 Globulin 3.9 Albumin/Globulin Ratio 0.9 L No new radiographic studies for review Assessment & Plan Plan: Assessment/Plan Narrative: 61-year-old male status post urgent left colectomy followed by revision of colostomy converted ileostomy who continues to slowly recover but is making improvement. I see no evidence of infectious complications, but his white blood cell count remained significantly elevated and his platelets continue to rise consistent with acute phase reactant. His alkaline phosphatase is now somewhat elevated although the rest of his liver function tests are normal. I suspect this may be related to possible cholestatic changes in light of his recent illness, minimal oral intake, and requirement for TPN. Potassium and phosphorus were elevated so we will change this in the TPN formula. Add a few more units of insulin to the TPN as well. Continue sliding scale insulin otherwise for good glucose control. No lipids today. I see no indication for antibiotics at this point, but I will check a lactate and procalcitonin level along with repeat CBC tomorrow. If he does have elevated procalcitonin then I would consider CT scan of the abdomen and pelvis and possible antibiotic therapy depending upon findings. Cultures during this admission, including the tip of the triple-lumen catheter recently removed, show no growth. Continue diet as tolerated with supplementation. He may have food from outside the hospital if he wishes. 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 Aggressive physical therapy continues today as well. We will plan wound VAC dressing change in the next 1-2 days. I again reviewed the indications for [facility] facility, and evaluation is still pending. In fact, the care center staff will meet with the patient and his early next week to review options. Appreciate discharge coordinators efforts in that regard. Patient is agreeable to [facility] facility. I will add an aspirin to his daily regimen in context of the significant thrombocytosis. Otherwise we will continue his DVT prophylaxis with Lovenox and SCDs. Ulcer prophylaxis with Protonix and famotidine. All the above discussed with the patient in detail. Case reviewed with the attending nurse today. Orders written. Quality VTE Deep Vein Thrombosis/Pulmonary Embolism Present on Admission: No
[2017-10-17] MEDS: ASPIRIN 325 MG TABLET PO (13:53)
[2017-10-17] MEDS: ENOXAPARIN 40 MG/0.4 ML SYRINGE SUBCUT (13:56)
[2017-10-17] MEDS: SODIUM CHLORIDE 0.9% 500 ML 21 ML IV (14:39)
--- NOTE | 2017-10-17 17:17 | PC.NURSE ---
Addendum entered by Julianne Leon R.N. 10/17/17 20:24: Pt had relatively uneventful evening. Denies discomfort. TPN infusing via pump as per orders. GALO PICC intact/patent. Illieostomy intact/patent yellow contents. Call light w/in each, bed alarm on for pt safety. Continue w/plan of care. Original Note: Pt watching TV. Denies discomfort at this time. TPN and NS infusing via pump into GALO PICC w/o incidense. Illeostomy putting out large amount of yellow colored liquid,approximately every 45 mins. Wound vac intact/ patent. Call light w.in reach.
[2017-10-17] MEDS: [UNRECOGNIZED DRUG - OTHER] IV (17:39)
[2017-10-17] MEDS: CALCIUM IV (17:39)
[2017-10-17] MEDS: DEXT IV (17:39)
[2017-10-17] MEDS: POTASSIUM CHLORIDE IV (17:39)
[2017-10-17] MEDS: LYTES IV (17:39)
[2017-10-18 00:10] VITALS: O2SAT 97
[2017-10-18] MEDS: ALBUTEROL 2.5 MG/3 ML NEB (ADULT) INH (00:18)
[2017-10-18] MEDS: DEXTROSE 10 % IN WATER 1,000 ML 100 ML IV (02:03)
[2017-10-18 05:49] LABS: Basophils Percent Auto 0.8 % (0-2); Eosinophils Percent Auto 3.7 % (2-4); Hematocrit 33.4 % (41-53); Hemoglobin 11.3 g/dL (13.5-17.5); Lymphocytes Percent Auto 15.2 % (25-40); Mean Corpuscular HGB Conc 33.9 % (30-36); Mean Corpuscular Hemoglobin 29.3 PG (26-34); Mean Corpuscular Volume 86.6 fL (80-100); Neutrophils Absolute Auto 12100 /uL (3000-5900); Neutrophils Percent Auto 71.3 % (50-75); Red Blood Cell Count 3.86 X10^6/uL (4.5-5.9); Red Cell Distribution Width 14.2 % (11.6-14.8); White Blood Cell Count 16.9 X10^3/uL (4.5-11.0)
[2017-10-18 05:51] LABS: Add Manual Diff / Slide Review SLIDE REVIEW; Platelet Count 980 X10^3/uL (150-400)
[2017-10-18 05:54] LABS: Lactate (Lactic Acid) 1.7 mmol/L (0.7-2.1)
[2017-10-18 06:12] LABS: Procalcitonin 0.13 ng/mL (<0.5)
[2017-10-18 06:15] LABS: Platelet Estimate Increased on smear
[2017-10-18 06:18] LABS: Polychromasia 1+
--- NOTE | 2017-10-18 06:51 | PC.NURSE ---
NOC Note: At 0107, PICC line was dislodged during transfer, new IV started in left hand D10W started at 100ml/hr. Dr. Fiore was notified and gave orders to get new PICC in the morning. At 0600 pt had not voided, he has 50ml in bladder per scan, 650 liquid stool from ostomy this shift, 1700 last pm. Pt has only been voiding once per shift, last void was [address] Fiore was notified of lack of urine output and updated with ETA for PICC nurse. He ordered that NS and TPN be restarted with a fluid volume to total 110/hr, TPN to remain at the rate it was (42.894ml/hr) and NS to run concurrently to complete the total (67ml/hr). D10W to remain running until PICC line is in use. At 0655 pt had a 100ml void of dark tea colored urine.
[2017-10-18] MEDS: INSULIN ASPART 100 UNIT/ML INSULN PEN SUBCUT ×3 (07:06→19:14)
[2017-10-18] MEDS: FLUTICASONE/SALMETEROL 250/50 14 PUFF DISKUS INH ×2 (07:15→18:42)
[2017-10-18 07:16] VITALS: PULSE 88; RESP 16; O2SAT 99
--- NOTE | 2017-10-18 08:38 | DI.RAD.S_ITS ---
PROCEDURE: XR CHEST FOR PICC 1V INDICATIONS: picc line placement COMPARISON: [facility], CR, XR CHEST FOR PICC 1V, 10/09/2017, 14:08. [facility], CR, XR CHEST 1V, 10/09/2017, 5:52. [facility], CR, XR CHEST 1V, 10/05/2017, 6:07. FINDINGS: PICC was placed by the intravenous therapy team from the right side. Fluoroscopic spot film demonstrates tip of PICC in the atrial caval junction. IMPRESSION: Tip of PICC lies within the atrial caval junction. Dictated by: Xavier Carlson M.D. on 10/18/2017 at 9:09 Approved by: Xavier Carlson M.D. on 10/18/2017 at 9:09
[2017-10-18 09:00] VITALS: BP 139/77; PULSE 77; RESP 16; O2SAT 99
[2017-10-18] MEDS: SODIUM CHLORIDE 0.9% 1,000 ML 67 ML IV (09:42)
[2017-10-18] MEDS: PANTOPRAZOLE 20 MG TABLET PO (09:42)
[2017-10-18] MEDS: ASPIRIN 325 MG TABLET PO (09:43)
[2017-10-18] MEDS: ENOXAPARIN 40 MG/0.4 ML SYRINGE SUBCUT (12:13)
--- NOTE | 2017-10-18 13:06 | PC.NURSE ---
1300 Pt PICC line replaced at 0830 this am. Pt misty well. Restarted TPN/NS after f/u xray done. Pt has been oob to walk in vazquez w/PT, & up to BSChair. wnd vac intact. Eliostomy [place] hallq contents, appliance in place was changed 10/17 day. wnd vac intact to abd. Pt denies pain.
--- NOTE | 2017-10-18 13:53 | PT.IPTN ---
Current Diagnoses Anemia, unspecified (09/29/17) Unspecified intestinal obstruction, unspecified as to partial versus complete obstruction (09/29/17) Surgery Performed Operation Date: 09/30/17 15:15 Actual Procedures p Exploratory Lap/Colon Resection/COLOSTOMY - Roger Fiore MD Operation Date: 10/04/17 09:00 <No data on this case meets the specified criteria> Operation Date: 10/04/17 09:00 Actual Procedures p lapartomy, peritoneal lavage, ostomy takedown, diverting loop ileostomy, abdominal wound vaccum (Left) - Roger Fiore MD Physical Therapy Treatment Note M2 PT-IP Current Condition Start: 10/09/17 13:08 Freq: NEEDED Status: Active Protocol: Document 10/09/17 13:08 AB (Rec: 10/09/17 13:18 AB [id number]) Physical Therapy Current Condition Current Condition Evaluation Date 10/09/17 Treatment Diagnosis bowel obstruction s/p laprotomy; generalized weakness Onset Date 09/29/17 Precautions Abdominal Surgery Precautions Log Roll Lifting Restrictions Gait Belt above Incisional Area Other Precautions falls M3 PT-IP Subjective Start: 10/09/17 13:08 Freq: NEEDED Status: Active Protocol: Document 10/18/17 11:15 CLB (Rec: 10/18/17 13:53 CLB [id number]) Subjective Physical Therapy Visit Type Type Treatment Note Visit Start Time 11:15 Visit Stop Time 11:44 Total Visit Minutes 29 Physical Therapy Visit Comments Patient Comments Pt willing to get up in chair after ambulation. Short Term Goals wants to go home. M4 PT-IP Mobility and Gait Start: 10/09/17 13:08 Freq: NEEDED Status: Active Protocol: Document 10/18/17 11:15 CLB (Rec: 10/18/17 13:53 CLB [id number]) PT-Bed Mobility Assessment Rolling Type of Rolling Roll to Right Level of Assist Contact Guard Assistance Supine to Sit Supine to Sit Minimal Assistance Scooting Scooting to Edge of Bed Standby Assistance PT-Transfer Assessment Sit to and From Stand Sit to and from Stand Contact Guard Assistance Use of Upper Extremities Equipment Transfer Assistive Device Gait Belt Front Wheeled Walker Transfers Transfer Destination Chair Transfer Technique Stand Step Pivot Transfer Ability Level of Assist Standby Assistance 1 Person Assistance Gait Assessment Gait Gait Assistance Required: Contact Guard Assist 1 Person Assist Distance (Feet) (feet) 140 Assistive Devices Assistive Device Gait Belt Front Wheeled Walker Gait Deviations General Gait Pattern Decreased Stride Length Decreased Feet Clearance Narrow Based Gait Factors Limiting Gait Function Factors Limiting Gait Function Decreased Activity Tolerance Decreased Strength Pain Comments Gait Comments Pt able to increase gait walking in vazquez 140ft. Needing CGA and cues for walker use, safety and posture. 2 person assist for line management. M5 PT-IP Objective Assessments Start: 10/09/17 13:08 Freq: NEEDED Status: Active Protocol: Document 10/09/17 13:08 AB (Rec: 10/09/17 13:18 AB [id number]) Orientation Orientation/Cognition Level of Alertness Lethargic Safety Awareness Decreased Safety Awareness Gross Range of Motion Lower Extremity ROM Assessment Within Functional Limits Strength Lower Extremity Strength Assessment Bilaterally Impaired Hip 3-/5 Knee 3-/5 M6 PT-IP Treatment Start: 10/09/17 13:08 Freq: NEEDED Status: Active Protocol: Document 10/15/17 11:35 GGD (Rec: 10/15/17 12:22 GGD [email or web address]) Physical Therapy Treatment Education Education Provided Precautions Safety M7 PT-IP Assessment and Plan Start: 10/09/17 13:08 Freq: NEEDED Status: Active Protocol: Document 10/18/17 11:15 CLB (Rec: 10/18/17 13:53 CLB [id number]) PT Summary Assessment and Plan Summary Assessment Summary Pt requires second assist for lines and wound vac. Pt needs cues for posture and walker safety with vazquez ambulation. Recommendations To Nursing Amount of Assist Needed 1 Person Assist Discharge Recommendations PT Discharge Recommendations SNF Rehab
[2017-10-18 15:00] VITALS: BP 125/77; PULSE 77; RESP 18; TEMP 36.8; O2SAT 99
--- NOTE | 2017-10-18 16:13 | CM.DPNOTE ---
Met with patient and spouse: They would like to discuss the possibilities of going home. After some discussion they agreed to talk to their doctor about patient's wound needs and wait for [facility]'s bedside assessment. Plan: Pending. Need to reevaluate patients needs tomorrow. SNF vs home with HH and wound care?
--- NOTE | 2017-10-18 16:29 | PT.IPTN ---
Current Diagnoses Anemia, unspecified (09/29/17) Unspecified intestinal obstruction, unspecified as to partial versus complete obstruction (09/29/17) Surgery Performed Operation Date: 09/30/17 15:15 Actual Procedures p Exploratory Lap/Colon Resection/COLOSTOMY - Roger Fiore MD Operation Date: 10/04/17 09:00 <No data on this case meets the specified criteria> Operation Date: 10/04/17 09:00 Actual Procedures p lapartomy, peritoneal lavage, ostomy takedown, diverting loop ileostomy, abdominal wound vaccum (Left) - Roger Fiore MD Physical Therapy Treatment Note M2 PT-IP Current Condition Start: 10/09/17 13:08 Freq: NEEDED Status: Active Protocol: Document 10/09/17 13:08 AB (Rec: 10/09/17 13:18 AB [id number]) Physical Therapy Current Condition Current Condition Evaluation Date 10/09/17 Treatment Diagnosis bowel obstruction s/p laprotomy; generalized weakness Onset Date 09/29/17 Precautions Abdominal Surgery Precautions Log Roll Lifting Restrictions Gait Belt above Incisional Area Other Precautions falls M3 PT-IP Subjective Start: 10/09/17 13:08 Freq: NEEDED Status: Active Protocol: Document 10/18/17 16:02 CLB (Rec: 10/18/17 16:29 CLB [id number]) Subjective Physical Therapy Visit Type Type Patient Refusal Notes Pt watching the football game and refused to participate this afternoon with PT.
--- NOTE | 2017-10-18 16:43 | PM.PN.1 ---
Subjective Date Patient Seen: 10/18/17 Time Patient Seen: 14:00 Interval history: Patient denies any significant pain, but he is much more adamant about being discharged directly home from the hospital today. He had an incident early this morning where his PICC line was inadvertently dislodged during transfer. Overall he is somewhat frustrated with his prolonged hospitalization, and he feels strongly that he would be much better at home in his usual surroundings with the support of his family. He remains basically anorexic. States that no food really appeals to him at this time. Denies fever chills subjectively. Again, no significant abdominal pain. No dysuria or hematuria. Exam Vital Signs (past 8 hours): - 10/18/17 09:00 Pulse Rate 77 Respiratory Rate 16 Blood Pressure 139/77 Pulse Oximetry 99 Fraction of Inspired Oxygen 21 Oxygen Delivery Method Room Air Oxygen Flow Rate 0 Narrative Exam Narrative: Patient lying comfortably in bed in no acute distress. Alert oriented x3. is at the bedside. He remains without any documented fevers at all. Blood pressure and heart rate are completely normal. Room air saturation 100%. Sclera nonicteric Chest clear to auscultation bilaterally with good cough effort. No crackles or wheezes. Abdomen is less distended and soft. He is appropriately tender without guarding or rebound. Wound VAC remains in place collecting a small amount of serous fluid only. Devices holding suction. Ileostomy is pink and viable with copious bilious output along with flatus. He had nearly 2 L of ileostomy output in the last 24 hr. Extremities show no clubbing, cyanosis, or edema Objective Labs Result Diagrams: 10/18/17 05:33 10/17/17 08:50 Labs: Laboratory Results - last 24 hr 10/18/17 10/18/17 10/18/17 05:33 05:33 05:33 WBC 16.9 H RBC 3.86 L Hgb 11.3 L Hct 33.4 L MCV 86.6 MCH 29.3 MCHC 33.9 RDW 14.2 Plt Count 980 H* Neut % (Auto) 71.3 Lymph % (Auto) 15.2 L [place] % (Auto) 9.0 Eos % (Auto) 3.7 Baso % (Auto) 0.8 Neut # (Auto) 46226 H Platelet Estimate Increased on smear RBC Morphology Not Reportable Polychromasia 1+ H Lactate 1.7 Procalcitonin 0.13 No new radiographic studies review Lactate and procalcitonin levels are unremarkable. However, his platelet count continues to rise. White blood cell count remains elevated but is trending down compared to yesterday. Differential is not particularly worrisome for immature forms or bands. Assessment & Plan Plan: Assessment/Plan Narrative: 61-year-old male postoperative day 18 from emergent colon resection for complete obstruction complicated by sepsis, prolonged postoperative ileus, and nutritional depletion who is now slowly improving. However, his nutritional intake orally is essentially nil. He is completely reliant on TPN currently for his nutritional intake as well as his hydration. He is now beginning to experience increased ileostomy output which is not unanticipated at this stage. However, this introduce is the distinct possibility for dehydration and electrolyte disturbances which I have discussed with him and his in detail. He understands that I am unable to wean and eventually discontinued TPN along with IV fluids at this stage due to his poor oral intake. He may have food from home from my perspective along with nutritional supplementation of any type that might appeal to him. I also remain mildly concerned about the possibility of occult infection, especially intra-abdominal abscess although he is afebrile and has no signs of sepsis. Nevertheless his white blood cell count remains elevated and his platelets continue to rise. We will continue the prophylactic aspirin for the thrombocytosis. CT scan of the abdomen and pelvis with contrast will be obtained tomorrow to evaluate for abscess and the possibility of percutaneous drainage if one exists. I discussed this with the patient and his as well. They understand until that issue is resolved along with the nutritional issue that he would not be a candidate for discharge from the hospital yet. I reiterated my strong recommendation for [facility] facility however because of his significant level of care including ileostomy care, aggressive physical therapy, rehabilitation, and significant wound care for his large open abdominal wound. Wound VAC changes along with ileostomy care simultaneously essentially require at least 2 qualified persons for approximately 45 min. Nevertheless I related to him and his that he obviously is free to make whatever choice he wishes regarding his disposition from the hospital. If he refuses [facility] facility then we can explore the possibility of visiting home health nurse periodically throughout the week along with aggressive education for his and other family members regarding ileostomy care and wound care. Overall I feel he would be safer in a [facility] environment, but if he and his family wish to have him released directly to home from the hospital then obviously I will proceed per their directions. He understands that is currently against my medical advice nonetheless since it carries a potential risk of infectious complications, dehydration, electrolyte disturbances, and fall risk which could potentially necessitate readmission to the hospital while delaying his recovery. I am concerned that his family may be overwhelmed by the level of care as well. He was at least agreeable to continue to pursue [facility] facility evaluation as planned tomorrow while nursing staff work with the family at the bedside regarding his care issues. CT scan was ordered for tomorrow. Continue TPN for now. All the patient's questions and all of the patient's 's questions were answered to their satisfaction, and they voiced understanding. We will proceed as above and see how the next several days progress. Orders were written. Quality VTE Deep Vein Thrombosis/Pulmonary Embolism Present on Admission: No
--- NOTE | 2017-10-18 16:58 | P.PN_ITS ---
Subjective Date Patient Seen: 10/18/17 Time Patient Seen: 14:00 Interval history: Patient denies any significant pain, but he is much more adamant about being discharged directly home from the hospital today. He had an incident early this morning where his PICC line was inadvertently dislodged during transfer. Overall he is somewhat frustrated with his prolonged hospitalization, and he feels strongly that he would be much better at home in his usual surroundings with the support of his family. He remains basically anorexic. States that no food really appeals to him at this time. Denies fever chills subjectively. Again, no significant abdominal pain. No dysuria or hematuria. Exam Vital Signs (past 8 hours): - 10/18/17 09:00 Pulse Rate 77 Respiratory Rate 16 Blood Pressure 139/77 Pulse Oximetry 99 Fraction of Inspired Oxygen 21 Oxygen Delivery Method Room Air Oxygen Flow Rate 0 Narrative Exam Narrative: Patient lying comfortably in bed in no acute distress. Alert oriented x3. is at the bedside. He remains without any documented fevers at all. Blood pressure and heart rate are completely normal. Room air saturation 100%. Sclera nonicteric Chest clear to auscultation bilaterally with good cough effort. No crackles or wheezes. Abdomen is less distended and soft. He is appropriately tender without guarding or rebound. Wound VAC remains in place collecting a small amount of serous fluid only. Devices holding suction. Ileostomy is pink and viable with copious bilious output along with flatus. He had nearly 2 L of ileostomy output in the last 24 hr. Extremities show no clubbing, cyanosis, or edema Objective Labs Result Diagrams: 10/18/17 05:33 10/17/17 08:50 Labs: Laboratory Results - last 24 hr 10/18/17 10/18/17 10/18/17 05:33 05:33 05:33 WBC 16.9 H RBC 3.86 L Hgb 11.3 L Hct 33.4 L MCV 86.6 MCH 29.3 MCHC 33.9 RDW 14.2 Plt Count 980 H* Neut % (Auto) 71.3 Lymph % (Auto) 15.2 L [place] % (Auto) 9.0 Eos % (Auto) 3.7 Baso % (Auto) 0.8 Neut # (Auto) 74790 H Platelet Estimate Increased on smear RBC Morphology Not Reportable Polychromasia 1+ H Lactate 1.7 Procalcitonin 0.13 No new radiographic studies review Lactate and procalcitonin levels are unremarkable. However, his platelet count continues to rise. White blood cell count remains elevated but is trending down compared to yesterday. Differential is not particularly worrisome for immature forms or bands. Assessment & Plan Plan: Assessment/Plan Narrative: 61-year-old male postoperative day 18 from emergent colon resection for complete obstruction complicated by sepsis, prolonged postoperative ileus, and nutritional depletion who is now slowly improving. However, his nutritional intake orally is essentially nil. He is completely reliant on TPN currently for his nutritional intake as well as his hydration. He is now beginning to experience increased ileostomy output which is not unanticipated at this stage. However, this introduce is the distinct possibility for dehydration and electrolyte disturbances which I have discussed with him and his in detail. He understands that I am unable to wean and eventually discontinued TPN along with IV fluids at this stage due to his poor oral intake. He may have food from home from my perspective along with nutritional supplementation of any type that might appeal to him. I also remain mildly concerned about the possibility of occult infection, especially intra-abdominal abscess although he is afebrile and has no signs of sepsis. Nevertheless his white blood cell count remains elevated and his platelets continue to rise. We will continue the prophylactic aspirin for the thrombocytosis. CT scan of the abdomen and pelvis with contrast will be obtained tomorrow to evaluate for abscess and the possibility of percutaneous drainage if one exists. I discussed this with the patient and his as well. They understand until that issue is resolved along with the nutritional issue that he would not be a candidate for discharge from the hospital yet. I reiterated my strong recommendation for [facility] facility however because of his significant level of care including ileostomy care, aggressive physical therapy, rehabilitation, and significant wound care for his large open abdominal wound. Wound VAC changes along with ileostomy care simultaneously essentially require at least 2 qualified persons for approximately 45 min. Nevertheless I related to him and his that he obviously is free to make whatever choice he wishes regarding his disposition from the hospital. If he refuses [facility] facility then we can explore the possibility of visiting home health nurse periodically throughout the week along with aggressive education for his and other family members regarding ileostomy care and wound care. Overall I feel he would be safer in a [facility] environment, but if he and his family wish to have him released directly to home from the hospital then obviously I will proceed per their directions. He understands that is currently against my medical advice nonetheless since it carries a potential risk of infectious complications, dehydration, electrolyte disturbances, and fall risk which could potentially necessitate readmission to the hospital while delaying his recovery. I am concerned that his family may be overwhelmed by the level of care as well. He was at least agreeable to continue to pursue [facility] facility evaluation as planned tomorrow while nursing staff work with the family at the bedside regarding his care issues. CT scan was ordered for tomorrow. Continue TPN for now. All the patient's questions and all of the patient's 's questions were answered to their satisfaction, and they voiced understanding. We will proceed as above and see how the next several days progress. Orders were written. Quality VTE Deep Vein Thrombosis/Pulmonary Embolism Present on Admission: No
[2017-10-18] MEDS: POTASSIUM CHLORIDE IV (18:36)
[2017-10-18] MEDS: CALCIUM IV (18:36)
[2017-10-18] MEDS: [UNRECOGNIZED DRUG - OTHER] IV (18:36)
[2017-10-18] MEDS: DEXT IV (18:36)
[2017-10-18] MEDS: LYTES IV (18:36)
[2017-10-18 18:42] VITALS: PULSE 74; RESP 16; O2SAT 98
--- NOTE | 2017-10-18 18:57 | PC.NURSE ---
Addendum entered by Julianne Leon R.N. 10/18/17 21:38: Pt resting at intervals this evening. Denies discomfort. TPN infusing as per orders as is the NS w/o incidence. Wound vac intact, patent. Call light w/in reach, bed alarm on for pt safety. Continue w/plan of care. Original Note: Pt resting at intervals this afternoon. TPN infusing into the ISAMAR PICC w/o incidence. Wound vac dsg CDI. Illeostomy patent. Denies any discomfort. Sat in chair for dinner. Call light w/in reach.
[2017-10-18 23:25] VITALS: BP 136/76; PULSE 80; RESP 18; TEMP 36.4; O2SAT 98
[2017-10-18] MEDS: OXYCODONE IR 5 MG TABLET PO (23:31)
[2017-10-19] VITALS (7 sets, daily range): BP systolic 119–140; BP diastolic 71–80; PULSE 65–89; RESP 14–20; TEMP 36.5–37.2; O2SAT 96–100
--- NOTE | 2017-10-19 | DI.CT.S_ITS ---
PROCEDURE: CT ABDOMEN PELVIS W CON INDICATIONS: leukocytosis, thrombocytosis s/p colon resection TECHNIQUE: After the administration of oral and intravenous contrast, 5 mm thick sections acquired from the diaphragms to the symphysis. 5 mm thick coronal and sagittal reformats were performed. For radiation dose reduction, the following was used: automated exposure control, adjustment of mA and/or kV according to patient size. COMPARISON: [facility], CT, CT ABDOMEN PELVIS W CON, 09/29/2017, 1:57. FINDINGS: Image quality: Excellent. ABDOMEN: Lung bases: Mild bibasilar scattered atelectasis is seen. No pleural effusion or pneumothorax Heart size is normal. Solid organs: Liver is normal in size and enhancement. Mild hepatic steatosis is noted. Gallbladder is surgically absent. Biliary system is non-dilated. Pancreas enhances normally. Spleen is normal in size and enhancement. No adrenal nodules. Kidneys are normal in size and enhancement, without hydronephrosis. Peritoneum and bowel: Patient is status post interval partial left colectomy with postsurgical changes seen in left lower quadrant abdomen. Large open wound in the anterior abdominal wall is seen. There is hazy opacities scattered throughout mesenteric fat with wall thickening throughout jejunal and ileal loops in mid to lower abdomen most consistent with postsurgical reactive inflammatory changes. Right lower quadrant ileostomy is seen. No gross peritoneal free air. No discrete drainable abscess collection is identified. Small amount of fluid is noted adjacent to superior and inferior aspect of spleen. Small amount of free fluid in the right lower quadrant adjacent to ileostomy is also seen. Nodes and vessels: No retroperitoneal or mesenteric adenopathy. Aorta and inferior vena cava are normal in caliber. Miscellaneous: No ventral hernias. PELVIS: Genitourinary: Bladder wall thickness is normal. Miscellaneous: No inguinal hernias or adenopathy. Bones: No suspicious bony lesions. No vertebral body compression fractures. IMPRESSION: 1. Interval left hemicolectomy with post surgical changes in left lower quadrant abdomen. Significant mesenteric fat inflammatory changes and visualized small bowel and remaining colon wall thickening suggestive of postsurgical changes. 2 Small amount of free fluid adjacent to right sided ileostomy in right lower quadrant abdomen. Small amount of fluid is also seen adjacent to superior and inferior aspect of spleen. Finding also likely represent post surgical changes. No gross free air. 3. Large open surgical wound in the anterior abdomen. No discrete drainable abscess collection is noted in the abdomen or pelvis. Dictated by: Cam Santiago M.D. on 10/19/2017 12:55 Approved by: Cam Santiago M.D. on 10/19/2017 at 13:12
[2017-10-19] MEDS: SODIUM CHLORIDE 0.9% 1,000 ML 67 ML IV (01:06)
[2017-10-19] MEDS: PANTOPRAZOLE 20 MG TABLET PO (06:04)
--- NOTE | 2017-10-19 06:24 | PC.NURSE ---
Bed stripped of any extra equipment hanging on it such as SCD's, wound vac, fan- raised off frame and flattened, weight checked twice and weight is 80.5kg. Pt would like sleeping pill for nights.
[2017-10-19] MEDS: OXYCODONE IR 5 MG TABLET PO ×3 (09:20→23:44)
[2017-10-19] MEDS: FLUTICASONE/SALMETEROL 250/50 14 PUFF DISKUS INH ×2 (09:23→23:11)
[2017-10-19] MEDS: ASPIRIN 325 MG TABLET PO (09:35)
--- NOTE | 2017-10-19 10:07 | PC.NURSE ---
Addendum entered by Tina Noriega R.N. 10/19/17 12:57: INTEG/GI/PAIN - pt ate a few bites lunch, states it was too spicy, ret to bed as and Gracie here now for ileostomy appliance and wound vac changes, per Dr. Fiore, given 1mg iv dilaudid prior to dsg, pt stated he felt a little nauseated and given a now dose 4mg iv zofran prior to start. Pt misty procedures well. large wound bed with pink granulation, former stoma site w/slight serosang drainage, wound bed pink, stoma dark pink w/intact surrounding tissue. Original Note: AM NOTE - alert, abd moderately distended with bt present, wound vac abd w/o leak, sm qty thin sow fluid in tubing, ileostomy with thin brown fluid, emptied 200ml this am, some abd bloating, belching, states trying po but did have to drink contrast this am, taking small bites food brought in by spouse, ra 98, p 80, after CT completed, up x 1 person w/fww, steps to chair, positioned comfortably, discussed pain mgt and given 5mg po oxycodone, discussed bloating, declines simeth chew at this time.
--- NOTE | 2017-10-19 10:34 | PC.NURSE ---
AM NOTE - alert, talkative, states some chronic discomfort, hands, feet, joints, back, 1+ pedal, ankle edema, has large dry calluses on both great toes, small dry scab areas r 2nd toe and l ball foot, no drainage noted, generalized complaint weakness and dizziness when oob, states he was disoriented prior to adm and falling, hr occass irreg 84, ra 98%, coarse crackles lower lobe, given 100mg tramadol with breakfast.
--- NOTE | 2017-10-19 11:08 | PT.IPTN ---
Current Diagnoses Anemia, unspecified (09/29/17) Unspecified intestinal obstruction, unspecified as to partial versus complete obstruction (09/29/17) Surgery Performed Operation Date: 09/30/17 15:15 Actual Procedures p Exploratory Lap/Colon Resection/COLOSTOMY - Roger Fiore MD Operation Date: 10/04/17 09:00 <No data on this case meets the specified criteria> Operation Date: 10/04/17 09:00 Actual Procedures p lapartomy, peritoneal lavage, ostomy takedown, diverting loop ileostomy, abdominal wound vaccum (Left) - Roger Fiore MD Physical Therapy Treatment Note Physical Therapy Visit Type Type Patient Refusal Physical Therapy Visit Comments Patient Comments Pt just getting back to bed from being up in the chair for breakfast. Pt refusing PT at this time, says he's agreeable to work with PT in the afternoon.
[2017-10-19] MEDS: INSULIN ASPART 100 UNIT/ML INSULN PEN SUBCUT (12:17)
--- NOTE | 2017-10-19 12:19 | CM.DPNOTE ---
DCP/cont Dr. Fiore had conversation with family regarding the need for SNF. MD reiterated his strong recommendation for SNF because of patient's significant level of care including ileostomy care, aggressive physical therapy, rehabilitation, and significant wound care for his large open abdominal wound. Wound VAC changes along with ileostomy care simultaneously essentially require at least 2 qualified persons for approximately 45 min. Patient is aware of the risks and safety concerns but still wishes to discharge home. DARYL spoke with Wound Care nurse/Gracie and Dr. Fiore regarding spouse being involved with wound changes and a possible option of having patient discharge home with wound care handle changes on Mondays/ along with HH/nursing,PT,OT. SW called spouse to have her come to hospital to assist with wound changes to see if she will be able to handle patient's care and also discuss the alternative options of SNF vs HH, & wound care. Spouse agreeable to come to . Currently, patient remains on TPN. Per [facility] they would want patient to be off TPN for 48 hours prior to accepting. [facility] is following to complete bedside assessment. Plan: Patient's goal is to discharge home, but remains open to the needs of SNF if safe discharge plan cannot be established. SW to follow to determine if spouse is able to meet patient's needs as she has her own health concerns. Or determine if wound care should care for wound needs vs SNF? If home with wound care patient would need home wound vac ordered. If patient's discharge plans include SNF, [facility] would need to complete bedside assessment and gain auth. PASRR will need to be completed as well.
[2017-10-19] MEDS: HYDROMORPHONE 2 MG INJ 1 MG IV (12:36)
[2017-10-19] MEDS: ONDANSETRON 4 MG/2 ML INJ IV (12:48)
--- NOTE | 2017-10-19 13:27 | PM.PN.1 ---
Subjective Date Patient Seen: 10/19/17 Time Patient Seen: 13:27 Interval history: Patient denies pain. Had some mild nausea around lunchtime but resolved. Ileostomy output has slowed somewhat upper remains liquid with several 100 cc. Flatus in the appliance as well. No dysuria or hematuria. Patient is beginning to ambulate longer distances as he regains his strength. Physical therapy continues as well. He and his reiterate their desire to be discharged home rather than to a intermediate facility from the hospital. Anorexia continues but he is tolerating slightly increased oral intake since last evening. Still does not like the flavor of the Ensure supplement. Exam Vital Signs (past 8 hours): - 10/19/17 08:00 10/19/17 09:23 Temperature 98.2 F Pulse Rate 89 Respiratory Rate 20 14 Blood Pressure 140/76 Pulse Oximetry 99 Fraction of Inspired Oxygen 21 Oxygen Delivery Method Room Air Oxygen Flow Rate 0 Narrative Exam Narrative: Patient sitting comfortably in bedside chair eating some of his lunch meal. He has replaced bed without any significant difficulty. Alert oriented x3. is at the bedside for my entire visit. Wound VAC changes performed with the enterostomal therapist and the participation of the who actually did quite well. Wound VAC output has been serous only. Wound bed is granulating nicely without evidence of any necrosis or purulent fluid. Skin edges are completely viable without erythema or breakdown. Ileostomy is pink and viable. Upon placement of wound VAC suction is holding nicely at 100 mm hg pressure. Abdomen is otherwise soft and nondistended. He is appropriately tender to palpation. Extremities show no clubbing, cyanosis, or edema but he clearly has some evidence of muscle wasting consistent with his debilitation and relative protein calorie malnutrition. Objective Labs Result Diagrams: 10/18/17 05:33 10/17/17 08:50 Labs: No new laboratory studies for review CT scan of the abdomen and pelvis with contrast was performed this morning, and I have personally reviewed those films with the staff radiologist. No evidence of any significant free fluid or abscess. Moderate inflammatory changes throughout the abdomen consistent with surgery. Bowel loops otherwise appear viable. No free air. Assessment & Plan Plan: Assessment/Plan Narrative: 61-year-old male with ongoing recovery following emergent left colectomy for total obstruction who continues to heal accordingly. Nutrition remains somewhat compromised. Continue TPN until oral intake has improved. I again discussed this with the patient and his . Continue aggressive physical therapy. Repeat laboratory studies tomorrow. Patient has no signs or radiographic evidence of intra-abdominal abscess at this point. No indication for antibiotics. We will continue to work with the patient and his family toward their goal of returning directly home from the hospital. I have discussed the case with discharge coordinators. They will evaluate accordingly for possible home visiting health nurse and wound clinic visits twice weekly. All questions were answered to their satisfaction, and the patient voiced understanding. Orders were written. Quality VTE Deep Vein Thrombosis/Pulmonary Embolism Present on Admission: No
[2017-10-19] MEDS: ENOXAPARIN 40 MG/0.4 ML SYRINGE SUBCUT (13:31)
--- NOTE | 2017-10-19 14:20 | PC.NURSE ---
Wound Ostomy Nurse Consult Note and I changed the KCI Wound Vac dressing. The wound is starting to have some beefy red granulation tissue. There is no area of necrosis. We removed all 5 white sponges and three black foams. We placed 5 white foams and three black foams. The KCI is set at 100mmHg Low Pressure, Continuous. I also changed is ileostomy appliance. The stoma is beefy red, moist. The sutures are intact and he is producing liquid stool. The violeta-stomal skin is intact. I placed a 57mm Convatec Moldable Flat wafer with a little paste. His stoma measures oval at 38mm. I also placed a clear non-filter pouch. Dr. Fiore and I did some teaching with Veronica, his on how the KCI dressing is done and I reviewed how to operate the settings on the KCI. We discussed discharge planning and I suggested that I follow up with Don at the [facility] for KCI Vac dressing changes and osotmy assessments. I discussed with Discharge Planning about getting a Acti Vac ordered so and I can place that on his wound before discharge so he will not have an interruption of wound vac care. I will bring the forms to discharge planning for ordering an Activac. [place] and Veronica feel comfortable with this decision and I suggested to discharge planning and Dr. Fiore to have Home Health PT,OT, and RN.
--- NOTE | 2017-10-19 16:51 | PT.IPTN ---
Current Diagnoses Anemia, unspecified (09/29/17) Unspecified intestinal obstruction, unspecified as to partial versus complete obstruction (09/29/17) Surgery Performed Operation Date: 09/30/17 15:15 Actual Procedures p Exploratory Lap/Colon Resection/COLOSTOMY - Roger Fiore MD Operation Date: 10/04/17 09:00 <No data on this case meets the specified criteria> Operation Date: 10/04/17 09:00 Actual Procedures p lapartomy, peritoneal lavage, ostomy takedown, diverting loop ileostomy, abdominal wound vaccum (Left) - Roger Fiore MD Physical Therapy Treatment Note M2 PT-IP Current Condition Start: 10/09/17 13:08 Freq: NEEDED Status: Active Protocol: Document 10/09/17 13:08 AB (Rec: 10/09/17 13:18 AB [id number]) Physical Therapy Current Condition Current Condition Evaluation Date 10/09/17 Treatment Diagnosis bowel obstruction s/p laprotomy; generalized weakness Onset Date 09/29/17 Precautions Abdominal Surgery Precautions Log Roll Lifting Restrictions Gait Belt above Incisional Area Other Precautions falls M3 PT-IP Subjective Start: 10/09/17 13:08 Freq: NEEDED Status: Active Protocol: Document 10/19/17 16:05 CLB (Rec: 10/19/17 16:50 CLB [id number]) Subjective Physical Therapy Visit Type Type Treatment Note Visit Start Time 16:05 Visit Stop Time 16:20 Total Visit Minutes 15 Number of CREW CLERK Visits 1 Physical Therapy Visit Comments Patient Comments Pt eager to get up to ambulate . M4 PT-IP Mobility and Gait Start: 10/09/17 13:08 Freq: NEEDED Status: Active Protocol: Document 10/19/17 16:05 CLB (Rec: 10/19/17 16:50 CLB [id number]) PT-Bed Mobility Assessment Rolling Type of Rolling Roll to Right Level of Assist Standby Assistance Supine to Sit Supine to Sit Minimal Assistance Scooting Scooting to Edge of Bed Standby Assistance PT-Transfer Assessment Sit to and From Stand Sit to and from Stand Standby Assistance Use of Upper Extremities Equipment Transfer Assistive Device Gait Belt Front Wheeled Walker Transfers Transfer Destination Chair Transfer Technique Stand Step Pivot Transfer Ability Level of Assist Standby Assistance 1 Person Assistance Gait Assessment Gait Gait Assistance Required: Contact Guard Assist Distance (Feet) (feet) 200 Assistive Devices Assistive Device Gait Belt Front Wheeled Walker Gait Deviations General Gait Pattern Decreased Stride Length Decreased Feet Clearance Narrow Based Gait Factors Limiting Gait Function Factors Limiting Gait Function Decreased Activity Tolerance Decreased Strength Comments Gait Comments Pt able to ambulate ~200ft CGA with assist of lines. M5 PT-IP Objective Assessments Start: 10/09/17 13:08 Freq: NEEDED Status: Active Protocol: Document 10/09/17 13:08 AB (Rec: 10/09/17 13:18 AB [id number]) Orientation Orientation/Cognition Level of Alertness Lethargic Safety Awareness Decreased Safety Awareness Gross Range of Motion Lower Extremity ROM Assessment Within Functional Limits Strength Lower Extremity Strength Assessment Bilaterally Impaired Hip 3-/5 Knee 3-/5 M6 PT-IP Treatment Start: 10/09/17 13:08 Freq: NEEDED Status: Active Protocol: Document 10/15/17 11:35 GGD (Rec: 10/15/17 12:22 GGD [id number]) Physical Therapy Treatment Education Education Provided Precautions Safety M7 PT-IP Assessment and Plan Start: 10/09/17 13:08 Freq: NEEDED Status: Active Protocol: Document 10/19/17 16:05 CLB (Rec: 10/19/17 16:50 CLB [id number]) PT Summary Assessment and Plan Summary Assessment Summary Pt improving activity tolerance able to ambulate in vazquez ~200ft. Treatment Plan Other Recommendations and Next Treatment Increase activity tolerance, Focus stairs before d/c if going home Recommendations To Nursing Amount of Assist Needed 1 Person Assist Discharge Recommendations PT Discharge Recommendations SNF Rehab Other Discharge Recommendations SNF vs Home/w assist and HH
--- NOTE | 2017-10-19 17:16 | OT.IP.TRT ---
Current Diagnoses Anemia, unspecified (09/29/17) Unspecified intestinal obstruction, unspecified as to partial versus complete obstruction (09/29/17) Surgery Performed Operation Date: 09/30/17 15:15 Actual Procedures p Exploratory Lap/Colon Resection/COLOSTOMY - Roger Fiore MD Operation Date: 10/04/17 09:00 <No data on this case meets the specified criteria> Operation Date: 10/04/17 09:00 Actual Procedures p lapartomy, peritoneal lavage, ostomy takedown, diverting loop ileostomy, abdominal wound vaccum (Left) - Roger Fiore MD Occupational Therapy Treatment Note M2 OT-IP Current Condition Start: 10/09/17 16:42 Freq: Status: Active Protocol: Document 10/12/17 08:27 [facility] (Rec: 10/12/17 08:27 [facility] [id number]) Occupational Therapy Current Condition Post Operative Precautions Abdominal Surgery Precautions Log Roll Lifting Restrictions Gait Belt above Incisional Area Other Precautions falls M3 OT- IP Subjective and Pain Start: 10/09/17 16:42 Freq: Status: Active Protocol: Document 10/19/17 17:13 [facility] (Rec: 10/19/17 17:15 [facility] [id number]) OT- Subjective Occupational Therapy Visit Type Type Administrative Note Notes Spoke at length with pt for OT needs. Pt's not present and would be best to have there for family training. Therefore since pt doing much better with mobility per PT walking with FWW CGA 200ft. Pt now wanting to go home. To work with pt tomorrow when present.
[2017-10-19] MEDS: LYTES IV (18:20)
[2017-10-19] MEDS: POTASSIUM CHLORIDE IV (18:20)
[2017-10-19] MEDS: CALCIUM IV (18:20)
[2017-10-19] MEDS: DEXT IV (18:20)
[2017-10-19] MEDS: [UNRECOGNIZED DRUG - OTHER] IV (18:20)
[2017-10-20] VITALS (9 sets, daily range): BP systolic 124–141; BP diastolic 69–77; PULSE 75–97; RESP 14–18; TEMP 36.4–36.8; O2SAT 96–99
[2017-10-20 05:20] LABS: Add Manual Diff / Slide Review NO; Basophils Percent Auto 0.8 % (0-2); Eosinophils Percent Auto 3.7 % (2-4); Hematocrit 30.6 % (41-53); Hemoglobin 10.2 g/dL (13.5-17.5); Lymphocytes Percent Auto 16.4 % (25-40); Mean Corpuscular HGB Conc 33.4 % (30-36); Mean Corpuscular Hemoglobin 28.6 PG (26-34); Mean Corpuscular Volume 85.7 fL (80-100); Monocytes Percent Auto 11.7 % (3-14); Neutrophils Absolute Auto 8000 /uL (3000-5900); Neutrophils Percent Auto 67.4 % (50-75); Platelet Count 772 X10^3/uL (150-400); Red Blood Cell Count 3.57 X10^6/uL (4.5-5.9); Red Cell Distribution Width 14.1 % (11.6-14.8); White Blood Cell Count 11.9 X10^3/uL (4.5-11.0)
[2017-10-20 05:22] LABS: Alanine Aminotransferase 31 IU/L (21-72); Albumin 3.2 g/dL (3.5-5.0); Albumin Globulin Ratio 0.8 (1.0-2.8); Alkaline Phosphatase 270 U/L (38-126); Aspartate Aminotransferase 31 IU/L (17-59); BUN Creatinine Ratio 21.1 (6-22); Bilirubin Total 0.5 mg/dL (0.2-1.3); Blood Urea Nitrogen 19 mg/dL (9-20); Calcium 8.3 mg/dL (8.4-10.2); Carbon Dioxide 24 mmol/L (22-32); Chloride 102 mmol/L (98-107); Estimated Glomerular Filt Rate > 60.0 mL/min (>60); Globulin 3.8 g/dL (1.7-4.1); Glucose 141 mg/dL (80-110); HEMOLYSIS < 15 (0-50); Magnesium 2.3 mg/dL (1.6-2.3); Phosphorous 4.8 mg/dL (2.3-3.7); Potassium 4.8 mmol/L (3.4-5.1); Sodium 134 mmol/L (137-145)
[2017-10-20 05:49] LABS: Hypochromasia 1+
[2017-10-20 05:55] LABS: Carcinoembryonic Antigen 1.3 ng/mL (0.1-3.0)
[2017-10-20] MEDS: INSULIN ASPART 100 UNIT/ML INSULN PEN SUBCUT ×2 (06:12→11:33)
[2017-10-20] MEDS: SODIUM CHLORIDE 0.9% 1,000 ML 67 ML IV (06:57)
[2017-10-20] MEDS: FLUTICASONE/SALMETEROL 250/50 14 PUFF DISKUS INH ×2 (08:59→18:09)
[2017-10-20] MEDS: ALBUTEROL HFA 60 PUFF/8 GM INH INH (09:10)
[2017-10-20] MEDS: PANTOPRAZOLE 20 MG TABLET PO (09:36)
[2017-10-20] MEDS: ASPIRIN 325 MG TABLET PO (09:37)
--- NOTE | 2017-10-20 11:23 | PT.IPTN ---
Current Diagnoses Anemia, unspecified (09/29/17) Unspecified intestinal obstruction, unspecified as to partial versus complete obstruction (09/29/17) Surgery Performed Operation Date: 09/30/17 15:15 Actual Procedures p Exploratory Lap/Colon Resection/COLOSTOMY - Roger Foire MD Operation Date: 10/04/17 09:00 <No data on this case meets the specified criteria> Operation Date: 10/04/17 09:00 Actual Procedures p lapartomy, peritoneal lavage, ostomy takedown, diverting loop ileostomy, abdominal wound vaccum (Left) - Roger Fiore MD Physical Therapy Treatment Note M2 PT-IP Current Condition Start: 10/09/17 13:08 Freq: NEEDED Status: Active Protocol: Document 10/09/17 13:08 AB (Rec: 10/09/17 13:18 AB [id number]) Physical Therapy Current Condition Current Condition Evaluation Date 10/09/17 Treatment Diagnosis bowel obstruction s/p laprotomy; generalized weakness Onset Date 09/29/17 Precautions Abdominal Surgery Precautions Log Roll Lifting Restrictions Gait Belt above Incisional Area Other Precautions falls M3 PT-IP Subjective Start: 10/09/17 13:08 Freq: NEEDED Status: Active Protocol: Document 10/20/17 09:00 CLB (Rec: 10/20/17 11:17 CLB [id number]) Subjective Physical Therapy Visit Type Type Treatment Note Visit Start Time 09:00 Visit Stop Time 09:23 Number of FUSE COILER Visits 2 Physical Therapy Visit Comments Patient Comments Pt eager to get up to ambulate . M4 PT-IP Mobility and Gait Start: 10/09/17 13:08 Freq: NEEDED Status: Active Protocol: Document 10/20/17 11:18 CLB (Rec: 10/20/17 11:22 CLB [id number]) PT-Transfer Assessment Sit to and From Stand Sit to and from Stand Standby Assistance Use of Upper Extremities Transfers Transfer Destination Chair Transfer Technique Stand Step Pivot Transfer Ability Level of Assist Standby Assistance 1 Person Assistance Gait Assessment Gait Gait Assistance Required: Contact Guard Assist Distance (Feet) (feet) 200 Assistive Devices Assistive Device Gait Belt Front Wheeled Walker Gait Deviations General Gait Pattern Decreased Stride Length Decreased Feet Clearance Narrow Based Gait Factors Limiting Gait Function Factors Limiting Gait Function Decreased Activity Tolerance Decreased Strength Comments Gait Comments Pt continues with good tolerance of gait with cues for walker use. Pt has good safety awareness. M5 PT-IP Objective Assessments Start: 10/09/17 13:08 Freq: NEEDED Status: Active Protocol: Document 10/09/17 13:08 AB (Rec: 10/09/17 13:18 AB [id number]) Orientation Orientation/Cognition Level of Alertness Lethargic Safety Awareness Decreased Safety Awareness Gross Range of Motion Lower Extremity ROM Assessment Within Functional Limits Strength Lower Extremity Strength Assessment Bilaterally Impaired Hip 3-/5 Knee 3-/5 M6 PT-IP Treatment Start: 10/09/17 13:08 Freq: NEEDED Status: Active Protocol: Document 10/20/17 09:00 CLB (Rec: 10/20/17 11:17 CLB [id number]) Physical Therapy Treatment Exercises Exercises Ankle Pumps Quad Sets Seated Knee Flexion/Extension M7 PT-IP Assessment and Plan Start: 10/09/17 13:08 Freq: NEEDED Status: Active Protocol: Document 10/20/17 11:18 CLB (Rec: 10/20/17 11:22 CLB [id number]) PT Summary Assessment and Plan Summary Assessment Summary Pt continues increased activity tolerance. Pt ambulated with assist of lines by RIPSAW OPERATOR. Pt was left with RIPSAW OPERATOR standing at sink for bath. Treatment Plan Other Recommendations and Next Treatment Increase activity tolerance, Focus stairs before d/c if going home, strengthening Recommendations To Nursing Amount of Assist Needed 1 Person Assist Discharge Recommendations PT Discharge Recommendations SNF Rehab Other Discharge Recommendations SNF vs Home/w assist and HH Equipment Needed for Home Before may need walker for home use. Discharge Pt states he has one at home or that he can use his wifes fathers walker.
--- NOTE | 2017-10-20 14:01 | P.PN_ITS ---
Subjective Date Patient Seen: 10/20/17 Time Patient Seen: 13:55 Interval history: Denies pain. No chest pain or shortness of breath. Appetite is slowly improving. He is tolerating his meals without significant difficulty although he still is not consuming most of the food brought to him. No dysuria or hematuria. He feels stronger and is ambulating more frequently. Denies any subjective fever or chills. Exam Vital Signs (past 8 hours): - 10/20/17 08:08 10/20/17 08:59 10/20/17 09:06 Temperature 97.9 F Pulse Rate 85 87 87 Respiratory Rate 16 14 14 Blood Pressure 141/77 H Pulse Oximetry 99 97 97 10/20/17 09:47 Temperature Pulse Rate Respiratory Rate Blood Pressure Pulse Oximetry 97 Fraction of Inspired Oxygen 21 Oxygen Delivery Method Room Air Oxygen Flow Rate 0 Narrative Exam Narrative: Patient resting comfortably in bed in no acute distress. He appears in much better spirits. is at bedside. Patient is alert oriented x3 Sclera nonicteric Chest clear auscultation bilaterally with regular rate and rhythm Abdomen is soft, nondistended, nontender, no masses. Wound VAC remains in place holding suction. Ileostomy is pink and viable with approximately 1 L of output over the last 24 hr. Stool is now somewhat thicker and more formed but remains liquid in nature. Wound VAC output is serous only. Extremities show no clubbing, cyanosis, or edema Objective Labs Result Diagrams: 10/20/17 04:43 10/20/17 04:43 Labs: Laboratory Results - last 24 hr 10/20/17 10/20/17 10/20/17 04:43 04:43 04:43 WBC 11.9 H RBC 3.57 L Hgb 10.2 L Hct 30.6 L MCV 85.7 MCH 28.6 MCHC 33.4 RDW 14.1 Plt Count 772 H Neut % (Auto) 67.4 Lymph % (Auto) 16.4 L [place] % (Auto) 11.7 Eos % (Auto) 3.7 Baso % (Auto) 0.8 Neut # (Auto) 8000 H RBC Morphology Not Reportable Hypochromasia 1+ H Sodium 134 L Potassium 4.8 Chloride 102 Carbon Dioxide 24 BUN 19 Creatinine 0.90 Estimated GFR > 60.0 BUN/Creatinine Ratio 21.1 Glucose 141 H Calcium 8.3 L Phosphorus 4.8 H Magnesium 2.3 Total Bilirubin 0.5 AST 31 ALT 31 Alkaline Phosphatase 270 H Total Protein 7.0 Albumin 3.2 L Globulin 3.8 Albumin/Globulin Ratio 0.8 L Carcinoembryonic Ag 1.3 White blood cell count is normalizing nicely. CEA is in normal limits given his finding of colon cancer on final pathology. Electrolytes and renal function are unremarkable. Liver function tests are slowly correcting. Glucose remains controlled. Assessment & Plan Plan: Assessment/Plan Narrative: 61-year-old male who continues to recover after significant critical illness postoperative day 20 from emergent colon resection. We will stop the TPN today as well as IV fluids. Measure his oral intake, especially to monitor for adequate hydration and calorie intake. Ambulate with physical therapy as above. Continue wound VAC. We will plan dressing change 2 days from now hopefully with his home unit that is still to be shipped from the sports medicine coordinator. If he tolerates the wound VAC change well and is ingesting adequate oral nutrition that he could potentially be discharged home around October if discharge arrangements are in place. Tentatively would plan follow-[facility] weekly [facility] with the enterostomal therapist and her wound care staff. He could continue outpatient physical therapy as well. Patient and family are quite motivated for such. All questions were answered to their satisfaction, and he voiced understanding. We will proceed as above. Quality VTE Deep Vein Thrombosis/Pulmonary Embolism Present on Admission: No
--- NOTE | 2017-10-20 14:40 | OT.IPRE ---
Current Diagnoses Anemia, unspecified (09/29/17) Unspecified intestinal obstruction, unspecified as to partial versus complete obstruction (09/29/17) Surgery Performed Operation Date: 09/30/17 15:15 Actual Procedures p Exploratory Lap/Colon Resection/COLOSTOMY - Roger Fiore MD Operation Date: 10/04/17 09:00 <No data on this case meets the specified criteria> Operation Date: 10/04/17 09:00 Actual Procedures p lapartomy, peritoneal lavage, ostomy takedown, diverting loop ileostomy, abdominal wound vaccum (Left) - Roger Fiore MD Past Medical History (Last Reviewed 10/03/17 @ 08:42 by Melonie Jones, RT) Asthma (Acute) Diverticulitis (Acute) Personal history of colonic polyps (Acute) Surgical History (Last Reviewed 09/29/17 @ 09:42 by Roger Fiore MD) History of cholecystectomy (Acute) History of colonoscopy (Acute) History of umbilical hernia repair (Acute) Status post cholecystectomy Occupational Therapy Inpatient Evaluation/Re-Eval M1 PT/OT-IP Prior Functional Status Start: 10/09/17 13:08 Freq: NEEDED Status: Active Protocol: Document 10/09/17 17:34 AB (Rec: 10/09/17 17:37 AB [id number]) Medical Review Prior Functional Status Medical History Reviewed Yes Communication inconsistent with verbalization and answering questions Mobility and Gait unable to get PLOF at this time; clarified pt's PLOF with spouse this afternoon. spouse stated that pt is independent with all mobilities and ambulation without AD. Social History Household Members spouse Living Arrangements House Number of Stairs To Enter/Railing? 4 steps to enter without rails Home Environment Standard Height Toilet Tub/Shower Home Equipment Front Wheel Walker Straight Cane Additional Social History Comment spouse stated that she has MS and will be able to assist pt but limited. stated that they have suctioned hand rail in the tub shower. M1 PT/OT-IP Prior Functional Status Start: 10/09/17 16:42 Freq: NEEDED Status: Active Protocol: Document 10/20/17 14:25 [facility] (Rec: 10/20/17 14:39 [facility] [id number]) Medical Review Prior Functional Status Medical History Reviewed Yes Communication ind Mobility and Gait independent no devices prior Activities of Daily Living and IADL's ind Social History Household Members spouse Living Arrangements House Number of Floors (Floors) One Floor Number of Stairs To Enter/Railing? 2 steps and freezer on the left, to have rails installed. Home Environment Standard Height Toilet Walk in Shower Home Equipment Front Wheel Walker Straight Cane M2 OT-IP Current Condition Start: 10/09/17 16:42 Freq: Status: Active Protocol: Document 10/20/17 14:25 [facility] (Rec: 10/20/17 14:39 [facility] [id number]) Occupational Therapy Current Condition Current Condition Evaluation Date 10/20/17 Treatment Diagnosis Abdominal pain,weakness Diagnosis Onset Date 09/29/17 Post Operative Precautions Abdominal Surgery Precautions Log Roll Lifting Restrictions Gait Belt above Incisional Area Other Precautions falls M3 OT- IP Subjective and Pain Start: 10/09/17 16:42 Freq: Status: Active Protocol: Document 10/20/17 14:25 [facility] (Rec: 10/20/17 14:39 [facility] [id number]) OT- Subjective Occupational Therapy Visit Type Type Re-Evaluation Visit Start Time 13:30 Visit Stop Time 14:20 Total Visit Minutes 50 Notes Pt doing much better with mobility and functions and now looking to go home, therefore OT to reassess. Occupational Therapy Visit Comments Patient/Caregiver Goals Pt now wanting to go home. Document 10/20/17 14:25 [facility] (Rec: 10/20/17 14:39 [facility] [id number]) Cognitive Factors Limiting Selfcare Function Cognitive Ability Level of Alertness Alert Patient Orientation Name Place Situation Attention Span Ability Capable of Focused Attention Capable of Sustained Attention Ability to Follow Commands Able to Follow One Step Commands Memory Description Short Term Impaired Safety Awareness Underestimates Need for Assistance Problem Solving Ability Needs Assist to Identify Solutions Executive Function Ability Unable to Filter Distractions Unable to Remember Details Cognitive Comments Cognitive Assessment Comments Pt a bit impulsive at times and forgetting safety awareness to lock brakes of 4WW, however new skill of 4ww just educated on today. OT- Vision and Hearing OT- Hearing Assessment OT- Hearing Assessment WFL M7 OT- IP Mobility and Balance Start: 10/09/17 16:42 Freq: Status: Active Protocol: Document 10/20/17 14:25 [facility] (Rec: 10/20/17 14:39 [facility] [id number]) OT- Bed Mobility Assessment Rolling Type of Rolling Roll to Left Supine to Sit Supine to Sit Assist Contact Guard Assistance OT-Transfer Assessment Sit to and From Stand Sit to and from Stand Standby Assistance Contact Guard Assistance Transfers Transfer Ability Standby Assistance Contact Guard Assistance Technique Transfer Destination Chair Transfer Technique Stand Step Pivot Devices Transfer Assistive Devices Gait Belt Front Wheeled Walker 4 Wheeled Walker Comments Mobility Comments Pt able to use 4WW well , just educated on gait belt placement and to hold on especially for uneven surfaces . Pt normally wears slippers or shoes. OT- Balance Assessment Sitting Balance and Reactions Static Sitting Balance Ability Normal Dynamic Sitting Balance Ability Normal Standing Balance and Reactions Static Standing Balance Ability Good Dynamic Standing Balance Ability Fair M8 OT- IP Objective Assessments Start: 10/09/17 16:42 Freq: Status: Active Protocol: Document 10/10/17 11:20 [facility] (Rec: 10/10/17 11:32 [facility] [email or web address]) Protocol: Document 10/20/17 14:25 [facility] (Rec: 10/20/17 14:39 [facility] [email or web address]) OT Summary Assessment and Plan Potential Rehabilitation Potential Good Analytic Complexity at Evaluation Low Summary OT Impairments Pain Balance Functional Cognition Functional Mobility Dressing Toileting Bathing Shower Transfers Progress Towards Goals Progressing Toward Goals Slow Progress due to Cognition Assessment Summary Pt doing much better and now looking to go home with . Pt's to get HHSP, shower chair, 4WW, rails for steps prior to going home. Pt's now initiating family training. Pt's states able to assist for all ADl's at home. Goals Dressing Goal Standby Assistance Toileting Goal Standby Assistance Toilet Transfer Goal Contact Guard Assistance Patient/Caregiver Education Goal Caregiver Independent Assisting Patient Days to Meet Goals 3 Frequency of Treatment Frequency Of Treatment Once a Day Treatment Plan OT Treatment Plan ADL Training Functional Cognition Training Functional Mobility Patient/Family Education Discharge Planning Other Treatment Recommendations and Next Continue family training with Treatment Focus . Discharge Recommendations OT Discharge Recommendations Home with 24/7 Assist SNF Rehab Outpatient PT Home Equipment Needs HHSP, shower chair, 4ww, rails for steps.
--- NOTE | 2017-10-20 15:25 | PT.IPTN ---
Current Diagnoses Anemia, unspecified (09/29/17) Unspecified intestinal obstruction, unspecified as to partial versus complete obstruction (09/29/17) Surgery Performed Operation Date: 09/30/17 15:15 Actual Procedures p Exploratory Lap/Colon Resection/COLOSTOMY - Roger Fiore MD Operation Date: 10/04/17 09:00 <No data on this case meets the specified criteria> Operation Date: 10/04/17 09:00 Actual Procedures p lapartomy, peritoneal lavage, ostomy takedown, diverting loop ileostomy, abdominal wound vaccum (Left) - Roger Fiore MD Physical Therapy Treatment Note M2 PT-IP Current Condition Start: 10/09/17 13:08 Freq: NEEDED Status: Active Protocol: Document 10/09/17 13:08 AB (Rec: 10/09/17 13:18 AB [id number]) Physical Therapy Current Condition Current Condition Evaluation Date 10/09/17 Treatment Diagnosis bowel obstruction s/p laprotomy; generalized weakness Onset Date 09/29/17 Precautions Abdominal Surgery Precautions Log Roll Lifting Restrictions Gait Belt above Incisional Area Other Precautions falls M3 PT-IP Subjective Start: 10/09/17 13:08 Freq: NEEDED Status: Active Protocol: Document 10/20/17 13:20 [facility] (Rec: 10/20/17 15:24 [facility] [id number]) Subjective Physical Therapy Visit Type Type Treatment Note Visit Start Time 13:20 Visit Stop Time 14:00 Total Visit Minutes 40 Number of WINDOWS APPLICATION ADMINISTRATOR Visits 4 Physical Therapy Visit Comments Patient Comments Pt willing to ambulate and trial stairs. present for CG training. M4 PT-IP Mobility and Gait Start: 10/09/17 13:08 Freq: NEEDED Status: Active Protocol: Document 10/20/17 13:20 [facility] (Rec: 10/20/17 15:24 [facility] [id number]) PT-Bed Mobility Assessment Rolling Type of Rolling Roll to Left Level of Assist Standby Assistance Supine to Sit Supine to Sit Contact Guard Assistance Scooting Scooting to Edge of Bed Standby Assistance PT-Transfer Assessment Sit to and From Stand Sit to and from Stand Standby Assistance Use of Upper Extremities Transfers Transfer Destination Chair Transfer Technique Stand Step Pivot Transfer Ability Level of Assist Standby Assistance 1 Person Assistance Comments Mobility Comments Pt needing less assist supine- sit Gait Assessment Gait Gait Assistance Required: Standby Assistance Contact Guard Assist 1 Person Assist Distance (Feet) (feet) 300 Assistive Devices Assistive Device Gait Belt 4 Wheeled Walker Gait Deviations General Gait Pattern Decreased Stride Length Decreased Feet Clearance Narrow Based Gait Factors Limiting Gait Function Factors Limiting Gait Function Decreased Activity Tolerance Decreased Strength Comments Gait Comments Pt trialed 4WW successfully needing cues for brake use. Pt able to increase gait distance with 4WW. Stair Climbing Assessment Evaluation Level of Assist On Stairs Contact Guard Assistance 1 Person Assistance Devices Stair Climbing Assistive Devices Small Base Quad Cane Left Railing Technique/Endurance Stair Climbing Direction Ascend and Descend Stair Climbing Technique Step to Step Number of Steps Climbed 3 Query Text: Stair Climbing Set # Repetitions (reps) 1 Comments Stair Climbing Comments Once pt reached top of third stair pt was pale and clammy. Pt returned down steps and seated in wheel chair. Pt recovered quickly once seated. BP taken once back in room seated BP 144/82. Recommend stairs be trialed again before d/c. M5 PT-IP Objective Assessments Start: 10/09/17 13:08 Freq: NEEDED Status: Active Protocol: Document 10/09/17 13:08 AB (Rec: 10/09/17 13:18 AB [id number]) Orientation Orientation/Cognition Level of Alertness Lethargic Safety Awareness Decreased Safety Awareness Gross Range of Motion Lower Extremity ROM Assessment Within Functional Limits Strength Lower Extremity Strength Assessment Bilaterally Impaired Hip 3-/5 Knee 3-/5 M6 PT-IP Treatment Start: 10/09/17 13:08 Freq: NEEDED Status: Active Protocol: Document 10/20/17 09:00 [facility] (Rec: 10/20/17 11:17 [facility] [id number]) Physical Therapy Treatment Exercises Exercises Ankle Pumps Quad Sets Seated Knee Flexion/Extension M7 PT-IP Assessment and Plan Start: 10/09/17 13:08 Freq: NEEDED Status: Active Protocol: Document 10/20/17 13:20 [facility] (Rec: 10/20/17 15:24 [facility] [id number]) PT Summary Assessment and Plan Summary Progress Towards Goals Progressing Toward Goals Assessment Summary Pt progressing towards goals. Ambulates safely with 4WW, continues to need second assist for lines. Goals Bed Mobility Goal Minimal Assistance Transfer Goal Minimal Assistance Front Wheeled Walker Gait Goal Minimal Assistance Front Wheel Walker Gait Distance 50 Days to Meet Goals 5 Frequency of Treatment Frequency Of Treatment Twice a Day Treatment Plan Other Recommendations and Next Treatment Increase activity tolerance, Focus bed mobility, CG training on stairs. Recommendations To Nursing Amount of Assist Needed 1 Person Assist Discharge Recommendations PT Discharge Recommendations SNF Rehab Other Discharge Recommendations SNF vs Home/w assist and HH Equipment Needed for Home Before 4WW Discharge
[2017-10-20] MEDS: ENOXAPARIN 40 MG/0.4 ML SYRINGE SUBCUT (15:51)
--- NOTE | 2017-10-20 16:04 | CM.DPC ---
DCP/continued: Reviewed chart. Patient currently LOS day# 21. MEDIA REPORTER spoke with Dr. Fiore re: d/c plan. Per Dr. Fiore, TPN is beginning to be weaned today. Dr. Fiore requesting that home wound vac be placed prior to patient's discharge. MEDIA REPORTER called Gracie José # [phone] she is working with [facility] to get authorization for wound vac. At this time she anticipates that she will have home wound vac to place by 10-22-17. Dr. Fiore aware and current plan is for home wound vac to be placed prior to d/c. Met with patient and spouse. Both in agreement that they would like patient home when medically stable. Gracie José at [facility] will see patient as outpatient and manage wound vac. Patient has appointment as outpatient with Gracie on 10-26 in AM (exact time TBD). Patient will also need physical therapy at time of d/c. Patient and spouse in agreement to come to [facility] for outpatient therapy. MEDIA REPORTER called outpatient therapy and first consult/appointment scheduled for Thursday at 1:00pm with Ady. P: If medically stable and wound vac placed, d/c anticipated for 10-22-17. Patient and spouse in agreement to plan. They are also both aware that plan can change pending patient's progress. CLAU Desai
[2017-10-20] MEDS: OXYCODONE IR 5 MG TABLET PO (23:23)
[2017-10-21] VITALS (9 sets, daily range): BP systolic 119–136; BP diastolic 73–77; PULSE 73–94; RESP 16–20; TEMP 35.9–37; O2SAT 95–99
[2017-10-21] MEDS: HYDROMORPHONE 2 MG INJ 1 MG IV ×3 (01:38→06:49)
[2017-10-21] MEDS: OXYCODONE IR 5 MG TABLET PO ×4 (04:07→18:06)
[2017-10-21] MEDS: PANTOPRAZOLE 20 MG TABLET PO (06:01)
[2017-10-21] MEDS: FLUTICASONE/SALMETEROL 250/50 14 PUFF DISKUS INH ×2 (06:02→17:54)
--- NOTE | 2017-10-21 08:48 | CM.DPC ---
DCP/continued: Reviewed chart. Spoke with Dr. Fiore this AM. He is aware that outpatient wound care appointment and outpatient therapy scheduled on 09-[address] [facility] (outpatient medical building). It is anticipated that patient will be medically stable for discharge tomorrow -. Met with patient to confirm plan. Patient alert, oriented, and very agreeable to plan. Spouse expected here later this AM and ASSOCIATE PROFESSOR OF PHILOSOPHY hopeful that therapy team will be doing some teaching today. RN updated. P: Home when medically stable with outpatient services arranged at wound care center ([facility]) ph# [phone] and therapy at [facility] facility. Both scheduled to begin on Thursday October 26, 2017. CLAU Desai
--- NOTE | 2017-10-21 09:02 | PM.PN.1 ---
Subjective Date Patient Seen: 10/21/17 Time Patient Seen: 09:02 Interval history: Patient lying comfortably in bed in no acute distress with no complaints today. He is quite animated in excited about the possibility of going home. He denies any pain. No nausea or vomiting. His appetite is improving and he is tolerating his regular diet. Ambulating with assistance. No dysuria hematuria. Denies any chest pain or shortness of breath. There was a small leak in the wound VAC last night but this has since been corrected with the addition of Tegaderm. Exam Vital Signs (past 8 hours): - 10/21/17 06:03 10/21/17 07:00 Pulse Rate 85 Respiratory Rate 16 Pulse Oximetry 96 97 Fraction of Inspired Oxygen 21 Oxygen Delivery Method Room Air Oxygen Flow Rate 0 Narrative Exam Narrative: Chest clear to auscultation bilaterally with regular rate and rhythm. No crackles or wheezes. Abdomen is soft and nondistended. He is minimally tender to palpation. Wound VAC is in place and holding suction currently. Canisters collecting serous fluid only. Ileostomy is pink and viable with bilious effluent in the appliance. Small amount of flatus as well. Extremities show no clubbing, cyanosis, or edema Objective Labs Result Diagrams: 10/20/17 04:43 10/20/17 04:43 Labs: No new laboratory radiographic studies for review Assessment & Plan Plan: Assessment/Plan Narrative: 61-year-old male now postoperative day 21 from initial exploratory laparotomy with left colectomy for complete colonic obstruction and a subsequent extensive recovery complicated by open abdominal wound, sepsis, and critical illness from which he is slowly recovering. At this point he is doing amazingly well. His oral intake a nutrition appear to be adequate at this time. Bowel function is as anticipated for ileostomy. We will plan to change the wound VAC tomorrow and apply the home unit that has been ordered. If he continues to do well he may be discharged home with follow-up in [facility] and outpatient physical therapy as per discharge coordinating efforts. I discussed all the above with the patient at length. All questions were answered to his satisfaction, and he voiced understanding. He was agreeable to the plan. Quality VTE Deep Vein Thrombosis/Pulmonary Embolism Present on Admission: No
--- NOTE | 2017-10-21 09:35 | OT.IP.TRT ---
Current Diagnoses Anemia, unspecified (09/29/17) Unspecified intestinal obstruction, unspecified as to partial versus complete obstruction (09/29/17) Surgery Performed Operation Date: 09/30/17 15:15 Actual Procedures p Exploratory Lap/Colon Resection/COLOSTOMY - Roger Fiore MD Operation Date: 10/04/17 09:00 <No data on this case meets the specified criteria> Operation Date: 10/04/17 09:00 Actual Procedures p lapartomy, peritoneal lavage, ostomy takedown, diverting loop ileostomy, abdominal wound vaccum (Left) - Roger Fiore MD Occupational Therapy Treatment Note M2 OT-IP Current Condition Start: 10/09/17 16:42 Freq: Status: Active Protocol: Document 10/20/17 14:25 [facility] (Rec: 10/20/17 14:39 [facility] [email or web address]) Occupational Therapy Current Condition Current Condition Evaluation Date 10/20/17 Treatment Diagnosis Abdominal pain,weakness Diagnosis Onset Date 09/29/17 Post Operative Precautions Abdominal Surgery Precautions Log Roll Lifting Restrictions Gait Belt above Incisional Area Other Precautions falls M3 OT- IP Subjective and Pain Start: 10/09/17 16:42 Freq: Status: Active Protocol: Document 10/21/17 09:22 [facility] (Rec: 10/21/17 09:35 [facility] [email or web address]) OT- Subjective Occupational Therapy Visit Type Type Treatment Note Visit Start Time 08:55 Visit Stop Time 09:15 Total Visit Minutes 20 Occupational Therapy Visit Comments Patient Comments Pt states not wanting to get to to do any grooming at the sink as having back spasms. OT Pain Assessment Pain When Pain Assessed At Rest Pain Present Pain Present Pain Reported Location Abdomen Intensity 8 Scale Used Numeric (1 - 10) Description Spasm Pain Behaviors Wincing Management Techniques Timing of Activity with Medications M4 OT- IP ADL's Start: 10/09/17 16:42 Freq: Status: Active Protocol: Document 10/21/17 09:22 [facility] (Rec: 10/21/17 09:35 [facility] [email or web address]) OT CIB-Dhjv-[id number] General Evaluation Self-Feeding Ability Independent OT ADL-Grooming Comments OT Grooming Comments Pt given wash cloth to jens his hands and face prior to eating. M6 OT- IP Functional Cognition Start: 10/09/17 16:42 Freq: Status: Active Protocol: Document 10/21/17 09:22 [facility] (Rec: 10/21/17 09:35 [facility] [id number]) Cognitive Factors Limiting Selfcare Function Cognitive Ability Level of Alertness Alert Patient Orientation Name Place Situation Attention Span Ability Capable of Focused Attention Capable of Sustained Attention Ability to Follow Commands Able to Follow One Step Commands Memory Description Short Term Intact Safety Awareness Underestimates Need for Assistance Problem Solving Ability Needs Assist to Identify Solutions Executive Function Ability Unable to Remember Details Cognitive Tests SLUMS Pt scored 16/30 on the which implies cognitive deficits and main areas of difficulty short term memory, math skills of adding two digits, and how to draw a clock. Cognitive Comments Cognitive Assessment Comments Pt resistive to the idea of having CMS EXPERT for outpt to continue to work on cognitive needs and just would like to focus on PT and would care needs. Pt attributes cognitive issues to not doing well on test, just waking up and not been able to sleep well at the hospital. M7 OT- IP Mobility and Balance Start: 10/09/17 16:42 Freq: Status: Active Protocol: Document 10/21/17 09:22 [facility] (Rec: 10/21/17 09:35 [facility] [email or web address]) OT- Bed Mobility Assessment Rolling Type of Rolling Roll to Right Supine to Sit Supine to Sit Assist Standby Assistance OT-Transfer Assessment Sit to and From Stand Sit to and from Stand Standby Assistance Transfers Transfer Ability Standby Assistance Technique Transfer Destination Chair Transfer Technique Stand Step Pivot Devices Transfer Assistive Devices Gait Belt Front Wheeled Walker 4 Wheeled Walker Comments Mobility Comments Pt good safety awareness for 4WW use and hand placement from sit to stand and stand to sit. OT- Balance Assessment Sitting Balance and Reactions Static Sitting Balance Ability Normal Dynamic Sitting Balance Ability Normal Standing Balance and Reactions Static Standing Balance Ability Good Dynamic Standing Balance Ability Fair M8 OT- IP Objective Assessments Start: 10/09/17 16:42 Freq: Status: Active Protocol: Document 10/10/17 11:20 [facility] (Rec: 10/10/17 11:32 [facility] [email or web address]) OT Strength Upper Extremity Strength Assessment Bilaterally Impaired Hand Assistant Teaching Professor Strength Hand Dominance Right Comments Strength Comments Decreased AROM throughout due to weakness, not able to put on glasses or raise arms up to place pillow underneath him. Noted left hand swollen comp[ ared to right hand. OT- Coordination Assessment Upper Extremity Finger to Nose Test Bilateral UE Impaired Finger Tapping Test Bilateral UE Impaired OT-Muscle Tone Assessment Muscle Tone WNL Yes M9 OT- IP Assessment and Plan Start: 10/09/17 16:42 Freq: Status: Active Protocol: Document 10/21/17 09:22 [facility] (Rec: 10/21/17 09:35 [facility] [id number]) OT Summary Assessment and Plan Potential Rehabilitation Potential Good Analytic Complexity at Evaluation Low Summary Progress Towards Goals Progressing Toward Goals Slow Progress due to Medical Issues Slow Progress due to Cognition Assessment Summary Pt aware not thinking well but at states will assist pt for all needs at home. Goals Days to Meet Goals 2 Frequency of Treatment Frequency Of Treatment Once a Day Treatment Plan OT Treatment Plan ADL Training Functional Cognition Training Functional Mobility Patient/Family Education Discharge Planning Other Treatment Recommendations and Next Continue family training with Treatment Focus . Discharge Recommendations OT Discharge Recommendations Home with 01/09 Assist Outpatient PT Home Equipment Needs HHSP, shower chair, 4ww, rails for steps.
--- NOTE | 2017-10-21 10:21 | PC.NURSE ---
Am shift, Wound vac noted with leak alarm, that stops therapy all together. Trouble shooting, reinforced all Clear dressing to wound, Pt reports back pain from being in bed, no other changes to discomfort to ABD post op. At recheck, alarm has cleared on wound vac. Will keep monitoring.
--- NOTE | 2017-10-21 11:47 | DIET.PN ---
Eating 25-75% meals per records and observation. States the Ensure surgery shake isn't my favorite. States may like it as a banana milkshake. Will try Ensure surgery banana milkshake. Continue to encourage PO nutrition. Per pt, plans to DC home by Thursday.
[2017-10-21] MEDS: ASPIRIN 325 MG TABLET PO (12:08)
[2017-10-21] MEDS: ENOXAPARIN 40 MG/0.4 ML SYRINGE SUBCUT (14:22)
--- NOTE | 2017-10-21 15:34 | CM.DPNOTE ---
DCP Home Wound Vac Placement SW received a call from Gracie Wound RN from [facility], stating she did get approval for wound vac auth and has the home wound vac and plans to meet bedside with pt and Dr. Fiore tomorrow (10/22/17) at [address] wound vac. CLAU Bone
--- NOTE | 2017-10-21 15:45 | PT.IPTN ---
Current Diagnoses Anemia, unspecified (09/29/17) Unspecified intestinal obstruction, unspecified as to partial versus complete obstruction (09/29/17) Surgery Performed Operation Date: 09/30/17 15:15 Actual Procedures p Exploratory Lap/Colon Resection/COLOSTOMY - Roger Fiore MD Operation Date: 10/04/17 09:00 <No data on this case meets the specified criteria> Operation Date: 10/04/17 09:00 Actual Procedures p lapartomy, peritoneal lavage, ostomy takedown, diverting loop ileostomy, abdominal wound vaccum (Left) - Roger Fiore MD Physical Therapy Treatment Note M2 PT-IP Current Condition Start: 10/09/17 13:08 Freq: NEEDED Status: Active Protocol: Document 10/09/17 13:08 AB (Rec: 10/09/17 13:18 AB [id number]) Physical Therapy Current Condition Current Condition Evaluation Date 10/09/17 Treatment Diagnosis bowel obstruction s/p laprotomy; generalized weakness Onset Date 09/29/17 Precautions Abdominal Surgery Precautions Log Roll Lifting Restrictions Gait Belt above Incisional Area Other Precautions falls M3 PT-IP Subjective Start: 10/09/17 13:08 Freq: NEEDED Status: Active Protocol: Document 10/21/17 15:45 GGD (Rec: 10/21/17 16:54 GGD [id number]) Subjective Physical Therapy Visit Type Type Treatment Note Visit Start Time 15:20 Visit Stop Time 15:45 Total Visit Minutes 25 Number of MICROECONOMICS PROFESSOR Visits 5 Physical Therapy Visit Comments Patient Comments Pt states he wants to walk, but not do the stairs. M4 PT-IP Mobility and Gait Start: 10/09/17 13:08 Freq: NEEDED Status: Active Protocol: Document 10/21/17 15:45 GGD (Rec: 10/21/17 16:54 GGD [id number]) PT-Bed Mobility Assessment Rolling Type of Rolling Roll to Right Level of Assist Standby Assistance Supine to Sit Supine to Sit Contact Guard Assistance Bedrails Scooting Scooting to Edge of Bed Standby Assistance PT-Transfer Assessment Sit to and From Stand Sit to and from Stand Standby Assistance Use of Upper Extremities Equipment Transfer Assistive Device Gait Belt 4 Wheeled Walker Transfers Transfer Destination Chair Transfer Ability Level of Assist Standby Assistance 1 Person Assistance Comments Mobility Comments Pt safe use of 4WW and brakes for transfers. Pt in chair with alarm on. Gait Assessment Gait Gait Assistance Required: Standby Assistance Contact Guard Assist 1 Person Assist Distance (Feet) (feet) 260 Assistive Devices Assistive Device Gait Belt 4 Wheeled Walker Gait Deviations General Gait Pattern Decreased Stride Length Decreased Feet Clearance Narrow Based Gait Factors Limiting Gait Function Factors Limiting Gait Function Decreased Activity Tolerance Decreased Strength M5 PT-IP Objective Assessments Start: 10/09/17 13:08 Freq: NEEDED Status: Active Protocol: Document 10/09/17 13:08 AB (Rec: 10/09/17 13:18 AB [id number]) Orientation Orientation/Cognition Level of Alertness Lethargic Safety Awareness Decreased Safety Awareness Gross Range of Motion Lower Extremity ROM Assessment Within Functional Limits Strength Lower Extremity Strength Assessment Bilaterally Impaired Hip 3-/5 Knee 3-/5 M6 PT-IP Treatment Start: 10/09/17 13:08 Freq: NEEDED Status: Active Protocol: Document 10/20/17 09:00 CLB (Rec: 10/20/17 11:17 CLB [id number]) Physical Therapy Treatment Exercises Exercises Ankle Pumps Quad Sets Seated Knee Flexion/Extension M7 PT-IP Assessment and Plan Start: 10/09/17 13:08 Freq: NEEDED Status: Active Protocol: Document 10/21/17 15:45 GGD (Rec: 10/21/17 16:54 GGD [id number]) PT Summary Assessment and Plan Summary Assessment Summary Pt improving slowly with mobility. He needs cues for log roll and bed mobility. He had no unsteadiness with gait and improving safety awareness . Frequency of Treatment Frequency Of Treatment Twice a Day Treatment Plan Other Recommendations and Next Treatment Increase activity tolerance, Focus bed mobility, CG training on stairs. Recommendations To Nursing Amount of Assist Needed 1 Person Assist Discharge Recommendations PT Discharge Recommendations Home with Assistance Outpatient PT Equipment Needed for Home Before 4WW Discharge
[2017-10-21] MEDS: CYCLOBENZAPRINE 5 MG TABLET PO (16:01)
[2017-10-22 00:20] VITALS: BP 133/76; PULSE 88; RESP 18; TEMP 36.5; O2SAT 95
[2017-10-22] MEDS: CYCLOBENZAPRINE 5 MG TABLET PO (00:43)
[2017-10-22] MEDS: PANTOPRAZOLE 20 MG TABLET PO (06:07)
[2017-10-22] MEDS: FLUTICASONE/SALMETEROL 250/50 14 PUFF DISKUS INH (07:19)
[2017-10-22 07:21] VITALS: PULSE 91; RESP 14; O2SAT 97
[2017-10-22 07:35] VITALS: BP 134/77; PULSE 90; RESP 16; TEMP 36.6; O2SAT 96
[2017-10-22] MEDS: OXYCODONE IR 5 MG TABLET PO ×2 (07:52→11:22)
[2017-10-22] MEDS: HYDROMORPHONE 2 MG INJ 1 MG IV (07:53)
--- NOTE | 2017-10-22 08:52 | PM.DS.1 ---
History of Present Illness Date Patient Seen: 10/22/17 Time Patient Seen: 08:53 Chief complaint: ABDOMINAL PAIN, BAD Narrative: 61-year-old male with 10 month history of intermittent left lower quadrant abdominal pain that has been radiating at times to the suprapubic area. Initial evaluation at the time of onset was consistent with diverticulitis for which he was treated with multiple courses of outpatient oral antibiotics. He subsequently followed up and consulted with the gastroenterology service at [facility] under the care of Dr. Morrissey. despite antibiotics the patient continued to have intermittent symptoms which never completely totally resolved. In May 2017 colonoscopy was attempted by the gastroenterology service, but the procedure was aborted due to acute inflammation per the operative note that is obtained, reviewed, and placed on the chart today. No other significant findings were noted. Since May of this year the patient has again completed a course of antibiotics as he is never been completely asymptomatic. However, in the last 24 hr the patient has noticed increase significant abdominal distention, dry heaving, abdominal pain diffusely, decreased flatus output, and lack of bowel function. He has also been anorexic over the last 48 hr with increasing left lower quadrant pain. His last bowel movement was approximately 2 days ago but he described as very small in volume and small in caliber. He has not had any fever, chills, nausea, dysuria, hematuria, melena, or bright red blood per rectum. At the time of my visit his pain has subsided significantly since receiving intravenous Dilaudid in the emergency department. Discharge Providers Date of admission: 09/29/17 03:51 Primary care physician: Selma Cronin MD Consults: 09/29/17 06:39 Consult to Respiratory Therapy Evaluate & Treat Comment: Physician Instructions: Evaluate and treat 10/08/17 17:46 Consult to Physical Therapy Evaluate & Treat Comment: Physician Instructions: Evaluate and Treat 10/08/17 17:47 Consult to Occupational Therapy Evaluate & Treat Comment: Physician Instructions: Evaluate and treat 10/13/17 10:36 Consult to Speech Therapy Evaluate & Treat Comment: possible dysphagia after intubation Physician Instructions: Evaluate and treat 10/15/17 08:28 Consult to Discharge Planning Routine Comment: evaluate for [facility] Wound care center Gracie José RN Discharge provider: Roger Fiore MD Summary Discharge Diagnosis: Asthma (Acute) Diverticulitis (Acute) Personal history of colonic polyps (Acute) History of cholecystectomy (Acute) History of colonoscopy (Acute) History of umbilical hernia repair (Acute) Status post cholecystectomy Complete sigmoid colon obstruction secondary to 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 requiring revision Septic shock Postoperative anemia requiring transfusion of 4 units packed red blood cells Open abdominal wound necessitating wound VAC device Exploratory laparotomy with partial left colectomy and formation of descending end colostomy Second look Exploratory laparotomy with peritoneal lavage, colostomy revision, and formation of loop ileostomy Right subclavian central venous triple-lumen catheter insertion PICC line insertion Severe protein calorie malnutrition, resolving Obstructive sleep apnea History of erectile dysfunction Class 1 obesity Hyperglycemia secondary to sepsis and total parental nutrition, resolved Prolonged postoperative ileus not unanticipated secondary to nature of disease and required surgery, resolved Respiratory failure secondary to septic shock, resolved Acute renal injury secondary to sepsis and hypovolemia, resolved Musculoskeletal spasm of the lower back secondary to prolonged immobility Thrombocytosis secondary to sepsis, resolved Hospital Course: Patient presented to the emergency department as above with progressive abdominal distention and pain over many months. The acute episode had progressed within the last week. Patient was not moving his bowels. He was passing a small amount of flatus. He had been tolerating minimal oral intake. Examination and evaluation were consistent with colonic obstruction. He was admitted for resuscitation and evaluation. He required surgical intervention as above approximately September 30, 2017. He was taken immediately to the intensive care unit for postoperative critical care given the nature of his disease and impending sepsis. He was maintained on ventilatory support as well as Marv-Synephrine vasopressor support to maintain adequate blood pressure. His CVP was targeted for 10-12 cm of water with fluid resuscitation and transfusion as needed. He also required titrating Marv-Synephrine drip in order to maintain mean arterial blood pressure of at least 60 mm of mercury. Wound VAC device had been placed because his abdomen could not be closed primarily due to significant fluid shifts and massive abdominal distention including colonic distention. He was returned to the operating room for second-look laparotomy as above on postoperative day 4. Descending colostomy placed at the initial operation was found to be fully necrotic below the fascia and required revision. Ileostomy was formed as an alternative. He now has in continuity of the left colon and rectal stump with bowel function via loop ileostomy. He was again returned to the ICU immediately afterward for ongoing resuscitation. Wound VAC device was changed periodically every several days at the bedside which the patient tolerated well. He did not require return to the operating room thereafter. Following ongoing resuscitation the patient eventually was weaned from the ventilator and successfully extubated. He was also taken off of vasopressor therapy successfully after were for resolution of his fluid shifts. Respiratory therapy, physical therapy, and occupational therapy were immediately consulted to facilitate his recovery. He suffered from significant severe protein calorie malnutrition and was placed on total parental nutrition throughout most of his hospitalization. Required central venous access for such as above. His appetite eventually recovered as his ileus resolved and he began to have ileostomy function. Dietary consultation was obtained and nutritional supplementation was instituted. His appetite eventually improved and he is actually tolerating adequate oral intake at this time to maintain hydration and nutritional status. Electrolytes are normal. Renal function return to normal as well after initial acute renal injury secondary to sepsis and hypovolemia. His sepsis eventually resolve with the above interventions as well as broad-spectrum antibiotics and antifungal therapy. Those medications were discontinued postoperative day 14. He had no further evidence of sepsis although he did have ongoing thrombocytosis. Thrombocytosis was managed with daily aspirin. Repeat CT scan of the abdomen and pelvis showed postoperative changes only with no obvious abscess or other abnormalities. He has otherwise remained afebrile and hemodynamically stable since his transfer from the ICU to the regular surgical unit. Ileostomy output is now approximately 1 L to 1.5 L per day. His oral intake is adequate to maintain hydration as above. His Portillo catheter was eventually removed and he had spontaneous return of normal bladder function. He continues to ambulate with a walker and his strength is returning. His wound VAC devices changed at the day of discharge with the assistance of the wound care center nurse and enterostomal therapist. His ileostomy is pink and viable and otherwise functioning well. Wound is granulating and slowly beth. We will continue the wound VAC with outpatient follow-up. We initially had planned to discharge the patient to a long-term facility but he was opposed to such. Therefore with significant education of the patient, patient's , and patient's family along with arrangement of the above interventions he is discharged home under his own care and assistance as above. At this point he appears to be able to function safely in his home environment. He has been cleared by physical therapy as well. He is stable on room air and having no issues with his baseline asthma. Surgical Services will continue to follow him as an outpatient in conjunction with the wound care center. He will receive outpatient physical therapy as well. He may require split-thickness skin graft coverage of the wound at some point if it does not completely contract. At some stage she will require rastafari of colon continuity between the residual colon and rectal stump along with complex closure of his abdominal wall. I suspect this may require consultation with the surgical services at a tertiary center where plastic surgery services are also available. Patient is therefore discharged home as above on postoperative day 22. He and his understand call or return sooner if have any issues with the wound VAC device, fever, chills, nausea, vomiting, inability to tolerate a diet, unusual wound drainage, or any other concerns. Status at Discharge Cognitive/behavioral status at discharge: Alert oriented x3 Functional status at discharge: uses cane/walker Overall status at discharge: patient is progressing back to baseline Time Spent with Patient Greater than 30 minutes Exam Vital Signs (past 8 hours): - 10/22/17 07:21 10/22/17 07:35 Temperature 97.8 F Pulse Rate 91 H 90 Respiratory Rate 14 16 Blood Pressure 134/77 Pulse Oximetry 97 96 Fraction of Inspired Oxygen 21 Oxygen Delivery Method Room Air Oxygen Flow Rate 0 Narrative Exam Narrative: Lying comfortably in bed in no acute distress. Alert oriented x3. is at the bedside. Sclera nonicteric Neck is supple without lymphadenopathy or masses Chest is clear to auscultation bilaterally without crackles or wheezes. Regular rate and rhythm. No murmurs. Abdomen is soft and nondistended. Open wound remains stable with no significant drainage. Wound VAC is collecting serous fluid only. No purulent fluid. Wound bed is granulating nicely including the old left lower quadrant colostomy site. He is appropriately tender to palpation without guarding or rebound. Ileostomy is pink and viable with normal effluent in the appliance. Wound VAC is replaced on the day of discharge and holding suction nicely. Extremities show no clubbing, cyanosis, or edema Patient moves all extremities normally. Objective Labs Result Diagrams: 10/20/17 04:43 10/20/17 04:43 Labs: No recent laboratory radiographic studies review. Again his CT scan of the abdomen and pelvis done on October 19 2017 shows no evidence of any recurrent abscess or other infectious source. Postoperative inflammatory changes only are noted. No obstruction. No free air. Discharge Plan Discharge Plan Patient Disposition: Home Discharge Med Rec/Prescriptions Prescriptions: New acetaminophen 325 mg Tablet 650 mg PO Q6HR PRN (Reason: As Needed For Fever/Mild Pain) Qty: 30 RF: 1 aspirin 325 mg Tablet 325 mg PO DAILY Qty: 30 RF: 0 cyclobenzaprine 5 mg Tablet 5 mg PO Q8HR PRN (Reason: Spasms) Qty: 30 RF: 0 oxycodone 5 mg Tablet 5 mg PO Q3HR PRN (Reason: Pain, Moderate (4-6)) Qty: 40 RF: 0 Continue albuterol sulfate [Ventolin HFA] 90 MCG/PUFF HFA aerosol inhaler 2 - 4 puff INH Q4HP PRNQty: 1 RF: 2 fluticasone-salmeterol [Advair Diskus] 250-50 mcg/dose blister with device 1 puff Inhalation BID RF: 0 Discontinued amoxicillin-pot clavulanate 875-125 mg tablet 1 tab PO BID RF: 0 Follow up/Referrals: Bruce Mobley, [place], [place] [Physical Therapist] - 10/26/17 12:00 am Selma Cronin MD [Primary Care Provider] - 1 Month (Call for appointment [phone]) Roger Fiore MD [Physician] - 1 Week (Will visit with the patient in the Wound Care Center) Gracie José RN [Registered Nurse] - 10/26/17 12:00 am (Call for exact appointment time) Provider Discharge Instructions Diet: Diet as Tolerated Diet comment: Continue Ensure surgery supplementation 3 times daily Activity: No lifting more than 20 lb Sponge bathe only. Do not get wound VAC device/dressing wet May walk as much as desired May climb stairs No driving until further notice May ride in vehicle Other treatments: Continue to use incentive spirometry at home while awake Skin/Wound/Dressing Care Report to your healthcare provider any signs of infection, such as:: chills, fever, increased pain and unusual drainage Dressing: Wound VAC device to continue at current settings on suction. Do not change dressing. Dressing changes will be performed twice weekly in the Wound Care Center as an outpatient Other wound treatment: Routine ileostomy care with appliance changes during wound VAC change. Visit Report/Discharge Packet Instructions: DI for an Appendectomy Visit Report Forms: Stroke Signs & Symptoms Discharge Data Primary Care Provider: Selma Cronin Attending Provider: Roger Fiore Admit Date/Time: 09/29/17 03:51 Quality VTE Deep Vein Thrombosis/Pulmonary Embolism Present on Admission: No
[2017-10-22] MEDS: ASPIRIN 325 MG TABLET PO (09:27)
[2017-10-22] MEDS: ACETAMINOPHEN 325 MG TABLET 650 MG PO (11:17)
--- NOTE | 2017-10-22 12:03 | PC.NURSE ---
Day shift: Pt left unit at approx 1200. Paperwork signed and questions answered. New home wound-vac in working order CDI and patent. Pt excited to get home. Scrips given and spouse had filled prior to d/c. Talked about the importance of s/s of infection.
== END 2017-10-22 12:06 | disposition home or self-care (01) | DRG 329 ==
LOC: ED 03:35 → AC 03:51 → ICU 09-30 20:46 → AC 10-06 12:02 → ICU 08-04 07:48
PROVIDERS: Anesthesiology; Surgery; Admitting Provider Surgery; Emergency Provider Emergency Medicine; PCP Family Medicine; Visit Provider Surgery
PROC: 0DBN0ZZ Excision of Sigmoid Colon, Open Approach (ICD-10-PCS; CPT 44140; principal; 2017-09-30 15:15)
PROC: 0DBE0ZZ Excision of Large Intestine, Open Approach (ICD-10-PCS; CPT 49000; principal; 2017-10-04 09:00)
DX: K57.20 Diverticulitis of large intestine with perforation and abscess without bleeding (principal); A41.9 Sepsis, unspecified organism; K55.041 Focal (segmental) acute infarction of large intestine; J96.00 Acute respiratory failure, unspecified whether with hypoxia or hypercapnia; R65.21 Severe sepsis with septic shock; E43 Unspecified severe protein-calorie malnutrition; K94.09 Other complications of colostomy; N17.9 Acute kidney failure, unspecified; K56.7 Ileus, unspecified; C18.7 Malignant neoplasm of sigmoid colon; K56.691 Other complete intestinal obstruction; K91.71 Accidental puncture and laceration of a digestive system organ or structure during a digestive system procedure; K91.81 Other intraoperative complications of digestive system; K66.0 Peritoneal adhesions (postprocedural) (postinfection); Z68.27 Body mass index [BMI] 27.0-27.9, adult; D64.9 Anemia, unspecified; J45.909 Unspecified asthma, uncomplicated; R63.0 Anorexia; G47.33 Obstructive sleep apnea (adult) (pediatric); R73.9 Hyperglycemia, unspecified; T80.89XA Other complications following infusion, transfusion and therapeutic injection, initial encounter; M62.830 Muscle spasm of back; D47.3 Essential (hemorrhagic) thrombocythemia
CPT/HCPCS: 36415; 36430; 36591; 36592; 36600; 44140; 44620; 71045; 74018; 74022; 74177; 80048; 80053; 80170; 82378; 82565; 82805; 82962; 83605; 83690; 83735; 84100; 84145; 85014; 85018; 85025; 86850; 86900; 86901; 87070; 87086; 87205; 87797; 92526; 92610; 94003; 94010; 94640; 94760; 94762; 94770; 94799; 96374; 96376; 97116; 97127; 97162; 97165; 97166; 97530; 99222; 99282; 99285; P9016; B4189; C9113; J0330; J0610; J1100; J1170; J1450; J1650; J1940; J2060; J2250; J2405; J2543; J2704; J2795; J3010; J3480; J7613; Q9967

== ENCOUNTER → 2017-10-26 11:14 | Outpatient (CLI) | payer BC, SELFPAY ==
[2017-09-29 10:57] VITALS: BMI 30.4
[2017-10-08 07:35] VITALS: PULSE 75; RESP 28; O2SAT 95
--- NOTE | 2017-10-23 12:34 | PC.NURSE ---
Wound Ostomy Nurse Consult Note, Late Entry and I changed the wound vac dressing. We placed an Activac from [facility] from the [facility]. I have submitted paperwork and got approval from [facility] to place this wound vac. The wound has some granulation tissue. There is no necrotic tissue. I also changed the loop ileostomy pouching appliance. The stoma measures 38cm oval. It is beefy red, moist. I placed a 57mm flat Convatec flat wafer and transparent non-filter pouch. We placed 6 white foam and three black foam with a bridge to the old colostomy site. I reviewed with Alton and Veronica how to trouble shoot the Activac which Veronica understood. I told them if it looses suction to go to the ER as this will need to be fixed. I reinforced the need to empty the ileostomy pouch when 1/2 full to prevent leaks. Veronica verbalized understanding. Alton will follow up at the [facility] on October 26. will come to the wound care center on October 29 to assess the wound progress.
--- NOTE | 2017-10-26 | OV.WND_ITS ---
Progress Note Details Patient Name: Alton Garcia Patient Number: [id number] PatientPatientDate: 10/26/2017 Clinician: Gracie José Clinician Cosigner: Terri Figueroa Physician / Moving Picture Producer: Freddy Cantrell SUBJECTIVE Chief Complaint This information was obtained from the patient Surgical wound ABD. Allergies NKDA HPI This information was obtained from the patient 10/26/17. Seen by Dr. Cantrell. The patient is new to our clinic and presents with a complicated abdominal surgical wound following colectomy performed in September for a colonic obstruction thought to be due to an abscess. He had an extended stay in the hospital due to sepsis, post- operative complications, and the need to allow the laparotomy wound to heal by secondary intention with use of a wound vac. Dr. Fiore, who performed the patient's surgery, saw the patient in clinic today prior to my reviewing him and there are no additional recommendations other than to continue with NPWT. Also, the patient's started taking prednisone due to shortness of breath which he feels is related to his history of asthma. Family History This information was obtained from the patient Cancer - Father, Diabetes - Mother, Heart Disease - Sibling, Hypertension - Mother, Lung Disease - Father, Mental Illness - Sibling, Stroke - Mother, Thyroid Problems - Mother Social History This information was obtained from the patient Former smoker, Caffeine Use - 1/2 cup a day, Children - 4, Lives in - In own home, Marital Status - , Retired, Self Care and Mobility , [place] Past Medical History This information was obtained from the patient Patient has a medical history of: Diverticulitis Clonic polyps Asthma Surgical History This information was obtained from the patient Patient has a surgical history of: Cholecystectomy - 10/04/2017 Umbilical hernia repair Complaints and Symptoms This information was obtained from the patient Patient complains of: General Notes: I have reviewed and concur with the Review of Systems and Past Family Social History documents completed by the clinician, I have reviewed and concur with the Wound Assessment document completed by the clinician Integumentary (Hair/Skin/Nails): Open Sore Musculoskeletal: Assistive Devices Prior Wound History: Bleeding, Drainage Patient denies complaints or symptoms related to: Ear/Nose/Mouth/Throat: Hearing Loss / Aid Hematologic/Lymphatic: Bleeding / Clotting Disorders, Bleeding Tendency General Notes: Flu updated only Medications aspirin 325 mg tablet oral 1 1 tablet oral once daily acetaminophen 325 mg tablet oral 2 2 tablet oral every 6 hours as needed oxycodone 5 mg tablet oral 1 1 tablet oral every 4-6 hours as needed albuterol sulfate 2.5 mg/3 mL (0.083 %) solution for nebulization inhalation solution for nebulization inhalation every 4-6 hours as needed fluticasone 232 mcg-salmeterol 14 mcg/actuation breath activated powdr inhalation aerosol powdr breath activated inhalation once daily cyclobenzaprine 5 mg tablet oral 1 1 tablet oral every 8 hours as needed OBJECTIVE Constitutional Vital signs reviewed and noted. Well developed. Alert. Clean appearing.. Height/ Length: 68 in (172.72 cm), Weight: 168.6 lbs (76.64 kgs), BMI: 25.6, Temperature: 96.9 ?F ( 36.06 ?C), Pulse: 100 bpm, Respiratory Rate: 18 breaths/min, Blood Pressure: 112/63 mmHg, Pulse Oximetry: 100 %. Ears, Nose, Mouth, and Throat: No clinically significant hearing loss on informal examination. Respiratory: No respiratory distress. Even respirations and without use of accessory muscles.. Gastrointestinal (GI): Distended.. Integumentary (Hair, Skin) Refer to appropriate clinician wound documentation for this visit; large mid- abdominal wound covered with pink granulation, biofilm, and minimal slough; left healing ostomy site covered with pink granulation. Wound #1 Abdomen - midline is an acute Full Thickness Surgical Wound and has received a status of Not Healed. Initial wound encounter measurements are 24cm length x 17cm width x 0.3cm depth, with an area of 408 sq cm and a volume of 122.4 cubic cm. Adipose is exposed. No tunneling has been noted. No sinus tract has been noted. No undermining has been noted. There is a large amount of serosanguineous drainage noted which has no odor. The patient reports a wound pain of level 0/10. The wound margin is attached. Wound bed has No epithelialization, No eschar, No slough, Yes bright red, firm granulation. The periwound skin texture is normal. The periwound skin moisture is normal. The periwound skin color is normal. The temperature of the periwound skin is Warm. Periwound skin does not exhibit signs or symptoms of infection. Local Pulse is N/A. Wound #2 Abdomen - LLQ is an acute Full Thickness Surgical Wound and has received a status of Not Healed. Initial wound encounter measurements are 3cm length x 3.5cm width x 0.5cm depth, with an area of 10.5 sq cm and a volume of 5.25 cubic cm. No tunneling has been noted. No sinus tract has been noted. No undermining has been noted. There is a large amount of serosanguineous drainage noted which has no odor. The patient reports a wound pain of level 1/10. The wound margin is attached. Wound bed has No epithelialization, No eschar, No slough, Yes bright red, firm granulation. The periwound skin texture is normal. The periwound skin moisture is normal. The periwound skin color is normal. The temperature of the periwound skin is WNL. Periwound skin does not exhibit signs or symptoms of infection. Local Pulse is N/A. Neurological: Cranial nerves grossly intact with symmetric function normal by informal observation.. ASSESSMENT Active Problems ICD-10 (Encounter Diagnosis) S31.109S - Unspecified open wound of abdominal wall, unspecified quadrant without penetration into peritoneal cavity, sequela (Encounter Diagnosis) T81.31XD - Disruption of external operation (surgical) wound, not elsewhere classified, subsequent encounter (Encounter Diagnosis) R06.02 - Shortness of breath PLAN Wound Orders: Wound #1 Abdomen - midline Cleanser Cleanse Wound: - With Normal Saline Dressings Primary dressing: - White Foam to wound base 6 pieces then two black foam. Negative Pressure Wound Therapy - Wound Vac KCI 100mmHg continuous at low pressure. Follow-Up Appointments Return Appointment: - - This Other information: If you develop fever, chills, increased pain, drainage, redness or swelling please call our office. If after hours, respond to the ER. Should you experience any significant changes in your wound(s) or have any questions regarding your home care instructions please contact the wound center @ [phone]. If after hours, contact your primary care physician or go to the hospital emergency room. Wound #2 Abdomen - LLQ Cleanser Cleanse Wound: - With Normal Saline Dressings Primary dressing: - White Foam to wound base 6 pieces then two black foam. Negative Pressure Wound Therapy - Wound Vac KCI 100mmHg continuous at low pressure. Follow-Up Appointments Return Appointment: - - This Other information: If you develop fever, chills, increased pain, drainage, redness or swelling please call our office. If after hours, respond to the ER. Should you experience any significant changes in your wound(s) or have any questions regarding your home care instructions please contact the wound center @ [phone]. If after hours, contact your primary care physician or go to the hospital emergency room. Other Services and Therapies: Wound VAC - White Foam and Black Foam. 100mmHg continuous low pressure. General Notes: Changed ileostomy appliance. Place a two piece Convatec flat moldable wafer with opaque filtered pouch. Place over the KCI drape. I've reviewed the clinician's documentation and agree with the evaluation and plan as written. Regarding the patient's reported shortness of breath, I've discussed the effects of prednisone on delayed wound healing and suggested there may be other non-asthma related etiologies for his post-operative shortness of breath. He's to see his PCP, Dr. Cronin, today and will copy her on my note accordingly. Also, we'll continue treating with NPWT and co- manage the patient's wound with Dr. Fiore going forward. Electronic Signature(s) Signed By: Date: Freddy Cantrell MD 10/26/2017 17:46:20 Entered By: Freddy Cantrell on 10/26/2017 17:40:04
== END ==
PROVIDERS: PCP Family Medicine; Visit Provider Internal Medicine
DX: T81.31XD Disruption of external operation (surgical) wound, not elsewhere classified, subsequent encounter (principal); S31.109D Unspecified open wound of abdominal wall, unspecified quadrant without penetration into peritoneal cavity, subsequent encounter; R06.02 Shortness of breath
CPT/HCPCS: 99213

== ENCOUNTER → 2017-10-29 11:07 | Outpatient (CLI) | payer BC, SELFPAY ==
[2017-09-29 10:57] VITALS: BMI 30.4
[2017-10-08 07:35] VITALS: PULSE 75; RESP 28; O2SAT 95
== END ==
PROVIDERS: PCP Family Medicine; Referring Provider Surgery; Visit Provider Internal Medicine
DX: T81.31XD Disruption of external operation (surgical) wound, not elsewhere classified, subsequent encounter (principal); S31.109D Unspecified open wound of abdominal wall, unspecified quadrant without penetration into peritoneal cavity, subsequent encounter; R06.02 Shortness of breath; Z93.2 Ileostomy status; Z43.2 Encounter for attention to ileostomy
CPT/HCPCS: 99212

== ENCOUNTER → 2017-11-02 11:03 | Outpatient (CLI) | payer BC, SELFPAY ==
[2017-09-29 10:57] VITALS: BMI 30.4
[2017-10-08 07:35] VITALS: PULSE 75; RESP 28; O2SAT 95
--- NOTE | 2017-11-02 | OV.WND_ITS ---
Progress Note Details Patient Name: Alton Garcia Patient Number: [id number] PatientPatientDate: 11/02/2017 Clinician: Gracie José Clinician Cosigner: Zulema Paulson Physician / Legal Nurse Consultant: Freddy Cantrell SUBJECTIVE Chief Complaint This information was obtained from the patient Surgical wound ABD. Allergies NKDA HPI This information was obtained from the patient 11/02/17. Seen by Dr. Cantrell. The patient does not report increased pain or drainage associated with the abdominal surgical wound since his last visit nor problems regarding NPWT. 10/30/07. Seen by Dr. Cantrell. The patient does not report increased pain or drainage associated with the abdominal surgical wound since his last visit nor problems regarding NPWT. He also decided to defer taking prednisone for shortness of breath following our discussion at his last visit. 10/26/17. Seen by Dr. Cantrell. The patient is new to our clinic and presents with a complicated abdominal surgical wound following colectomy performed in September for a colonic obstruction thought to be due to an abscess. He had an extended stay in the hospital due to sepsis, post- operative complications, and the need to allow the laparotomy wound to heal by secondary intention with use of a wound vac. Dr. Fiore, who performed the patient's surgery, saw the patient in clinic today prior to my reviewing him and there are no additional recommendations other than to continue with NPWT. Also, the patient's started taking prednisone due to shortness of breath which he feels is related to his history of asthma. Past Medical History This information was obtained from the patient Patient has a medical history of: Diverticulitis Clonic polyps Asthma Complaints and Symptoms This information was obtained from the patient Patient complains of: General Notes: I have reviewed and concur with the Review of Systems and Past Family Social History documents completed by the clinician, I have reviewed and concur with the Wound Assessment document completed by the clinician Integumentary (Hair/Skin/Nails): Open Sore Musculoskeletal: Assistive Devices Prior Wound History: Bleeding, Drainage Patient denies complaints or symptoms related to: Ear/Nose/Mouth/Throat: Hearing Loss / Aid Hematologic/Lymphatic: Bleeding / Clotting Disorders, Bleeding Tendency OBJECTIVE Constitutional Vital signs reviewed and noted. Well developed. Alert. Clean appearing.. Height/ Length: 68 in (172.72 cm), Weight: 169.4 lbs (77 kgs), BMI: 25.8, Temperature: 98.4 ?F (36.89 ?C), Pulse: 80 bpm, Respiratory Rate: 18 breaths/min, Blood Pressure: 129/87 mmHg, Pulse Oximetry: 100 %. Ears, Nose, Mouth, and Throat: No clinically significant hearing loss on informal examination. Respiratory: No respiratory distress. Even respirations and without use of accessory muscles.. Gastrointestinal (GI): Non-obese. Nondistended.. Integumentary (Hair, Skin) No periwound erythema, warmth, or significant drainage. No periwound rashes appreciated or noted otherwise.. Refer to appropriate clinician wound documentation for this visit; mid- abdominal wound exteds to subcut with minimal necrotic adipose along left margin and some hypergranulation along the edges. Wound #1 Abdomen - midline is an acute Full Thickness Surgical Wound and has received a status of Not Healed. Subsequent wound encounter measurements are 22cm length x 11.5cm width x 0.2cm depth, with an area of 253 sq cm and a volume of 50.6 cubic cm. Adipose is exposed. No tunneling has been noted. No sinus tract has been noted. No undermining has been noted. There is a large amount of serosanguineous drainage noted which has no odor. The patient reports a wound pain of level 0/10. The wound margin is attached. Wound bed has No epithelialization, No eschar, Yes slough, Yes bright red, firm granulation. The periwound skin texture is normal. The periwound skin moisture is normal. The periwound skin color is normal. The temperature of the periwound skin is Warm. Periwound skin does not exhibit signs or symptoms of infection. Local Pulse is N/A. Wound #2 Abdomen - LLQ is an acute Full Thickness Surgical Wound and has received a status of Not Healed. Initial wound encounter measurements are 3cm length x 2cm width x 0.7cm depth, with an area of 6 sq cm and a volume of 4.2 cubic cm. No tunneling has been noted. No sinus tract has been noted. No undermining has been noted. There is a large amount of serosanguineous drainage noted which has no odor. The patient reports a wound pain of level 1/10. The wound margin is attached. Wound bed has No epithelialization, No eschar, No slough, Yes bright red, firm granulation. The periwound skin texture is normal. The periwound skin moisture is normal. The periwound skin color is normal. The temperature of the periwound skin is WNL. Periwound skin does not exhibit signs or symptoms of infection. Local Pulse is N/A. Neurological: Cranial nerves grossly intact with symmetric function normal by informal observation.. ASSESSMENT Active Problems ICD-10 (Encounter Diagnosis) S31.109S - Unspecified open wound of abdominal wall, unspecified quadrant without penetration into peritoneal cavity, sequela (Encounter Diagnosis) T81.31XD - Disruption of external operation (surgical) wound, not elsewhere classified, subsequent encounter PROCEDURES Wound #1 Wound #1 (Surgical Wound) is located on the abdomen - midline. A skin/ subcutaneous tissue level surgical debridement with a total area debrided of 50.6 sq cm was performed by Freddy Cantrell MD. Subcutaneous was removed along with devitalized tissue: exudate and slough. The following instrument(s) were used: curette. Pain control was achieved using 4% Lido. A time out was conducted prior to the start of the procedure. A minimal amount of bleeding was controlled with pressure. The procedure was tolerated well with a pain level of 0 throughout and a pain level of 0 following the procedure. Post Debridement Measurements: 22cm length x 11.5cm width x 0.2cm depth; with an area of 253 sq cm and a volume of 50.6 cubic cm; Additional Information Muscle fascia or bone removed and sent to pathology?: No PLAN Wound Orders: Wound #1 Abdomen - midline Cleanser Cleanse Wound: - With Normal Saline In Clinic. Dressings Primary dressing: - White Foam to wound base 4 pieces then three black foam(2 for bridge from old Colostomy site) Negative Pressure Wound Therapy - Wound Vac KCI 100mmHg continuous at low pressure. Follow-Up Appointments Return Appointment: - - Mondays and Other information: If you develop fever, chills, increased pain, drainage, redness or swelling please call our office. If after hours, respond to the ER. Should you experience any significant changes in your wound(s) or have any questions regarding your home care instructions please contact the wound center @ [phone]. If after hours, contact your primary care physician or go to the hospital emergency room. Wound #2 Abdomen - LLQ Cleanser Cleanse Wound: - With Normal Saline Dressings Primary dressing: - White Foam to wound base 4 pieces then two black foam. Negative Pressure Wound Therapy - Wound Vac KCI 100mmHg continuous at low pressure. Follow-Up Appointments Return Appointment: - - Mondays and . Other information: If you develop fever, chills, increased pain, drainage, redness or swelling please call our office. If after hours, respond to the ER. Should you experience any significant changes in your wound(s) or have any questions regarding your home care instructions please contact the wound center @ [phone]. If after hours, contact your primary care physician or go to the hospital emergency room. Other Services and Therapies: Wound VAC - Adaptic, then one black foam to wound #1 and back foam and bridge in wound #2 I've reviewed the clinician's documentation and agree with the evaluation and plan as written. In addition the patient's wound demonstrates evidence of non-viable devitalized tissue which will continue to benefit from sharp debridement to help promote granulation and expedite healing. Negative pressure wound therapy will be utilized to facilitate granulation and removal of exudate and infectious material with the goal of expediting wound healing. Electronic Signature(s) Signed By: Date: Freddy Cantrell MD 11/03/2017 09:52:37 Entered By: Freddy Cantrell on 11/03/2017 09:12:48
== END ==
PROVIDERS: PCP Family Medicine; Visit Provider Internal Medicine
DX: S31.109A Unspecified open wound of abdominal wall, unspecified quadrant without penetration into peritoneal cavity, initial encounter (principal); T81.31XA Disruption of external operation (surgical) wound, not elsewhere classified, initial encounter
CPT/HCPCS: 11042; 11045; 97606

== ENCOUNTER → 2017-11-04 10:07 | Outpatient (CLI) | payer BC, SELFPAY ==
[2017-09-29 10:57] VITALS: BMI 30.4
[2017-10-08 07:35] VITALS: PULSE 75; RESP 28; O2SAT 95
== END ==
PROVIDERS: PCP Family Medicine; Visit Provider Internal Medicine
DX: S31.109D Unspecified open wound of abdominal wall, unspecified quadrant without penetration into peritoneal cavity, subsequent encounter (principal); T81.31XD Disruption of external operation (surgical) wound, not elsewhere classified, subsequent encounter
CPT/HCPCS: 99213

== ENCOUNTER → 2017-11-06 08:38 | Outpatient (CLI) | payer BC, SELFPAY ==
[2017-09-29 10:57] VITALS: BMI 30.4
[2017-10-08 07:35] VITALS: PULSE 75; RESP 28; O2SAT 95
--- NOTE | 2017-11-06 | OV.WND_ITS ---
Progress Note Details Patient Name: Alton Garcia Patient Number: [id number] PatientPatientDate: 11/06/2017 Clinician: Gracie José Clinician Cosigner: Terri Figueroa Physician / Automatic Packer Operator: Freddy Cantrell SUBJECTIVE Chief Complaint This information was obtained from the patient Surgical wound ABD. Allergies NKDA HPI This information was obtained from the patient 11/06/17. Seen by Dr. Cantrell. The patient does not report increased pain or drainage associated with the abdominal surgical wound since his last visit nor problems regarding NPWT. 11/02/17. Seen by Dr. Cantrell. The patient does not report increased pain or drainage associated with the abdominal surgical wound since his last visit nor problems regarding NPWT. 10/30/07. Seen by Dr. Cantrell. The patient does not report increased pain or drainage associated with the abdominal surgical wound since his last visit nor problems regarding NPWT. He also decided to defer taking prednisone for shortness of breath following our discussion at his last visit. 10/26/17. Seen by Dr. Cantrell. The patient is new to our clinic and presents with a complicated abdominal surgical wound following colectomy performed in September for a colonic obstruction thought to be due to an abscess. He had an extended stay in the hospital due to sepsis, post- operative complications, and the need to allow the laparotomy wound to heal by secondary intention with use of a wound vac. Dr. iFore, who performed the patient's surgery, saw the patient in clinic today prior to my reviewing him and there are no additional recommendations other than to continue with NPWT. Also, the patient's started taking prednisone due to shortness of breath which he feels is related to his history of asthma. Past Medical History This information was obtained from the patient Patient has a medical history of: Diverticulitis Clonic polyps Asthma Complaints and Symptoms This information was obtained from the patient Patient complains of: General Notes: I have reviewed and concur with the Review of Systems and Past Family Social History documents completed by the clinician, I have reviewed and concur with the Wound Assessment document completed by the clinician Integumentary (Hair/Skin/Nails): Open Sore Prior Wound History: Bleeding, Drainage Patient denies complaints or symptoms related to: Ear/Nose/Mouth/Throat: Hearing Loss / Aid Hematologic/Lymphatic: Bleeding / Clotting Disorders, Bleeding Tendency OBJECTIVE Constitutional Vital signs reviewed and noted. Well developed. Alert. Clean appearing.. Height/ Length: 68 in (172.72 cm), Weight: 169.7 lbs (77.14 kgs), BMI: 25.8, Temperature: 98.5 ?F ( 36.94 ?C), Pulse: 109 bpm, Respiratory Rate: 18 breaths/min, Blood Pressure: 115/79 mmHg, Pulse Oximetry: 96 %. Respiratory: No respiratory distress. Even respirations and without use of accessory muscles.. Gastrointestinal (GI): Non-obese. Nondistended.. Integumentary (Hair, Skin) No periwound erythema, warmth, or significant drainage. No periwound rashes appreciated or noted otherwise.. Refer to appropriate clinician wound documentation for this visit; mid- abdominal wound extends to subcut with some hypergranulation along the edges. Wound #1 Abdomen - midline is an acute Full Thickness Surgical Wound and has received a status of Not Healed. Subsequent wound encounter measurements are 21.5cm length x 13.5cm width x 0.2cm depth, with an area of 290.25 sq cm and a volume of 58.05 cubic cm. Adipose is exposed. No tunneling has been noted. No sinus tract has been noted. No undermining has been noted. There is a large amount of serosanguineous drainage noted which has no odor. The patient reports a wound pain of level 0/10. The wound margin is attached. Wound bed has No epithelialization, No eschar, Yes slough, Yes bright red, firm granulation. The periwound skin texture is normal. The periwound skin moisture is normal. The periwound skin color is normal. The temperature of the periwound skin is Warm. Periwound skin does not exhibit signs or symptoms of infection. Local Pulse is N/A. General Notes: 20cc in canister. Wound #2 Abdomen - LLQ is an acute Full Thickness Surgical Wound and has received a status of Not Healed. Initial wound encounter measurements are 2.5cm length x 1.7cm width x 0.2cm depth, with an area of 4.25 sq cm and a volume of 0.85 cubic cm. No tunneling has been noted. No sinus tract has been noted. No undermining has been noted. There is a large amount of serosanguineous drainage noted which has no odor. The patient reports a wound pain of level 1/10. The wound margin is attached. Wound bed has No epithelialization, No eschar, No slough, Yes bright red, firm granulation. The periwound skin texture is normal. The periwound skin moisture is normal. The periwound skin color is normal. The temperature of the periwound skin is WNL. Periwound skin does not exhibit signs or symptoms of infection. Local Pulse is N/A. Neurological: Cranial nerves grossly intact with symmetric function normal by informal observation.. ASSESSMENT Active Problems ICD-10 (Encounter Diagnosis) S31.109S - Unspecified open wound of abdominal wall, unspecified quadrant without penetration into peritoneal cavity, sequela (Encounter Diagnosis) T81.31XD - Disruption of external operation (surgical) wound, not elsewhere classified, subsequent encounter (Encounter Diagnosis) L92.9 - Granulomatous disorder of the skin and subcutaneous tissue, unspecified PROCEDURES Wound #1 Wound #1 (Surgical Wound) is located on the abdomen - midline. A skin/ subcutaneous tissue level surgical debridement with a total area debrided of 14.5125 sq cm was performed by Freddy Cantrell MD. Subcutaneous was removed along with devitalized tissue: exudate and slough. The following instrument(s) were used: curette. Pain control was achieved using 4% Lido. A time out was conducted prior to the start of the procedure. A minimal amount of bleeding was controlled with pressure. The procedure was tolerated well with a pain level of 0 throughout and a pain level of 0 following the procedure. Post Debridement Measurements: 21.5cm length x 13.5cm width x 0.2cm depth; with an area of 290.25 sq cm and a volume of 58.05 cubic cm; Additional Information Muscle fascia or bone removed and sent to pathology?: No PLAN Wound Orders: Wound #1 Abdomen - midline Cleanser Cleanse Wound: - With Normal Saline In Clinic. Dressings Primary dressing: - Adaptic to wound base then black foam(2 for bridge from old Colostomy site) Wound Vac: - Wound Vac KCI 100mmHg Continuous at low pressure Follow-Up Appointments Return Appointment: - - Mondays and Other information: If you develop fever, chills, increased pain, drainage, redness or swelling please call our office. If after hours, respond to the ER. Should you experience any significant changes in your wound(s) or have any questions regarding your home care instructions please contact the wound center @ [phone]. If after hours, contact your primary care physician or go to the hospital emergency room. Scribing Attestation I attest, as the nurse, that I scribed these orders for the physician. Wound #2 Abdomen - LLQ Cleanser Cleanse Wound: - With Normal Saline Dressings Wound Vac: - Wound Vac KCI 100mmHg at low pressure. Follow-Up Appointments Return Appointment: - - Thursday and Other information: If you develop fever, chills, increased pain, drainage, redness or swelling please call our office. If after hours, respond to the ER. Should you experience any significant changes in your wound(s) or have any questions regarding your home care instructions please contact the wound center @ [phone]. If after hours, contact your primary care physician or go to the hospital emergency room. Scribing Attestation I attest, as the nurse, that I scribed these orders for the physician. Other Services and Therapies: Wound VAC - Adaptic, Black foam to wound 1, black foam to wound 2. 100mmHg continuous low pressure. General Notes: Changed ileostomy appliance. Placed Coloplast light convexity. Don also received his [facility] starter kit. I've reviewed the clinician's documentation and agree with the evaluation and plan as written. In addition the patient's wound demonstrates evidence of non-viable devitalized tissue which will continue to benefit from sharp debridement to help promote granulation and expedite healing. Negative pressure wound therapy will be utilized to facilitate granulation and removal of exudate and infectious material with the goal of expediting wound healing. Electronic Signature(s) Signed By: Date: Freddy Cantrell MD 11/09/2017 07:01:57 Entered By: Freddy Cantrell on 11/08/2017 11:01:11
== END ==
PROVIDERS: PCP Family Medicine; Visit Provider Internal Medicine
DX: S31.109S Unspecified open wound of abdominal wall, unspecified quadrant without penetration into peritoneal cavity, sequela (principal); L92.9 Granulomatous disorder of the skin and subcutaneous tissue, unspecified
CPT/HCPCS: 11042; 97606

== ENCOUNTER → 2017-11-09 11:54 | Outpatient (CLI) | payer BC, SELFPAY ==
[2017-09-29 10:57] VITALS: BMI 30.4
[2017-10-08 07:35] VITALS: PULSE 75; RESP 28; O2SAT 95
--- NOTE | 2017-11-09 | OV.WND_ITS ---
Progress Note Details Patient Name: Alton Garcia Patient Number: [id number] PatientPatientDate: 11/09/2017 Clinician: Lea Martino Clinician Cosigner: Terri Figueroa Physician / Candle Cutter: Freddy Cantrell SUBJECTIVE Chief Complaint This information was obtained from the patient Surgical wound ABD. Allergies NKDA HPI This information was obtained from the patient 11/09/17. Seen by Dr. Cantrell. The patient reports increased drainage in his wound vac canister along with a significant rash in the distribution of his wound vac drape perimeter. 11/06/17. Seen by Dr. Cantrell. The patient does not report increased pain or drainage associated with the abdominal surgical wound since his last visit nor problems regarding NPWT. 11/02/17. Seen by Dr. Cantrell. The patient does not report increased pain or drainage associated with the abdominal surgical wound since his last visit nor problems regarding NPWT. 10/30/07. Seen by Dr. Cantrell. The patient does not report increased pain or drainage associated with the abdominal surgical wound since his last visit nor problems regarding NPWT. He also decided to defer taking prednisone for shortness of breath following our discussion at his last visit. 10/26/17. Seen by Dr. Cantrell. The patient is new to our clinic and presents with a complicated abdominal surgical wound following colectomy performed in September for a colonic obstruction thought to be due to an abscess. He had an extended stay in the hospital due to sepsis, post- operative complications, and the need to allow the laparotomy wound to heal by secondary intention with use of a wound vac. Dr. Fiore, who performed the patient's surgery, saw the patient in clinic today prior to my reviewing him and there are no additional recommendations other than to continue with NPWT. Also, the patient's started taking prednisone due to shortness of breath which he feels is related to his history of asthma. Past Medical History This information was obtained from the patient Patient has a medical history of: Diverticulitis Clonic polyps Asthma Complaints and Symptoms This information was obtained from the patient Patient complains of: General Notes: I have reviewed and concur with the Review of Systems and Past Family Social History documents completed by the clinician, I have reviewed and concur with the Wound Assessment document completed by the clinician Integumentary (Hair/Skin/Nails): Open Sore Prior Wound History: Bleeding, Drainage Patient denies complaints or symptoms related to: Ear/Nose/Mouth/Throat: Hearing Loss / Aid Hematologic/Lymphatic: Bleeding / Clotting Disorders, Bleeding Tendency OBJECTIVE Constitutional Vital signs reviewed and noted. Well developed. Alert. Clean appearing.. Height/ Length: 68 in (172.72 cm), Weight: 169.7 lbs (77.14 kgs), BMI: 25.8, Temperature: 98.2 ?F ( 36.78 ?C), Pulse: 104 bpm, Respiratory Rate: 18 breaths/min, Blood Pressure: 118/87 mmHg, Pulse Oximetry: 97 %. Respiratory: No respiratory distress. Even respirations and without use of accessory muscles.. Gastrointestinal (GI): Non-obese. Nondistended.. Integumentary (Hair, Skin) Refer to appropriate clinician wound documentation for this visit; mid- abdominal wound extends to subcut with epithelialization noted along most of the margin. Mild confluent, erythematous rash in the proximal and distal affected area around the wound without appreciable drainage. Wound #1 Abdomen - midline is an acute Full Thickness Surgical Wound and has received a status of Not Healed. Subsequent wound encounter measurements are 2cm length x 11.5cm width x 0.2cm depth, with an area of 23 sq cm and a volume of 4.6 cubic cm. Adipose is exposed. No tunneling has been noted. No sinus tract has been noted. No undermining has been noted. There is a large amount of serosanguineous drainage noted which has no odor. The patient reports a wound pain of level 0/10. The wound margin is attached. Wound bed has No epithelialization, No eschar, Yes slough, Yes bright red, firm granulation. The periwound skin texture is normal. The periwound skin moisture is normal. The periwound skin color is normal. The temperature of the periwound skin is Warm. Periwound skin does not exhibit signs or symptoms of infection. Local Pulse is N/A. Wound #2 Abdomen - LLQ is an acute Full Thickness Surgical Wound and has received a status of Not Healed. Initial wound encounter measurements are 2.3cm length x 1.5cm width x 0.2cm depth, with an area of 3.45 sq cm and a volume of 0.69 cubic cm. No tunneling has been noted. No sinus tract has been noted. No undermining has been noted. There is a large amount of serosanguineous drainage noted which has no odor. The patient reports a wound pain of level 1/10. The wound margin is attached. Wound bed has No epithelialization, No eschar, No slough, Yes bright red, firm granulation. The periwound skin texture is normal. The periwound skin moisture is normal. The periwound skin color is normal. The temperature of the periwound skin is WNL. Periwound skin does not exhibit signs or symptoms of infection. Local Pulse is N/A. Neurological: Cranial nerves grossly intact with symmetric function normal by informal observation.. ASSESSMENT Active Problems ICD-10 (Encounter Diagnosis) S31.109S - Unspecified open wound of abdominal wall, unspecified quadrant without penetration into peritoneal cavity, sequela (Encounter Diagnosis) T81.31XD - Disruption of external operation (surgical) wound, not elsewhere classified, subsequent encounter (Encounter Diagnosis) R21 - Rash and other nonspecific skin eruption PROCEDURES Wound #1 Wound #1 (Surgical Wound) is located on the abdomen - midline. A skin/ subcutaneous tissue level surgical debridement with a total area debrided of 23 sq cm was performed by Freddy Cantrell MD. Subcutaneous was removed along with devitalized tissue: biofilm and slough. The following instrument(s) were used: curette. Pain control was achieved using 4% Lido. A time out was conducted prior to the start of the procedure. A minimal amount of bleeding was controlled with n/a. The procedure was tolerated well with a pain level of 0 throughout and a pain level of 0 following the procedure. Post Debridement Measurements: 2cm length x 11.5cm width x 0.3cm depth; with an area of 23 sq cm and a volume of 6.9 cubic cm; PLAN Wound Orders: Wound #1 Abdomen - midline Cleanser Cleanse Wound: - With Normal Saline In Clinic. May use distilled water at home to clean the wound. Topical Treatments Antibiotic/Antimicrobial Ointment/Cream. - Hydrocortisone cream to rash twice daily. Apply Triple antibiotic ointment to wound base with dressing changes Dressings Primary dressing: - Exudry dressing. May use poise pad if having to change more frequently. Cover and secure with: - Silicone tape Change Dressing: - Daily Wound #2 Abdomen - LLQ Cleanser Cleanse Wound: - With Normal Saline. May use distilled water at home to clean the wound. Topical Treatments Antibiotic/Antimicrobial Ointment/Cream. - Hydrocortisone cream to rash twice daily. Apply Triple antibiotic ointment to wound base with dressing changes Dressings Primary dressing: - Mepilex bordered foam Change Dressing: - Daily Additional Orders: Follow-Up Appointments Return Appointment: - - Mondays and Other information: If you develop fever, chills, increased pain, drainage, redness or swelling please call our office. If after hours, respond to the ER. Should you experience any significant changes in your wound(s) or have any questions regarding your home care instructions please contact the wound center @ [phone]. If after hours, contact your primary care physician or go to the hospital emergency room. Scribing Attestation I attest, as the nurse, that I scribed these orders for the physician. I've reviewed the clinician's documentation and agree with the evaluation and plan as written. In addition the patient's wound demonstrates evidence of non-viable devitalized tissue which will continue to benefit from sharp debridement to help promote granulation and expedite healing. Also, I've held NPWT today due to the significant periwound rash and will treat with twice daily topical hydrocortisone. We'll consider replacing the wound vac again on . Electronic Signature(s) Signed By: Date: Freddy Cantrell MD 11/10/2017 06:42:32 Entered By: Freddy Cantrell on 11/10/2017 06:22:23
== END ==
PROVIDERS: PCP Family Medicine; Visit Provider Internal Medicine
DX: T81.31XA Disruption of external operation (surgical) wound, not elsewhere classified, initial encounter (principal); S31.109A Unspecified open wound of abdominal wall, unspecified quadrant without penetration into peritoneal cavity, initial encounter; R21 Rash and other nonspecific skin eruption
CPT/HCPCS: 11042; 11045

== ENCOUNTER → 2017-11-12 13:42 | Outpatient (CLI) | payer BC, SELFPAY ==
[2017-09-29 10:57] VITALS: BMI 30.4
[2017-10-08 07:35] VITALS: PULSE 75; RESP 28; O2SAT 95
--- NOTE | 2017-11-12 | OV.WND_ITS ---
Progress Note Details Patient Name: Alton Garcia Patient Number: [id number] PatientPatientDate: 11/12/2017 Clinician: Zulema Paulson Clinician Cosigner: Terri Figueroa Physician / Cylinder Press Operator: Freddy Cantrell SUBJECTIVE Chief Complaint This information was obtained from the patient Surgical wound ABD. Allergies NKDA HPI This information was obtained from the patient 11/12/17. Seen by Dr. Cantrell. The patient does not report increased pain or drainage associated with the abdominal surgical wound since his last visit and feels the previously described periwound rash is much improved. NPWT was held at the last visit due to the rash. 11/09/17. Seen by Dr. Cantrell. The patient reports increased drainage in his wound vac canister along with a significant rash in the distribution of his wound vac drape perimeter. 11/06/17. Seen by Dr. Cantrell. The patient does not report increased pain or drainage associated with the abdominal surgical wound since his last visit nor problems regarding NPWT. 11/02/17. Seen by Dr. Cantrell. The patient does not report increased pain or drainage associated with the abdominal surgical wound since his last visit nor problems regarding NPWT. 10/30/07. Seen by Dr. Cantrell. The patient does not report increased pain or drainage associated with the abdominal surgical wound since his last visit nor problems regarding NPWT. He also decided to defer taking prednisone for shortness of breath following our discussion at his last visit. 10/26/17. Seen by Dr. Cantrell. The patient is new to our clinic and presents with a complicated abdominal surgical wound following colectomy performed in September for a colonic obstruction thought to be due to an abscess. He had an extended stay in the hospital due to sepsis, post- operative complications, and the need to allow the laparotomy wound to heal by secondary intention with use of a wound vac. Dr. Fiore, who performed the patient's surgery, saw the patient in clinic today prior to my reviewing him and there are no additional recommendations other than to continue with NPWT. Also, the patient's started taking prednisone due to shortness of breath which he feels is related to his history of asthma. Past Medical History This information was obtained from the patient Patient has a medical history of: Diverticulitis Clonic polyps Asthma Complaints and Symptoms This information was obtained from the patient Patient complains of: General Notes: I have reviewed and concur with the Review of Systems and Past Family Social History documents completed by the clinician, I have reviewed and concur with the Wound Assessment document completed by the clinician Integumentary (Hair/Skin/Nails): Open Sore Prior Wound History: Bleeding, Drainage Patient denies complaints or symptoms related to: Ear/Nose/Mouth/Throat: Hearing Loss / Aid Hematologic/Lymphatic: Bleeding / Clotting Disorders, Bleeding Tendency OBJECTIVE Constitutional Vital signs reviewed and noted. Well developed. Alert. Clean appearing.. Height/ Length: 68 in (172.72 cm), Weight: 169.7 lbs (77.14 kgs), BMI: 25.8, Temperature: 97.8 ?F ( 36.56 ?C), Pulse: 102 bpm, Respiratory Rate: 18 breaths/min, Blood Pressure: 123/88 mmHg, Pulse Oximetry: 100 %. Ears, Nose, Mouth, and Throat: No clinically significant hearing loss on informal examination. Respiratory: No respiratory distress. Even respirations and without use of accessory muscles.. Gastrointestinal (GI): Non-obese. Nondistended.. Integumentary (Hair, Skin) Refer to appropriate clinician wound documentation for this visit; mid- abdominal wound extends to subcut with epithelialization noted along most of the margin. Periwound rash has resolved. Wound #1 Abdomen - midline is an acute Full Thickness Surgical Wound and has received a status of Not Healed. Subsequent wound encounter measurements are 21cm length x 13.5cm width x 0.2cm depth, with an area of 283.5 sq cm and a volume of 56.7 cubic cm. Adipose is exposed. No tunneling has been noted. No sinus tract has been noted. No undermining has been noted. There is a large amount of serosanguineous drainage noted which has no odor. The patient reports a wound pain of level 0/10. The wound margin is attached. Wound bed has No epithelialization, No eschar, Yes slough, Yes bright red, pink, firm granulation. The periwound skin texture is normal. The periwound skin moisture is normal. The periwound skin color is normal. The temperature of the periwound skin is Warm. Periwound skin does not exhibit signs or symptoms of infection. Local Pulse is N/A. Wound #2 Abdomen - LLQ is an acute Full Thickness Surgical Wound and has received a status of Not Healed. Subsequent wound encounter measurements are 2.1cm length x 1.2cm width x 0.2cm depth, with an area of 2.52 sq cm and a volume of 0.504 cubic cm. No tunneling has been noted. No sinus tract has been noted. No undermining has been noted. There is a scant amount of serous drainage noted which has no odor. The patient reports a wound pain of level 0/10. The wound margin is attached. Wound bed has No epithelialization, No eschar, Yes slough, Yes bright red, firm granulation. The periwound skin texture is normal. The periwound skin moisture is normal. The periwound skin color is normal. The temperature of the periwound skin is WNL. Periwound skin does not exhibit signs or symptoms of infection. Local Pulse is N/A. Neurological: Cranial nerves grossly intact with symmetric function normal by informal observation.. ASSESSMENT Active Problems ICD-10 (Encounter Diagnosis) S31.109S - Unspecified open wound of abdominal wall, unspecified quadrant without penetration into peritoneal cavity, sequela (Encounter Diagnosis) T81.31XD - Disruption of external operation (surgical) wound, not elsewhere classified, subsequent encounter (Encounter Diagnosis) R21 - Rash and other nonspecific skin eruption PROCEDURES Wound #1 Wound #1 (Surgical Wound) is located on the abdomen - midline. A skin/ subcutaneous tissue level surgical debridement with a total area debrided of 56.7 sq cm was performed by Freddy Cantrell MD. Adipose and Subcutaneous were removed along with devitalized tissue: biofilm and slough. The following instrument(s) were used: curette. Pain control was achieved using 4% Lido. A time out was conducted prior to the start of the procedure. A minimal amount of bleeding was controlled with n/a. The procedure was tolerated well with a pain level of 0 throughout and a pain level of 0 following the procedure. Post Debridement Measurements: 21cm length x 13.5cm width x 0.3cm depth; with an area of 283.5 sq cm and a volume of 85.05 cubic cm; Additional Information Muscle fascia or bone removed and sent to pathology?: No PLAN Wound Orders: Wound #1 Abdomen - midline Anesthetic Topical Xylocaine to wound bed. - In clinic only Cleanser Cleanse Wound: - With Normal Saline In Clinic. Dressings Primary dressing: - Adaptic to wound base then black foam(2 for bridge from old Colostomy site) Wound Vac: - Wound Vac KCI 100mmHg Continuous at low pressure Change Dressing: - Leave it place until next visit. Follow-Up Appointments Return Appointment: - - Tuesdays and Fridays. Other information: If you develop fever, chills, increased pain, drainage, redness or swelling please call our office. If after hours, respond to the ER. Should you experience any significant changes in your wound(s) or have any questions regarding your home care instructions please contact the wound center @ [phone]. If after hours, contact your primary care physician or go to the hospital emergency room. Wound #2 Abdomen - LLQ Anesthetic Topical Xylocaine to wound bed. - In clinic only Cleanser Cleanse Wound: - With Normal Saline Dressings Wound Vac: - Wound Vac KCI 100mmHg at low pressure. Follow-Up Appointments Return Appointment: - - Thursday nurse visit. Other information: If you develop fever, chills, increased pain, drainage, redness or swelling please call our office. If after hours, respond to the ER. Should you experience any significant changes in your wound(s) or have any questions regarding your home care instructions please contact the wound center @ [phone]. If after hours, contact your primary care physician or go to the hospital emergency room. I've reviewed the clinician's documentation and agree with the evaluation and plan as written. In addition the patient's wound demonstrates evidence of non-viable devitalized tissue which will continue to benefit from sharp debridement to help promote granulation and expedite healing. Negative pressure wound therapy will be utilized to facilitate granulation and removal of exudate and infectious material with the goal of expediting wound healing. Also, the patient's periwound rash has resolved and I've restarted NPWT. Electronic Signature(s) Signed By: Date: Freddy Cantrell MD 11/13/2017 09:38:07 Entered By: Freddy Cantrell on 11/13/2017 06:56:27
== END ==
PROVIDERS: PCP Family Medicine; Visit Provider Internal Medicine
DX: T81.31XA Disruption of external operation (surgical) wound, not elsewhere classified, initial encounter (principal); S31.109A Unspecified open wound of abdominal wall, unspecified quadrant without penetration into peritoneal cavity, initial encounter; S31.104D Unspecified open wound of abdominal wall, left lower quadrant without penetration into peritoneal cavity, subsequent encounter; R21 Rash and other nonspecific skin eruption
CPT/HCPCS: 11042; 11045

== ENCOUNTER → 2017-11-16 11:43 | Outpatient (CLI) | payer BC, SELFPAY ==
[2017-09-29 10:57] VITALS: BMI 30.4
[2017-10-08 07:35] VITALS: PULSE 75; RESP 28; O2SAT 95
== END ==
PROVIDERS: PCP Family Medicine; Visit Provider Internal Medicine
DX: T81.31XA Disruption of external operation (surgical) wound, not elsewhere classified, initial encounter (principal); S31.109A Unspecified open wound of abdominal wall, unspecified quadrant without penetration into peritoneal cavity, initial encounter; S31.104D Unspecified open wound of abdominal wall, left lower quadrant without penetration into peritoneal cavity, subsequent encounter
CPT/HCPCS: 97606

== ENCOUNTER → 2017-11-19 11:12 | Outpatient (CLI) | payer BC, SELFPAY ==
[2017-09-29 10:57] VITALS: BMI 30.4
[2017-10-08 07:35] VITALS: PULSE 75; RESP 28; O2SAT 95
== END ==
PROVIDERS: PCP Family Medicine; Visit Provider Family Medicine
DX: T81.31XA Disruption of external operation (surgical) wound, not elsewhere classified, initial encounter (principal); S31.104A Unspecified open wound of abdominal wall, left lower quadrant without penetration into peritoneal cavity, initial encounter; S31.109A Unspecified open wound of abdominal wall, unspecified quadrant without penetration into peritoneal cavity, initial encounter
CPT/HCPCS: 11042; 11045; 97606; 99213

== ENCOUNTER → 2017-11-23 13:05 | Outpatient (CLI) | payer BC, SELFPAY ==
[2017-09-29 10:57] VITALS: BMI 30.4
[2017-10-08 07:35] VITALS: PULSE 75; RESP 28; O2SAT 95
== END ==
PROVIDERS: PCP Family Medicine; Visit Provider Family Medicine
DX: T81.31XD Disruption of external operation (surgical) wound, not elsewhere classified, subsequent encounter (principal); S31.104D Unspecified open wound of abdominal wall, left lower quadrant without penetration into peritoneal cavity, subsequent encounter; S31.109D Unspecified open wound of abdominal wall, unspecified quadrant without penetration into peritoneal cavity, subsequent encounter
CPT/HCPCS: 99213

== ENCOUNTER → 2017-11-26 13:16 | Outpatient (CLI) | payer BC, SELFPAY ==
[2017-09-29 10:57] VITALS: BMI 30.4
[2017-10-08 07:35] VITALS: PULSE 75; RESP 28; O2SAT 95
== END ==
PROVIDERS: PCP Family Medicine; Visit Provider Family Medicine
DX: S31.104A Unspecified open wound of abdominal wall, left lower quadrant without penetration into peritoneal cavity, initial encounter (principal); S31.109A Unspecified open wound of abdominal wall, unspecified quadrant without penetration into peritoneal cavity, initial encounter; T81.31XA Disruption of external operation (surgical) wound, not elsewhere classified, initial encounter
CPT/HCPCS: 11042; 11045

== ENCOUNTER → 2017-11-27 11:10 | Outpatient (CLI) | payer BC, SELFPAY ==
[2017-09-29 10:57] VITALS: BMI 30.4
[2017-10-08 07:35] VITALS: PULSE 75; RESP 28; O2SAT 95
== END ==
PROVIDERS: PCP Family Medicine; Visit Provider Family Medicine
DX: T81.31XD Disruption of external operation (surgical) wound, not elsewhere classified, subsequent encounter (principal); S31.109D Unspecified open wound of abdominal wall, unspecified quadrant without penetration into peritoneal cavity, subsequent encounter; S31.104D Unspecified open wound of abdominal wall, left lower quadrant without penetration into peritoneal cavity, subsequent encounter; Z43.3 Encounter for attention to colostomy
CPT/HCPCS: 99213

== ENCOUNTER → 2017-11-30 08:42 | Outpatient (CLI) | payer BC, SELFPAY ==
[2017-09-29 10:57] VITALS: BMI 30.4
[2017-10-08 07:35] VITALS: PULSE 75; RESP 28; O2SAT 95
== END ==
PROVIDERS: PCP Family Medicine; Visit Provider Family Medicine
DX: S31.104D Unspecified open wound of abdominal wall, left lower quadrant without penetration into peritoneal cavity, subsequent encounter (principal); S31.109D Unspecified open wound of abdominal wall, unspecified quadrant without penetration into peritoneal cavity, subsequent encounter
CPT/HCPCS: 99213

== ENCOUNTER → 2017-12-03 08:40 | Outpatient (CLI) | payer BC, SELFPAY ==
[2017-09-29 10:57] VITALS: BMI 30.4
[2017-10-08 07:35] VITALS: PULSE 75; RESP 28; O2SAT 95
== END ==
PROVIDERS: PCP Family Medicine; Visit Provider Family Medicine
DX: S31.109A Unspecified open wound of abdominal wall, unspecified quadrant without penetration into peritoneal cavity, initial encounter (principal); T81.31XA Disruption of external operation (surgical) wound, not elsewhere classified, initial encounter; K40.90 Unilateral inguinal hernia, without obstruction or gangrene, not specified as recurrent
CPT/HCPCS: 11042; 11045; 99213

== ENCOUNTER → 2017-12-07 08:46 | Outpatient (CLI) | payer BC, SELFPAY ==
[2017-09-29 10:57] VITALS: BMI 30.4
[2017-10-08 07:35] VITALS: PULSE 75; RESP 28; O2SAT 95
== END ==
PROVIDERS: PCP Family Medicine; Visit Provider Family Medicine
DX: T81.31XD Disruption of external operation (surgical) wound, not elsewhere classified, subsequent encounter (principal); S31.109D Unspecified open wound of abdominal wall, unspecified quadrant without penetration into peritoneal cavity, subsequent encounter
CPT/HCPCS: 99213

== ENCOUNTER → 2017-12-10 09:31 | Outpatient (CLI) | payer BC, SELFPAY ==
[2017-09-29 10:57] VITALS: BMI 30.4
[2017-10-08 07:35] VITALS: PULSE 75; RESP 28; O2SAT 95
== END ==
PROVIDERS: PCP Family Medicine; Visit Provider Family Medicine
DX: S31.109A Unspecified open wound of abdominal wall, unspecified quadrant without penetration into peritoneal cavity, initial encounter (principal); T81.31XA Disruption of external operation (surgical) wound, not elsewhere classified, initial encounter
CPT/HCPCS: 11042; 11045

== ENCOUNTER → 2017-12-14 09:10 | Outpatient (CLI) | payer BC, SELFPAY ==
[2017-09-29 10:57] VITALS: BMI 30.4
[2017-10-08 07:35] VITALS: PULSE 75; RESP 28; O2SAT 95
== END ==
PROVIDERS: PCP Family Medicine; Visit Provider Family Medicine
DX: S31.109D Unspecified open wound of abdominal wall, unspecified quadrant without penetration into peritoneal cavity, subsequent encounter (principal); T81.31XD Disruption of external operation (surgical) wound, not elsewhere classified, subsequent encounter
CPT/HCPCS: 99214

== ENCOUNTER → 2017-12-17 10:06 | Outpatient (CLI) | payer BC, SELFPAY ==
[2017-09-29 10:57] VITALS: BMI 30.4
[2017-10-08 07:35] VITALS: PULSE 75; RESP 28; O2SAT 95
== END ==
PROVIDERS: PCP Family Medicine; Visit Provider Family Medicine
DX: T81.31XA Disruption of external operation (surgical) wound, not elsewhere classified, initial encounter (principal)
CPT/HCPCS: 11042; 11045

== ENCOUNTER → 2017-12-24 08:48 | Outpatient (CLI) | payer BC, SELFPAY ==
[2017-09-29 10:57] VITALS: BMI 30.4
[2017-10-08 07:35] VITALS: PULSE 75; RESP 28; O2SAT 95
== END ==
PROVIDERS: PCP Family Medicine; Visit Provider Family Medicine
DX: S31.109A Unspecified open wound of abdominal wall, unspecified quadrant without penetration into peritoneal cavity, initial encounter (principal); T81.31XA Disruption of external operation (surgical) wound, not elsewhere classified, initial encounter
CPT/HCPCS: 11042; 11045

== ENCOUNTER → 2017-12-30 10:44 | Outpatient (CLI) | payer BC, SELFPAY ==
[2017-09-29 10:57] VITALS: BMI 30.4
[2017-10-08 07:35] VITALS: PULSE 75; RESP 28; O2SAT 95
== END ==
PROVIDERS: PCP Family Medicine; Visit Provider Family Medicine
DX: S31.109A Unspecified open wound of abdominal wall, unspecified quadrant without penetration into peritoneal cavity, initial encounter (principal); T81.31XA Disruption of external operation (surgical) wound, not elsewhere classified, initial encounter
CPT/HCPCS: 97597; 97598

== ENCOUNTER 2018-01-05 09:00 | Day surgery (SDC) | payer BC, SELFPAY ==
[2017-09-29 10:57] VITALS: BMI 30.4
[2017-10-08 07:35] VITALS: PULSE 75; RESP 28; O2SAT 95
[2017-12-28 16:32] VITALS: BMI 25.8
[2018-01-05] VITALS (7 sets, daily range): BP systolic 126–136; BP diastolic 72–84; PULSE 76–94; RESP 11–20; TEMP 36.3–37.2; O2SAT 93–99; BMI 27.8
[2018-01-05] MEDS: LACTATED RINGERS 1,000 ML 42 ML IV (08:30)
--- NOTE | 2018-01-05 09:18 | PM.PREOP ---
Pre-operative Note Interval Note Pre-op Check: Yes History & Physical Reviewed by Physician and Yes Exam Performed Changes: No H&P completed within 30 days and has changed as indicated here:: Patient seen and examined in the preoperative area. History and physical examination as documented December 21, 2017 has not changed. H&P is on the chart. Proceed today with split-thickness skin graft open abdominal wound as planned.
[2018-01-05] MEDS: CEFAZOLIN 2 GM/100 ML FROZ.PIGGY IV (09:30)
--- NOTE | 2018-01-05 10:07 | SUR.OPER ---
Supine on padded OR bed, head on pillow, arms secured on padded arm boards at <90 degrees abduction, legs uncrossed, pillow under bent right leg, safety belt at calfs, tape over blanket over lower legs.
[2018-01-05] MEDS: MINERAL OIL LIGHT TOPICAL 25 ML 10 ML TOP (10:24)
[2018-01-05] MEDS: EPINEPHrine 1 MG/ML AMPUL IRR (10:26)
[2018-01-05] MEDS: fentaNYL 100 MCG/2 ML INJ 50 MCG IV ×2 (12:07→12:25)
--- NOTE | 2018-01-05 12:14 | SUR.PHASEI ---
arrived, breathing on own, gradually awake, o2 for low sats on room air, fentanyl for pain to r leg. report to mary carmen.
--- NOTE | 2018-01-05 12:17 | P.OP_ITS ---
Operative Date/Time/Diagnoses Date of procedure: 01/05/18 Time of procedure: 12:11 Pre-op diagnosis: Open abdominal wound requiring skin coverage Post-op diagnosis: same Procedure & Clinicians Procedure: Placement of split-thickness skin graft from right thigh donor site to open abdominal wound with total graft area measuring 94 sq cm Same procedure as scheduled: Yes Indications: 62-year-old male status post laparotomy and prolonged critical illness due to complete colon obstruction whose abdomen could not be closed at the time of surgery due to significant bowel distention and edema. His wound was treated with a wound VAC and allow to close as much as possible by secondary intention. He now has a defect remaining and the closure of the skin has arrested. He has a good granulation bed however. Therefore split- thickness skin graft coverage of the open wound is recommended. Surgeon: Roger Fiore Click Yes if Unassisted: Yes Anesthesia Type: General Operative Notes Findings: 1. Good coverage of existing open abdominal wound with 0.018 in thick split-thickness skin graft Closure Type: primary Specimen(s): none sent Implants & Drains: None Estimated Blood Loss (mL): 25 Blood products transfused: none Procedure in detail: After obtaining informed consent the patient was brought to the operating room placed supine on the table. After satisfactory induction of anesthesia a SCOAP time-out was performed per standard protocol. Existing ileostomy was closed with a figure of 8 0 Prolene suture and a Steri-Drape was used to encircle the stoma to separate it from the operative site. Abdomen and right thigh were then prepped and draped in usual sterile fashion. Total defect of the abdominal wound was measured and a split-thickness skin graft was harvested with a Geroge dermatome from the right thigh with the above area set at 0.018 in thickness. Hemostasis was achieved on the donor site with epinephrine impregnated sponges. Graft was soaked in saline and then brought onto the abdomen where was found to cover the existing defect nicely. Again, there was an excellent granulation bed over the wound. Graft was secured to the wound with interrupted 3 0 chromic sutures. Graft was pie crusted with 15 scalpel blade. A bolster consisting of large Vaseline gauze and saline soaked cotton batting was created and secured with circumferential 0 Prolene suture. The suture had been placed on the skin over rubber bolsters. 0 Prolene sutures were then tied over the bolster to secure it in place to prevent shearing force onto the graft. Sterile dressing was then placed over the right thigh donor site after verifying hemostasis. Previously placed Prolene suture in the ostomy was removed and a new ostomy appliance was placed without issue. Abdominal binder was placed over the entire abdomen with a defect cut to accommodate the ostomy appliance. Anesthesia was then reversed and patient extubated in the operating room. He was taken recovery in stable condition. Complications: none Condition: stable Disposition: PACU Plan for aftercare: 1. Discharge home 2. Follow up in surgery clinic next week to remove graft bolster and change thigh dressing
[2018-01-05] MEDS: OXYCODONE/ACETAMINOPHEN 5/325 TABLET 1 TAB PO ×2 (12:29→12:50)
--- NOTE | 2018-01-05 12:53 | SUR.PHASEII ---
assumed care from jamal, pain still high, asked dr gomes to give second percocet early, he stated ok and pt medicated, dressing c/d/i. given prescriptions and has taken them to [facility] to get filled.
--- NOTE | 2018-01-05 13:55 | SUR.PHASEII ---
recieved pacu report that 2nd bag iv hung per dr gomes., not scanned total iv fluid 1600
--- NOTE | 2018-01-05 13:57 | SUR.PHASEII ---
late entry: returned. d/c instructions discussed, pt ready for d/c, dressing still cdi, abdominal binder in place, colostomy with soft brown stool and pink wet stoma. pt left when ready and left in stable condition, stated pain controlled at discharge.
== END 2018-01-05 13:30 | disposition home or self-care (01) ==
PROVIDERS: PCP Family Medicine; Visit Provider Surgery
PROC: (CPT 15100; principal; 2018-01-05 10:00)
DX: L76.82 Other postprocedural complications of skin and subcutaneous tissue (principal); Z48.1 Encounter for planned postprocedural wound closure; Z93.2 Ileostomy status; C18.9 Malignant neoplasm of colon, unspecified; Z87.891 Personal history of nicotine dependence; G47.33 Obstructive sleep apnea (adult) (pediatric); J45.909 Unspecified asthma, uncomplicated
CPT/HCPCS: 15100; J0171; J0690; J2405; J2704; J3010

== ENCOUNTER → 2018-08-19 10:15 | Outpatient (CLI) | payer BC, SELFPAY ==
[2017-09-29 10:57] VITALS: BMI 30.4
[2017-10-08 07:35] VITALS: PULSE 75; RESP 28; O2SAT 95
[2018-08-19 10:58] LABS: Hemoglobin A1C% w Est Avg Glu 8.4 % (4.0-6.0)
[2018-08-19 11:41] LABS: Glucose 195 mg/dL (80-110)
[2018-08-19 12:52] LABS: Creatinine Urine Random 350.5 mg/dL; Microalbumi Creatinin Ratio Ur 24.2 ug/mg CR (<30); Microalbumin Urine Random 8.5 mg/dL (0-1.6)
== END ==
PROVIDERS: PCP Family Medicine; Visit Provider Nurse Practitioner
DX: R73.9 Hyperglycemia, unspecified (principal)
CPT/HCPCS: 36415; 82043; 82570; 82947; 83036

== ENCOUNTER 2018-10-13 15:27 | Emergency (ER) | payer BC, SELFPAY ==
[2017-09-29 10:57] VITALS: BMI 30.4
[2017-10-08 07:35] VITALS: PULSE 75; RESP 28; O2SAT 95
[2018-10-13] VITALS (10 sets, daily range): BP systolic 109–129; BP diastolic 68–110; PULSE 59–133; RESP 16–63; TEMP 36.7; O2SAT 96–99
--- NOTE | 2018-10-13 15:44 | DI.RAD.S_ITS ---
PROCEDURE: XR CHEST 1V INDICATIONS: SOB, fast heart beat TECHNIQUE: One view of the chest was acquired. COMPARISON: [facility], CR, XR CHEST FOR PICC 1V, 10/18/2017, 8:47. FINDINGS: Surgical changes and devices: Right Port-A-Cath is present. Lungs and pleura: Lungs are clear. No pleural effusions or pneumothorax. Mediastinum: Mediastinal contours appear normal. Heart size is normal. Bones and chest wall: No suspicious bony lesions. Overlying soft tissues appear unremarkable. IMPRESSION: No acute pulmonary process. Dictated by: Nneka Vargas M.D. on 10/13/2018 at 16:19 Approved by: Nneka Vargas M.D. on 10/13/2018 at 16:20
[2018-10-13] MEDS: SODIUM CHLORIDE 0.9% 1,000 ML 1000 ML IV (15:50)
--- NOTE | 2018-10-13 16:00 | ED.SOB ---
HPI - SOB/Dyspnea General Chief Complaint: Shortness of Breath/Dyspnea Stated Complaint: tachy,stage 4 cancer,trouble breathing Time Seen by Provider: 10/13/18 15:35 Source: patient and family () Limitations: no limitations History of Present Illness HPI Narrative: This is a 62-year-old male comes to the emergency department with complaint of chest pain, shortness of breath and fast heartbeat. Patient states that he has been having symptoms for about 3 days. Patient states that he has been slightly nauseated but not actively vomiting. He does have a history of asthma, he states he is on brand prednisone many times for this. Denies any history of [place], stroke or no cardiac dysrhythmia. Patient has stage IV colon cancer, he is on chemotherapy currently. He is not receiving any radiation. Patient states that he has had some diarrhea, no black or bloody stools. This is been quite frequent and liquidy. Patient has a history of hypertension but states that his blood pressure improved after some medical issues is no longer on medication. His x-ray dyslipidemia but is not on any anti cholesterol medication, he is diabetic but takes oral medications. No history of kidney or thyroid issues. He does not smoke, occasional alcohol, no THC or illicit. He has had significant abdominal surgeries secondary to colon resection that resulted in infection and an open abdomen that required multiple surgeries and a rafting. This has healed he still has a colostomy. He patient states he has had these episodes where his heart was beating fast intermittently for a couple months this is the longest episode he has had. Related Data Home Medications Medication Instructions Recorded Confirmed ResMed Airsense 10 CPAP #1 ea 05/13/18 10/13/18 prochlorperazine maleate 5 mg 10 mg PO Q6H PRN 08/19/18 10/13/18 tablet cyclobenzaprine 10 mg PO TID PRN 10/13/18 10/13/18 dexamethasone 4 mg PO BID 10/13/18 10/13/18 montelukast 10 mg PO QPM PRN 10/13/18 10/13/18 Previous Rx's Medication Instructions Recorded albuterol sulfate 90 mcg/actuation 2 - 4 puff INHALATION Q4HP PRN #1 10/26/17 aerosol inhaler ea fluticasone 250 mcg-salmeterol 50 1 inhalation INHALATION BID #60 05/14/18 mcg/dose blistr powdr for each inhalation blood sugar diagnostic #100 each 08/26/18 blood-glucose meter #1 each 08/26/18 lancets 33 gauge #200 each 08/26/18 metformin 500 mg tablet 500 mg PO DAILY #30 tab 08/26/18 ropinirole 1 mg tablet 1 mg PO BEDTIME #90 tab 09/08/18 apixaban [Eliquis] 5 mg PO BID #30 tab 10/13/18 metoprolol tartrate 25 mg PO BID #30 tab 10/13/18 Allergies Allergy/AdvReac Type Severity Reaction Status Date / Time No Known Allergies Allergy Verified 08/27/18 10:12 Review of Systems Review of Systems ROS Unobtainable: All systems reviewed & are unremarkable except as noted in HPI and below PFSH Medical History Acute renal injury due to sepsis (Acute) ADHD (attention deficit hyperactivity disorder) (Chronic 2004) Asthma (Chronic 1958) Chronic back pain (Acute) Colon adenocarcinoma (Acute) Diverticulitis (Chronic) History of erectile dysfunction (Acute) History of small bowel obstruction (Acute ~09/30/17) Hypertension (Acute) Ileostomy, has currently (Chronic 09/2017) Open abdominal wall wound (Chronic 09/2017) Personal history of colonic polyps (Resolved) Postoperative anemia (Acute) Respiratory failure (Acute) Secondary thrombocytosis (Acute) Severe protein-calorie malnutrition (Acute) Sleep apnea (Chronic 2007) Surgical History Anesthesia (Resolved) History of colon resection (Resolved 09/2017) History of colonoscopy (Resolved 05/29/17) History of exploratory laparotomy (Resolved 09/2017) History of umbilical hernia repair (Resolved) Status post cholecystectomy (Resolved 1985) Family History Brother Age: 58 Drug addict Brother Heart disease Father Cancer Mother Stroke Sister MVA (motor vehicle accident) Social History household members: spouse Smoking Status: Former smoker alcohol intake: current substance use type: does not use Family History Brother Age: 58 Drug addict Brother Heart disease Father Cancer Mother Stroke Sister MVA (motor vehicle accident) Social History household members: spouse Smoking Status: Former smoker alcohol intake: current substance use type: does not use Exam Narrative Exam Narrative: GENERAL: Alert and oriented x three, well-nourished, well-appearing male in distress. HEENT: Head normocephalic, atraumatic, EOMI, pupils reactive, face symmetric, moist mucous membranes NECK: Supple, full range of motion CARDIOVASCULAR: Tachycardic and Regular rate and rhythm without murmurs, rubs or gallops. No JVD. No swelling in lower extremities. 2+ pulses lower extremities. RESPIRATORY: Breath sounds equal bilaterally, no wheezes rales or rhonchi. ABDOMEN: Soft, nontender. Normoactive bowel sounds all 4 quadrants. No guarding or rebound, rigidity, no mass. Patient has a healed abdominal wound. Patient also has a clot in the right lower quadrant. : No CVA tenderness EXTREMITIES: Normal range of motion, no clubbing or edema. Neurovascularly intact NEUROLOGICAL: Cranial nerves II through XII grossly intact. Moving all extremities SKIN: Warm, dry, no petechiae, no rashes or lesions. Initial Vital Signs Initial Vital Signs: Vital Signs Temperature 98.1 F 10/13/18 15:30 Pulse Rate 133 H 10/13/18 15:30 Respiratory Rate 28 H 10/13/18 15:30 Blood Pressure 128/101 H 10/13/18 15:30 Pulse Oximetry 98 10/13/18 15:30 Course Orders Ordered: Discontinued Medications Sodium Chloride (Normal Saline 0.9%) 1,000 mls @ 1,000 mls/hr IV BOLUS ONE Stop: 10/13/18 16:43 Last Infusion: 10/13/18 17:39 Dose: 0 mls/hr Documented by: Admin: 10/13/18 15:50 Dose: 1,000 mls/hr Documented by: MIKE Magnesium Sulfate (Magnesium Sulfate) 2 gm in 50 mls @ 25 mls/hr IV NOW ONE Stop: 10/13/18 19:18 Last Infusion: 10/13/18 19:59 Dose: 0 mls/hr Documented by: KSCHERE Cosigned by: NICKO Admin: 10/13/18 17:44 Dose: 25 mls/hr Documented by: MIKE Cosigned by: YULI Sodium Chloride (Normal Saline 0.9%) 1,000 mls @ 150 mls/hr IV BOLUS ONE Stop: 10/14/18 00:19 Last Infusion: 10/13/18 19:58 Dose: 0 mls/hr Documented by: Admin: 10/13/18 17:43 Dose: 150 mls/hr Documented by: MIKE Metoprolol Tartrate (Lopressor) 5 mg IV NOW ONE Stop: 10/13/18 17:53 Last Admin: 10/13/18 18:11 Dose: 5 mg Documented by: MIKE Vital Signs Vital signs: Vital Signs - 8 hr 10/13/18 15:30 10/13/18 15:45 10/13/18 16:03 Temperature 98.1 F Pulse Rate 133 H 132 H 132 H Respiratory Rate 28 H 18 17 Blood Pressure 128/101 H Blood Pressure [Right Arm] 128/101 H 129/82 Pulse Oximetry 98 96 99 10/13/18 16:31 10/13/18 17:00 10/13/18 17:30 Temperature Pulse Rate 129 H 128 H 124 H Respiratory Rate 20 16 20 Blood Pressure Blood Pressure [Right Arm] 125/86 125/83 127/110 H Pulse Oximetry 98 98 98 10/13/18 18:11 10/13/18 18:34 10/13/18 18:55 Temperature Pulse Rate 124 H 59 L 60 Respiratory Rate 24 17 18 Blood Pressure Blood Pressure [Right Arm] 118/90 121/68 109/73 Pulse Oximetry 98 97 98 MDM - SOB/Dyspnea Lab Data Attestation: I reviewed the patient's lab results. Result diagrams: 10/13/18 15:52 10/13/18 15:52 Labs: Lab Results 10/13/18 10/13/18 10/13/18 Range/Units 15:52 15:52 15:52 WBC 8.1 (4.5-11.0) X10^3/uL RBC 4.25 L (4.5-5.9) X10^6/uL Hgb 14.5 (13.5-17.5) g/dL Hct 40.6 L (41-53) % MCV 95.4 (80-100) fL MCH 34.0 (26-34) PG MCHC 35.6 (30-36) % RDW 15.8 H (11.6-14.8) % Plt Count 174 (150-400) X10^3/uL Neut % (Auto) 41.1 L (50-75) % Lymph % (Auto) 45.0 H (25-40) % Colbert % (Auto) 13.2 (3-14) % Eos % (Auto) 0.3 L (2-4) % Baso % (Auto) 0.4 (0-2) % Neut # (Auto) 3300 (3605-4576) /uL Lymph # (Auto) 3600 (0195-9142) /uL Colbert # (Auto) 1100 H (0-900) /uL Eos # (Auto) 0 (0-450) /uL Baso # (Auto) 0 (0-100) /uL PT 11.4 (10.1-12.7) SECONDS INR 1.0 (0.9-1.3) APTT 29 (26.4-36.2) SECONDS Sodium 136 L (137-145) mmol/L Potassium 3.4 (3.4-5.1) mmol/L Chloride 102 (98-107) mmol/L Carbon Dioxide 20 L (22-32) mmol/L BUN 28 H (9-20) mg/dL Creatinine 1.00 (0.66-1.25) mg/dL Estimated GFR > 60.0 (>60) mL/min BUN/Creatinine Ratio 28.0 H (6-22) Glucose 238 H (80-110) mg/dL Calcium 9.6 (8.4-10.2) mg/dL Magnesium 1.5 L (1.6-2.3) mg/dL Total Bilirubin 0.6 (0.2-1.3) mg/dL AST 44 (17-59) IU/L ALT 78 H (21-72) IU/L Alkaline Phosphatase 138 H (38-126) U/L Total Creatine Kinase 52 L (55-170) U/L CK-MB (CK-2) TNP CK-MB (CK-2) Rel Index TNP Troponin I < 0.012 (0.01-0.034) ng/mL Total Protein 6.7 (6.3-8.2) g/dL Albumin 3.9 (3.5-5.0) g/dL Globulin 2.8 (1.7-4.1) g/dL Albumin/Globulin Ratio 1.4 (1.0-2.8) TSH (0.47-4.68) uIU/mL 10/13/18 Range/Units 15:52 WBC (4.5-11.0) X10^3/uL RBC (4.5-5.9) X10^6/uL Hgb (13.5-17.5) g/dL Hct (41-53) % MCV (80-100) fL MCH (26-34) PG MCHC (30-36) % RDW (11.6-14.8) % Plt Count (150-400) X10^3/uL Neut % (Auto) (50-75) % Lymph % (Auto) (25-40) % Colbert % (Auto) (3-14) % Eos % (Auto) (2-4) % Baso % (Auto) (0-2) % Neut # (Auto) (1776-5973) /uL Lymph # (Auto) (9610-2236) /uL Colbert # (Auto) (0-900) /uL Eos # (Auto) (0-450) /uL Baso # (Auto) (0-100) /uL PT (10.1-12.7) SECONDS INR (0.9-1.3) APTT (26.4-36.2) SECONDS Sodium (137-145) mmol/L Potassium (3.4-5.1) mmol/L Chloride (98-107) mmol/L Carbon Dioxide (22-32) mmol/L BUN (9-20) mg/dL Creatinine (0.66-1.25) mg/dL Estimated GFR (>60) mL/min BUN/Creatinine Ratio (6-22) Glucose (80-110) mg/dL Calcium (8.4-10.2) mg/dL Magnesium (1.6-2.3) mg/dL Total Bilirubin (0.2-1.3) mg/dL AST (17-59) IU/L ALT (21-72) IU/L Alkaline Phosphatase (38-126) U/L Total Creatine Kinase (55-170) U/L CK-MB (CK-2) CK-MB (CK-2) Rel Index Troponin I (0.01-0.034) ng/mL Total Protein (6.3-8.2) g/dL Albumin (3.5-5.0) g/dL Globulin (1.7-4.1) g/dL Albumin/Globulin Ratio (1.0-2.8) TSH 3.14 (0.47-4.68) uIU/mL Imaging Data Chest x-ray: Radiologist's impression: [address] [address] XRay Report Signed Patient: JeniAngel Luis,Alton HAYDENR#: [id number] : 1955cct:[id number] Age/Sex: 62 / MDate of Service: 10/13/18 Loc: ED Accession Number: [id number] Procedure: XR chest 1V Ordering Provider: Marycruz Gomez D.O. PROCEDURE: XR CHEST 1V INDICATIONS: SOB, fast heart beat TECHNIQUE: One view of the chest was acquired. COMPARISON: [facility], , XR CHEST FOR PICC 1V, 10/18/2017, 8:47. FINDINGS: Surgical changes and devices: Right Port-A-Cath is present. Lungs and pleura: Lungs are clear. No pleural effusions or pneumothorax. Mediastinum: Mediastinal contours appear normal. Heart size is normal. Bones and chest wall: No suspicious bony lesions. Overlying soft tissues appear unremarkable. IMPRESSION: No acute pulmonary process. Dictated by: Nneka Vargas M.D. on 10/13/2018 at 16:19 Approved by: Nneka Vargas M.D. on 10/13/2018 at 16:20 CT scan - chest: Radiologist's impression: Alton Wagner 62 M [address] [address] [address] Scan Report Signed Patient: JeniAngel LuisAltonR#: [id number] : [id number] Age/Sex: 62 / MDate of Service: 10/13/18 Loc: ED Accession Number: [id number] Procedure: CT angio chest PE protocol Ordering Provider: Marycruz Gomez D.O. PROCEDURE: CT ANGIO CHEST PE PROTOCOL INDICATIONS: sob, tachycardia, chest pain, colon cancer TECHNIQUE: After the administration of intravenous contrast, 2 mm thick sections acquired from the pulmonary apices to the posterior costophrenic angles. 3-dimensional maximum intensity projection (MIP) coronal and sagittal reformats were then acquired through the thorax. For radiation dose reduction, the following was used: automated exposure control, adjustment of mA and/or kV according to patient size. COMPARISON: [facility], CT, CT ABDOMEN PELVIS W CON, 10/19/2017, 8:43. [facility], CR, XR CHEST 1V, 10/13/2018, 15:49. FINDINGS: Image quality: Excellent. Pulmonary arteries: Pulmonary arteries are normal in size, and demonstrate no intraluminal filling defects to suggest central pulmonary embolism. Lungs and pleura: Lungs are clear. No pleural effusions or pneumothorax. Central and peripheral airways are patent. Mediastinum: Heart size is normal, without pericardial effusion. No mediastinal or hilar adenopathy. Thoracic aorta is normal in caliber and enhancement. Esophagus is normal in caliber, without hiatal hernia. Bones and chest wall: No suspicious bony lesions. Ribs and thoracic spine appear intact throughout. Thyroid gland is unremarkable. No axillary or supraclavicular adenopathy. Abdomen: Partially visualized ventral hernia the upper abdomen appearing unchanged within limited visualized portions. Mild hepatomegaly with steatosis is present. Otherwise, visualized upper abdominal solid organs appear normal in the early arterial phase of enhancement. IMPRESSION: 1. No pulmonary embolism. 2. Lungs are clear. 3. Partially visualized upper abdominal ventral hernia appearing unchanged in limited portions. Dictated by: Nneka Vargas M.D. on 10/13/2018 at 17:02 Approved by: Nneka Vargas M.D. on 10/13/2018 at 17:06 ECG Data Attestation: I personally reviewed and interpreted this ECG as follows: Interpretation: ectopic atrial tachycardia, rate of 133, qrs of 86, qtc of 410. nonspecific ST changes. EKG#2, irregular atrial rhythm, rate of 94, pr 142, qrs 89, qtc 457. non specific ST change. EKG #3 sinus rhythm patient has rate of 60 P are 198 QRS 89 and QTC of 372. Nonspecific T-wave. No elevation appreciated. MDM Narrative Medical decision making narrative: Patient was risk of pe, ct is negative. with no acute changes negative for pe, lungs are clear, partial visualized upper abdominal ventral hernia repair. Labs show hypomagnesemia, na 136, co is 20, BUN is 28, glucose is 238, LFTs are elevated but have been elevated prior, CK-MB is CMP and troponin is negative. TSH is 3.14. Patient received IV fluids, he is receiving magnesium and received 1 dose of IV metoprolol after 2nd EKG showed irregular atrial rhythm. Patient appears to have cardioverted on 3rd EKG. Spoke with Dr. Garcia she recommends Eliquis 5 mg twice daily, metoprolol 25 mg twice daily and will follow up outpatient for patient have echo and see them in the office. She states that the office will have a coupon that they can case picker as it can be very expensive. She does ask that we fax EKGs at [phone] including any tele strips that would be helpful for patient. Discussed with patient he will start metoprolol this evening. He is concerned about starting Eliquis to seize had some bleeding from his ostomy site along the edges. We discussed that he is welcome to have further conversation with Cardiology and his oncologist. We discussed risks versus benefits patient elected to have a further discussion will take the prescription with him today.. He is feeling much better and able to ambulate to and from the bathroom and is continuing to be in sinus rhythm. EKGs were faxed to Dr. Garcia. Discharge Plan Departure Patient Disposition: Home Clinical Impression: Atrial dysrhythmia Discharge Date/Time: 10/13/18 20:16 Instructions: DI for Atrial Fibrillation Activity Restrictions/Additional Instructions: Follow up with cardiology, call for an appointment. They are planning for ECHO as an outpatient and follow up. Please start metoprolol 25 mg twice daily. Also discussed with the postal mail carrier they would like you to start Eliquis a blood to protect 2 from stroke 5 mg twice daily. Take prescription to have your magnesium rechecked at your next lab check. Prescription with [facility] in [place]. Continue home medication as prescribed. Make sure you are drinking plenty of fluids. Return to the emergency department for fevers greater 100.4 F, recurrent palpitations or fast heartbeat, chest pain, shortness of breath, lightheadedness or passing out, swelling in her extremities, persistent nausea or vomiting or other new or concerning symptoms Prescriptions: New Eliquis 5 mg tablet 5 mg PO BID Qty: 30 RF: 0 metoprolol tartrate 25 mg tablet 25 mg PO BID Qty: 30 RF: 0 No Action albuterol sulfate [Ventolin HFA] 90 mcg/actuation HFA aerosol inhaler 2 - 4 puff INHALATION Q4HP PRN (Reason: shortness of breath or wheezing) Qty: 1 RF: 2 fluticasone propion-salmeterol [Advair Diskus] 250-50 mcg/dose blister with device 1 inhalation INHALATION BID Qty: 60 RF: 1 (DME) blood-glucose meter [Blood Glucose Monitoring] kit See Dose Instructions .ROUTE .MEDSUPPLY Qty: 1 RF: 0 (DME) blood sugar diagnostic strip See Dose Instructions .ROUTE .MEDSUPPLY Qty: 100 RF: 3 (DME) lancets [BD Ultra Fine Lancets] 33 gauge misc See Dose Instructions .ROUTE .MEDSUPPLY Qty: 200 RF: 3 ropinirole 1 mg tablet 1 mg PO BEDTIME Qty: 90 RF: 0 prochlorperazine maleate 5 mg tablet 10 mg PO Q6H PRN (Reason: Nausea) RF: 0 metformin 500 mg tablet 500 mg PO DAILY Qty: 30 RF: 1 dexamethasone 4 mg tablet 4 mg PO BID RF: 0 cyclobenzaprine 10 mg tablet 10 mg PO TID PRN (Reason: Spasms) RF: 0 montelukast 10 mg tablet 10 mg PO QPM PRN (Reason: Allergy Symptoms) RF: 0 (DME) ResMed Airsense 10 CPAP Qty: 1 RF: 0 Referrals: Selma Cronin MD [Primary Care Provider] - Mare Garcia MD [Physician] -
[2018-10-13 16:04] LABS: Add Manual Diff / Slide Review NO; Basophils Absolute Auto 0 /uL (0-100); Basophils Percent Auto 0.4 % (0-2); Eosinophils Absolute Auto 0 /uL (0-450); Eosinophils Percent Auto 0.3 % (2-4); Hematocrit 40.6 % (41-53); Hemoglobin 14.5 g/dL (13.5-17.5); Lymphocytes Absolute Auto 3600 /uL (1100-4500); Mean Corpuscular HGB Conc 35.6 % (30-36); Mean Corpuscular Volume 95.4 fL (80-100); Monocytes Absolute Auto 1100 /uL (0-900); Monocytes Percent Auto 13.2 % (3-14); Neutrophils Absolute Auto 3300 /uL (1500-7000); Neutrophils Percent Auto 41.1 % (50-75); Platelet Count 174 X10^3/uL (150-400); Red Blood Cell Count 4.25 X10^6/uL (4.5-5.9); Red Cell Distribution Width 15.8 % (11.6-14.8); White Blood Cell Count 8.1 X10^3/uL (4.5-11.0)
[2018-10-13 16:21] LABS: Prothrombin Time 11.4 SECONDS (10.1-12.7)
[2018-10-13 16:24] LABS: PTT Partial Thromboplastin Tim 29 SECONDS (26.4-36.2)
[2018-10-13 16:37] LABS: Alanine Aminotransferase 78 IU/L (21-72); Albumin 3.9 g/dL (3.5-5.0); Albumin Globulin Ratio 1.4 (1.0-2.8); Alkaline Phosphatase 138 U/L (38-126); Aspartate Aminotransferase 44 IU/L (17-59); Bilirubin Total 0.6 mg/dL (0.2-1.3); Blood Urea Nitrogen 28 mg/dL (9-20); Calcium 9.6 mg/dL (8.4-10.2); Carbon Dioxide 20 mmol/L (22-32); Chloride 102 mmol/L (98-107); Creatine Kinase 52 U/L (55-170); Estimated Glomerular Filt Rate > 60.0 mL/min (>60); Globulin 2.8 g/dL (1.7-4.1); Glucose 238 mg/dL (80-110); HEMOLYSIS < 15 (0-50); Magnesium 1.5 mg/dL (1.6-2.3); Potassium 3.4 mmol/L (3.4-5.1); Sodium 136 mmol/L (137-145); Total Protein 6.7 g/dL (6.3-8.2)
[2018-10-13 16:46] LABS: Troponin I < 0.012 ng/mL (0.01-0.034)
[2018-10-13 17:28] LABS: Thyroid Stimulating Hormone 3.14 uIU/mL (0.47-4.68)
[2018-10-13] MEDS: SODIUM CHLORIDE 0.9% 1,000 ML 150 ML IV (17:43)
[2018-10-13] MEDS: MAGNESIUM SULFATE 2 GM/50 ML PIGGYBACK IV (17:44)
[2018-10-13] MEDS: METOPROLOL TARTRATE 5 MG/5 ML INJ IV (18:11)
== END 2018-10-13 20:16 | disposition home or self-care (01) ==
PROVIDERS: Emergency Provider Emergency Medicine; PCP Family Medicine
DX: I49.8 Other specified cardiac arrhythmias (principal)
CPT/HCPCS: 36591; 71045; 71275; 80053; 82550; 83735; 84443; 84484; 85025; 85610; 85730; 93005; 96361; 96365; 96366; 96375; 99285; J1642; Q9967

== ENCOUNTER 2018-10-19 15:11 | Emergency (ER) | payer BC, SELFPAY ==
[2017-09-29 10:57] VITALS: BMI 30.4
[2017-10-08 07:35] VITALS: PULSE 75; RESP 28; O2SAT 95
[2018-10-19] VITALS (7 sets, daily range): BP systolic 110–141; BP diastolic 59–84; PULSE 65–121; RESP 12–19; TEMP 36.4; O2SAT 96–100
--- NOTE | 2018-10-19 15:34 | DI.RAD.S_ITS ---
PROCEDURE: XR CHEST 1V INDICATIONS: chest pain TECHNIQUE: One view of the chest was acquired. COMPARISON: [facility], CT, CT ANGIO CHEST PE PROTOCOL, 10/13/2018, 16:37. [facility], CR, XR CHEST 1V, 10/09/2017, 5:52. [facility], CR, XR CHEST 1V, 10/13/2018, 15:49. FINDINGS: Surgical changes and devices: There is a Port-A-Cath on the right side with the tip at the atriocaval junction. Lungs and pleura: Lungs are clear. No pleural effusions or pneumothorax. Mediastinum: Mediastinal contours appear normal. Heart size is normal. Bones and chest wall: No suspicious bony lesions. Overlying soft tissues appear unremarkable. IMPRESSION: No acute cardiopulmonary disease. Dictated by: Kenneth Mcgill M.D. on 10/19/2018 at 15:02 Approved by: Kenneth Mcgill M.D. on 10/19/2018 at 15:21
--- NOTE | 2018-10-19 15:43 | ED.ARRPALP ---
HPI - Arrhythmia/Palpitations <Libertad Gan, DO - Last Filed: 10/22/18 19:21> General Chief Complaint: Arrhythmia/Palpitations Stated Complaint: CHEST PAIN SOB Time Seen by Provider: 10/19/18 15:14 Source: patient Mode of arrival: ambulatory Limitations: no limitations History of Present Illness HPI narrative: Patient is a 62-year-old male with stage IV colon cancer currently receiving chemotherapy presenting with chest pain and shortness of breath. He states it started today it is worse whenever he walks. He actually was seen evaluated here last week for the same. He had a PE study and was found to be in AFib with RVR. He is in normal sinus rhythm on the monitor. He has no known history of coronary artery disease. He says last time they gave him magnesium and a small amount of medication and he converted and his heart rate was back into the 60s. He denies any flip-flopping of his heart. Related Data Home Medications Medication Instructions Recorded Confirmed ResMed Airsense 10 CPAP #1 ea 05/13/18 10/19/18 prochlorperazine maleate 5 mg 10 mg PO Q6H PRN 08/19/18 10/19/18 tablet cyclobenzaprine 10 mg PO TID PRN 10/13/18 10/19/18 dexamethasone 4 mg PO BID 10/13/18 10/19/18 montelukast 10 mg PO QPM PRN 10/13/18 10/19/18 Previous Rx's Medication Instructions Recorded albuterol sulfate 90 mcg/actuation 2 - 4 puff INHALATION Q4HP PRN #1 10/26/17 aerosol inhaler ea fluticasone 250 mcg-salmeterol 50 1 inhalation INHALATION BID #60 05/14/18 mcg/dose blistr powdr for each inhalation blood sugar diagnostic #100 each 08/26/18 blood-glucose meter #1 each 08/26/18 lancets 33 gauge #200 each 08/26/18 metformin 500 mg tablet 500 mg PO DAILY #30 tab 08/26/18 ropinirole 1 mg tablet 1 mg PO BEDTIME #90 tab 09/08/18 apixaban 5 mg tablet 5 mg PO BID #30 tab 10/13/18 metoprolol tartrate 25 mg PO BID #30 tab 10/13/18 Allergies Allergy/AdvReac Type Severity Reaction Status Date / Time No Known Allergies Allergy Verified 08/27/18 10:12 Review of Systems <Libertad Gan DO - Last Filed: 10/22/18 19:21> Review of Systems ROS Unobtainable: All systems reviewed & are unremarkable except as noted in HPI and below Constitutional Constitutional: Denies chills, Denies fever(s), Denies lethargy and Denies weakness Eyes Eyes: Denies change in vision, Denies eye discharge, Denies irritation and Denies loss of vision ENT Ears, Nose, Mouth, and Throat: Denies change in voice, Denies neck pain and Denies sore throat Cardiovascular Cardiovascular: Reports chest pain, Reports irregular heart rhythm, Denies dyspnea and Denies dyspnea on exertion Respiratory Respiratory: Denies cough, Denies dyspnea, Denies dyspnea on exertion and Denies wheezing Gastrointestinal Gastrointestinal: Denies abdominal pain, Denies change in bowel habits, Denies diarrhea, Denies nausea and Denies vomiting Genitourinary Genitourinary: Denies hematuria, Denies flank pain, Denies urinary incontinence and Denies urinary urgency Musculoskeletal Musculoskeletal: Denies neck pain Integumentary/Breasts Skin/Breast: Denies pruritus, Denies erythema, Denies rash and Denies wounds Neurologic Neurologic: Denies loss of vision and Denies weakness Allergic/Immunologic Allergic/Immunologic: Denies wheezing PFSH <Libertad Gan DO - Last Filed: 10/22/18 19:21> Medical History Acute renal injury due to sepsis (Acute) ADHD (attention deficit hyperactivity disorder) (Chronic 2004) Asthma (Chronic 1958) Chronic back pain (Acute) Colon adenocarcinoma (Acute) Diverticulitis (Chronic) History of erectile dysfunction (Acute) History of small bowel obstruction (Acute ~09/30/17) Hypertension (Acute) Ileostomy, has currently (Chronic 09/2017) Open abdominal wall wound (Chronic 09/2017) Personal history of colonic polyps (Resolved) Postoperative anemia (Acute) Respiratory failure (Acute) Secondary thrombocytosis (Acute) Severe protein-calorie malnutrition (Acute) Sleep apnea (Chronic 2007) Surgical History Anesthesia (Resolved) History of colon resection (Resolved 09/2017) History of colonoscopy (Resolved 05/29/17) History of exploratory laparotomy (Resolved 09/2017) History of umbilical hernia repair (Resolved) Status post cholecystectomy (Resolved 1985) Family History Brother Age: 58 Drug addict Brother Heart disease Father Cancer Mother Stroke Sister MVA (motor vehicle accident) Social History household members: spouse Smoking Status: Former smoker alcohol intake: current substance use type: does not use Family History Brother Age: 58 Drug addict Brother Heart disease Father Cancer Mother Stroke Sister MVA (motor vehicle accident) Social History household members: spouse Smoking Status: Former smoker alcohol intake: current substance use type: does not use Exam <Libertad Gan DO - Last Filed: 10/22/18 19:21> Initial Vital Signs Initial Vital Signs: Vital Signs Temperature 97.5 F L 10/19/18 15:23 Pulse Rate 75 10/19/18 15:23 Respiratory Rate 12 10/19/18 15:23 Blood Pressure 141/73 H 10/19/18 15:23 Pulse Oximetry 100 10/19/18 15:23 GENERAL: Well-appearing, well-nourished and in no acute distress. HEENT: Head atraumatic,EOMI, pupils reactive, face symmetric, moist mucous membranes CARDIOVASCULAR: Regular rate and rhythm without murmurs, rubs or gallops. RESPIRATORY: Breath sounds equal bilaterally, no wheezes rales or rhonchi. ABDOMEN: Soft, nontender. Normoactive bowel sounds all 4 quadrants. No guarding or rebound. Ostomy in place. EXTREMITIES: Normal range of motion, no clubbing or edema. Neurovascularly intact NEUROLOGICAL: Alert and oriented x4.Normal gait and speech. SKIN: Warm, dry, no laceration, no petechiae, no rashes or lesions. <Marycruz Thompson DO - Last Filed: 10/19/18 21:49> Initial Vital Signs Initial Vital Signs: Vital Signs Temperature 97.5 F L 10/19/18 15:23 Pulse Rate 75 10/19/18 15:23 Respiratory Rate 12 10/19/18 15:23 Blood Pressure 141/73 H 10/19/18 15:23 Pulse Oximetry 100 10/19/18 15:23 Course <Libertad Gan DO - Last Filed: 10/22/18 19:21> Orders Ordered: Discontinued Medications Albuterol/Ipratropium (Duoneb) 3 ml INH NOW ONE Stop: 10/19/18 17:05 Last Admin: 10/19/18 17:42 Dose: 3 ml Documented by: HUSSEIN Aspirin (Aspirin Chew) 324 mg PO NOW ONE Stop: 10/19/18 15:34 Last Admin: 10/19/18 15:57 Dose: 324 mg Documented by: EDUARDO Sodium Chloride (Normal Saline 0.9%) 1,000 mls @ 1,000 mls/hr IV CONT FARNAZ Last Infusion: 10/19/18 18:45 Dose: 0 mls/hr Documented by: Admin: 10/19/18 15:57 Dose: 1,000 mls/hr Documented by: EDUARDO Nitroglycerin (Nitrostat) 0.4 mg SL [id number] PRN PRN Reason: Chest Pain Last Admin: 10/19/18 16:08 Dose: 0.4 mg Documented by: Admin: 10/19/18 16:05 Dose: 0.4 mg Documented by: Admin: 10/19/18 15:58 Dose: 0.4 mg Documented by: EDUARDO Vital Signs Vital signs: Vital Signs - 8 hr 10/19/18 15:23 10/19/18 15:58 10/19/18 16:07 Temperature 97.5 F L Pulse Rate 75 88 79 Respiratory Rate 12 15 Blood Pressure 141/73 H Blood Pressure [Left Arm] 115/84 115/84 Pulse Oximetry 100 96 10/19/18 16:43 10/19/18 17:46 10/19/18 18:49 Temperature Pulse Rate 68 65 120 H Respiratory Rate 13 19 Blood Pressure Blood Pressure [Left Arm] 127/61 120/67 Pulse Oximetry 100 100 99 10/19/18 19:30 Temperature Pulse Rate 121 H Respiratory Rate 12 Blood Pressure Blood Pressure [Left Arm] 110/59 L Pulse Oximetry 97 <Marycruz Thompson DO - Last Filed: 10/19/18 21:49> Orders Ordered: Discontinued Medications Albuterol/Ipratropium (Duoneb) 3 ml INH NOW ONE Stop: 10/19/18 17:05 Last Admin: 10/19/18 17:42 Dose: 3 ml Documented by: HUSSEIN Aspirin (Aspirin Chew) 324 mg PO NOW ONE Stop: 10/19/18 15:34 Last Admin: 10/19/18 15:57 Dose: 324 mg Documented by: EDUARDO Sodium Chloride (Normal Saline 0.9%) 1,000 mls @ 1,000 mls/hr IV CONT FARNAZ Last Infusion: 10/19/18 18:45 Dose: 0 mls/hr Documented by: Admin: 10/19/18 15:57 Dose: 1,000 mls/hr Documented by: EDUARDO Nitroglycerin (Nitrostat) 0.4 mg SL [id number] PRN PRN Reason: Chest Pain Last Admin: 10/19/18 16:08 Dose: 0.4 mg Documented by: Admin: 10/19/18 16:05 Dose: 0.4 mg Documented by: Admin: 10/19/18 15:58 Dose: 0.4 mg Documented by: EDUARDO Vital Signs Vital signs: Vital Signs - 8 hr 10/19/18 15:23 10/19/18 15:58 10/19/18 16:07 Temperature 97.5 F L Pulse Rate 75 88 79 Respiratory Rate 12 15 Blood Pressure 141/73 H Blood Pressure [Left Arm] 115/84 115/84 Pulse Oximetry 100 96 10/19/18 16:43 10/19/18 17:46 10/19/18 18:49 Temperature Pulse Rate 68 65 120 H Respiratory Rate 19 13 19 Blood Pressure Blood Pressure [Left Arm] 127/61 120/67 Pulse Oximetry 100 100 99 10/19/18 19:30 Temperature Pulse Rate 121 H Respiratory Rate 12 Blood Pressure Blood Pressure [Left Arm] 110/59 L Pulse Oximetry 97 MDM - Arrhythmia/Palpitations <Libertad Gan DO - Last Filed: 10/22/18 19:21> Lab Data Attestation: I reviewed the patient's lab results. Result diagrams: 10/19/18 15:40 10/19/18 15:40 Labs: Lab Results 10/19/18 10/19/18 10/19/18 Range/Units 15:40 15:40 15:40 WBC 6.2 (4.5-11.0) X10^3/uL RBC 3.75 L (4.5-5.9) X10^6/uL Hgb 12.9 L (13.5-17.5) g/dL Hct 36.6 L (41-53) % MCV 97.4 (80-100) fL MCH 34.5 H (26-34) PG MCHC 35.4 (30-36) % RDW 17.0 H (11.6-14.8) % Plt Count 159 (150-400) X10^3/uL Neut % (Auto) 71.9 (50-75) % Lymph % (Auto) 16.7 L (25-40) % Antelope % (Auto) 10.8 (3-14) % Eos % (Auto) 0.0 L (2-4) % Baso % (Auto) 0.6 (0-2) % Neut # (Auto) 4400 (6370-3270) /uL Lymph # (Auto) 1000 L (9409-2379) /uL Antelope # (Auto) 700 (0-900) /uL Eos # (Auto) 0 (0-450) /uL Baso # (Auto) 0 (0-100) /uL PT 11.9 (10.1-12.7) SECONDS INR 1.0 (0.9-1.3) APTT 26 L D (26.4-36.2) SECONDS Sodium (137-145) mmol/L Potassium (3.4-5.1) mmol/L Chloride (98-107) mmol/L Carbon Dioxide (22-32) mmol/L BUN (9-20) mg/dL Creatinine (0.66-1.25) mg/dL Estimated GFR (>60) mL/min BUN/Creatinine Ratio (6-22) Glucose (80-110) mg/dL Calcium (8.4-10.2) mg/dL Magnesium (1.6-2.3) mg/dL Total Bilirubin (0.2-1.3) mg/dL AST (17-59) IU/L ALT (21-72) IU/L Alkaline Phosphatase (38-126) U/L Total Creatine Kinase (55-170) U/L CK-MB (CK-2) CK-MB (CK-2) Rel Index Troponin I (0.01-0.034) ng/mL B-Natriuretic Peptide < 100 (<100) Total Protein (6.3-8.2) g/dL Albumin (3.5-5.0) g/dL Globulin (1.7-4.1) g/dL Albumin/Globulin Ratio (1.0-2.8) Lipase (23-300) U/L Urine RBC (0-5/HPF) Urine WBC (0-5/HPF) Urine Bacteria (None) Ur Culture Indicated? Micro UA Comment 10/19/18 10/19/18 10/19/18 Range/Units 15:40 15:40 18:37 WBC (4.5-11.0) X10^3/uL RBC (4.5-5.9) X10^6/uL Hgb (13.5-17.5) g/dL Hct (41-53) % MCV (80-100) fL MCH (26-34) PG MCHC (30-36) % RDW (11.6-14.8) % Plt Count (150-400) X10^3/uL Neut % (Auto) (50-75) % Lymph % (Auto) (25-40) % Antelope % (Auto) (3-14) % Eos % (Auto) (2-4) % Baso % (Auto) (0-2) % Neut # (Auto) (4573-4457) /uL Lymph # (Auto) (5059-4309) /uL Antelope # (Auto) (0-900) /uL Eos # (Auto) (0-450) /uL Baso # (Auto) (0-100) /uL PT (10.1-12.7) SECONDS INR (0.9-1.3) APTT (26.4-36.2) SECONDS Sodium 137 (137-145) mmol/L Potassium 4.4 (3.4-5.1) mmol/L Chloride 104 (98-107) mmol/L Carbon Dioxide 19 L (22-32) mmol/L BUN 25 H (9-20) mg/dL Creatinine 0.90 (0.66-1.25) mg/dL Estimated GFR > 60.0 (>60) mL/min BUN/Creatinine Ratio 27.8 H (6-22) Glucose 321 H (80-110) mg/dL Calcium 9.5 (8.4-10.2) mg/dL Magnesium 1.4 L (1.6-2.3) mg/dL Total Bilirubin 0.7 (0.2-1.3) mg/dL AST 140 H (17-59) IU/L ALT 153 H (21-72) IU/L Alkaline Phosphatase 142 H (38-126) U/L Total Creatine Kinase 41 L (55-170) U/L CK-MB (CK-2) TNP CK-MB (CK-2) Rel Index TNP Troponin I < 0.012 < 0.012 (0.01-0.034) ng/mL B-Natriuretic Peptide (<100) Total Protein 6.4 (6.3-8.2) g/dL Albumin 3.8 (3.5-5.0) g/dL Globulin 2.6 (1.7-4.1) g/dL Albumin/Globulin Ratio 1.5 (1.0-2.8) Lipase 101 (23-300) U/L Urine RBC (0-5/HPF) Urine WBC (0-5/HPF) Urine Bacteria (None) Ur Culture Indicated? Micro UA Comment 10/19/18 Range/Units 19:29 WBC (4.5-11.0) X10^3/uL RBC (4.5-5.9) X10^6/uL Hgb (13.5-17.5) g/dL Hct (41-53) % MCV (80-100) fL MCH (26-34) PG MCHC (30-36) % RDW (11.6-14.8) % Plt Count (150-400) X10^3/uL Neut % (Auto) (50-75) % Lymph % (Auto) (25-40) % Antelope % (Auto) (3-14) % Eos % (Auto) (2-4) % Baso % (Auto) (0-2) % Neut # (Auto) (3793-2547) /uL Lymph # (Auto) (6276-8398) /uL Antelope # (Auto) (0-900) /uL Eos # (Auto) (0-450) /uL Baso # (Auto) (0-100) /uL PT (10.1-12.7) SECONDS INR (0.9-1.3) APTT (26.4-36.2) SECONDS Sodium (137-145) mmol/L Potassium (3.4-5.1) mmol/L Chloride (98-107) mmol/L Carbon Dioxide (22-32) mmol/L BUN (9-20) mg/dL Creatinine (0.66-1.25) mg/dL Estimated GFR (>60) mL/min BUN/Creatinine Ratio (6-22) Glucose (80-110) mg/dL Calcium (8.4-10.2) mg/dL Magnesium (1.6-2.3) mg/dL Total Bilirubin (0.2-1.3) mg/dL AST (17-59) IU/L ALT (21-72) IU/L Alkaline Phosphatase (38-126) U/L Total Creatine Kinase (55-170) U/L CK-MB (CK-2) CK-MB (CK-2) Rel Index Troponin I (0.01-0.034) ng/mL B-Natriuretic Peptide (<100) Total Protein (6.3-8.2) g/dL Albumin (3.5-5.0) g/dL Globulin (1.7-4.1) g/dL Albumin/Globulin Ratio (1.0-2.8) Lipase (23-300) U/L Urine RBC None seen (0-5/HPF) Urine WBC None seen (0-5/HPF) Urine Bacteria None seen (None) Ur Culture Indicated? Cult not indicated Micro UA Comment Microscopic normal Urine Dip Bedside Urine Glucose 1000 mg/dl Bedside Urine Bilirubin - Negative Bedside Urine Ketone +/- 5 Urine Specific [place] 1.020 Bedside Urine Occult Blood - Negative Bedside Urine pH 5.5 Bedside Urine Protein +/- 15 Bedside Urine Urobilinogen - Negative Bedside Urine Nitrite - Negative Bedside Urine Leukocytes - Negative Esterase Imaging Data US - abdomen: Radiologist's impression: PROCEDURE: US ABDOMEN LIMITED INDICATIONS: RUQ, ELEVATED LIVER ENZYMES AND CHEMO TECHNIQUE: Real-time scanning was performed of the abdominal and retroperitoneal organs, with image documentation. COMPARISON: [facility], CT, CT ABDOMEN PELVIS W CON, 10/19/2017, 8:43. FINDINGS: Significantly limited exam secondary to overlying bowel gas. The liver is large measuring 18.7 cm with steatosis. Gallbladder has been removed. No free fluid is identified. Common bile duct as well as pancreas are not well-seen. Right kidney is visualized measuring 12.2 cm. IMPRESSION: Limited exam demonstrating hepatomegaly. Dictated by: Nneka Vargas M.D. on 10/19/2018 at 17:53 Chest x-ray: Radiologist's impression: PROCEDURE: XR CHEST 1V INDICATIONS: chest pain TECHNIQUE: One view of the chest was acquired. COMPARISON: [facility], CT, CT ANGIO CHEST PE PROTOCOL, 10/13/2018, 16:37. [facility], CR, XR CHEST 1V, 10/09/2017, 5:52. [facility], CR, XR CHEST 1V, 10/13/2018, 15:49. FINDINGS: Surgical changes and devices: There is a Port-A-Cath on the right side with the tip at the atriocaval junction. Lungs and pleura: Lungs are clear. No pleural effusions or pneumothorax. Mediastinum: Mediastinal contours appear normal. Heart size is normal. Bones and chest wall: No suspicious bony lesions. Overlying soft tissues appear unremarkable. IMPRESSION: No acute cardiopulmonary disease. Dictated by: Kenneth Mcgill M.D. on 10/19/2018 at 15:02 Approved by: Kenneth Mcgill M.D. on 10/19/2018 at 15:21 MDM Narrative Medical decision making narrative: Patient is a normal sinus rhythm. He said the nitroglycerin did help a little. He apparently is not taking Eliquis, due to bleeding around his ostomy site. He says he typically can not get that to stop does not want to get any worse. He is aware of his risk of stroke and blood clot and disabilities. He is not hypoxic. He actually had significant improvement with DuoNeb treatment. He does have an albuterol inhaler but not a spacer. He says he has been using it without any relief. Will try a course of be uterine at this time I do not think he needs to be re-scanned for a PE, he had a negative scan 6 days ago. Patient signed out to Dr. thompson. <Marycruz Thompson, DO - Last Filed: 10/19/18 21:49> Lab Data Attestation: I reviewed the patient's lab results. Labs: Lab Results 10/19/18 10/19/18 10/19/18 Range/Units 15:40 15:40 15:40 WBC 6.2 (4.5-11.0) X10^3/uL RBC 3.75 L (4.5-5.9) X10^6/uL Hgb 12.9 L (13.5-17.5) g/dL Hct 36.6 L (41-53) % MCV 97.4 (80-100) fL MCH 34.5 H (26-34) PG MCHC 35.4 (30-36) % RDW 17.0 H (11.6-14.8) % Plt Count 159 (150-400) X10^3/uL Neut % (Auto) 71.9 (50-75) % Lymph % (Auto) 16.7 L (25-40) % Antelope % (Auto) 10.8 (3-14) % Eos % (Auto) 0.0 L (2-4) % Baso % (Auto) 0.6 (0-2) % Neut # (Auto) 4400 (9709-0797) /uL Lymph # (Auto) 1000 L (9400-9779) /uL Antelope # (Auto) 700 (0-900) /uL Eos # (Auto) 0 (0-450) /uL Baso # (Auto) 0 (0-100) /uL PT 11.9 (10.1-12.7) SECONDS INR 1.0 (0.9-1.3) APTT 26 L D (26.4-36.2) SECONDS Sodium (137-145) mmol/L Potassium (3.4-5.1) mmol/L Chloride (98-107) mmol/L Carbon Dioxide (22-32) mmol/L BUN (9-20) mg/dL Creatinine (0.66-1.25) mg/dL Estimated GFR (>60) mL/min BUN/Creatinine Ratio (6-22) Glucose (80-110) mg/dL Calcium (8.4-10.2) mg/dL Magnesium (1.6-2.3) mg/dL Total Bilirubin (0.2-1.3) mg/dL AST (17-59) IU/L ALT (21-72) IU/L Alkaline Phosphatase (38-126) U/L Total Creatine Kinase (55-170) U/L CK-MB (CK-2) CK-MB (CK-2) Rel Index Troponin I (0.01-0.034) ng/mL B-Natriuretic Peptide < 100 (<100) Total Protein (6.3-8.2) g/dL Albumin (3.5-5.0) g/dL Globulin (1.7-4.1) g/dL Albumin/Globulin Ratio (1.0-2.8) Lipase (23-300) U/L Urine RBC (0-5/HPF) Urine WBC (0-5/HPF) Urine Bacteria (None) Ur Culture Indicated? Micro UA Comment 10/19/18 10/19/18 10/19/18 Range/Units 15:40 15:40 18:37 WBC (4.5-11.0) X10^3/uL RBC (4.5-5.9) X10^6/uL Hgb (13.5-17.5) g/dL Hct (41-53) % MCV (80-100) fL MCH (26-34) PG MCHC (30-36) % RDW (11.6-14.8) % Plt Count (150-400) X10^3/uL Neut % (Auto) (50-75) % Lymph % (Auto) (25-40) % Antelope % (Auto) (3-14) % Eos % (Auto) (2-4) % Baso % (Auto) (0-2) % Neut # (Auto) (3450-0355) /uL Lymph # (Auto) (1928-1142) /uL Antelope # (Auto) (0-900) /uL Eos # (Auto) (0-450) /uL Baso # (Auto) (0-100) /uL PT (10.1-12.7) SECONDS INR (0.9-1.3) APTT (26.4-36.2) SECONDS Sodium 137 (137-145) mmol/L Potassium 4.4 (3.4-5.1) mmol/L Chloride 104 (98-107) mmol/L Carbon Dioxide 19 L (22-32) mmol/L BUN 25 H (9-20) mg/dL Creatinine 0.90 (0.66-1.25) mg/dL Estimated GFR > 60.0 (>60) mL/min BUN/Creatinine Ratio 27.8 H (6-22) Glucose 321 H (80-110) mg/dL Calcium 9.5 (8.4-10.2) mg/dL Magnesium 1.4 L (1.6-2.3) mg/dL Total Bilirubin 0.7 (0.2-1.3) mg/dL AST 140 H (17-59) IU/L ALT 153 H (21-72) IU/L Alkaline Phosphatase 142 H (38-126) U/L Total Creatine Kinase 41 L (55-170) U/L CK-MB (CK-2) TNP CK-MB (CK-2) Rel Index TNP Troponin I < 0.012 < 0.012 (0.01-0.034) ng/mL B-Natriuretic Peptide (<100) Total Protein 6.4 (6.3-8.2) g/dL Albumin 3.8 (3.5-5.0) g/dL Globulin 2.6 (1.7-4.1) g/dL Albumin/Globulin Ratio 1.5 (1.0-2.8) Lipase 101 (23-300) U/L Urine RBC (0-5/HPF) Urine WBC (0-5/HPF) Urine Bacteria (None) Ur Culture Indicated? Micro UA Comment 10/19/18 Range/Units 19:29 WBC (4.5-11.0) X10^3/uL RBC (4.5-5.9) X10^6/uL Hgb (13.5-17.5) g/dL Hct (41-53) % MCV (80-100) fL MCH (26-34) PG MCHC (30-36) % RDW (11.6-14.8) % Plt Count (150-400) X10^3/uL Neut % (Auto) (50-75) % Lymph % (Auto) (25-40) % Antelope % (Auto) (3-14) % Eos % (Auto) (2-4) % Baso % (Auto) (0-2) % Neut # (Auto) (3952-4780) /uL Lymph # (Auto) (5877-0092) /uL Antelope # (Auto) (0-900) /uL Eos # (Auto) (0-450) /uL Baso # (Auto) (0-100) /uL PT (10.1-12.7) SECONDS INR (0.9-1.3) APTT (26.4-36.2) SECONDS Sodium (137-145) mmol/L Potassium (3.4-5.1) mmol/L Chloride (98-107) mmol/L Carbon Dioxide (22-32) mmol/L BUN (9-20) mg/dL Creatinine (0.66-1.25) mg/dL Estimated GFR (>60) mL/min BUN/Creatinine Ratio (6-22) Glucose (80-110) mg/dL Calcium (8.4-10.2) mg/dL Magnesium (1.6-2.3) mg/dL Total Bilirubin (0.2-1.3) mg/dL AST (17-59) IU/L ALT (21-72) IU/L Alkaline Phosphatase (38-126) U/L Total Creatine Kinase (55-170) U/L CK-MB (CK-2) CK-MB (CK-2) Rel Index Troponin I (0.01-0.034) ng/mL B-Natriuretic Peptide (<100) Total Protein (6.3-8.2) g/dL Albumin (3.5-5.0) g/dL Globulin (1.7-4.1) g/dL Albumin/Globulin Ratio (1.0-2.8) Lipase (23-300) U/L Urine RBC None seen (0-5/HPF) Urine WBC None seen (0-5/HPF) Urine Bacteria None seen (None) Ur Culture Indicated? Cult not indicated Micro UA Comment Microscopic normal Urine Dip Bedside Urine Glucose 1000 mg/dl Bedside Urine Bilirubin - Negative Bedside Urine Ketone +/- 5 Urine Specific [place] 1.020 Bedside Urine Occult Blood - Negative Bedside Urine pH 5.5 Bedside Urine Protein +/- 15 Bedside Urine Urobilinogen - Negative Bedside Urine Nitrite - Negative Bedside Urine Leukocytes - Negative Esterase Imaging Data US - abdomen: Radiologist's impression: [address] [address] Ultrasound Report Signed Patient: Alton Wagner JMR#: [id number] : 4Acct:[id number] Age/Sex: 62 / MDate of Service: 10/19/18 Loc: ED Accession Number: [id number] Procedure: US abdomen limited Ordering Provider: Libertad Gan D.O. PROCEDURE: US ABDOMEN LIMITED INDICATIONS: RUQ, ELEVATED LIVER ENZYMES AND CHEMO TECHNIQUE: Real-time scanning was performed of the abdominal and retroperitoneal organs, with image documentation. COMPARISON: [facility], CT, CT ABDOMEN PELVIS W CON, 10/19/2017, 8:43. FINDINGS: Significantly limited exam secondary to overlying bowel gas. The liver is large measuring 18.7 cm with steatosis. Gallbladder has been removed. No free fluid is identified. Common bile duct as well as pancreas are not well-seen. Right kidney is visualized measuring 12.2 cm. IMPRESSION: Limited exam demonstrating hepatomegaly. Dictated by: Nneka Vargas M.D. on 10/19/2018 at 17:53 Approved by: Nneka Vargas M.D. on 10/19/2018 at 17:54 Chest x-ray: Radiologist's impression: Alton Wagner 62 M 1955 [place] [address] XRay Report Signed Patient: Alton Wagner JMR#: [id number] : [id number]:[id number] Age/Sex: 62 / MDate of Service: 10/19/18 Loc: ED Accession Number: [id number] Procedure: XR chest 1V Ordering Provider: Libertad Gan D.O. PROCEDURE: XR CHEST 1V INDICATIONS: chest pain TECHNIQUE: One view of the chest was acquired. COMPARISON: [facility], CT, CT ANGIO CHEST PE PROTOCOL, 10/13/2018, 16:37. [facility], CR, XR CHEST 1V, 10/09/2017, 5:52. [facility], CR, XR CHEST 1V, 10/13/2018, 15:49. FINDINGS: Surgical changes and devices: There is a Port-A-Cath on the right side with the tip at the atriocaval junction. Lungs and pleura: Lungs are clear. No pleural effusions or pneumothorax. Mediastinum: Mediastinal contours appear normal. Heart size is normal. Bones and chest wall: No suspicious bony lesions. Overlying soft tissues appear unremarkable. IMPRESSION: No acute cardiopulmonary disease. Dictated by: Kenneth Mcgill M.D. on 10/19/2018 at 15:02 Approved by: Kenneth Mcgill M.D. on 10/19/2018 at 15:21 ECG Data Attestation: I personally reviewed and interpreted this ECG as follows: Interpretation: Sinus rhythm with a rate of 67 P are 175 QRS 86 and QTC of 386. No ST elevation or depression appreciated. Nonspecific T-wave changes. EKG 2. Shows a ventricular rate of 119 P are 162 QRS of 101 and QTC of 489. Patient has there is to be an atrial tachycardia, no P waves are appreciated. No ST elevation appreciated. nonspecific changes. MDM Narrative Medical decision making narrative: Patient comes in with complaint of shortness of breath. Patient was seen by myself on last ER visit. Patient had a DuoNeb which was helpful but his heart rate elevated at that time and appears to be an atrial rhythm, continues to be around 120. Patient's troponin x2 is negative. No acute ST changes are appreciated. Patient's breathing has improved. 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 He is aware of risk/benefits of not being anticoagulated and had concerns 2nd to bleeding around osteomy site during last visit. He is not a candidate for any cardioversion. Patient's magnesium is low. He has received 1L of fluids. On evaluation patient states tachycardia started we received the albuterol. He states he can feel palpiations but no other symptoms. He very much wants to return home at this time. He has his home metoprolol and is due for his evening dose and was asked to take this. We discussed that he if has continued tachycardia that he does need return because his heart should not be an elevated heart rate for extended period of time. Patient feels comfortable with this plan. He is in the process of setting up his follow-up with cardiology already. Discharge Plan Departure Patient Disposition: Home Clinical Impression: Atypical chest pain, Atrial ectopic tachycardia Discharge Date/Time: 10/19/18 20:02 Instructions: DI for Atypical Chest Pain Activity Restrictions/Additional Instructions: *You have been diagnosed with atypical chest pain and your heart rhythm has returned. If you stay in this rhythm for a prolonged period you need to return to the ER. *What to do: You may require further outpatient cardiac testing *Continue to take medications as directed. Take your metoprolol when you get home. Make sure you drink plenty of fluids. *Follow up with your primary care provider in 2-3 days *Return to ER if you should have increasing chest pain shortness of breath heart palpitations, continued tachycardia or fast heart rate, syncope, lightheadedness or any new, worsening or concerning symptoms Prescriptions: No Action albuterol sulfate [Ventolin HFA] 90 mcg/actuation HFA aerosol inhaler 2 - 4 puff INHALATION Q4HP PRN (Reason: shortness of breath or wheezing) Qty: 1 RF: 2 fluticasone propion-salmeterol [Advair Diskus] 250-50 mcg/dose blister with device 1 inhalation INHALATION BID Qty: 60 RF: 1 (DME) blood-glucose meter [Blood Glucose Monitoring] kit See Dose Instructions .ROUTE .MEDSUPPLY Qty: 1 RF: 0 (DME) blood sugar diagnostic strip See Dose Instructions .ROUTE .MEDSUPPLY Qty: 100 RF: 3 (DME) lancets [BD Ultra Fine Lancets] 33 gauge misc See Dose Instructions .ROUTE .MEDSUPPLY Qty: 200 RF: 3 ropinirole 1 mg tablet 1 mg PO BEDTIME Qty: 90 RF: 0 prochlorperazine maleate 5 mg tablet 10 mg PO Q6H PRN (Reason: Nausea) RF: 0 metformin 500 mg tablet 500 mg PO DAILY Qty: 30 RF: 1 dexamethasone 4 mg tablet 4 mg PO BID RF: 0 cyclobenzaprine 10 mg tablet 10 mg PO TID PRN (Reason: Spasms) RF: 0 montelukast 10 mg tablet 10 mg PO QPM PRN (Reason: Allergy Symptoms) RF: 0 Eliquis 5 mg tablet 5 mg PO BID Qty: 30 RF: 0 Hold Instructions: on hold per Dr. Wagner [employer] Repairer metoprolol tartrate 25 mg tablet 25 mg PO BID Qty: 30 RF: 0 (DME) ResMed Airsense 10 CPAP Qty: 1 RF: 0 Referrals: Justo Thompson MD [Physician] - Selma Cronin MD [Primary Care Provider] -
[2018-10-19 15:49] LABS: Add Manual Diff / Slide Review NO; Basophils Absolute Auto 0 /uL (0-100); Basophils Percent Auto 0.6 % (0-2); Eosinophils Absolute Auto 0 /uL (0-450); Hematocrit 36.6 % (41-53); Hemoglobin 12.9 g/dL (13.5-17.5); Lymphocytes Absolute Auto 1000 /uL (1100-4500); Lymphocytes Percent Auto 16.7 % (25-40); Mean Corpuscular HGB Conc 35.4 % (30-36); Mean Corpuscular Hemoglobin 34.5 PG (26-34); Mean Corpuscular Volume 97.4 fL (80-100); Monocytes Absolute Auto 700 /uL (0-900); Monocytes Percent Auto 10.8 % (3-14); Neutrophils Absolute Auto 4400 /uL (1500-7000); Neutrophils Percent Auto 71.9 % (50-75); Platelet Count 159 X10^3/uL (150-400); Red Blood Cell Count 3.75 X10^6/uL (4.5-5.9); White Blood Cell Count 6.2 X10^3/uL (4.5-11.0)
[2018-10-19 15:57] LABS: Prothrombin Time 11.9 SECONDS (10.1-12.7)
[2018-10-19] MEDS: ASPIRIN 81 MG CHEW TAB 324 MG PO (15:57)
[2018-10-19] MEDS: SODIUM CHLORIDE 0.9% 1,000 ML 1000 ML IV (15:57)
[2018-10-19] MEDS: NITROGLYCERIN 0.4 MG SL TAB SL ×3 (15:58→16:08)
[2018-10-19 16:00] LABS: PTT Partial Thromboplastin Tim 26 SECONDS (26.4-36.2)
[2018-10-19 16:01] LABS: Alanine Aminotransferase 153 IU/L (21-72); Albumin 3.8 g/dL (3.5-5.0); Albumin Globulin Ratio 1.5 (1.0-2.8); Alkaline Phosphatase 142 U/L (38-126); Aspartate Aminotransferase 140 IU/L (17-59); BUN Creatinine Ratio 27.8 (6-22); Bilirubin Total 0.7 mg/dL (0.2-1.3); Blood Urea Nitrogen 25 mg/dL (9-20); Calcium 9.5 mg/dL (8.4-10.2); Carbon Dioxide 19 mmol/L (22-32); Chloride 104 mmol/L (98-107); Creatine Kinase 41 U/L (55-170); Estimated Glomerular Filt Rate > 60.0 mL/min (>60); Globulin 2.6 g/dL (1.7-4.1); Glucose 321 mg/dL (80-110); HEMOLYSIS 19 (0-50); Lipase 101 U/L (23-300); Potassium 4.4 mmol/L (3.4-5.1); Sodium 137 mmol/L (137-145); Total Protein 6.4 g/dL (6.3-8.2)
[2018-10-19 16:02] LABS: Magnesium 1.4 mg/dL (1.6-2.3)
--- NOTE | 2018-10-19 16:12 | PC.NURSE ---
1558 pain 5/10 ntg x 1 115/84 88 1605 pain 2/10 ntg x 2 118/78 82 1608 pain 2/10 ntg x 3 115/67 69
[2018-10-19 16:13] LABS: Troponin I < 0.012 ng/mL (0.01-0.034)
[2018-10-19 16:14] LABS: B Type Natriuretic Peptide < 100 (<100)
--- NOTE | 2018-10-19 16:41 | PC.NURSE ---
pt concern for low magnesium, report, with shortness of breath on exertion, chest pain, sxs for couple of weeks. hx of afib.
--- NOTE | 2018-10-19 17:04 | DI.US.S_ITS ---
PROCEDURE: US ABDOMEN LIMITED INDICATIONS: RUQ, ELEVATED LIVER ENZYMES AND CHEMO TECHNIQUE: Real-time scanning was performed of the abdominal and retroperitoneal organs, with image documentation. COMPARISON: [facility], CT, CT ABDOMEN PELVIS W CON, 10/19/2017, 8:43. FINDINGS: Significantly limited exam secondary to overlying bowel gas. The liver is large measuring 18.7 cm with steatosis. Gallbladder has been removed. No free fluid is identified. Common bile duct as well as pancreas are not well-seen. Right kidney is visualized measuring 12.2 cm. IMPRESSION: Limited exam demonstrating hepatomegaly. Dictated by: Nneka Vargas M.D. on 10/19/2018 at 17:53 Approved by: Nneka Vargas M.D. on 10/19/2018 at 17:54
[2018-10-19] MEDS: ALBUTEROL/IPRATROPIUM 3 ML AMPUL INH (17:42)
[2018-10-19 19:08] LABS: Troponin I < 0.012 ng/mL (0.01-0.034)
[2018-10-19 19:31] LABS: Bacteria Urine None Seen; RBC Urine None Seen (0-5/HPF); WBC Urine None Seen (0-5/HPF)
[2018-10-19 19:38] LABS: Culture Indicated Urine Cult Not Indicated; Urine Comments Microscopic Normal
== END 2018-10-19 20:02 | disposition home or self-care (01) ==
PROVIDERS: Emergency Medicine; Emergency Provider Emergency Medicine; PCP Family Medicine
DX: R07.89 Other chest pain (principal); I47.1 Supraventricular tachycardia
CPT/HCPCS: 36415; 36591; 71045; 76705; 80053; 81003; 81015; 82550; 83690; 83735; 83880; 84484; 85025; 85610; 85730; 93005; 93010; 93041; 94640; 96360; 96361; 99285

== ENCOUNTER → 2019-06-07 10:31 | Outpatient (CLI) | payer MEDICARE, OTHER, SELFPAY ==
[2017-09-29 10:57] VITALS: BMI 30.4
[2017-10-08 07:35] VITALS: PULSE 75; RESP 28; O2SAT 95
[2019-06-07 10:37] LABS: Bacteria Urine None Seen; RBC Urine None Seen (0-5/HPF); WBC Urine None Seen (0-5/HPF)
[2019-06-07 11:27] LABS: Appearance Urine UA CLEAR; Bilirubin Urine UA NEGATIVE (NEGATIVE); Color Urine UA YELLOW; Glucose Urine UA TRACE g/dL (Negative); Ketones Urine UA NEGATIVE (NEGATIVE); Leukocyte Esterase Urine UA NEGATIVE (NEGATIVE); Nitrite Urine UA NEGATIVE (Negative); Occult Blood Urine UA NEGATIVE (Negative); Protein Urine UA NEGATIVE (Negative); Specific Gravity Urine UA >=1.030 (1.000-1.035); Urobilinogen Urine UA 0.2 E.U./dL (0.2)
[2019-06-07 11:35] LABS: Cholesterol 267 mg/dL (140-199); HDL Cholesterol 33 mg/dL (40-60); Triglycerides 503 mg/dL (35-150)
[2019-06-07 11:37] LABS: Culture Indicated Urine Cult Not Indicated; Urine Comments Microscopic Normal
== END ==
PROVIDERS: PCP Family Medicine; Referring Provider Family Medicine; Visit Provider Family Medicine
DX: Z00.00 Encounter for general adult medical examination without abnormal findings (principal); E78.5 Hyperlipidemia, unspecified; I10 Essential (primary) hypertension
CPT/HCPCS: 36415; 80061; 81001

== ENCOUNTER → 2020-04-05 10:30 | Outpatient (CLI) | payer MEDICARE, SELFPAY ==
[2017-09-29 10:57] VITALS: BMI 30.4
[2017-10-08 07:35] VITALS: PULSE 75; RESP 28; O2SAT 95
[2020-04-05 11:21] LABS: Hemoglobin A1C% w Est Avg Glu 11.2 % (4.0-6.0)
[2020-04-05 11:38] LABS: Alanine Aminotransferase 41 IU/L (<50); Albumin 4.2 g/dL (3.5-5.0); Albumin Globulin Ratio 1.5 (1.0-2.8); Alkaline Phosphatase 126 U/L (38-126); Aspartate Aminotransferase 29 IU/L (17-59); BUN Creatinine Ratio 26.3 (6-22); Bilirubin Total 0.5 mg/dL (0.2-1.3); Blood Urea Nitrogen 20 mg/dL (9-20); Calcium 9.4 mg/dL (8.4-10.2); Carbon Dioxide 26 mmol/L (22-32); Chloride 102 mmol/L (98-107); Estimated Glomerular Filt Rate > 60.0 mL/min (>60); Globulin 2.8 g/dL (1.7-4.1); Glucose 282 mg/dL (80-110); HEMOLYSIS < 15 (0-50); Potassium 4.1 mmol/L (3.4-5.1); Sodium 135 mmol/L (137-145)
[2020-04-05 12:24] LABS: Microalbumi Creatinin Ratio Ur 12.9 ug/mg CR (<30); Microalbumin Urine Random 2.4 mg/dL (0-1.6)
== END ==
PROVIDERS: PCP Family Medicine; Referring Provider Family Medicine; Visit Provider Family Medicine
DX: E11.9 Type 2 diabetes mellitus without complications (principal)
CPT/HCPCS: 36415; 80053; 82043; 82570; 83036

== ENCOUNTER → 2020-04-27 13:34 | Outpatient (CLI) | payer MEDICARE, SELFPAY ==
[2017-09-29 10:57] VITALS: BMI 30.4
[2017-10-08 07:35] VITALS: PULSE 75; RESP 28; O2SAT 95
[2020-04-27] MEDS: COVID-19 VACC #1, MRNA(MOD) 100 MCG/0.5 ML VIAL IM (13:50)
== END ==
PROVIDERS: PCP Family Medicine; Visit Provider Internal Medicine
DX: Z23 Encounter for immunization (principal)
CPT/HCPCS: 0011A; 91301

== ENCOUNTER → 2020-05-21 11:14 | Outpatient (CLI) | payer MEDICARE, SELFPAY ==
[2017-09-29 10:57] VITALS: BMI 30.4
[2017-10-08 07:35] VITALS: PULSE 75; RESP 28; O2SAT 95
[2020-05-21 12:05] LABS: COVID19 -Nasal RAPID Negative (Negative)
== END ==
PROVIDERS: PCP Family Medicine; Visit Provider Physician Assistant
DX: J98.8 Other specified respiratory disorders (principal); R05 Cough; Z20.822 Contact with and (suspected) exposure to COVID-19
CPT/HCPCS: 87635

== ENCOUNTER → 2020-05-25 14:10 | Outpatient (CLI) | payer MEDICARE, OTHER, SELFPAY ==
[2017-09-29 10:57] VITALS: BMI 30.4
[2017-10-08 07:35] VITALS: PULSE 75; RESP 28; O2SAT 95
[2020-05-25] MEDS: COVID-19 VACC #2, MRNA(MOD) 100 MCG/0.5 ML VIAL IM (14:21)
== END ==
PROVIDERS: PCP Family Medicine; Visit Provider Internal Medicine
DX: Z23 Encounter for immunization (principal)
CPT/HCPCS: 0012A; 91301

== ENCOUNTER → 2020-08-28 15:56 | Outpatient (CLI) | payer MEDICARE, OTHER, SELFPAY ==
[2017-09-29 10:57] VITALS: BMI 30.4
[2017-10-08 07:35] VITALS: PULSE 75; RESP 28; O2SAT 95
== END ==
PROVIDERS: PCP Family Medicine; Visit Provider Physician Assistant
DX: T86.822 Skin graft (allograft) (autograft) infection (principal)
CPT/HCPCS: 87070; 87075; 87077; 87147; 87186; 87205

== ENCOUNTER → 2020-09-12 10:19 | Outpatient (CLI) | payer MEDICARE, OTHER, SELFPAY ==
[2017-09-29 10:57] VITALS: BMI 30.4
[2017-10-08 07:35] VITALS: PULSE 75; RESP 28; O2SAT 95
[2020-09-12 11:50] LABS: Cholesterol 180 mg/dL (140-199); HDL Cholesterol 40 mg/dL (40-60); LDL Cholesterol Calculated 82 mg/dL (<100); Triglycerides 292 mg/dL (35-150)
[2020-09-12 12:01] LABS: Hemoglobin A1C% w Est Avg Glu 9.3 % (4.0-6.0)
== END ==
PROVIDERS: PCP Family Medicine; Referring Provider Family Medicine; Visit Provider Family Medicine
DX: E11.9 Type 2 diabetes mellitus without complications (principal)
CPT/HCPCS: 36415; 80061; 83036

== ENCOUNTER → 2020-09-19 13:52 | Outpatient (CLI) | payer MEDICARE, OTHER, SELFPAY ==
[2017-09-29 10:57] VITALS: BMI 30.4
[2017-10-08 07:35] VITALS: PULSE 75; RESP 28; O2SAT 95
== END ==
PROVIDERS: PCP Family Medicine; Referring Provider Family Medicine; Visit Provider Family Medicine
DX: S31.105A Unspecified open wound of abdominal wall, periumbilic region without penetration into peritoneal cavity, initial encounter (principal); E11.628 Type 2 diabetes mellitus with other skin complications
CPT/HCPCS: 11042; 87070; 87075; 87077; 87186; 87205; 99213; 99214

== ENCOUNTER → 2020-10-02 09:01 | Outpatient (CLI) | payer MEDICARE, OTHER, SELFPAY ==
[2017-09-29 10:57] VITALS: BMI 30.4
[2017-10-08 07:35] VITALS: PULSE 75; RESP 28; O2SAT 95
== END ==
PROVIDERS: PCP Family Medicine; Referring Provider Family Medicine; Visit Provider Family Medicine
DX: S31.105A Unspecified open wound of abdominal wall, periumbilic region without penetration into peritoneal cavity, initial encounter (principal); E11.628 Type 2 diabetes mellitus with other skin complications
CPT/HCPCS: 97597; 99213

== ENCOUNTER → 2021-08-06 08:15 | Outpatient (CLI) | payer MEDICARE, OTHER, SELFPAY ==
[2017-09-29 10:57] VITALS: BMI 30.4
[2017-10-08 07:35] VITALS: PULSE 75; RESP 28; O2SAT 95
== END ==
PROVIDERS: PCP Family Medicine; Referring Provider Family Medicine; Visit Provider Family Medicine
DX: L88 Pyoderma gangrenosum (principal); L98.492 Non-pressure chronic ulcer of skin of other sites with fat layer exposed; K94.19 Other complications of enterostomy; C18.7 Malignant neoplasm of sigmoid colon; E11.622 Type 2 diabetes mellitus with other skin ulcer; Z93.2 Ileostomy status; Z92.21 Personal history of antineoplastic chemotherapy; Z79.4 Long term (current) use of insulin
CPT/HCPCS: 87070; 87075; 87077; 87186; 87205; 99213; 99214

== ENCOUNTER → 2021-08-13 11:30 | Outpatient (CLI) | payer MEDICARE, OTHER, SELFPAY ==
[2017-09-29 10:57] VITALS: BMI 30.4
[2017-10-08 07:35] VITALS: PULSE 75; RESP 28; O2SAT 95
== END ==
PROVIDERS: PCP Family Medicine; Referring Provider Family Medicine; Visit Provider Family Medicine
DX: L88 Pyoderma gangrenosum (principal); L98.492 Non-pressure chronic ulcer of skin of other sites with fat layer exposed; L08.89 Other specified local infections of the skin and subcutaneous tissue; B95.7 Other staphylococcus as the cause of diseases classified elsewhere; K94.19 Other complications of enterostomy; C18.7 Malignant neoplasm of sigmoid colon; E11.622 Type 2 diabetes mellitus with other skin ulcer; L27.0 Generalized skin eruption due to drugs and medicaments taken internally; T45.1X5A Adverse effect of antineoplastic and immunosuppressive drugs, initial encounter; Z92.21 Personal history of antineoplastic chemotherapy
CPT/HCPCS: 99213; 99214

== ENCOUNTER → 2021-08-19 08:57 | Outpatient (CLI) | payer MEDICARE, OTHER, SELFPAY ==
[2017-09-29 10:57] VITALS: BMI 30.4
[2017-10-08 07:35] VITALS: PULSE 75; RESP 28; O2SAT 95
== END ==
PROVIDERS: PCP Family Medicine; Referring Provider Family Medicine; Visit Provider Family Medicine
DX: L88 Pyoderma gangrenosum (principal); L98.492 Non-pressure chronic ulcer of skin of other sites with fat layer exposed; L08.89 Other specified local infections of the skin and subcutaneous tissue; B95.7 Other staphylococcus as the cause of diseases classified elsewhere; K94.19 Other complications of enterostomy; C18.9 Malignant neoplasm of colon, unspecified; E11.628 Type 2 diabetes mellitus with other skin complications; L27.0 Generalized skin eruption due to drugs and medicaments taken internally; T45.1X5A Adverse effect of antineoplastic and immunosuppressive drugs, initial encounter; Z92.21 Personal history of antineoplastic chemotherapy
CPT/HCPCS: 99212; 99213

== ENCOUNTER → 2021-09-02 10:20 | Outpatient (CLI) | payer MEDICARE, OTHER, SELFPAY ==
[2017-09-29 10:57] VITALS: BMI 30.4
[2017-10-08 07:35] VITALS: PULSE 75; RESP 28; O2SAT 95
== END ==
PROVIDERS: PCP Family Medicine; Referring Provider Family Medicine; Visit Provider Family Medicine
DX: L88 Pyoderma gangrenosum (principal); L98.492 Non-pressure chronic ulcer of skin of other sites with fat layer exposed; K94.19 Other complications of enterostomy; C18.9 Malignant neoplasm of colon, unspecified; E11.622 Type 2 diabetes mellitus with other skin ulcer; Z92.21 Personal history of antineoplastic chemotherapy
CPT/HCPCS: 99212; 99213

== ENCOUNTER → 2021-09-24 09:38 | Outpatient (CLI) | payer MEDICARE, OTHER, SELFPAY ==
[2017-09-29 10:57] VITALS: BMI 30.4
[2017-10-08 07:35] VITALS: PULSE 75; RESP 28; O2SAT 95
== END ==
PROVIDERS: PCP Family Medicine; Referring Provider Family Medicine; Visit Provider Family Medicine
DX: E11.628 Type 2 diabetes mellitus with other skin complications (principal); L88 Pyoderma gangrenosum; S31.103A Unspecified open wound of abdominal wall, right lower quadrant without penetration into peritoneal cavity, initial encounter; Z92.21 Personal history of antineoplastic chemotherapy; C18.9 Malignant neoplasm of colon, unspecified; Z93.2 Ileostomy status; E46 Unspecified protein-calorie malnutrition
CPT/HCPCS: 99212

== ENCOUNTER → 2022-06-30 15:31 | Outpatient (CLI) | payer MEDICARE, OTHER, SELFPAY ==
[2017-09-29 10:57] VITALS: BMI 30.4
[2017-10-08 07:35] VITALS: PULSE 75; RESP 28; O2SAT 95
[2022-06-30 16:42] LABS: Add Manual Diff / Slide Review NO; Basophils Absolute Auto 0 /uL (0-100); Basophils Percent Auto 0.3 % (0-2); Eosinophils Absolute Auto 0 /uL (0-450); Eosinophils Percent Auto 0.1 % (2-4); Hematocrit 43.1 % (41-53); Hemoglobin 14.8 g/dL (13.5-17.5); Lymphocytes Absolute Auto 2300 /uL (1100-4500); Lymphocytes Percent Auto 15.7 % (25-40); Mean Corpuscular HGB Conc 34.3 % (30-36); Mean Corpuscular Hemoglobin 33.5 PG (26-34); Mean Corpuscular Volume 97.8 fL (80-100); Monocytes Absolute Auto 1100 /uL (0-900); Monocytes Percent Auto 7.2 % (3-14); Neutrophils Absolute Auto 11200 /uL (1500-7000); Neutrophils Percent Auto 76.7 % (50-75); Platelet Count 403 X10^3/uL (150-400); Red Blood Cell Count 4.41 X10^6/uL (4.5-5.9); Red Cell Distribution Width 16.5 % (11.6-14.8); White Blood Cell Count 14.6 X10^3/uL (4.5-11.0)
[2022-06-30 16:51] LABS: Alanine Aminotransferase 33 IU/L (<50); Albumin 4.1 g/dL (3.5-5.0); Albumin Globulin Ratio 1.5 (1.0-2.8); Alkaline Phosphatase 130 U/L (38-126); Aspartate Aminotransferase 35 IU/L (17-59); Bilirubin Total 0.5 mg/dL (0.2-1.3); Blood Urea Nitrogen 21 mg/dL (9-20); Calcium 9.5 mg/dL (8.4-10.2); Carbon Dioxide 21 mmol/L (22-32); Chloride 103 mmol/L (98-107); Cholesterol 179 mg/dL (140-199); Estimated Glomerular Filt Rate > 60 mL/min (>60); Globulin 2.7 g/dL (1.7-4.1); Glucose 168 mg/dL (80-110); HDL Cholesterol 67 mg/dL (40-60); HEMOLYSIS 17 (0-50); LDL Cholesterol Calculated 70 mg/dL (<100); Potassium 4.6 mmol/L (3.4-5.1); Sodium 135 mmol/L (137-145); Total Protein 6.8 g/dL (6.3-8.2); Triglycerides 209 mg/dL (35-150)
[2022-06-30 18:49] LABS: Creatinine Urine Random 138.2 mg/dL
[2022-06-30 18:56] LABS: Microalbumi Creatinin Ratio Ur 17.3 ug/mg CR (<30); Microalbumin Urine Random 2.4 mg/dL (0-1.6)
[2022-07-01 03:36] LABS: x Labcorp Estim. Avg Glu (eAG) 209 mg/dL (.); x Labcorp Hemoglobin A1c 8.9 % (4.8-5.6)
== END ==
PROVIDERS: PCP Family Medicine; Referring Provider Family Medicine; Visit Provider Family Medicine
DX: E11.9 Type 2 diabetes mellitus without complications (principal); D64.9 Anemia, unspecified
CPT/HCPCS: 36415; 80053; 80061; 82043; 82570; 83036; 85025

== ENCOUNTER → 2022-12-03 14:47 | Outpatient (CLI) | payer MEDICARE, OTHER, SELFPAY ==
[2017-09-29 10:57] VITALS: BMI 30.4
[2017-10-08 07:35] VITALS: PULSE 75; RESP 28; O2SAT 95
== END ==
PROVIDERS: PCP Family Medicine; Referring Provider Family Medicine; Visit Provider Surgery
DX: E11.628 Type 2 diabetes mellitus with other skin complications (principal); L89.93 Pressure ulcer of unspecified site, stage 3; L88 Pyoderma gangrenosum; C18.9 Malignant neoplasm of colon, unspecified; Z93.2 Ileostomy status
CPT/HCPCS: 87070; 87075; 87077; 87186; 87205; 97602; 99213; 99214

== ENCOUNTER → 2022-12-10 10:20 | Outpatient (CLI) | payer MEDICARE, OTHER, SELFPAY ==
[2017-09-29 10:57] VITALS: BMI 30.4
[2017-10-08 07:35] VITALS: PULSE 75; RESP 28; O2SAT 95
== END ==
PROVIDERS: PCP Family Medicine; Referring Provider Surgery; Visit Provider Surgery
DX: L88 Pyoderma gangrenosum (principal); L89.893 Pressure ulcer of other site, stage 3; Z93.2 Ileostomy status; C18.9 Malignant neoplasm of colon, unspecified
CPT/HCPCS: 99213

== ENCOUNTER → 2022-12-17 09:33 | Outpatient (CLI) | payer MEDICARE, OTHER, SELFPAY ==
[2017-09-29 10:57] VITALS: BMI 30.4
[2017-10-08 07:35] VITALS: PULSE 75; RESP 28; O2SAT 95
== END ==
PROVIDERS: PCP Family Medicine; Referring Provider Surgery; Visit Provider Surgery
DX: L88 Pyoderma gangrenosum (principal); E11.622 Type 2 diabetes mellitus with other skin ulcer; C18.9 Malignant neoplasm of colon, unspecified; Z93.2 Ileostomy status; S31.103D Unspecified open wound of abdominal wall, right lower quadrant without penetration into peritoneal cavity, subsequent encounter
CPT/HCPCS: 99213

== ENCOUNTER → 2022-12-24 09:07 | Outpatient (CLI) | payer MEDICARE, OTHER, SELFPAY ==
[2017-09-29 10:57] VITALS: BMI 30.4
[2017-10-08 07:35] VITALS: PULSE 75; RESP 28; O2SAT 95
== END ==
PROVIDERS: PCP Family Medicine; Referring Provider Surgery; Visit Provider Surgery
DX: L88 Pyoderma gangrenosum (principal); E11.622 Type 2 diabetes mellitus with other skin ulcer; C18.9 Malignant neoplasm of colon, unspecified; Z93.2 Ileostomy status; S31.103D Unspecified open wound of abdominal wall, right lower quadrant without penetration into peritoneal cavity, subsequent encounter
CPT/HCPCS: 99213; 99214

== ENCOUNTER → 2022-12-31 09:19 | Outpatient (CLI) | payer MEDICARE, OTHER, SELFPAY ==
[2017-09-29 10:57] VITALS: BMI 30.4
[2017-10-08 07:35] VITALS: PULSE 75; RESP 28; O2SAT 95
== END ==
PROVIDERS: PCP Family Medicine; Referring Provider Surgery; Visit Provider Surgery
DX: L88 Pyoderma gangrenosum (principal); E11.622 Type 2 diabetes mellitus with other skin ulcer; C18.9 Malignant neoplasm of colon, unspecified; Z93.2 Ileostomy status; S31.103D Unspecified open wound of abdominal wall, right lower quadrant without penetration into peritoneal cavity, subsequent encounter
CPT/HCPCS: 99213; 99214

== ENCOUNTER → 2023-01-07 10:24 | Outpatient (CLI) | payer MEDICARE, OTHER, SELFPAY ==
[2017-09-29 10:57] VITALS: BMI 30.4
[2017-10-08 07:35] VITALS: PULSE 75; RESP 28; O2SAT 95
== END ==
PROVIDERS: PCP Family Medicine; Referring Provider Surgery; Visit Provider Surgery
DX: L88 Pyoderma gangrenosum (principal); E11.622 Type 2 diabetes mellitus with other skin ulcer; C18.9 Malignant neoplasm of colon, unspecified; S31.103D Unspecified open wound of abdominal wall, right lower quadrant without penetration into peritoneal cavity, subsequent encounter; Z93.2 Ileostomy status
CPT/HCPCS: 99213

== ENCOUNTER → 2023-07-15 11:18 | Outpatient (CLI) | payer MEDICARE, OTHER, SELFPAY ==
[2017-09-29 10:57] VITALS: BMI 30.4
[2017-10-08 07:35] VITALS: PULSE 75; RESP 28; O2SAT 95
[2023-07-15 12:28] LABS: Hemoglobin A1C% w Est Avg Glu 7.6 % (4.0-6.0)
[2023-07-15 12:47] LABS: Alanine Aminotransferase 49 IU/L (<50); Albumin 4.2 g/dL (3.5-5.0); Albumin Globulin Ratio 1.6 (1.0-2.8); Alkaline Phosphatase 96 U/L (38-126); Aspartate Aminotransferase 52 IU/L (17-59); BUN Creatinine Ratio 15.8 (6-22); Blood Urea Nitrogen 15 mg/dL (9-20); Carbon Dioxide 25 mmol/L (22-32); Chloride 109 mmol/L (98-107); Cholesterol 211 mg/dL (140-199); Estimated Glomerular Filt Rate > 60 mL/min (>60); Globulin 2.7 g/dL (1.7-4.1); Glucose 64 mg/dL (80-110); HDL Cholesterol 42 mg/dL (40-60); HEMOLYSIS < 15 (0-50); Sodium 140 mmol/L (137-145); Total Protein 6.9 g/dL (6.3-8.2)
[2023-07-15 12:54] LABS: Triglycerides 612 mg/dL (35-150)
[2023-07-15 17:00] LABS: Creatinine Urine Random 226.78 mg/dL
[2023-07-15 17:03] LABS: Microalbumin Urine Random 5.3 mg/dL (0-1.6)
== END ==
PROVIDERS: PCP Family Medicine; Referring Provider Family Medicine; Visit Provider Family Medicine
DX: E11.9 Type 2 diabetes mellitus without complications (principal); I10 Essential (primary) hypertension; E78.5 Hyperlipidemia, unspecified; R73.9 Hyperglycemia, unspecified
CPT/HCPCS: 36415; 80053; 80061; 82043; 82570; 83036

== ENCOUNTER → 2023-10-14 11:27 | Outpatient (CLI) | payer MEDICARE, OTHER, SELFPAY ==
[2017-09-29 10:57] VITALS: BMI 30.4
[2017-10-08 07:35] VITALS: PULSE 75; RESP 28; O2SAT 95
[2023-10-14 12:40] LABS: Add Manual Diff / Slide Review NO; Basophils Absolute Auto 0 /uL (0-100); Basophils Percent Auto 0.5 % (0-2); Eosinophils Absolute Auto 100 /uL (0-450); Eosinophils Percent Auto 1.7 % (2-4); Hematocrit 43.8 % (41-53); Hemoglobin 15.2 g/dL (13.5-17.5); Lymphocytes Absolute Auto 2200 /uL (1100-4500); Lymphocytes Percent Auto 32.1 % (25-40); Mean Corpuscular HGB Conc 34.7 % (30-36); Mean Corpuscular Hemoglobin 37.8 PG (26-34); Monocytes Absolute Auto 800 /uL (0-900); Monocytes Percent Auto 11.5 % (3-14); Neutrophils Absolute Auto 3700 /uL (1500-7000); Neutrophils Percent Auto 54.2 % (50-75); Platelet Count 213 X10^3/uL (150-400); Red Blood Cell Count 4.02 X10^6/uL (4.5-5.9); Red Cell Distribution Width 15.3 % (11.6-14.8); White Blood Cell Count 6.8 X10^3/uL (4.5-11.0)
[2023-10-14 13:23] LABS: Cholesterol 152 mg/dL (140-199); HDL Cholesterol 53 mg/dL (40-60); LDL Cholesterol Calculated 64 mg/dL (<100); Triglycerides 175 mg/dL (35-150)
[2023-10-14 13:26] LABS: Creatinine Urine Random 172.53 mg/dL
[2023-10-14 13:29] LABS: Microalbumin Urine Random 2.9 mg/dL (0-1.6)
[2023-10-14 19:21] LABS: Hemoglobin A1C% w Est Avg Glu 7.1 % (4.0-6.0)
== END ==
PROVIDERS: PCP Family Medicine; Referring Provider Family Medicine; Visit Provider Family Medicine
DX: E11.9 Type 2 diabetes mellitus without complications (principal)
CPT/HCPCS: 36415; 80061; 82043; 82570; 83036; 85025

== ENCOUNTER → 2023-12-31 09:39 | Outpatient (CLI) | payer MEDICARE, OTHER, SELFPAY ==
[2017-09-29 10:57] VITALS: BMI 30.4
[2017-10-08 07:35] VITALS: PULSE 75; RESP 28; O2SAT 95
== END ==
LOC: RESP 09:41
PROVIDERS: PCP Family Medicine; Referring Provider Family Medicine; Visit Provider Family Medicine
DX: J45.20 Mild intermittent asthma, uncomplicated (principal); Z87.891 Personal history of nicotine dependence; R94.2 Abnormal results of pulmonary function studies
CPT/HCPCS: 94060; 94726; 94729

== ENCOUNTER → 2024-03-03 11:51 | Outpatient (CLI) | payer MEDICARE, OTHER, SELFPAY ==
[2017-09-29 10:57] VITALS: BMI 30.4
[2017-10-08 07:35] VITALS: PULSE 75; RESP 28; O2SAT 95
[2024-03-03 14:19] LABS: Prostate Specific Antigen 5.69 ng/mL (0.10-4.00)
== END ==
PROVIDERS: PCP Family Medicine; Referring Provider Urology; Visit Provider Urology
DX: Z12.5 Encounter for screening for malignant neoplasm of prostate (principal); N40.1 Benign prostatic hyperplasia with lower urinary tract symptoms; N52.9 Male erectile dysfunction, unspecified
CPT/HCPCS: 36415; 51798; 81002; 84153; 99214; G0103

== ENCOUNTER → 2024-04-26 11:06 | Outpatient (CLI) | payer MEDICARE, OTHER, SELFPAY ==
[2017-09-29 10:57] VITALS: BMI 30.4
[2017-10-08 07:35] VITALS: PULSE 75; RESP 28; O2SAT 95
[2024-04-26 12:27] LABS: Bacteria Urine None Seen; Culture Indicated Urine Specimen Cultured; RBC Urine None Seen (0-5/HPF); Squamous Epithelial Cell Urine None Seen (0-5/HPF); Urine Volume 0; WBC Urine 1-5/HPF (0-5/HPF)
[2024-04-26 13:02] LABS: Prostate Specific Antigen 7.84 ng/mL (0.10-4.00)
== END ==
PROVIDERS: Urology; PCP Family Medicine; Referring Provider Urology; Visit Provider Urology
DX: N40.1 Benign prostatic hyperplasia with lower urinary tract symptoms (principal); Z12.5 Encounter for screening for malignant neoplasm of prostate; R30.0 Dysuria
CPT/HCPCS: 36415; 81015; 84153; 87086

== ENCOUNTER → 2024-05-11 08:55 | Outpatient (CLI) | payer MEDICARE, OTHER, SELFPAY ==
[2017-09-29 10:57] VITALS: BMI 30.4
[2017-10-08 07:35] VITALS: PULSE 75; RESP 28; O2SAT 95
== END ==
PROVIDERS: PCP Family Medicine; Referring Provider Surgery; Visit Provider Surgery
DX: E11.628 Type 2 diabetes mellitus with other skin complications (principal); E11.622 Type 2 diabetes mellitus with other skin ulcer; L89.893 Pressure ulcer of other site, stage 3; C18.9 Malignant neoplasm of colon, unspecified; Z93.2 Ileostomy status
CPT/HCPCS: 99213; 99214

== ENCOUNTER → 2024-05-18 10:01 | Outpatient (CLI) | payer MEDICARE, OTHER, SELFPAY ==
[2017-09-29 10:57] VITALS: BMI 30.4
[2017-10-08 07:35] VITALS: PULSE 75; RESP 28; O2SAT 95
== END ==
PROVIDERS: PCP Family Medicine; Referring Provider Family Medicine; Visit Provider Physician Assistant
DX: L89.893 Pressure ulcer of other site, stage 3 (principal); Z93.8 Other artificial opening status
CPT/HCPCS: 99214

== ENCOUNTER → 2024-05-25 09:56 | Outpatient (CLI) | payer MEDICARE, OTHER, SELFPAY ==
[2017-09-29 10:57] VITALS: BMI 30.4
[2017-10-08 07:35] VITALS: PULSE 75; RESP 28; O2SAT 95
== END ==
PROVIDERS: PCP Family Medicine; Referring Provider Family Medicine; Visit Provider Surgery
DX: E11.628 Type 2 diabetes mellitus with other skin complications (principal); L89.893 Pressure ulcer of other site, stage 3; C18.9 Malignant neoplasm of colon, unspecified; Z93.2 Ileostomy status; E43 Unspecified severe protein-calorie malnutrition
CPT/HCPCS: 99213; 99214

== ENCOUNTER → 2024-06-08 08:42 | Outpatient (CLI) | payer MEDICARE, OTHER, SELFPAY ==
[2017-09-29 10:57] VITALS: BMI 30.4
[2017-10-08 07:35] VITALS: PULSE 75; RESP 28; O2SAT 95
== END ==
LOC: WC 08:44
PROVIDERS: PCP Family Medicine; Referring Provider Family Medicine; Visit Provider Surgery
DX: E11.628 Type 2 diabetes mellitus with other skin complications (principal); L89.893 Pressure ulcer of other site, stage 3; C18.9 Malignant neoplasm of colon, unspecified; Z93.2 Ileostomy status
CPT/HCPCS: 99213; 99214

== ENCOUNTER → 2024-07-06 13:13 | Outpatient (CLI) | payer MEDICARE, OTHER, SELFPAY ==
[2024-06-16 10:11] VITALS: PULSE 75; RESP 28; O2SAT 95; BMI 30.4
== END ==
PROVIDERS: PCP Family Medicine; Referring Provider Family Medicine; Visit Provider Surgery
DX: Z93.2 Ileostomy status (principal); E11.628 Type 2 diabetes mellitus with other skin complications; L89.893 Pressure ulcer of other site, stage 3; C18.9 Malignant neoplasm of colon, unspecified
CPT/HCPCS: 11042; 99213

== ENCOUNTER → 2024-07-07 11:06 | Outpatient (CLI) | payer MEDICARE, OTHER, SELFPAY ==
[2024-06-16 10:11] VITALS: PULSE 75; RESP 28; O2SAT 95; BMI 30.4
== END ==
PROVIDERS: PCP Family Medicine; Visit Provider Urology
DX: Z01.818 Encounter for other preprocedural examination (principal); R97.20 Elevated prostate specific antigen [PSA]; N40.1 Benign prostatic hyperplasia with lower urinary tract symptoms; N52.9 Male erectile dysfunction, unspecified; R33.9 Retention of urine, unspecified
CPT/HCPCS: 51702; 87077; 87086; 87186; 99214

== ENCOUNTER 2024-07-19 06:22 | Day surgery (SDC) | payer MEDICARE, OTHER, SELFPAY ==
[2024-06-16 10:11] VITALS: PULSE 75; RESP 28; O2SAT 95; BMI 30.4
[2024-07-13 14:56] VITALS: BMI 33.3
--- NOTE | 2024-07-18 10:27 | EKG_ITS ---
[address] [address] Test Date: 2024-07-19 Pat Name: Alton Cabrear Department: Room: Gender: Male Towing Pilot: Dominik LA : 1955 Requested By: Order Number: [id number] Reading MD: Diaz Collins Measurements Intervals Lawrence Rate: 73 P: 71 TX: 206 QRS: -56 QRSD: 80 T: 60 QT: 366 QTc: 403 Interpretive Statements Normal sinus rhythm Left axis deviation Inferior infarct , age undetermined Electronically Signed On 07-22-2024 0:07:50 PDT by Diaz Collins
[2024-07-19] VITALS (7 sets, daily range): BP systolic 123–134; BP diastolic 64–80; PULSE 68–88; RESP 12–16; TEMP 36.3–36.6; O2SAT 95–98; BMI 31.1
--- NOTE | 2024-07-19 | PATH_ITS ---
[facility] Accession Number: [id number] No. of containers..01 Tissue . 01 Material submitted: . prostate - PROSTATE CHIPS . 01 Diagnosis: PROSTATE CHIPS (8 GRAMS), TRANSURETHRAL RESECTION: Prostatic adenocarcinoma with focal neuroendocrine differentiation (see microscopic description). Eugene grade 5+5=10. Grade group= 5. Proportion (percentage) of prostatic tissue involved by tumor: Involvement of most chips on all slides, approximately 71-80%. Seminal vesicle invasion: Not identified. Perineural invasion: Identified. Intraductal carcinoma: Not identified. Extraprostatic fat invasion: Not identified. Lymphovascular invasion: Suspicious for lymphovascular invasion. [facility] 07/29/2024 1102 Local . 01 Comment: As part of ongoing senior quality assurance analyst, selected slides from this case are also reviewed by Dr. Gavin Cardenas, who agrees with the interpretation. . Findings were called to 's nurse, Maricarmen on 07/29/2024 at 1045 hours by . . 01 Electronically signed: . Janis Ladd MD, Pathologist NPI- [id number] . 01 Gross description: . Received in formalin with two identifiers and prostate chips, are multiple sow soft tissue fragments admixed with a small amount of hemorrhagic material weighing 8 grams and aggregating to 6.7 x 5.3 x 1.5 cm. No stones are grossly identified. The specimen is submitted entirely in cassettes A1-A7. ([id number]) /[facility]A 07/22/20241951 Local . 01 Microscopic: . Microscopic evaluation shows poorly differentiated malignant tumor present in sheets involving majority of the prostate chips. Immunohistochemical stains are performed and show the malignant cells to be diffusely positive for MIKEY and PSA, variably positive for synaptophysin and focally positive for chromogranin. The malignant cells are negative for CK7, CK20, GATA3, SATB2, SOX-10, HMB45 and PAX8. Ki67 shows an increased proliferation index. Controls stain appropriately. . * This test was developed and the performance characteristics were validated by [employer]. It has not been cleared or approved by the U.S. Food and Drug Administration. . 01 Pathologist provided ICD-10: C61 . 01 CPT . 783676, K60452, P97152 Specimen Comment: A courtesy copy of this report has been sent to [facility] Pathology Specimen Comment: A duplicate report has been generated due to demographic updates. Performed at: [address] [address], [place], [place] [id number] MD Berto Pettit MD Phone: [phone]
[2024-07-19] MEDS: LACTATED RINGERS 1,000 ML 42 ML IV ×2 (07:15→08:51)
[2024-07-19] MEDS: ALBUTEROL/IPRATROPIUM 3 ML AMPUL INH (07:23)
--- NOTE | 2024-07-19 07:32 | PM.PREOP ---
Pre-operative Note COVID-19 COVID-19 status: Not tested Interval Note History & Physical reviewed/Exam performed by Physician: Yes Changes to H&P: No
[2024-07-19] MEDS: cefTRIAXone 2,000 MG in SODIUM CHLORIDE 0.9% 100 ML 200 MG IV (07:58)
--- NOTE | 2024-07-19 08:14 | SUR.OPER ---
Lithotomy on padded OR bed, head on pillow, arms secured on padded arm boards at <90 degrees abduction. Legs secured in padded yellow fins stirrups.
--- NOTE | 2024-07-19 09:29 | P.OP_ITS ---
Operative Date/Time/Diagnoses Date of procedure: 07/19/24 Time of procedure: 07:45 Pre-op diagnosis: Benign prostatic hyperplasia with lower urinary tract symptoms Post-op diagnosis: same Procedure & Clinicians Procedure: Cystoscopy Transurethral resection of prostate Same procedure as scheduled: Yes Indications: 68 y/o M noted to have symptoms consistent w/ BPH and LUTS that led to acute urinary retention on 30 Apr 2024 with drainage of 2L of clear yellow urine w/ placement of a clayton catheter. Discussed treatment options to include ob servation (not recommended given his AUR) vs a trial of alpha blockers. Discussed mechanism of action and expected side effects to include orthostatic hypotension, nasal congestion and retrograde ejaculation. Also discussed the possible addition of Finasteride 5mg daily (discussed possible side effects to include decreased libido, worsening erectile dysfunction, loss of ejaculate volume as well as painful breast development or nipple tenderness), or a lower urinary tract evaluation prior to a bladder outlet procedure. He did not previously improve with Tamsulosin, therefore, can trial Alfuzosin 10mg daily as I am afraid that he will fail his voiding trial without being on an alpha umang. Unfortunately, he has been taking this for more than 6 weeks and continues to fail his voiding trial. His cystoscopy and TRUS prostate were notable for coaptating lateral prostatic lobes w/o an intravesical median lobe and an 84g prostate. Unfortunately, he was unable to urinate again and his f oley catheter was replaced. Discussed that he otherwise would be a candidate for Aquablation or a TURP. Discussed risks of the procedure to include pain, bleeding, infection, injury to urethra/bladder/either ureteral orifice, clot retention, irritative voiding symptoms for several months following the procedure, urinary incontinence, erectile dysfunction, retrograde ejaculation, need for open emergent repair of any bladder or ureteral injuries, urethral stricture or bladder neck contracture development, need for repeat procedures. He is going to use an enema 2 times per day for 4 days prior to his procedure. Will be treated with 7 days of antibiotics and if we are unable to visualize his prostate via US at the time of his Aquablation, he is okay proceeding with a TURP. Surgeon: Madi Davis Click Yes if Unassisted: Yes Anesthesia Type: General Operative Notes Findings: Very firm prostate, unable to visualize ureteral orifices bilaterally, unable to complete Aquablation, therefore, a TURP was performed Specimen(s): other (prostate chips) Applied: catheter Estimated Blood Loss (mL): 50 Blood products transfused: none Procedure in detail: After informed consent was obtained, the patient was identified brought to the operating room where he was placed in his supine position on the table.? Once there anesthesia was induced and maintained.? Ensuring an adequate level of anesthesia the patient was transitioned to the lithotomy position where after time-out he was prepped.? After prepping, ensuring an adequate level of anesthesia, administration IV antibiotics and time-out 60 cc of ultrasound gel was instilled within the rectum and the ultrasound probe which had been attached to the TRUS stepper which was attached to the TRUS stepper articulating arm which was secured to the bed was advanced into the rectum under direct vision via the ultrasound.? The ultrasound probe was then aligned and confirmation made that the prostate was centered and aligned in both the sagittal and transverse views.? With the ultrasound in place and adjusted the patient was then draped in a sterile fashion. With the patient draped the 24 [place] aqua beam handpiece was then inserted through the urethra and advanced into the bladder.? Cystoscopy was then performed and no concerning bladder mass or lesions were noted.? He was noted to have bullous edema long his bladder neck consistent with a chronic indwelling lcayton catheter. Bilateral ureteral orifices were unable to be visualized secondary to the aforementioned edematous changes. Unfortunately, the bladder neck, verumontanum and central and transitional zones of the prostate were unable to be confirmed using the ultrasound probe, therefore, the decision was made to not perform an Aquablation procedure and proceed with a transurethral resection of the prostate. The 26Fr resectoscope was then inserted through his urethra and advanced into his bladder, of note, he was found to have a very firm prostate. He had grade 3 trabeculations throughout his bladder, no concerning masses or lesions were appr eciated. The working element with Gyrus loop was then assembled and passed through the resectoscope and into the bladder. Resection of the prostate began immediately distal to the bladder neck at the 7 o'clock position to a level immediately above the prostatic capsule and extended down to a level immediately proximal to the verumontanum. This was then repeated in similar fashion at the 5 o'clock position. Of note, the bladder neck was not resected extensively due to inability to visualize the ureteral orifices. The right and left lateral prostatic lobes were then resected to a level immediately above the prostatic capsule followed by the median bar. All prostate specimens were then manually evacuated from the bladder using the resectoscope. Hemostasis was evaluated and noted to be excellent at case end. A 22Fr 3-way hematuria catheter was then inserted into his bladder, 45cc of sterile water was utilized for balloon insufflation. Continuous bladder irrigation was then initiated and it was noted to be clear. Anesthesia was reversed, he was extubated in the OR and transferred to the PACU in stable condition for recovery. Complications: none Post-operative Condition: stable Disposition: PACU Plan for aftercare: Will continue to run CBI for a few hours to evaluate the efflux from his catheter.? Should it remain relatively clear and with minimal blood clots, will discharge home with catheter in place and have him return to Urology clinic in 2 days for a voiding trial.? Should his efflux remain red or have significant clot burden, will admit overnight for observation and continued CBI.
[2024-07-19] MEDS: ACETAMINOPHEN IV 1,000 MG/100 ML VIAL 400 MG IV (10:09)
[2024-07-19] MEDS: OXYCODONE IR 5 MG TABLET PO (10:41)
[2024-07-19] MEDS: PHENAZOPYRIDINE 100 MG TABLET 200 MG PO (11:41)
[2024-07-19] MEDS: OXYBUTYNIN 5 MG TABLET PO (11:41)
== END 2024-07-19 12:39 | disposition home or self-care (01) ==
PROVIDERS: PCP Family Medicine; Referring Provider Urology; Visit Provider Urology
PROC: 0VT08ZZ Resection of Prostate, Via Natural or Artificial Opening Endoscopic (ICD-10-PCS; CPT 52597; principal; 2024-07-19 07:45)
DX: C61 Malignant neoplasm of prostate (principal); N40.1 Benign prostatic hyperplasia with lower urinary tract symptoms; N32.89 Other specified disorders of bladder; R39.12 Poor urinary stream; R33.8 Other retention of urine; R35.0 Frequency of micturition; R39.198 Other difficulties with micturition; R35.1 Nocturia; N52.9 Male erectile dysfunction, unspecified; I10 Essential (primary) hypertension; G47.33 Obstructive sleep apnea (adult) (pediatric); F90.1 Attention-deficit hyperactivity disorder, predominantly hyperactive type; E11.9 Type 2 diabetes mellitus without complications; I48.91 Unspecified atrial fibrillation; Z79.4 Long term (current) use of insulin; Z79.01 Long term (current) use of anticoagulants; Z93.2 Ileostomy status; Z90.49 Acquired absence of other specified parts of digestive tract; Z85.038 Personal history of other malignant neoplasm of large intestine
CPT/HCPCS: 52601; 82962; 93005; J0131; J0330; J0696; J1100; J1171; J1642; J2405; J2704; J3010; J3490

== ENCOUNTER → 2024-07-27 09:31 | Outpatient (CLI) | payer MEDICARE, OTHER, SELFPAY ==
[2024-06-16 10:11] VITALS: PULSE 75; RESP 28; O2SAT 95; BMI 30.4
[2024-07-27 10:14] LABS: Appearance Urine UA SL CLOUDY; Bilirubin Urine UA NEGATIVE (NEGATIVE); Color Urine UA YELLOW; Glucose Urine UA 2+ g/dL (Negative); Ketones Urine UA NEGATIVE (NEGATIVE); Leukocyte Esterase Urine UA TRACE (NEGATIVE); Nitrite Urine UA NEGATIVE (Negative); Occult Blood Urine UA 3+ (Negative); Protein Urine UA 2+ (Negative); Specific Gravity Urine UA 1.025 (1.000-1.035); Urine Volume 10mL (spun); Urobilinogen Urine UA 0.2 E.U./dL (0.2); pH Urine UA 5.5 (4.5-8.0)
[2024-07-27 10:15] LABS: Bacteria Urine Occasional (0-1); Culture Indicated Urine Specimen Cultured; RBC Urine 30-100/HPF (0-5/HPF); Squamous Epithelial Cell Urine 0-1 /HPF (0-5/HPF); WBC Urine 10-30/HPF (0-5/HPF)
== END ==
PROVIDERS: PCP Family Medicine; Visit Provider Urology
DX: R30.0 Dysuria (principal)
CPT/HCPCS: 81001; 87086

== ENCOUNTER → 2024-07-27 10:27 | Outpatient (CLI) | payer MEDICARE, OTHER, SELFPAY ==
[2024-06-16 10:11] VITALS: PULSE 75; RESP 28; O2SAT 95; BMI 30.4
== END ==
PROVIDERS: PCP Family Medicine; Referring Provider Family Medicine; Visit Provider Surgery
DX: E11.628 Type 2 diabetes mellitus with other skin complications (principal); L89.893 Pressure ulcer of other site, stage 3; Z93.2 Ileostomy status; Z87.891 Personal history of nicotine dependence; Z85.038 Personal history of other malignant neoplasm of large intestine
CPT/HCPCS: 11042; 99213

== ENCOUNTER → 2024-09-14 13:08 | Outpatient (CLI) | payer MEDICARE, OTHER, SELFPAY ==
[2024-06-16 10:11] VITALS: PULSE 75; RESP 28; O2SAT 95; BMI 30.4
== END ==
PROVIDERS: PCP Family Medicine; Visit Provider Urology
DX: N40.1 Benign prostatic hyperplasia with lower urinary tract symptoms (principal); C61 Malignant neoplasm of prostate; N52.9 Male erectile dysfunction, unspecified; Z68.31 Body mass index [BMI] 31.0-31.9, adult
CPT/HCPCS: 51798; 81002; 87077; 87086; 87186; 99213